=== PATIENT | male | born 1945 | race Caucasian/White ===

== ENCOUNTER 2020-04-28 08:45 | Day surgery (SDC) | payer MEDICARE ==
[~2020-04-28 08:45] MED LIST: CISPLATIN IV SCH; MANNITOL IV SCH; Palonosetron HCl 0.25 MG in Sodium Chloride 0.9% 50 ML IVPB SCH; SODIUM CHLORIDE 0.9% IV SCH; Sodium Chloride 0.9% 500 ML IV SCH
[2020-04-28 09:08] VITALS: BP 113/77; TEMP 97.9
== END 2020-04-28 12:32 | disposition home or self-care (01) ==
LOC: ONC/OP 08:45
PROVIDERS: ATTEND Internal Medicine Hematology & Oncology
DX: Z51.11 Encounter for antineoplastic chemotherapy (principal); C02.2 Malignant neoplasm of ventral surface of tongue
CPT/HCPCS: 77386; 96361; 96367; 96375; 96413; J1100; J1453; J2150; J2469; J3480; J3490; J7030; J9060

== ENCOUNTER 2020-05-05 09:19 | Day surgery (SDC) | payer MEDICARE ==
[~2020-05-05 09:19] MED LIST changes: +Sodium Chloride 0.9% 500 ML IVPB SCH
[2020-05-05] MEDS ORDERED: Sodium Chloride 0.9% 20 ML ONE (09:25)
[2020-05-05 09:34] VITALS: BP 114/72; TEMP 98.5
== END 2020-05-05 14:46 | disposition home or self-care (01) ==
LOC: ONC/OP 09:19
PROVIDERS: ATTEND Internal Medicine Hematology & Oncology
DX: Z51.11 Encounter for antineoplastic chemotherapy (principal); C02.2 Malignant neoplasm of ventral surface of tongue
CPT/HCPCS: 96361; 96367; 96375; 96413; J1100; J1453; J2150; J2469; J3480; J3490; J7030; J9060

== ENCOUNTER 2020-05-12 09:13 | Day surgery (SDC) | payer MEDICARE ==
[2020-05-12] MEDS ORDERED: Sodium Chloride 0.9% 20 ML ONE (09:21)
[2020-05-12 09:28] VITALS: BP 122/75; TEMP 97.8
== END 2020-05-12 13:12 | disposition home or self-care (01) ==
LOC: ONC/OP 09:13
PROVIDERS: ATTEND Internal Medicine Hematology & Oncology
DX: Z51.11 Encounter for antineoplastic chemotherapy (principal); C02.2 Malignant neoplasm of ventral surface of tongue
CPT/HCPCS: 77386; 96361; 96367; 96375; 96413; J1100; J1453; J2150; J2469; J3480; J3490; J7030; J9060

== ENCOUNTER 2020-05-21 23:37 | Inpatient (IN) | payer MEDICARE ==
[2020-05-21] MEDS ORDERED: Norepinephrine 8 MG/0.9% NS 250 ML ONE (23:44)
[2020-05-22] MEDS ORDERED: Lorazepam 2 MG/ML VIAL ONE (00:25)
[2020-05-22 00:53] LABS: Actual Bicarbonate (HCO3a) 14.6 mEq/L (22-28); Analyzer IN Cardio ER; Base Excess (BEa) -9.8 mEq/L (-2.0 to +3.0); CO2 Tension 27.9 mmHg (35.0-45.0); Calcium, Ionized (arterial) 1.04 mmol/L (1.12-1.30); Hemoglobin (Hb) 11.8 g/dL (14.0-18.0); O2 Tension (PaO2), arterial 119.9 mmHg (> 70.0); Potassium - ABG Lab 3.79 mmol/L (3.70-5.30); pH, Arterial 7.34 (7.35-7.45)
[2020-05-22 00:55] LABS: Puncture Site RRA
[2020-05-22 00:56] LABS: ALV-art Gradient 166.075 mmHg (0-20)
[2020-05-22 01:16] LABS: Band 8 % (5-11); Hemoglobin 11.6 g/dL (14.0-18.0); Hypochromia SLIGHT = 6-15 cells (100X) (0-5/hpf); Lymphocytes 40 % (21-51); MDiff Complete? YES; Mean Corpuscular HGB CONC 34.3 g/dL (32.0-36.0); Mean Corpuscular Hemoglobin 33.7 pg (27.0-31.0); Mean Corpuscular Volume 98.3 fL (78.0-98.0); Metamyelocyte 2 % (0-0); Monocytes 26 % (0-10); Neutrophil 24 % (42-75); Platelet Count 33 thou/uL (130-400); Platelet Morphology Comment Appears Decreased; RBC Distribution Width 12.8 % (11.5-14.5); Red Blood Cell (RBC) Count 3.42 mill/uL (4.70-6.10); Reflex for Review?? YES; White Blood Cell (WBC) Count 1.6 thou/uL (4.8-10.8)
[2020-05-22] MEDS ORDERED: Ondansetron PF 4 MG/2 ML Vial IVP PRN (01:22)
[2020-05-22] MEDS ORDERED: Ondansetron ODT 4 MG TAB PO PRN (01:22)
[2020-05-22] MEDS ORDERED: Acetaminophen 650 MG Suppository PR PRN (01:22)
--- NOTE | 2020-05-22 01:29 | PDOC.HHP ---
Hospitalist HPI - History of Present Illness dyspnea History of Present Illness: history is limited, patient with considerable dyspnea unable to speak more than a few words at a time, also had cancer removed from tongue Case of an 74y/o male with pmhx of squamous cell carcinoma currently on treatment with chemo + radio, last treatment 2 weeks ago who comes to hospital due to dyspnea. patient refers he was on his usual state of health until 2-3 days ago when he started with general malaise and dyspnea. pt also refers noted some cough with production of reddish sputum. patient was evaluated at [facility] and was found to be on sepsis for which bundles were started. He was given 30/kg bolus of normal saline, cefepime, vancomycin, and Levaquin, which was later discontinued due to a decreased in b/p when it was started. Patient was noted to be hypoxic, febrile tachycardic, and hypotensive for which levophed was also started. patient was diagnosed with b/l pneumonia with septic shock for which hospitalist was called for further evaluation and management Hospitalist ROS - Review of Systems All other systems reviewed; all pertinent +/- noted in HPI/Subj Hospitalist History - Past Surgical History Other Surgical History: tumor from tongue removed - Family History Family History: reports: no pertinent history - Social History Smoking Status: Former smoker Alcohol: reports: None Drugs: reports: none - Exam General Appearance: ill appearing Eye: PERRL, anicteric sclera ENT: normocephalic atraumatic, no oropharyngeal lesions Neck: supple, symmetric Heart: no murmur, no gallops Heart - other findings: tachycardic Respiratory: no wheezes, rhonchi, tachypneic Gastrointestinal: soft, non-tender, non-distended, normal bowel sounds Extremities: no cyanosis, no clubbing, no edema Skin: normal turgor, no lesions, no rashes Neurological: cranial nerve grossly intact, normal sensation to touch, no weakness Musculoskeletal: normal tone, normal strength, no muscle wasting Psychiatric: normal affect, normal behavior, A&O x 3 Hospitalist Results - Labs Result Diagrams: 05/22/20 01:40 RADIOTELEGRAPHER Lab results: ABG pH 7.34 (7.35-7.45) L 05/22/20 00:50 ABG pCO2 27.9 mmHg (35.0-45.0) L 05/22/20 00:50 ABG pO2 119.9 mmHg (> 70.0) H 05/22/20 00:50 Lactic Acid 3.9 mmol/L (0.5-2.2) H 05/22/20 00:25 Hospitalist H&P A/P - Problem (1) Septic shock Code(s): A41.9 - SEPSIS, UNSPECIFIED ORGANISM; R65.21 - SEVERE SEPSIS WITH SEPTIC SHOCK Status: Acute (2) Pneumonia Code(s): J18.9 - PNEUMONIA, UNSPECIFIED ORGANISM Status: Acute (3) Squamous cell cancer of buccal mucosa Code(s): C06.0 - MALIGNANT NEOPLASM OF CHEEK MUCOSA Status: Acute (4) Pancytopenia Code(s): D61.818 - OTHER PANCYTOPENIA Status: Acute - Plan Plan: case of 74y/o male with the stated pmhx who present to hospital due to septic shock septic shock / pneumonia - febrile tachycardic hypotensive with cxr with b/l pneumonia b/p did no respon to ivfs started on levophed - sepsis bundles started. ivfs administered, cultures taken broad spectrum abx started - currently on cefepime and vanc - f/u blood cultures - on levophed - concern for possible covid 19, initial test negative - isolation protocol started - id consulted - f/u inflammation markers - solucortef 100mg now then 50 q 6hr - pulmo/crit consulted acute respiratory failure - secondary to pneumonia - on bipap, wean as tolerated - extract wringer consulted pancytopenia / squamouns cell carcinoma - reverse isolation precautions - dvt prophylaxis w compression stocking - transfuse rbcs if below 7, plts if below 10 - likely related to ca treatment - oncologist consulted
[2020-05-22 01:50] LABS: SARS-CoV-2 NAA Rapid Test Not Detected (NotDetected)
[2020-05-22] MEDS ORDERED: Hydrocortisone Sod Succ/PF 100 mg/2 ml Vial IVP SCH (02:15)
[2020-05-22] MEDS: Sodium Chloride 0.9% 1,000 ML IV SCH ×2 (02:26→15:40)
[2020-05-22] MEDS ORDERED: PROVENTIL INHALER 6.7 G (200 INHALATIONS) INH SCH (02:30)
[2020-05-22] MEDS ORDERED: Albuterol Sulfate 1.25 MG/3 ML NEB NEB SCH (02:30)
[2020-05-22 02:44] LABS: ALT (SGPT) 24 U/L (8-55); AST (SGOT) 28 U/L (5-34); Albumin 2.7 g/dL (3.4-4.8); Alkaline Phosphatase 78 U/L (40-110); Anion Gap 19 mmol/L (10-20); BUN (Urea Nitrogen) 43 mg/dL (8.4-25.7); Bilirubin, Total 1.1 mg/dL (0.2-1.2); Calc. Creatinine Clearance 45 mL/min (70-130); Calcium 7.5 mg/dL (7.8-10.44); Carbon Dioxide 17 mmol/L (23-31); Chloride 111 mmol/L (98-107); Estimated GFR-MDRD 41; Glucose 141 mg/dL (83-110); Protein, Total 5.7 g/dL (5.8-8.1); Sodium 143 mmol/L (136-145)
[2020-05-22] MEDS ORDERED: Succinylcholine 200 MG/10 ml SYRINGE FS SCH (03:19)
[2020-05-22] MEDS ORDERED: Propofol BOLUS 1,000 MG/100 ML VIAL IV PRN (03:30)
[2020-05-22] MEDS ORDERED: DISCONTINUE PREVIOUS NARCOTIC PAIN MEDICATIONS AND BENZODIAZEPINES FS SCH (03:30)
[2020-05-22] MEDS ORDERED: Morphine 2 MG/ML VIAL SLOW IVP PRN (03:30)
[2020-05-22] MEDS ORDERED: Fentanyl BOLUS 250 ML IVPB PRN (03:30)
[2020-05-22] MEDS ORDERED: Lorazepam 2 MG/ML VIAL SLOW IVP PRN (03:30)
[2020-05-22 03:36] LABS: Lactic Acid 2.7 mmol/L (0.5-2.2)
[2020-05-22] MEDS: Propofol 1,000 MG/100 ML VIAL IV PRN ×3 (03:36→21:32)
[2020-05-22] MEDS: fentaNYL Citrate/PF 2,000 MCG in Sodium Chloride 0.9% 60 ML IV SCH ×2 (03:39→23:54)
[2020-05-22 04:01] LABS: Bacteria/HPF 2+ HPF (None Seen); Bilirubin Negative (Negative); Blood, Urine 2+ (Negative); Clarity Turbid (Clear); Glucose, Urine (Dipstick) Normal (Negative); Ketone, Urine Negative (Negative); Leukocyte Negative Leu/uL (Negative); Nitrite Negative (Negative); Protein, Urine (Dipstick) 30 mg/dL (Neg-Trace); RBC/HPF 21-50 HPF (0-3); Specific Gravity, Urine 1.021 (1.002-1.036); Squamous Epithelial 0-3 HPF (0-3); Urobilinogen Normal mg/dL (Less than 2)
[2020-05-22 04:03] LABS: Urine Culture Reflex Yes Yes
[2020-05-22 04:06] LABS: Actual Bicarbonate (HCO3a) 17.4 mEq/L (22-28); Base Excess (BEa) -7.7 mEq/L (-2.0 to +3.0); CO2 Tension 34.1 mmHg (35.0-45.0); Calcium, Ionized (arterial) 1.07 mmol/L (1.12-1.30); Carboxyhemoglobin (COHb) 0.1 gm% (0.0-3.0); Hemoglobin (Hb) 11.5 g/dL (14.0-18.0); O2 Tension (PaO2), arterial 129.6 mmHg (> 70.0); Potassium - ABG Lab 4.21 mmol/L (3.70-5.30); pH, Arterial 7.33 (7.35-7.45)
[2020-05-22 04:10] LABS: ALV-art Gradient 255.575 mmHg (0-20); Puncture Site RRA
--- NOTE | 2020-05-22 04:15 | PDOC.BPN ---
- Brief Progress Note Encounter Date: 05/22/20 after an initial improvement with bipap, patient was changed to nasal canula. after a few hours nurse called me to notify me that patient had deteriorated and had to be placed on bipap again but was not doing to well. i examined the patient again, he was on bipap with adequate sats but his RR was fluctuating between 45-50 and he stated that he was getting very tired. To prevent a future respiratory collapse the decision was made to intubate the patient. i explained to him the current situation and he agreed to be intubated. anesthesiologist was called and intubation was done succesfully on first attemp.
[2020-05-22] MEDS: Cefepime 2 GM in Sodium Chloride 0.9% 100 ML IVPB SCH ×3 (06:01→21:33)
[2020-05-22] MEDS: Albuterol Sulfate 1.25 MG/3 ML NEB NEB SCH ×5 (07:33→21:47)
[2020-05-22] MEDS: Hydrocortisone Sod Succ/PF 100 mg/2 ml Vial IVP SCH ×3 (07:49→21:32)
[2020-05-22] MEDS: Famotidine/PF 20 mg/2ml Vial SLOW IVP SCH (07:49)
[2020-05-22] MEDS: Norepinephrine 8 MG/0.9% NS 250 ML IVPB SCH ×2 (07:53→23:35)
[2020-05-22] MEDS ORDERED: FLU VACC QS2020-21(65YR UP)/PF 240 MCG/0.7 ML SYRINGE IM ONE (09:00)
--- NOTE | 2020-05-22 10:39 | RAD ---
PORTABLE CHEST: 05/22/20 PROVIDED CLINICAL HISTORY: Status post intubation. COMPARISON: Examination performed earlier same date. FINDINGS: Interval placement of endotracheal tube, the tip of which terminates just caudal to the thoracic inle t. Interval placement of enteric catheter, the tip of which is not visualized but is below the diaphr agm. Additional significant interval change from the prior study is not apparent. IMPRESSION: As above. POS: REILLY
--- NOTE | 2020-05-22 11:35 | RAD ---
PORTABLE CHEST: 05/22/20 PROVIDED CLINICAL HISTORY: Pneumonia. COMPARISON: 05/21/2020 FINDINGS: Interval placement of left subclavian central line, the tip of which projects over the expected locat ion of the cavoatrial junction. There is diffuse left hemithoracic air space disease. This follows pa tchy interstitial and air space opacities involving the right hemithorax. There is no pleural fluid o r pneumothorax apparent. IMPRESSION: Bilateral air space disease, left greater than right, appears similar. Interval placement of left sub clavian central line without evidence for complication. POS: REILLY
[2020-05-22] MEDS ORDERED: Succinylcholine 200 MG/10 ml SYRINGE FS ONE (13:39)
--- NOTE | 2020-05-22 15:51 | CON ---
DATE OF CONSULTATION: REASON FOR CONSULT: Squamous cell tongue cancer. HISTORY OF PRESENT ILLNESS: Mr. 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 He is status post resection and currently on concurrent chemoradiotherapy. He received cisplatin. He has been dealing with mouth pain and dysphagia, but has been resistant to have a feeding tube. He recently had a urinary tract infection and was treated with antibiotics. He presented to the emergency room yesterday with acute shortness of breath. He eventually declined and had to be intubated. He is currently on Levophed and pressors. He was pancytopenic on arrival with a white count of 1.6. His last cisplatin treatment was May 12. He has skipped his last weeks treatment due to just not feeling well. The patient's chest x-ray shows possible pneumonia. PAST MEDICAL HISTORY: Stage IVB squamous cell carcinoma of the tongue. PAST SURGICAL HISTORY: Right lateral tongue resection. ALLERGIES: NO KNOWN DRUG ALLERGIES. CURRENT MEDICATIONS: 1. Cefepime. 2. Pepcid. 3. Fentanyl. 4. Solu-Cortef. 5. Morphine. 6. Levophed. 7. Diprivan. 8. Vancomycin. 9. Normal saline. FAMILY HISTORY: Mother had bone cancer. Siblings have colon cancer. Child had lymphoma. SOCIAL HISTORY: Single. Lives with friend. A 45 year history of smoking. Former alcohol consumption. REVIEW OF SYSTEMS: Unable to obtain secondary to respiratory status. PHYSICAL EXAMINATION: VITAL SIGNS: Temperature is 98.7, pulse is 83, respiratory rate 13, BP is 102/63, and he is 97% on 40% FiO2. GENERAL: Chronically ill-appearing male, sedated. HEENT: Pupils are equal and reactive to light. NECK: He has a right cervical neck mass, neck wound, which is healed. LUNGS: With scattered rhonchi. CV: Regular rate and rhythm. ABDOMEN: Soft and nontender. Bowel sounds are positive. SKIN: He has radiation changes to his right neck. NEUROLOGIC: He is sedated. PERTINENT LABORATORY DATA AND X-RAYS: Current WBCs are 1.6, hemoglobin is 11.6, hematocrit is 33.7, and platelet count is 33,000. He has 24% neutrophils, 8% bands, and 40% lymphocytes. Sodium 143, potassium 4.0, chloride 111, CO2 of 17, BUN is 43, creatinine 1.65, lactic acid 2.7, and calcium 7.5. Ferritin is 2660. Bilirubin is 1.1, AST is 28, ALT is 24, and alkaline phosphatase is 78. Serum total protein is 5.7, albumin 2.7, and globulin 3. Urine shows 2+ bacteria. COVID-19 PCR negative. Radiology per HPI. ASSESSMENT: 1. Acute respiratory failure. 2. Pancytopenia secondary to chemoradiation. 3. Squamous cell carcinoma of the tongue. DISCUSSION: The patient is supported with the vent. He is on pressors and IV fluids. We will continue to monitor his blood counts. He is unable to get Neulasta at this time as he is on radiation. We will follow along with his hospital course. Will discuss with Dr. Terrell. Thank you for the consult. Job ID: [id number] [id number]
--- NOTE | 2020-05-22 17:28 | CON ---
DATE OF CONSULTATION: 05/22/2020 CHIEF COMPLAINT: Pneumonia with respiratory failure. HISTORY OF PRESENT ILLNESS: Mr. 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 He has subsequently received radiation and chemotherapy, most recently administered approximately 2 weeks ago. The patient presents to outside emergency room on the day of admission with increasing shortness of breath. He states that this has been present for several days, somewhere between 2 and 5, with associated malaise and dirty sputum. He was given a diagnosis of sepsis syndrome, for which fluid bolus administration and IV antibiotic therapy were initiated, and he was transferred to [facility] for further assessment. In the emergency room, the patient was further stabilized. He received Levophed for hypotension and ultimately admitted to the intensive care unit with a diagnosis of septic shock. Earlier this morning, the patient developed worsening respiratory distress and could not be maintained with BiPAP, at which time he was electively intubated. He is receiving sedation for ventilator tolerance and remains on Levophed infusion. I reviewed the available medical record. There is no family available at this time. The patient is unable to give history. SOCIAL HISTORY: The patient is a 74-year-old male. He is a former smoker. ALLERGIES: THERE ARE NO KNOWN MEDICATION ALLERGIES. HOME MEDICATIONS: Include [place]. He has received multiple antibiotics since admission. He has expressed an interest in intubation and resuscitation if appropriate based on his clinical status. PAST MEDICAL HISTORY: Remarkable for extensive tobacco history and what I presumed to be at least a component of COPD. He has a history of carcinoma of the tongue treated with hemiglossectomy and radical right neck followed by chemoradiation therapy. He does not have a known history of hypertension, myocardial infarction, or diabetes. REVIEW OF SYSTEMS: Unobtainable. FAMILY HISTORY: Unobtainable. PHYSICAL EXAMINATION: VITAL SIGNS: Current blood pressure 108/64, he is on Levophed at 20 mcg per minute; respiratory rate is 12; pulse ox is 97%; heart rate is 78. His current ventilator settings include IMV with a rate of 14, tidal volume 500, FiO2 of 0.6, pressure support of 10, and PEEP of 5. GENERAL: He is currently sedated. He does not follow commands. HEENT: Shows no icterus. Pupils are reactive. I cannot evaluate his oropharynx due to his endotracheal tube. NECK: He has postradiation changes involving the right neck, which is mildly fixed, but not firmly fixed. He has no JVD. LUNGS: Show bilateral rales. HEART: Regular rate and rhythm. ABDOMEN: Soft. Bowel sounds are normal. There is no guarding. EXTREMITIES: Show no cyanosis, clubbing, or edema. LABORATORY DATA: Chest x-ray shows extensive consolidation, especially on the left. Endotracheal tube is in good position. White count 1600, hemoglobin 11.6, hematocrit 33.7, and platelet count 33,000. Differential includes 24 lymphocytes and 8 bands. He has an absolute granulocyte count of approximately 500. D-dimer is greater than 20. Blood gas includes pH of 7.33, pCO2 of 34, pO2 of 129, and bicarbonate of 17. This is obtained on ventilator settings as described above. Chemistries include sodium 141, potassium 4.2, chloride 115, CO2 is 17, BUN 43, creatinine 1.6. Lactic acid is 2.7. CRP is 31. Liver tests are negative. Urinalysis shows 20 to 50 red cells and 10 to 20 white cells. COVID swab is negative. Cultures to date are negative. IMPRESSION: 1. Respiratory failure secondary to pneumonia in the setting of neutropenia. The patient has a known carcinoma of the tongue, status post right radical neck hemiglossectomy and postoperative chemoradiation, most recently given 2 weeks ago. He is on broad-spectrum antibiotics. 2. Past history of tobacco abuse. PLAN: The patient has received septic bundle and is on broad-spectrum antibiotics. Radiographically, he has a large pneumonia, especially on the left. We will continue supportive therapy including fluids and pressors. He is in neutropenic precautions. We will try to figure out if he is a candidate for G-CSF. In the interval, his condition is critical and prognosis is guarded. We will continue current ventilator settings and begin weaning when appropriate, although at this point, he remains non-weanable candidate due to his hypotension and underlying sepsis. Thank you for this consultation. Job ID: [id number]
--- NOTE | 2020-05-22 20:31 | CON ---
DATE OF CONSULTATION: 05/22/2020 REASON FOR CONSULTATION: Fever, neutropenia, and pneumonia. HISTORY OF PRESENT ILLNESS: A 74-year-old with history of head and neck squamous cell cancer on chemoradiation therapy, who was admitted with pneumonia, sepsis, neutropenia, last treatment about 2 weeks before admission and developed dyspnea, which started about 2 to 3 days before admission associated with malaise, cough with some hemoptysis. Eventually went to the emergency room in [place], was given sepsis protocol and broad-spectrum coverage and transferred to the hospital here. Initial findings in the emergency room; BP 90/70, heart rate 115, respiratory rate 43, temperature 100.1, and O2 saturation 97 on 4 L. The patient was in distress, very tachypneic. HEENT exam was not remarkable. Lungs with diffuse inspiratory crackles. Heart exam with regular rhythm without murmurs. Abdomen was not tender or distended. No edema noted. Other findings included a white cell count 1.6, total neutrophil count about 480 almost 500, 24% neutrophils, 8% bands, and 26% monocytes. D-dimer greater than 20. Sodium 143 and creatinine 1.65. Liver profile normal. CRP 30. Albumin 2.7. Ferritin 2600. Lactic acid 2.7. COVID was not detected. The urinalysis 11 to 20 wbc's. Initial chest film with bilateral infiltrates, left greater than right and subclavian left central line. Currently, Mr. Najera is sedated and intubated. According to the nurse, he is pretty responsive and follows commands when he is more alert. PAST MEDICAL HISTORY: Head and neck cancer, squamous cell of the tongue was resected and the patient is getting chemoradiation therapy. PAST SURGICAL HISTORY: As above. SOCIAL HISTORY: Former smoker. FAMILY HISTORY: Noncontributory. CURRENT MEDICATIONS: Include; 1. Inhalers. 2. Cefepime. 3. Fentanyl. 4. Robitussin. 5. Hydrocortisone 50 q.6. 6. Lorazepam. 7. Levophed. 8. Vancomycin. PHYSICAL EXAMINATION: VITAL SIGNS: T-max 101, he seem to be defervescing and saturations are 95 with 50 FiO2, PEEP of 5. SKIN: With a left subclavian central line. Ervin catheter. Orotracheal intubation. A few areas of bruising. No lymphadenopathy. HEENT: Constricted pupils symmetric. LUNGS: Coarse breath sounds, but no crackles. HEART: S1 and S2. Regular rate without murmurs. ABDOMEN: Soft, not distended or tender. No ascites. No bladder distention. EXTREMITIES: No joint inflammatory activity. No edema. Pulses 1+ in dorsalis pedis. I cannot test his movements right now because of sedation or mental state, but according to the nurse, he does follow commands when he is more alert. LABORATORY DATA: Followup labs are not available yet. Influenza was negative. Urine culture, no growth 48 hours. Blood cultures are pending. ASSESSMENT AND PLAN: Squamous cell cancer of the tongue, status post resection and chemoradiation therapy, now two weeks following his course of treatment with neutropenia and pneumonia. He has community-acquired pneumonia, immunosuppressed host associated with neutropenia, so he is on proper regimen right now. Pretest likelihood for COVID is around 50, posttest likelihood less than 15%. Continue current management. Job ID: [id number]
[2020-05-22] MEDS ORDERED: Vancomycin 1 GM in Premix Bag 1 BAG IVPB SCH (23:00)
[2020-05-22] MEDS: Vancomycin HCl 1.25 GM in Sodium Chloride 0.9% 250 ML 250 ML IVPB SCH (23:28)
[2020-05-23] MEDS: Albuterol Sulfate 1.25 MG/3 ML NEB NEB SCH ×3 (02:39→11:16)
[2020-05-23] MEDS: Hydrocortisone Sod Succ/PF 100 mg/2 ml Vial IVP SCH ×4 (03:11→20:54)
[2020-05-23 05:12] LABS: Anion Gap 14 mmol/L (10-20); BUN (Urea Nitrogen) 29 mg/dL (8.4-25.7); Calc. Creatinine Clearance 83 mL/min (70-130); Calcium 7.8 mg/dL (7.8-10.44); Carbon Dioxide 22 mmol/L (23-31); Chloride 113 mmol/L (98-107); Estimated GFR-MDRD 83; Glucose 132 mg/dL (83-110); Potassium 3.9 mmol/L (3.5-5.1); Sodium 145 mmol/L (136-145)
[2020-05-23 05:15] LABS: Band 8 % (5-11); Hemoglobin 9.7 g/dL (14.0-18.0); Lymphocytes 16 % (21-51); MDiff Complete? YES; Mean Corpuscular HGB CONC 33.8 g/dL (32.0-36.0); Mean Corpuscular Hemoglobin 33.6 pg (27.0-31.0); Mean Corpuscular Volume 99.6 fL (78.0-98.0); Mean Platelet Volume 10.1 fL (7.4-10.4); Metamyelocyte 8 % (0-0); Monocytes 8 % (0-10); Neutrophil 60 % (42-75); Platelet Count 31 thou/uL (130-400); Platelet Morphology Comment Appears Decreased; Red Blood Cell (RBC) Count 2.88 mill/uL (4.70-6.10); White Blood Cell (WBC) Count 1.1 thou/uL (4.8-10.8)
[2020-05-23] MEDS: Propofol 1,000 MG/100 ML VIAL IV PRN ×3 (05:49→20:54)
[2020-05-23] MEDS: Cefepime 2 GM in Sodium Chloride 0.9% 100 ML IVPB SCH ×3 (05:51→21:13)
[2020-05-23] MEDS: Sodium Chloride 0.9% 1,000 ML IV SCH ×2 (05:52→20:54)
[2020-05-23 07:21] LABS: Actual Bicarbonate (HCO3a) 24.7 mEq/L (22-28); Base Excess (BEa) -1.5 mEq/L (-2.0 to +3.0); CO2 Tension 48.4 mmHg (35.0-45.0); Calcium, Ionized (arterial) 1.06 mmol/L (1.12-1.30); Carboxyhemoglobin (COHb) 0.3 gm% (0.0-3.0); O2 Tension (PaO2), arterial 125.2 mmHg (> 70.0); Potassium - ABG Lab 3.88 mmol/L (3.70-5.30); pH, Arterial 7.33 (7.35-7.45)
[2020-05-23 07:26] LABS: Puncture Site RR
[2020-05-23] MEDS: Famotidine/PF 20 mg/2ml Vial SLOW IVP SCH (08:25)
[2020-05-23] MEDS: Norepinephrine 8 MG/0.9% NS 250 ML IVPB SCH ×2 (08:46→18:46)
[2020-05-23] MEDS ORDERED: Albumin 25% 25 GM/100 ML BOT IVPB SCH (09:30)
--- NOTE | 2020-05-23 10:43 | PRG ---
DATE OF SERVICE: 05/23/2020 SUBJECTIVE: He is a gentleman with respiratory failure, intubated. X-ray shows left-sided pneumonia. He is sedated; obviously unable to get any additional information. OBJECTIVE: VITAL SIGNS: pulse 59, blood pressure respiratory rate 13. CHEST: Bilateral rhonchi and crackles. CARDIAC: Normal S1, S2. No gallops. ABDOMEN: No masses. DIAGNOSTIC STUDIES: X-ray shows a left-sided pneumonia. He is immunocompromised. History of head and neck cancer, recent chemotherapy. IMPRESSION: Respiratory failure, left lung pneumonia, immunocompromised, pancytopenia. White count 1.1, platelet count 64334, bands. PO2 125, pCO2 48, pH 7.33 50%. Lytes are normal. PLAN: Continue Maxipime. Continue vancomycin, steroids. Wean when stable. I am going to start him on some nutrition. PT. One-half hour of critical care time. Job ID: [id number]
--- NOTE | 2020-05-23 14:23 | PDOC.HOSPP ---
- Subjective Encounter Date: 05/23/20 non-verbal (Remains on the ventilator.) - Objective Vital Signs & Weight: Vital Signs (12 hours) Temp Pulse Resp BP Pulse Ox 05/23/20 12:00 99.4 F 16 05/23/20 11:17 77 116/72 05/23/20 11:00 99.5 F 05/23/20 10:00 16 05/23/20 08:00 99.8 F H 21 H 97 05/23/20 06:58 82 96/62 05/23/20 06:00 22 H 05/23/20 04:00 19 05/23/20 03:00 98.0 F 05/23/20 02:40 84 96/61 Weight Admit Weight 174 lb Weight 173 lb 15.115 oz Most Recent Monitor Data Heart Rate from ECG 85 NIBP 119/71 NIBP BP-Mean 87 Respiration from ECG 10 SpO2 95 I&O: 05/22/20 05/23/20 05/24/20 06:59 06:59 06:59 Intake Total 2566 Output Total 2019 54 Balance 546 -545 Result Diagrams: 05/23/20 04:00 05/23/20 04:00 Hospitalist ROS - Medication Medications: Active Medications Generic Name Dose Route Start Last Admin Trade Name Freq PRN Reason Stop Dose Admin Albuterol/Ipratropium 3 ml 05/23/20 13:00 05/23/20 13:47 Ipratropium/Albuterol Sulfate 3 Ml Neb NEB 3 ml [id number] SOURAV Administration Famotidine 20 mg 05/22/20 09:00 05/23/20 08:25 Famotidine/Pf 20 Mg/2ml Vial SLOW IVP 20 mg DAILY SOURAV Administration Hydrocortisone Sodium Succinate 50 mg 05/22/20 09:00 05/23/20 08:24 Hydrocortisone Sod Succ/Pf 100 Mg/2 Ml Vial IVP 50 mg 0300,0900,1500,2100 SOURAV Administration Sodium Chloride 1,000 mls @ 70 mls/hr 05/22/20 01:30 HOME CARE ATTENDANT 05/23/20 05:52 Normal Saline 0.9% IV 1,000 mls .[id number] SOURAV Administration Cefepime HCl 2 gm/ Sodium 100 mls @ 200 mls/hr 05/22/20 06:00 05/23/20 05:51 Chloride IVPB 100 mls Q8HR SOURAV Administration Norepinephrine Bitartrate 250 mls @ 0 mls/hr 05/22/20 01:30 HOME CARE ATTENDANT 05/23/20 08:46 Levophed IVPB 250 mls INF SOURAV Administration Protocol Titrate Fentanyl Citrate 2,000 mcg/ 100 mls @ 0 mls/hr 05/22/20 03:30 05/22/20 23:54 Sodium Chloride IV 06/21/20 03:30 100 mls INF SOURAV Administration Protocol Per Protocol Vancomycin HCl 1.25 gm/ Sodium 250 mls @ 166.667 mls/hr 05/22/20 23:00 05/22/20 23:28 Chloride IVPB 250 mls 2300 SOURAV Administration Propofol 1,000 mg 05/22/20 03:30 05/23/20 05:49 Propofol 1,000 Mg/100 Ml Vial IV 06/21/20 03:30 1,000 mg INF PRN Administration TO ACHIEVE GOAL RASS Protocol - Exam ENT: normocephalic atraumatic Neck: supple, no JVD Heart: RRR Respiratory: normal chest expansion, no tachypnea Extremities: no cyanosis, no clubbing, no edema Hosp A/P (1) UTI (urinary tract infection) Status: Acute (2) Pancytopenia Code(s): D61.818 - OTHER PANCYTOPENIA Status: Acute (3) Pneumonia Code(s): J18.9 - PNEUMONIA, UNSPECIFIED ORGANISM Status: Acute (4) Septic shock Code(s): A41.9 - SEPSIS, UNSPECIFIED ORGANISM; R65.21 - SEVERE SEPSIS WITH SEPTIC SHOCK Status: Acute (5) Squamous cell cancer of buccal mucosa Code(s): C06.0 - MALIGNANT NEOPLASM OF CHEEK MUCOSA Status: Acute (6) Acute kidney injury Code(s): N17.9 - ACUTE KIDNEY FAILURE, UNSPECIFIED Status: Acute - Plan The patient still in septic shock today. He is requiring less Levophed than yesterday. Continue broad-spectrum antibiotics per ID recommendations. Vent management per pulmonology. His urine output is adequate. Creatinine level improving.
[2020-05-23 22:40] LABS: Vancomycin, Trough 5.6 ug/mL
[2020-05-23] MEDS: Vancomycin HCl 1.25 GM in Sodium Chloride 0.9% 250 ML 250 ML IVPB SCH ×2 (23:24→23:32)
[2020-05-24] MEDS: Hydrocortisone Sod Succ/PF 100 mg/2 ml Vial IVP SCH ×4 (02:34→20:54)
[2020-05-24] MEDS ORDERED: Metoprolol Tartrate 5 MG/5 ML VIAL IVP ONE (03:15)
[2020-05-24] MEDS: Amiodarone 450 MG, Admixture Fee 1 EACH in Dextrose 5% in Water 250 ML IVPB SCH ×2 (03:54→11:55)
[2020-05-24] MEDS: fentaNYL Citrate/PF 2,000 MCG in Sodium Chloride 0.9% 60 ML IV SCH (04:11)
[2020-05-24 04:39] LABS: Hemoglobin 9.3 g/dL (14.0-18.0); Mean Platelet Volume 9.6 fL (7.4-10.4); Platelet Count 19 thou/uL (130-400); RBC Distribution Width 13.1 % (11.5-14.5)
[2020-05-24 04:55] LABS: Band 32 % (5-11); Hypochromia SLIGHT = 6-15 cells (100X) (0-5/hpf); Lymphocytes 20 % (21-51); MDiff Complete? YES; Macrocytosis SLIGHT = 6-15 cells (100X) (0-5/hpf); Metamyelocyte 8 % (0-0); Monocytes 16 % (0-10); Neutrophil 24 % (42-75); Platelet Morphology Comment Appears Decreased
[2020-05-24 05:05] LABS: Anion Gap 11 mmol/L (10-20); BUN (Urea Nitrogen) 28 mg/dL (8.4-25.7); Calc. Creatinine Clearance 93 mL/min (70-130); Calcium 8.2 mg/dL (7.8-10.44); Carbon Dioxide 27 mmol/L (23-31); Chloride 114 mmol/L (98-107); Estimated GFR-MDRD Greater than 90; Glucose 164 mg/dL (83-110); Potassium 3.3 mmol/L (3.5-5.1); Sodium 149 mmol/L (136-145)
[2020-05-24] MEDS: Cefepime 2 GM in Sodium Chloride 0.9% 100 ML IVPB SCH ×3 (05:34→20:56)
[2020-05-24] MEDS: Propofol 1,000 MG/100 ML VIAL IV PRN (05:35)
[2020-05-24 07:48] LABS: Actual Bicarbonate (HCO3a) 26.7 mEq/L (22-28); Base Excess (BEa) 0.2 mEq/L (-2.0 to +3.0); CO2 Tension 53.4 mmHg (35.0-45.0); Calcium, Ionized (arterial) 1.15 mmol/L (1.12-1.30); Carboxyhemoglobin (COHb) 0.3 gm% (0.0-3.0); Hemoglobin (Hb) 9.2 g/dL (14.0-18.0); O2 Tension (PaO2), arterial 94.6 mmHg (> 70.0); Potassium - ABG Lab 3.28 mmol/L (3.70-5.30); pH, Arterial 7.32 (7.35-7.45)
[2020-05-24 07:52] LABS: Puncture Site RR
[2020-05-24] MEDS: Famotidine/PF 20 mg/2ml Vial SLOW IVP SCH (08:06)
[2020-05-24] MEDS: Norepinephrine 8 MG/0.9% NS 250 ML IVPB SCH (08:07)
--- NOTE | 2020-05-24 09:39 | PRG ---
DATE OF SERVICE: 05/24/2020 SUBJECTIVE: A 74-year-old gentleman, intubated, in the vent, remains sedated. OBJECTIVE: VITAL SIGNS: His temperature is 98, pulse 95, blood pressure 101/65, respiratory rate 18, saturations 90%. CHEST: Bilateral rhonchi and crackles. CARDIAC: Normal S1, S2. No gallops. ABDOMEN: No masses. LABORATORY DATA: White count 1, H and H are 9 and 28, platelet count is 19,000, 24 segs, 32 bands. PO2 is 94, pCO2 of 53, pH 7.32, on 40% PEEP of 5. Lytes are normal. Potassium 3.3. Respiratory failure, left-sided pneumonia, head and neck cancer, probably aspiration. PLAN: He is on Maxipime and vancomycin, steroids. Still awaiting results of his cultures. We will continue all supportive care. Wean when he is stable. He is on nutrition, PT. One-half hour of critical care time. Job ID: [id number]
[2020-05-24] MEDS ORDERED: Digoxin 0.5 MG/2 ML AMP SLOW IVP SCH (10:00)
[2020-05-24] MEDS: Vancomycin HCl 1.25 GM in Sodium Chloride 0.9% 250 ML 250 ML IVPB SCH ×2 (10:33→22:26)
[2020-05-24] MEDS: 1/2 NS w/KCL 20 mEq 1,000 ML IV SCH ×2 (12:19→21:36)
[2020-05-24] MEDS: Digoxin 0.5 MG/2 ML AMP SLOW IVP SCH ×2 (15:13→20:57)
--- NOTE | 2020-05-24 15:17 | PDOC.HOSPP ---
- Subjective Encounter Date: 05/24/20 Subjective: Patient is off sedation today. He is able to open his eyes and follow commands. - Objective Vital Signs & Weight: Vital Signs (12 hours) Temp Pulse Resp BP Pulse Ox 05/24/20 15:13 128 H 05/24/20 14:44 128 H 28 H 93 L 05/24/20 12:00 98.2 F 05/24/20 10:33 141 H 05/24/20 10:00 92 L 05/24/20 08:00 98.2 F 14 96 05/24/20 07:35 95 101/67 05/24/20 06:00 16 05/24/20 04:00 98.6 F 15 Weight Admit Weight 174 lb Weight 175 lb 4.28 oz Most Recent Monitor Data Heart Rate from ECG 143 NIBP 98/66 NIBP BP-Mean 76 Respiration from ECG 20 SpO2 95 I&O: 05/23/20 05/24/20 05/25/20 06:59 06:59 06:59 Intake Total 2566 1711.2 1008.2 Output Total 2019 1840 775 Balance 546 -128.8 233.2 Result Diagrams: 05/25/20 03:00 05/25/20 03:00 Hospitalist ROS - Medication Medications: Active Medications Generic Name Dose Route Start Last Admin Trade Name Leviq PRN Reason Stop Dose Admin Albuterol/Ipratropium 3 ml 05/23/20 13:00 05/24/20 14:44 Ipratropium/Albuterol Sulfate 3 Ml Neb NEB 3 ml [id number] SOURAV Administration Digoxin 0.25 mg 05/24/20 16:00 05/24/20 15:13 Digoxin 0.5 Mg/2 Ml Amp SLOW IVP 05/24/20 23:59 0.125 mg 1600,2200 SOURAV Administration Hydrocortisone Sodium Succinate 50 mg 05/22/20 09:00 05/24/20 15:12 Hydrocortisone Sod Succ/Pf 100 Mg/2 Ml Vial IVP 50 mg 0300,0900,1500,2100 SOURAV Administration Cefepime HCl 2 gm/ Sodium 100 mls @ 200 mls/hr 05/22/20 06:00 05/24/20 05:34 Chloride IVPB 100 mls Q8HR SOURAV Administration Norepinephrine Bitartrate 250 mls @ 0 mls/hr 05/22/20 01:30 MANAGER SHAREPOINT 05/24/20 08:07 Levophed IVPB 250 mls INF SOURAV Administration Protocol Titrate Vancomycin HCl 1.25 gm/ Sodium 250 mls @ 166.667 mls/hr 05/23/20 23:00 05/24/20 10:33 Chloride IVPB 250 mls 1100,2300 SOURAV Administration Amiodarone HCl 450 mg/ 259 mls @ 0 mls/hr 05/24/20 03:30 05/24/20 11:55 Miscellaneous Medication 1 IVPB 259 mls each/ Dextrose/Water INF SOURAV Administration Protocol As Directed Potassium Chloride/Sodium Chloride 1,000 mls @ 100 mls/hr 05/24/20 09:15 05/24/20 12:19 1/2 Ns W/Kcl 20 Meq IV 1,000 mls .Q10H SOURAV Administration - Exam ENT: normocephalic atraumatic Neck: supple, no JVD Heart - other findings: Tachycardia with irregular rhythm Respiratory: normal chest expansion, no tachypnea Extremities: no cyanosis, no clubbing Hosp A/P (1) Septic shock Code(s): A41.9 - SEPSIS, UNSPECIFIED ORGANISM; R65.21 - SEVERE SEPSIS WITH SEPTIC SHOCK Status: Acute (2) UTI (urinary tract infection) Status: Acute (3) Pancytopenia Code(s): D61.818 - OTHER PANCYTOPENIA Status: Acute (4) Pneumonia Code(s): J18.9 - PNEUMONIA, UNSPECIFIED ORGANISM Status: Acute (5) Squamous cell cancer of buccal mucosa Code(s): C06.0 - MALIGNANT NEOPLASM OF CHEEK MUCOSA Status: Acute (6) Acute kidney injury Code(s): N17.9 - ACUTE KIDNEY FAILURE, UNSPECIFIED Status: Acute (7) Atrial fibrillation with RVR Code(s): I48.91 - UNSPECIFIED ATRIAL FIBRILLATION Status: Acute - Plan Septic shock is improving. Levophed continued to be weaned down. Continue broad-spectrum antibiotics per ID recommendations. Vent management per pulmonology. Atrial fibrillation with RVR is now present. The patient has received digoxin per cardiology.
--- NOTE | 2020-05-24 18:39 | PRG ---
DATE OF SERVICE: 05/24/2020 SUBJECTIVE: Mr. Najera has been extubated. OBJECTIVE: VITAL SIGNS: He is saturating at 93% with FiO2 of 40, BP 93/72, heart rate 128, respiratory rate 29. GENERAL: He is awake and follows commands. LUNGS: Diminished breath sounds at the bases. HEART: S1, S2 regular rate. ABDOMEN: Soft, not distended. Indwelling Ervin catheter. I's and O's are pretty even for the past few days. LABORATORY DATA: White cell count is 1.0, hemoglobin 9.3, platelets are down to 19,000 with 32% bands and pH was 7.32, pCO2 53, PO2 94, sodium 149, creatinine 0.8, potassium 3.3. Two sets of blood culture, no growth 48 hours. Sputum fluid culture with moderate normal respiratory eric. ASSESSMENT AND DISCUSSION: Squamous cell cancer of tongue, status post resection and chemoradiation 2 weeks following his last course of treatment with neutropenia, pneumonia community-acquired with immunosuppressed host associated with neutropenia. The patient has been extubated. Post-test likelihood of COVID is low. He is currently on amiodarone, cefepime, vancomycin to be continued. He is also on hydrocortisone 50 q.6 hours. Job ID: [id number]
[2020-05-24] MEDS ORDERED: Famotidine 20 MG TAB PO SCH (21:00)
[2020-05-24] MEDS: Acetaminophen 325 MG TAB PO PRN (22:19)
--- NOTE | 2020-05-24 23:45 | EKG ---
Test Reason : STAT Blood Pressure : / mmHG Vent. Rate : 131 BPM Atrial Rate : 076 BPM P-R Int : 000 ms QRS Dur : 090 ms QT Int : 358 ms P-R-T Axes : 000 006 039 degrees QTc Int : 528 ms Atrial fibrillation with rapid ventricular response Abnormal ECG No previous ECGs available Confirmed by Yovany GUILLORY ([id number]) on 05/24/2020 11:44:35 PM Referred By: NEERU Confirmed By:Yovany GUILLORY
--- NOTE | 2020-05-25 01:17 | CON ---
DATE OF CONSULTATION: 05/24/2020 INDICATION FOR CONSULTATION: A 74-year-old gentleman, with new onset atrial fibrillation. HISTORY OF PRESENT ILLNESS: This very unfortunate 74-year-old gentleman has recently undergone mouth surgery for squamous cell carcinoma of the tongue. He had a resection and then also had chemotherapy and radiation. Apparently, he had been doing quite well, but then noticed at home he became increasingly short of breath and eventually came to the emergency room, was found to have pneumonia with pancytopenia, required intubation. Eventually at this time in the intensive care unit, he also developed atrial fibrillation with rapid ventricular response. He was placed on IV amiodarone. He is not a candidate for anticoagulation as he has severe decrease in his platelets. At this time, he remains in atrial fibrillation, but has had episodes since his admission being in sinus rhythm and hopefully with the amiodarone, he will return to a sinus rhythm. He will also be given digoxin due to the tachycardia with atrial fibrillation. Hopefully, this will also slow the response. If his blood pressure tolerates and he needs further lowering of the heart rate, then we can either add IV diltiazem or beta blockers in addition to the amiodarone and the digoxin. Please refer to the notes dictated by the resident, we saw the patient together. I have reviewed the assessment and plan, would agree with the assessment and plan with the overall status of the patient. He also had an echocardiogram performed today which showed a decrease in left ventricular systolic function. It is somewhat difficult to determine with the atrial fibrillation. However, his ejection fraction is estimated at 35% to 40%. He had a moderate left atrial dilatation as well as trace mitral valve regurgitation and [id number] tricuspid valve regurgitation. With the left atrial dilatation, it may be somewhat more difficult to get the patient to return to sinus rhythm and maintain sinus rhythm. Most likely, he will be able to be maintained on the amiodarone for antiarrhythmic medications. For the remainder of the history and physical, please refer to the notes dictated by the resident, Dr. Chago Winkler. Job ID: [id number]
[2020-05-25] MEDS: Hydrocortisone Sod Succ/PF 100 mg/2 ml Vial IVP SCH ×4 (02:56→22:14)
[2020-05-25 04:27] LABS: Hemoglobin 9.2 g/dL (14.0-18.0); Mean Corpuscular HGB CONC 33.7 g/dL (32.0-36.0); Mean Corpuscular Hemoglobin 33.7 pg (27.0-31.0); Mean Corpuscular Volume 99.9 fL (78.0-98.0); Mean Platelet Volume 10.4 fL (7.4-10.4); Platelet Count 15 thou/uL (130-400); Red Blood Cell (RBC) Count 2.74 mill/uL (4.70-6.10); White Blood Cell (WBC) Count 1.2 thou/uL (4.8-10.8)
[2020-05-25 04:42] LABS: Lymphocytes 30 % (21-51); MDiff Complete? YES; Monocytes 12 % (0-10); Neutrophil 58 % (42-75); Platelet Morphology Comment Appears Decreased
[2020-05-25 04:47] LABS: Anion Gap 12 mmol/L (10-20); BUN (Urea Nitrogen) 33 mg/dL (8.4-25.7); Calc. Creatinine Clearance 95 mL/min (70-130); Carbon Dioxide 29 mmol/L (23-31); Chloride 110 mmol/L (98-107); Estimated GFR-MDRD Greater than 90; Glucose 130 mg/dL (83-110); Sodium 148 mmol/L (136-145)
[2020-05-25] MEDS: Amiodarone 450 MG, Admixture Fee 1 EACH in Dextrose 5% in Water 250 ML IVPB SCH (04:54)
[2020-05-25] MEDS: Acetaminophen 325 MG TAB PO PRN (04:54)
[2020-05-25 04:55] LABS: Potassium 2.8 mmol/L (3.5-5.1)
[2020-05-25] MEDS: 1/2 NS w/KCL 20 mEq 1,000 ML IV SCH ×2 (04:55→14:17)
[2020-05-25] MEDS: Cefepime 2 GM in Sodium Chloride 0.9% 100 ML IVPB SCH ×3 (04:55→22:15)
[2020-05-25] MEDS ORDERED: Electrolyte Replacement Protocol FS PRN (05:30)
[2020-05-25] MEDS: Potassium Chloride 40 MEQ in Premix Bag 1 BAG IVPB SCH ×2 (05:39→08:14)
[2020-05-25] MEDS ORDERED: Magnesium 2 GM/50 ML 2 GM in Premix Bag 1 BAG IVPB SCH (06:30)
--- NOTE | 2020-05-25 06:50 | PRG ---
DATE OF SERVICE: 05/24/2020 SUBJECTIVE: The patient is a 74-year-old male with past medical history significant for squamous cell carcinoma of the tongue, status post surgical resection with chemotherapy and radiation therapy treatment, who presented to the hospital with a chief complaint of shortness of breath and was subsequently found to have bilateral pneumonia and a likely urinary tract infection, who was evaluated by Cardiology for apparent new onset atrial fibrillation with rapid ventricular response. At the time of evaluation, the patient was being weaned off intubation, but due to his surgical resection of a portion of his tongue, communication was difficult. Per discussions with Dr. Estefany Whitmore, Cardiology, the patient stated that he had a history of a myocardial infarction and atrial fibrillation. However, it is unclear if this was recent, remote, or if the patient was mildly confused during the conversation. Additional investigation into this matter will be required. At the time of evaluation, the patient was on several drips in the ICU most notably Levophed at 10 mcg/minute and amiodarone at 1 mg/minute. The patient was not on sedation, and there were no events reported by nursing staff and no significant overnight events reported by the hospitalist group. OBJECTIVE: VITAL SIGNS: Were noted to have a heart rate that fluctuated between the low 100s and as high as 120s to 130s; however, the majority of these were in the one teens to 120s. Respiratory rate status post extubation was spontaneous and unlabored, although the patient was coughing frequently. Blood pressure was recorded as 101/67. Most recent temperature was afebrile and the patient has not demonstrated a fever since May 22. HEENT: Head is normocephalic, atraumatic. Eyes demonstrated extraocular muscles intact with grossly normal vision. Nose demonstrated moist mucous membrane without septal deviation. Throat demonstrated no tracheal deviation. CARDIOVASCULAR: Irregularly irregular rhythm with no murmurs, clicks, gallops, or rubs. Review of EKGs throughout the patient's hospitalization revealed new onset atrial fibrillation with rapid ventricular response. Initial EKG in the ER showed mainly sinus tachycardia. RESPIRATORY: Coarse lung sounds bilaterally without wheezes or rales. ABDOMEN: Nontender, nondistended abdomen with normoactive bowel sounds x4. EXTREMITIES: No obvious edema or erythema in the lower extremities with pulses intact bilaterally. : Ervin catheter in place with approximately 500 mL of red tinged to francis colored urine. LABORATORY DATA: Per review of laboratory results, the patient's urine demonstrated +2 bacteria, hyaline casts, granular casts, white blood cells, red blood cells, and anastasiia blood. Culture currently reflex. Microbiology: The patient was subsequently swabbed for COVID-19. Results of which were negative. IMAGING: No imaging is available at this time for review; however, an echo was ordered by Cardiology. The results of which are currently pending. ASSESSMENT: 1. Septic shock secondary to community-acquired pneumonia. 2. Squamous cell carcinoma of the tongue, status post surgical resection, radiation and chemotherapy treatment. 3. Pancytopenia. 4. Atrial fibrillation with rapid ventricular response. PLAN: The patient's condition is guarded, but improving as he is currently off sedation and off mechanical ventilation. However, his hypotension combined with atrial fibrillation with rapid ventricular response is concerning. The patient is currently receiving amiodarone via drip as mentioned above, but would likely benefit from augmentation with digoxin. As such, he will be given a bolus this a.m. and then subsequent boluses q.6 hours with monitoring of his creatinine function indicated via a.m. labs. The patient denies chest pain at this time. There is no evidence of ischemia and no evidence of ST segment changes on most recent EKG. No troponins were available for review. As the patient has a platelet count of 19 on most recent CBC, he does not warrant anticoagulation at this time due to bleeding risk. Plan will be to continue rate control as per above. This was discussed in detail with Dr. Estefany Whitmore, Cardiology, and she is in agreement with the plan. Job ID: [id number]
[2020-05-25] MEDS: Digoxin 0.5 MG/2 ML AMP SLOW IVP SCH (08:03)
[2020-05-25] MEDS: Famotidine/PF 20 mg/2ml Vial SLOW IVP SCH ×2 (08:03→22:23)
--- NOTE | 2020-05-25 08:07 | RAD ---
Chest AP view INDICATION: History of intubation COMPARISON: May 24, 2020 FINDINGS: Lungs: There is an improvement in the airspace disease involving both lungs. Moderate residual airsp harsha disease involves the left lung and right lower lobe. Cardiac silhouette: There is stable cardiomegaly Pulmonary vasculature: Mild pulmonary vascular congestion remains. Pleural spaces: Small bilateral pleural effusions persist. Upper abdomen: No abnormality seen. Osseous structures: No acute osseous abnormality. Additional findings: ET tube and gastric catheter is been removed. Left subclavian central venous ca theter is unchanged in position. IMPRESSION: Improving bilateral pneumonia. Persistent mild volume overload or CHF. Interval extubation and gastri c catheter removal. No pneumothorax.
--- NOTE | 2020-05-25 08:53 | PRG ---
DATE OF SERVICE: 05/25/2020 SUBJECTIVE: This is a 74-year-old gentleman, who was admitted with pneumonia and then developed atrial fibrillation, has a history of head and neck cancer and tongue cancer, which has undergone resection with chemo and radiation therapy. He states he was seen yesterday and the interim has remained relatively stable. He has been on IV amiodarone. He converted back to normal sinus rhythm yesterday evening. He remains on amiodarone IV and remained stable. This morning, blood pressure is 117/69, heart rate is 85 and shows a sinus rhythm, respiratory rate is about 12 per minute, and O2 saturation 97%. He had previously been intubated, but now extubated. As of yesterday prior to me seeing him, the patient was extubated. OBJECTIVE: GENERAL/HEENT: Reveals an elderly gentleman, who has difficulty speaking due to his resection of the tongue. Otherwise, no significant HEENT changes. CHEST: Bibasilar fine rales. CARDIOVASCULAR: Reveals a regular rate and rhythm with normal S1 and S2. I do not hear any significant murmurs. ABDOMEN: Unremarkable. EXTREMITIES: Showed no clubbing, cyanosis, or edema. LABORATORY DATA: Shows a sodium of 148, potassium was 2.8, chloride was 110, BUN was 33 with a creatinine 0.79, glucose was 130. WBC is 1.2, hemoglobin is 9.2, hematocrit 27.4, platelet count was 15,000. IMAGING STUDIES: Chest x-ray today shows continuation of bilateral pneumonia, which is improving. There is some indication of mild congestion, most likely volume overload, may be the etiology of his bibasilar crackles. IMPRESSION: 1. Pneumonia. He is being treated with antibiotics. 2. Atrial fibrillation, which is converted back to sinus rhythm. We would continue his IV amiodarone. He is not a candidate for oral or IV anticoagulation due to a platelet count of 15,000. 3. History of tongue cancer with recent resection as well as chemo radiation therapy. He is immunocompromised. His white count is extremely low. 4. Thrombocytopenia. He will receive platelets today. From a cardiology standpoint, he appears to be doing relatively stable after he has converted to sinus rhythm. He did have an echocardiogram yesterday, which did show a moderate decrease in left ventricular systolic function. However, this was during atrial fibrillation, may be an underestimation, the ejection fraction was estimated at 35% to 40% with [id number] tricuspid valve regurgitation and trace mitral valve regurgitation, which suggest he undergo a repeat echocardiogram once his pneumonia has resolved. We would happy to continue to follow the patient with you. ADDENDUM: Please note, the patient did have left-sided weakness this morning. CT scan has been ordered. It is possible he has had a small CVA or bleed due to his thrombocytopenia. CT scan has already been ordered. Job ID: [id number]
--- NOTE | 2020-05-25 08:59 | PRG ---
DATE OF SERVICE: 05/25/2020 SUBJECTIVE: This morning, he is better. He is still short of breath. He is now in normal sinus rhythm. OBJECTIVE: VITAL SIGNS: His temperature is 97, pulse 79, blood pressure 170/69, pulse rate of 18. CHEST: Rhonchi, right greater than left. CARDIAC: Normal S1, S2. ABDOMEN: Soft. NEUROLOGIC: He is having weakness in his right side. LABORATORY DATA: Shows platelet count is 15,000, white count 1.2, H and H are 9 and 27, potassium 2.8. Lytes are normal. X-ray shows left-sided infiltrate. Blood culture from [place] is showing a variable gram-negative alfie. ASSESSMENT: Respiratory failure, left-sided pneumonia, status post chemo for head and neck cancer, thrombocytopenia. PLAN: Platelet is being transfused today. The CT of the head is being arranged to rule out any intracerebral process. He will be transferred to a monitored bed. Continue amiodarone. Continue antibiotics. Continue supportive care. Continue steroids. We will continue to follow. Job ID: [id number]
--- NOTE | 2020-05-25 09:46 | CT ---
CT BRAIN WITH AND WITHOUT CONTRAST: DATE: 05/25/2020 HISTORY: 74-year-old male with altered mental status. CVA vs. mass. TECHNIQUE: Precontrast scan of brain IV injection iodinated contrast media: 100 mL [id number]. Postcontrast scan of brain FINDINGS: There is no midline shift or any other mass effect. There is no evidence of acute intracranial hemor rhage, large cortical infarct, obstructive hydrocephalus, or extraaxial fluid collection. There is n o abnormal enhancement or mass. The calvarium is intact. IMPRESSION: No acute or aggressive intracranial findings. jn [] POS: [facility]
[2020-05-25] MEDS: Morphine 2 MG/ML VIAL SLOW IVP PRN ×3 (11:54→20:29)
[2020-05-25] MEDS ORDERED: Iopamidol-370 76% 500 ML 1 ML ONE (13:26)
--- NOTE | 2020-05-25 16:18 | PDOC.HOSPP ---
- Subjective Encounter Date: 05/25/20 Subjective: The patient was extubated successfully. He is alert and oriented. He is complaining of generalized pain. - Objective Vital Signs & Weight: Vital Signs (12 hours) Temp Pulse Pulse Pulse Pulse Resp BP 05/25/20 14:51 88 92 137/80 05/25/20 14:37 80 26 H 05/25/20 13:54 97.9 F 88 18 05/25/20 12:10 97.5 F L 87 18 05/25/20 12:00 97.5 F L 05/25/20 08:03 79 05/25/20 08:00 97.5 F L 05/25/20 07:01 79 21 H BP BP Pulse Ox Pulse Ox Pulse Ox 05/25/20 14:51 140/80 98 98 05/25/20 14:37 98 05/25/20 13:54 138/84 95 05/25/20 12:10 139/76 100 05/25/20 12:00 05/25/20 08:03 05/25/20 08:00 95 05/25/20 07:01 95 Weight Admit Weight 174 lb Weight 175 lb 14.862 oz Most Recent Monitor Data Heart Rate from ECG 80 NIBP 135/78 NIBP BP-Mean 97 Respiration from ECG 27 SpO2 95 I&O: 05/24/20 05/25/20 05/26/20 06:59 06:59 06:59 Intake Total 1711.2 3463.2 450 Output Total 1840 1765 125 Balance -128.8 1698.2 325 Result Diagrams: 05/25/20 03:00 05/25/20 03:00 Hospitalist ROS - Medication Medications: Active Medications Generic Name Dose Route Start Last Admin Trade Name Freq PRN Reason Stop Dose Admin Acetaminophen 650 mg 05/22/20 01:22 LEARNING COORDINATOR 05/25/20 04:54 Acetaminophen 325 Mg Tab PO 650 mg Q4H PRN Administration Headache/Fever/Mild Pain (1-3) Albuterol/Ipratropium 3 ml 05/23/20 13:00 05/25/20 14:37 Ipratropium/Albuterol Sulfate 3 Ml Neb NEB 3 ml [id number] SOURAV Administration Digoxin 0.125 mg 05/25/20 09:00 05/25/20 08:03 Digoxin 0.5 Mg/2 Ml Amp SLOW IVP 0.125 mg QAM SOURAV Administration Famotidine 20 mg 05/25/20 09:00 05/25/20 08:03 Famotidine/Pf 20 Mg/2ml Vial SLOW IVP 20 mg BID SOURAV Administration Hydrocortisone Sodium Succinate 50 mg 05/22/20 09:00 05/25/20 14:16 Hydrocortisone Sod Succ/Pf 100 Mg/2 Ml Vial IVP 50 mg 0300,0900,1500,2100 SOURAV Administration Cefepime HCl 2 gm/ Sodium 100 mls @ 200 mls/hr 05/22/20 06:00 05/25/20 14:16 Chloride IVPB 100 mls Q8HR SOURAV Administration Norepinephrine Bitartrate 250 mls @ 0 mls/hr 05/22/20 01:30 LEARNING COORDINATOR 05/24/20 08:07 Levophed IVPB 250 mls INF SOURAV Administration Protocol Titrate Amiodarone HCl 450 mg/ 259 mls @ 0 mls/hr 05/24/20 03:30 05/25/20 04:54 Miscellaneous Medication 1 IVPB 259 mls each/ Dextrose/Water INF SOURAV Administration Protocol As Directed Potassium Chloride/Sodium Chloride 1,000 mls @ 100 mls/hr 05/24/20 09:15 05/25/20 14:17 1/2 Ns W/Kcl 20 Meq IV 1,000 mls .Q10H SOURAV Administration Morphine Sulfate 3 mg 05/25/20 11:02 05/25/20 11:54 Morphine 2 Mg/Ml Vial SLOW IVP 3 mg Q4H PRN Administration Pain Sodium Chloride 10 ml 05/25/20 09:00 05/25/20 08:03 Flush - Normal Saline 10 Ml Syringe IVF 10 ml Q12HR SOURAV Administration - Exam General Appearance: awake alert ENT: normocephalic atraumatic Neck: supple, no JVD Heart: RRR Respiratory: normal chest expansion, no tachypnea, rhonchi Neurological: cranial nerve grossly intact, no focal deficits Hosp A/P (1) Septic shock Code(s): A41.9 - SEPSIS, UNSPECIFIED ORGANISM; R65.21 - SEVERE SEPSIS WITH SEPTIC SHOCK Status: Acute (2) UTI (urinary tract infection) Status: Acute (3) Pancytopenia Code(s): D61.818 - OTHER PANCYTOPENIA Status: Acute (4) Pneumonia Code(s): J18.9 - PNEUMONIA, UNSPECIFIED ORGANISM Status: Acute (5) Squamous cell cancer of buccal mucosa Code(s): C06.0 - MALIGNANT NEOPLASM OF CHEEK MUCOSA Status: Acute (6) Acute kidney injury Code(s): N17.9 - ACUTE KIDNEY FAILURE, UNSPECIFIED Status: Acute (7) Atrial fibrillation with RVR Code(s): I48.91 - UNSPECIFIED ATRIAL FIBRILLATION Status: Acute - Plan Septic shock resolved. Levophed was discontinued. Continue broad-spectrum antibiotics per ID recommendations. The patient was extubated successfully. He is still high risk for oral intake. We will keep him n.p.o. until cleared by speech therapy. Atrial fibrillation with controlled rate. The patient is on amiodarone and digoxin. Continue management per cardiology.
[2020-05-26] MEDS: Amiodarone 450 MG, Admixture Fee 1 EACH in Dextrose 5% in Water 250 ML IVPB SCH ×2 (00:33→15:52)
[2020-05-26] MEDS: Hydrocortisone Sod Succ/PF 100 mg/2 ml Vial IVP SCH ×3 (02:38→15:26)
[2020-05-26 05:02] LABS: Anion Gap 12 mmol/L (10-20); BUN (Urea Nitrogen) 32 mg/dL (8.4-25.7); Calc. Creatinine Clearance 105 mL/min (70-130); Calcium 7.8 mg/dL (7.8-10.44); Carbon Dioxide 32 mmol/L (23-31); Chloride 108 mmol/L (98-107); Estimated GFR-MDRD Greater than 90; Glucose 119 mg/dL (83-110); Sodium 149 mmol/L (136-145)
[2020-05-26 05:05] LABS: Band 32 % (5-11); Hemoglobin 9.2 g/dL (14.0-18.0); Hypochromia SLIGHT = 6-15 cells (100X) (0-5/hpf); Lymphocytes 20 % (21-51); MDiff Complete? YES; Mean Corpuscular HGB CONC 33.7 g/dL (32.0-36.0); Mean Corpuscular Hemoglobin 33.4 pg (27.0-31.0); Mean Corpuscular Volume 99.3 fL (78.0-98.0); Mean Platelet Volume 9.7 fL (7.4-10.4); Monocytes 4 % (0-10); Neutrophil 44 % (42-75); Platelet Count 37 thou/uL (130-400); Platelet Morphology Comment Appears Adequate; RBC Distribution Width 13.1 % (11.5-14.5); Red Blood Cell (RBC) Count 2.74 mill/uL (4.70-6.10); White Blood Cell (WBC) Count 1.8 thou/uL (4.8-10.8)
[2020-05-26 05:08] LABS: Potassium 2.6 mmol/L (3.5-5.1)
[2020-05-26] MEDS: Morphine 2 MG/ML VIAL SLOW IVP PRN ×4 (05:28→21:57)
[2020-05-26] MEDS: Cefepime 2 GM in Sodium Chloride 0.9% 100 ML IVPB SCH ×3 (05:32→21:56)
[2020-05-26] MEDS ORDERED: Potassium Chloride 40 MEQ in Sodium Chloride 0.9% 250 ML 250 ML IVPB SCH (06:00)
[2020-05-26] MEDS ORDERED: Potassium Chloride 40 MEQ in Premix Bag 1 BAG IVPB SCH (06:00)
[2020-05-26] MEDS ORDERED: Potassium Chloride 20 MEQ TAB PO SCH ×2 (09:30→23:15)
[2020-05-26] MEDS: 1/2 NS w/KCL 20 mEq 1,000 ML IV SCH ×3 (09:58→23:47)
[2020-05-26] MEDS: Digoxin 0.5 MG/2 ML AMP SLOW IVP SCH (09:58)
--- NOTE | 2020-05-26 12:11 | PRG ---
DATE OF SERVICE: 05/26/2020 SUBJECTIVE: Zhou Najera was transferred from the ICU to the monitored bed. OBJECTIVE: VITAL SIGNS: Temperature 97, pulse . Swallow test was ordered. CHEST: Rhonchi and crackles, left greater than right. CARDIAC: Normal S1, S2. No gallops. ABDOMEN: No masses. Head and neck cancer, status post chemo, pancytopenia. His platelet count is slightly better following platelet transfusion. Potassium 2.6. IMPRESSION: Respiratory failure, left-sided pneumonia, squamous cell carcinoma, pancytopenia, atrial fibrillation. PLAN: Continue antibiotics. Maxipime, supportive care, steroids. Await swallow test before switching to oral medication. Job ID: [id number]
--- NOTE | 2020-05-26 12:12 | RAD ---
Modified barium swallow: 05/26/2020 HISTORY: Head and neck cancer status post partial glossectomy, radiation therapy, feeding difficultie s, dysphasia FINDINGS: A modified barium swallow was performed in conjunction with a member division of speech pat hology. The patient is imaged in the lateral projection. Penetration and aspiration noted within liquids. Penetration noted with nectar liquids. Residual with in the vallecula seen with all consistencies. Exposure data: 2.6 minutes of fluoroscopic time, 0.709 larson per centimeter squared IMPRESSION: Penetration and aspiration as detailed above. Please see speech pathologist report for fu ll detail and feeding recommendations.
[2020-05-26] MEDS: Famotidine/PF 20 mg/2ml Vial SLOW IVP SCH ×2 (13:14→21:58)
[2020-05-26 13:25] LABS: Anion Gap 12 mmol/L (10-20); BUN (Urea Nitrogen) 32 mg/dL (8.4-25.7); Calc. Creatinine Clearance 102 mL/min (70-130); Calcium 7.9 mg/dL (7.8-10.44); Carbon Dioxide 33 mmol/L (23-31); Chloride 107 mmol/L (98-107); Estimated GFR-MDRD Greater than 90; Glucose 138 mg/dL (83-110); Sodium 149 mmol/L (136-145)
[2020-05-26 13:34] LABS: Potassium 2.8 mmol/L (3.5-5.1)
--- NOTE | 2020-05-26 15:46 | PDOC.MOPN ---
Interval History: c/o pain left rib. Able to take po now. - Vital Signs Vital Signs: Vital Signs (12 hours) Temp Pulse Pulse Resp BP BP Pulse Ox 05/26/20 13:29 81 14 100 05/26/20 11:06 82 127/79 05/26/20 09:58 74 05/26/20 08:50 97.4 F L 78 16 118/69 100 05/26/20 08:17 78 16 98 05/26/20 04:40 97.9 F 80 18 120/62 93 L Weight Admit Weight 174 lb Weight 185 lb 3.013 oz Most Recent Monitor Data Heart Rate from ECG 91 NIBP 131/77 NIBP BP-Mean 95 Respiration from ECG 18 SpO2 95 - Physical Exam General: Alert, Oriented x3, No acute distress HEENT: Other (right neck radiation skin changes) Lungs: Clear to auscultation Cardiovascular: Regular rate Abdomen: Normal bowel sounds Neurological: Normal speech - Labs Result Diagrams: 05/26/20 04:22 05/26/20 13:02 Lab results: Laboratory Results - last 24 hr 05/26/20 13:02: Sodium 149 H, Potassium 2.8 L*, Chloride 107, Carbon Dioxide 33 H, Anion Gap 12, BUN 32 H, Creatinine 0.78, Estimated GFR (MDRD) Greater than 90, Glucose 138 H, Calcium 7.9 05/26/20 04:22: WBC 1.8 L, RBC 2.74 L, Hgb 9.2 L, Hct 27.2 L, MCV 99.3 H, MCH 33.4 H, MCHC 33.7, RDW 13.1, Plt Count 37 L, MPV 9.7, Neutrophils % (Manual) 44, Band Neuts % (Manual) 32 H, Lymphocytes % (Manual) 20 L, Monocytes % (Manual) 4, Hypochromia SLIGHT = 6-15 cells, Plt Morphology Comment Appears Adequate 05/26/20 04:22: Sodium 149 H, Potassium 2.6 L*, Chloride 108 H, Carbon Dioxide 32 H, Anion Gap 12, BUN 32 H, Creatinine 0.72, Estimated GFR (MDRD) Greater than 90, Glucose 119 H, Calcium 7.8 05/25/20 16:39: Potassium 3.0 L Status: lab reviewed by me A/P - Problem (1) Atrial fibrillation with RVR Current Visit: Yes Code(s): I48.91 - UNSPECIFIED ATRIAL FIBRILLATION Status: Acute (2) Pancytopenia Current Visit: Yes Code(s): D61.818 - OTHER PANCYTOPENIA Status: Acute (3) Septic shock Current Visit: Yes Code(s): A41.9 - SEPSIS, UNSPECIFIED ORGANISM; R65.21 - SEVERE SEPSIS WITH SEPTIC SHOCK Status: Acute (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 CBC improving 2. encourage po intake 3. remains on amiodarone gtt 4. hold CCRT until recovered.
--- NOTE | 2020-05-26 17:04 | PDOC.HOSPP ---
- Subjective Encounter Date: 05/26/20 Subjective: Modified barium swallow today. - Objective Vital Signs & Weight: Vital Signs (12 hours) Temp Pulse Pulse Resp BP BP Pulse Ox 05/26/20 15:55 97.5 F L 81 18 145/70 H 97 05/26/20 13:29 81 14 100 05/26/20 11:06 82 127/79 05/26/20 09:58 74 05/26/20 08:50 97.4 F L 78 16 118/69 100 05/26/20 08:17 78 16 98 Weight Admit Weight 174 lb Weight 185 lb 3.013 oz Most Recent Monitor Data Heart Rate from ECG 91 NIBP 131/77 NIBP BP-Mean 95 Respiration from ECG 18 SpO2 95 I&O: 05/25/20 05/26/20 05/27/20 06:59 06:59 06:59 Intake Total 3463.2 2666 Output Total 1765 2775 Balance 1698.2 -109 Result Diagrams: 05/26/20 04:22 05/26/20 13:02 Hospitalist ROS - Medication Medications: Active Medications Generic Name Dose Route Start Last Admin Trade Name Freq PRN Reason Stop Dose Admin Acetaminophen 650 mg 05/22/20 01:22 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 MANAGER 05/25/20 04:54 Acetaminophen 325 Mg Tab PO 650 mg Q4H PRN Administration Headache/Fever/Mild Pain (1-3) Albuterol/Ipratropium 3 ml 05/23/20 13:00 05/26/20 13:29 Ipratropium/Albuterol Sulfate 3 Ml Neb NEB 3 ml [id number] SOURAV Administration Digoxin 0.125 mg 05/25/20 09:00 05/26/20 09:58 Digoxin 0.5 Mg/2 Ml Amp SLOW IVP 0.125 mg QAM SOURAV Administration Famotidine 20 mg 05/25/20 09:00 05/26/20 13:14 Famotidine/Pf 20 Mg/2ml Vial SLOW IVP 20 mg BID SOURAV Administration Cefepime HCl 2 gm/ Sodium 100 mls @ 200 mls/hr 05/22/20 06:00 05/26/20 15:27 Chloride IVPB 100 mls Q8HR SOURAV Administration Amiodarone HCl 450 mg/ 259 mls @ 0 mls/hr 05/24/20 03:30 11/05/20 15:52 Miscellaneous Medication 1 IVPB 259 mls each/ Dextrose/Water INF SOURAV Administration Protocol As Directed Potassium Chloride/Sodium Chloride 1,000 mls @ 100 mls/hr 05/24/20 09:15 05/26/20 15:25 1/2 Ns W/Kcl 20 Meq IV Not Given .Q10H SOURAV Morphine Sulfate 3 mg 05/25/20 11:02 05/26/20 15:28 Morphine 2 Mg/Ml Vial SLOW IVP 3 mg Q4H PRN Administration Pain Potassium Chloride 40 meq 05/26/20 15:45 05/26/20 15:48 Potassium Chloride 20 Meq Packet PO 05/26/20 17:45 40 meq NOW SOURAV Administration Sodium Chloride 10 ml 05/25/20 09:00 05/26/20 10:14 Flush - Normal Saline 10 Ml Syringe IVF 10 ml Q12HR SOURAV Administration - Exam General Appearance: awake alert ENT: normocephalic atraumatic Neck: supple, no JVD Respiratory: normal chest expansion, no tachypnea Neurological: cranial nerve grossly intact, no focal deficits Hosp A/P (1) Septic shock Code(s): A41.9 - SEPSIS, UNSPECIFIED ORGANISM; R65.21 - SEVERE SEPSIS WITH SEPTIC SHOCK Status: Acute (2) UTI (urinary tract infection) Status: Acute (3) Pancytopenia Code(s): D61.818 - OTHER PANCYTOPENIA Status: Acute (4) Pneumonia Code(s): J18.9 - PNEUMONIA, UNSPECIFIED ORGANISM Status: Acute (5) Squamous cell cancer of buccal mucosa Code(s): C06.0 - MALIGNANT NEOPLASM OF CHEEK MUCOSA Status: Acute (6) Acute kidney injury Code(s): N17.9 - ACUTE KIDNEY FAILURE, UNSPECIFIED Status: Acute (7) Atrial fibrillation with RVR Code(s): I48.91 - UNSPECIFIED ATRIAL FIBRILLATION Status: Acute - Plan Septic shock resolved. Levophed was discontinued wean off hydrocortisone. Continue broad-spectrum antibiotics per ID recommendations. The patient was extubated successfully. Continue modified diet therapy recommendations. Replace potassium and check magnesium level. Atrial fibrillation with controlled rate. The patient is on amiodarone and digoxin. Continue management per cardiology.
[2020-05-26] MEDS ORDERED: Magnesium 2 GM/50 ML 2 GM in Premix Bag 1 BAG IVPB SCH (23:00)
[2020-05-27] MEDS: Morphine 2 MG/ML VIAL SLOW IVP PRN ×5 (02:38→22:11)
[2020-05-27] MEDS: Cefepime 2 GM in Sodium Chloride 0.9% 100 ML IVPB SCH ×3 (06:11→21:31)
[2020-05-27 08:52] LABS: Anion Gap 11 mmol/L (10-20); BUN (Urea Nitrogen) 27 mg/dL (8.4-25.7); Calc. Creatinine Clearance 117 mL/min (70-130); Calcium 7.5 mg/dL (7.8-10.44); Carbon Dioxide 33 mmol/L (23-31); Chloride 103 mmol/L (98-107); Estimated GFR-MDRD Greater than 90; Glucose 142 mg/dL (83-110); Sodium 144 mmol/L (136-145)
[2020-05-27 08:55] LABS: Potassium 2.8 mmol/L (3.5-5.1)
[2020-05-27] MEDS ORDERED: Hydrocortisone Sod Succ/PF 100 mg/2 ml Vial IVP SCH (09:00)
[2020-05-27] MEDS: 1/2 NS w/KCL 20 mEq 1,000 ML IV SCH ×2 (09:01→14:52)
[2020-05-27] MEDS: Amiodarone 450 MG, Admixture Fee 1 EACH in Dextrose 5% in Water 250 ML IVPB SCH (09:02)
[2020-05-27 09:03] LABS: #Lymphocytes 0.4 thou/uL (1.20-3.40); #Monocytes 0.2 thou/uL (0.11-0.59); #Neutrophils 1.2 thou/uL (1.40-6.50); %Eosinophils 1.1 % (0.0-10.0); %Lymphocytes 23.4 % (21.0-51.0); %Monocytes 12.1 % (0.0-10.0); %Neutrophils 63.4 % (42.0-75.0); Mean Corpuscular HGB CONC 33.3 g/dL (32.0-36.0); Mean Corpuscular Hemoglobin 33.3 pg (27.0-31.0); Mean Platelet Volume 11.3 fL (7.4-10.4); Platelet Count 31 thou/uL (130-400); RBC Distribution Width 13.1 % (11.5-14.5); Red Blood Cell (RBC) Count 3.01 mill/uL (4.70-6.10); White Blood Cell (WBC) Count 1.9 thou/uL (4.8-10.8)
[2020-05-27] MEDS: Digoxin 0.5 MG/2 ML AMP SLOW IVP SCH (09:04)
[2020-05-27] MEDS: Famotidine/PF 20 mg/2ml Vial SLOW IVP SCH ×2 (09:04→22:03)
[2020-05-27] MEDS: Potassium Chloride 20 MEQ TAB PO SCH ×2 (09:28→12:53)
[2020-05-27] MEDS ORDERED: Potassium Chloride 20 MEQ TAB PO SCH ×3 (09:45→20:00)
--- NOTE | 2020-05-27 10:29 | PRG ---
DATE OF SERVICE: 05/27/2020 SUBJECTIVE: A 74-year-old gentleman. He is doing better this morning. OBJECTIVE: VITAL SIGNS: Temperature 98, pulse 75, respiratory rate 20, saturations are 98% on 3 L, blood pressure 109/71. GENERAL: He is sitting on the side of the bed. CHEST: No wheezing, no crackles. CARDIAC: Normal S1 and S2. No gallops. ABDOMEN: Soft. LABORATORY DATA: White count has improved to 1.9 with 63 neutrophils. Lytes are normal. Potassium is 2.8, bicarb is 33. IMPRESSION: Head and neck cancer, respiratory failure, left-sided pneumonia, supraventricular tachycardia. PLAN: Pulmonary mcknight, he is better. If he remains stable and white count remains stable, he can be switched to oral antibiotics. We will follow. Job ID: [id number]
--- NOTE | 2020-05-27 17:02 | PDOC.HOSPP ---
- Subjective Encounter Date: 05/27/20 Subjective: The patient was seen and examined. He is feeling better today. He is tolerating his modified diet. Increased weakness was noted by the nursing staff. - Objective Vital Signs & Weight: Vital Signs (12 hours) Temp Pulse Pulse Pulse Resp BP BP 05/27/20 15:33 97.8 F 75 18 05/27/20 14:01 81 20 05/27/20 12:24 98.0 F 81 20 05/27/20 11:36 77 88 109/72 107/76 05/27/20 09:04 75 05/27/20 07:20 98.1 F 85 20 05/27/20 07:08 77 22 H 05/27/20 06:03 98.5 F 85 18 BP Pulse Ox Pulse Ox Pulse Ox 05/27/20 15:33 126/74 92 L 05/27/20 14:01 05/27/20 12:24 107/76 97 05/27/20 11:36 97 95 05/27/20 09:04 05/27/20 07:20 109/71 98 05/27/20 07:08 05/27/20 06:03 155/80 H 92 L Weight Admit Weight 173 lb 8.061 oz Weight 202 lb 6.15 oz Most Recent Monitor Data Heart Rate from ECG 91 NIBP 131/77 NIBP BP-Mean 95 Respiration from ECG 18 SpO2 95 I&O: 05/26/20 05/27/20 05/28/20 06:59 06:59 06:59 Intake Total 2666 Output Total 2775 Balance -109 Result Diagrams: 05/27/20 08:15 05/27/20 08:15 Hospitalist ROS - Medication Medications: Active Medications Generic Name Dose Route Start Last Admin Trade Name Freq PRN Reason Stop Dose Admin Acetaminophen 650 mg 05/22/20 01:22 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 05/25/20 04:54 Acetaminophen 325 Mg Tab PO 650 mg Q4H PRN Administration Headache/Fever/Mild Pain (1-3) Albuterol/Ipratropium 3 ml 05/23/20 13:00 05/27/20 14:01 Ipratropium/Albuterol Sulfate 3 Ml Neb NEB 3 ml [id number] SOURAV Administration Famotidine 20 mg 05/25/20 09:00 05/27/20 09:04 Famotidine/Pf 20 Mg/2ml Vial SLOW IVP 20 mg BID SOURAV Administration Hydrocortisone Sodium Succinate 50 mg 05/27/20 09:00 05/27/20 09:04 Hydrocortisone Sod Succ/Pf 100 Mg/2 Ml Vial IVP 50 mg DAILY SOURAV Administration Cefepime HCl 2 gm/ Sodium 100 mls @ 200 mls/hr 05/22/20 06:00 05/27/20 14:50 Chloride IVPB 100 mls Q8HR SOURAV Administration Amiodarone HCl 450 mg/ 259 mls @ 0 mls/hr 05/24/20 03:30 05/27/20 09:02 Miscellaneous Medication 1 IVPB 259 mls each/ Dextrose/Water INF SOURAV Administration Protocol As Directed Potassium Chloride/Sodium Chloride 1,000 mls @ 100 mls/hr 05/24/20 09:15 05/27/20 14:52 1/2 Ns W/Kcl 20 Meq IV 1,000 mls .Q10H SOURAV Administration Morphine Sulfate 3 mg 05/25/20 11:02 05/27/20 14:51 Morphine 2 Mg/Ml Vial SLOW IVP 3 mg Q4H PRN Administration Pain Sodium Chloride 10 ml 05/25/20 09:00 05/27/20 09:05 Flush - Normal Saline 10 Ml Syringe IVF 10 ml Q12HR SOURAV Administration Sodium Chloride 10 ml 05/25/20 06:30 05/27/20 02:39 Flush - Normal Saline 10 Ml Syringe IVF 10 ml PRN PRN Administration Saline Flush - Exam General Appearance: awake alert ENT: normocephalic atraumatic Neck: supple, no JVD Heart: RRR Respiratory: normal chest expansion, no tachypnea Gastrointestinal: soft, non-tender, non-distended Extremities: no cyanosis, no clubbing Hosp A/P (1) Septic shock Code(s): A41.9 - SEPSIS, UNSPECIFIED ORGANISM; R65.21 - SEVERE SEPSIS WITH SEPTIC SHOCK Status: Acute (2) UTI (urinary tract infection) Status: Acute (3) Pancytopenia Code(s): D61.818 - OTHER PANCYTOPENIA Status: Acute (4) Pneumonia Code(s): J18.9 - PNEUMONIA, UNSPECIFIED ORGANISM Status: Acute (5) Squamous cell cancer of buccal mucosa Code(s): C06.0 - MALIGNANT NEOPLASM OF CHEEK MUCOSA Status: Acute (6) Acute kidney injury Code(s): N17.9 - ACUTE KIDNEY FAILURE, UNSPECIFIED Status: Acute (7) Atrial fibrillation with RVR Code(s): I48.91 - UNSPECIFIED ATRIAL FIBRILLATION Status: Acute (8) Weakness Code(s): R53.1 - WEAKNESS Status: Acute - Plan Septic shock resolved. Levophed was discontinued wean off hydrocortisone. Continue broad-spectrum antibiotics per ID recommendations. The patient was extubated successfully. Continue modified diet therapy recommendations. Magnesium level is 1.9. Continue to replace potassium and recheck the level in the morning. Atrial fibrillation with controlled rate. The patient is on amiodarone and digoxin. Nursing staff reported worsening weakness with NIH stroke scale of 11. His CT scan of the head is negative. Check MRI of the brain.
--- NOTE | 2020-05-27 20:56 | MRI ---
MRI BRAIN NONCONTRAST: DATE: 05/27/20 HISTORY: 74-year-old male with altered mental status and new weakness. Rule out CVA. COMPARISON: No prior brain MRIs. FINDINGS: The T2 weighted axial images are degraded by patient motion. To a lesser degree, the FLAIR and gradie nt echo images also degraded by motion. There are multiple small foci of restricted diffusion with T2 and FLAIR hyperintensity. This include s a cluster in the right upper posterior frontal lobe cerebrum. The largest is approximately 1 x 1.5 cm. Smallest one is a few millimeters. There is a smaller cluster of subcentimeter such lesions in the right occipital lobe, and at least on e tiny lesion in the contralateral left occipital lobe. There is also a small acute 1 x 0.5 cm infarc tion in the right cerebellar hemisphere laterally. No evidence of intra-axial hemorrhage, mass effect, midline shift, obstructive hydrocephalus, or extr a-axial fluid collection. Flow voids are grossly maintained in the medial arteries of the [place]. There are bilateral mastoid effusions. IMPRESSION: 1. Several acute or subacute small and tiny infarctions, in different vascular territories: righ t anterior cerebral artery, bilateral posterior cerebral artery, and one lesion in the right cerebell ar hemisphere, involving vertebral artery branch. 2. Bilateral mastoid effusions. Code Esteban Esparza
--- NOTE | 2020-05-28 00:21 | PDOC.EVN ---
Event Note - Event Note Event Note: Nursing called and stated that patient had a MRI which just resulted that showed several acute or subacute small tiny infarctions. No change in patient at this time. Patient is known to be in atrial fibrillation but was unable to be anticoagulated due to his low platelet count. Platelet count has risen slightly over the past few days. Called neurology on-call to discuss patient in consult placed, awaiting return phone call.
[2020-05-28] MEDS: Amiodarone 450 MG, Admixture Fee 1 EACH in Dextrose 5% in Water 250 ML IVPB SCH (01:29)
[2020-05-28] MEDS: 1/2 NS w/KCL 20 mEq 1,000 ML IV SCH ×2 (02:06→12:44)
[2020-05-28] MEDS: Morphine 2 MG/ML VIAL SLOW IVP PRN ×4 (04:19→20:35)
[2020-05-28] MEDS: Cefepime 2 GM in Sodium Chloride 0.9% 100 ML IVPB SCH ×3 (04:57→21:14)
[2020-05-28] MEDS: Famotidine/PF 20 mg/2ml Vial SLOW IVP SCH ×2 (08:47→20:36)
[2020-05-28 08:57] LABS: #Lymphocytes 0.7 thou/uL (1.20-3.40); #Monocytes 0.3 thou/uL (0.11-0.59); #Neutrophils 1.6 thou/uL (1.40-6.50); %Basophils 0.5 % (0.0-1.0); %Lymphocytes 25.7 % (21.0-51.0); %Monocytes 10.4 % (0.0-10.0); %Neutrophils 62.4 % (42.0-75.0); Hemoglobin 9.3 g/dL (14.0-18.0); Mean Corpuscular HGB CONC 34.2 g/dL (32.0-36.0); Mean Corpuscular Hemoglobin 34.2 pg (27.0-31.0); Mean Corpuscular Volume 99.9 fL (78.0-98.0); Mean Platelet Volume 10.5 fL (7.4-10.4); Platelet Count 31 thou/uL (130-400); RBC Distribution Width 13.3 % (11.5-14.5); Red Blood Cell (RBC) Count 2.72 mill/uL (4.70-6.10); White Blood Cell (WBC) Count 2.5 thou/uL (4.8-10.8)
[2020-05-28 09:05] LABS: Anion Gap 13 mmol/L (10-20); BUN (Urea Nitrogen) 24 mg/dL (8.4-25.7); Calc. Creatinine Clearance 121 mL/min (70-130); Calcium 7.2 mg/dL (7.8-10.44); Carbon Dioxide 30 mmol/L (23-31); Chloride 102 mmol/L (98-107); Estimated GFR-MDRD Greater than 90; Glucose 116 mg/dL (83-110); Potassium 3.5 mmol/L (3.5-5.1); Sodium 141 mmol/L (136-145)
[2020-05-28] MEDS ORDERED: Potassium Chloride 20 MEQ TAB PO SCH (10:15)
--- NOTE | 2020-05-28 12:11 | CON ---
DATE OF CONSULTATION: 05/28/2020 CONSULTING PHYSICIAN: Hospitalist Service. IMPRESSION: 1. Multifocal small vessel strokes, likely secondary to intravascular coagulation rather than a cardioembolic event. 2. Recent history of transient atrial fibrillation with a current normal sinus rhythm. 3. Sepsis with secondary shock. 4. Hypokalemia. PLAN: 1. Aspirin 81 mg per day. 2. Rehab transfer. HISTORY OF PRESENT ILLNESS: Mr. Najera is a 74-year-old man who has been in the hospital secondary to ongoing infection. He developed acute left-sided weakness. He had an MRI done, which showed some patchy areas of small vessel ischemic change bilaterally. The patient reports he has no movement of the left side. He denies any problems with swallowing or speech. He reports his vision has been blurry than usual, but does not report a hemianopsia. His vital signs have otherwise been stable. His EKG tracings showed a normal sinus rhythm over the last few days. He denies a history of prior stroke. PAST MEDICAL HISTORY: As noted. ALLERGIES: NONE REPORTED. SOCIAL HISTORY: No alcohol or illicit drug use. FAMILY HISTORY: Noncontributory. REVIEW OF SYSTEMS: Ten-system review of systems is otherwise negative. PHYSICAL EXAMINATION: VITAL SIGNS: Blood pressure 109/70, respirations 20, temperature 98.1, and pulse 75. HEENT: Pupils equal and reactive. Conjunctivae clear. Oropharynx clear. Cranium, normocephalic and atraumatic. NECK: Supple. No lymphadenopathy. EXTREMITIES: There is some peripheral edema. No cyanosis present. SKIN: Otherwise clear. ABDOMEN: Soft and nontender. NEUROLOGIC: He was alert and cooperative. His speech is fluent and clear. Cranial nerves appear to be intact. Motor exam shows a dense paralysis of the left arm and leg with only slight movement in the hand. His sensations intact to touch. Plantar response was downgoing on the right and upgoing on the left. Gait is not testable. SUMMARY: A gentleman who has recently been gravely ill with secondary drop in platelets. He may have had some intravascular coagulation that would lower the platelets, result in secondary infarctions given his history of transient atrial fibrillation. I think it will be prudent to treat him with aspirin once his platelet count has improved. Otherwise, he will need inpatient rehab. Job ID: [id number]
--- NOTE | 2020-05-28 17:01 | PDOC.HOSPP ---
- Subjective Subjective: MRI confirmed acute CVA. mental status at baseline. c/o generalized weakness. - Objective Vital Signs & Weight: Vital Signs (12 hours) Temp Pulse Resp BP Pulse Ox 05/28/20 15:35 99.0 F 82 18 105/62 91 L 05/28/20 13:37 76 20 05/28/20 08:13 98.7 F 80 19 122/78 96 05/28/20 07:54 76 20 Weight Admit Weight 173 lb 8.061 oz Weight 194 lb 7.163 oz Most Recent Monitor Data Heart Rate from ECG 91 NIBP 131/77 NIBP BP-Mean 95 Respiration from ECG 18 SpO2 95 I&O: 05/27/20 05/28/20 05/29/20 06:59 06:59 06:59 Intake Total 480 Output Total 950 Balance -470 Result Diagrams: 05/28/20 08:39 05/28/20 08:39 Radiology Reviewed by me: Yes EKG Reviewed by me: Yes Hospitalist ROS - Medication Medications: Active Medications Generic Name Dose Route Start Last Admin Trade Name Freq PRN Reason Stop Dose Admin Acetaminophen 650 mg 05/22/20 01:22 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 05/25/20 04:54 Acetaminophen 325 Mg Tab PO 650 mg Q4H PRN Administration Headache/Fever/Mild Pain (1-3) Albuterol/Ipratropium 3 ml 05/23/20 13:00 05/28/20 13:37 Ipratropium/Albuterol Sulfate 3 Ml Neb NEB 3 ml [id number] SOURAV Administration Famotidine 20 mg 05/25/20 09:00 05/28/20 08:47 Famotidine/Pf 20 Mg/2ml Vial SLOW IVP 20 mg BID SOURAV Administration Cefepime HCl 2 gm/ Sodium 100 mls @ 200 mls/hr 05/22/20 06:00 05/28/20 14:50 Chloride IVPB 100 mls Q8HR SOURAV Administration Amiodarone HCl 450 mg/ 259 mls @ 0 mls/hr 05/24/20 03:30 05/28/20 01:29 Miscellaneous Medication 1 IVPB 259 mls each/ Dextrose/Water INF SOURAV Administration Protocol As Directed Morphine Sulfate 3 mg 05/25/20 11:02 05/28/20 12:48 Morphine 2 Mg/Ml Vial SLOW IVP 3 mg Q4H PRN Administration Pain Sodium Chloride 10 ml 05/25/20 09:00 05/28/20 08:49 Flush - Normal Saline 10 Ml Syringe IVF 10 ml Q12HR SOURAV Administration Sodium Chloride 10 ml 05/25/20 06:30 05/27/20 02:39 Flush - Normal Saline 10 Ml Syringe IVF 10 ml PRN PRN Administration Saline Flush - Exam General Appearance: NAD Eye: PERRL ENT: normocephalic atraumatic Neck: supple Heart: RRR, no murmur Respiratory: CTAB Gastrointestinal: soft Extremities: no cyanosis Skin: normal turgor Musculoskeletal: generalized weakness Psychiatric: normal affect, normal behavior, A&O x 3 Hosp A/P (1) Acute CVA (cerebrovascular accident) Code(s): I63.9 - CEREBRAL INFARCTION, UNSPECIFIED Status: Acute (2) Acute kidney injury Code(s): N17.9 - ACUTE KIDNEY FAILURE, UNSPECIFIED Status: Acute (3) Atrial fibrillation with RVR Code(s): I48.91 - UNSPECIFIED ATRIAL FIBRILLATION Status: Acute (4) Pancytopenia Code(s): D61.818 - OTHER PANCYTOPENIA Status: Acute (5) Pneumonia Code(s): J18.9 - PNEUMONIA, UNSPECIFIED ORGANISM Status: Acute (6) Septic shock Code(s): A41.9 - SEPSIS, UNSPECIFIED ORGANISM; R65.21 - SEVERE SEPSIS WITH SEPTIC SHOCK Status: Acute (7) Squamous cell cancer of buccal mucosa Code(s): C06.0 - MALIGNANT NEOPLASM OF CHEEK MUCOSA Status: Acute (8) UTI (urinary tract infection) Status: Acute (9) Weakness Code(s): R53.1 - WEAKNESS Status: Acute - Plan MRI came back confirmed acute CVA - multifocal d/t small vessel disease appreciate input from neurology start statin therapy, check lipid panel in AM start ASA when plt improved, close to 50K otherwise, cont with supportive cares.
--- NOTE | 2020-05-28 18:07 | PRG ---
DATE OF SERVICE: 05/28/2020 SUBJECTIVE: Dania had no new complaints. OBJECTIVE: VITAL SIGNS: He is afebrile, heart rate 82, respiratory rate is 18, oximetry is 91% on 3 L cannula, blood pressure 105/62. LUNGS: Clear anteriorly. HEART: Regular rhythm. ABDOMEN: Soft. He is dysarthric. He appears very weak, but he is in no distress. IMPRESSION: 1. History of head and neck cancer. 2. Pneumonia. 3. Cerebrovascular accident. 4. Swallowing dysfunction, which likely explains his pneumonia. We could probably be converted to enteral antimicrobial therapy if the swallowing comes in issue. Job ID: [id number]
[2020-05-28] MEDS: Atorvastatin Calcium 40 MG TAB PO SCH (20:36)
[2020-05-28] MEDS: Acetaminophen 325 MG TAB PO PRN (23:22)
[2020-05-29] MEDS: Morphine 2 MG/ML VIAL SLOW IVP PRN ×5 (00:58→19:58)
[2020-05-29] MEDS: Acetaminophen 325 MG TAB PO PRN ×3 (04:31→16:51)
[2020-05-29 04:57] LABS: Hemoglobin A1c 5.9 % (4.0-6.0)
[2020-05-29] MEDS: Cefepime 2 GM in Sodium Chloride 0.9% 100 ML IVPB SCH ×3 (06:05→21:38)
[2020-05-29 09:27] LABS: #Eosinphils 0.1 thou/uL (0.0-0.7); #Lymphocytes 0.4 thou/uL (1.20-3.40); #Monocytes 0.3 thou/uL (0.11-0.59); #Neutrophils 1.9 thou/uL (1.40-6.50); %Basophils 1.1 % (0.0-1.0); %Eosinophils 2.1 % (0.0-10.0); %Lymphocytes 16.3 % (21.0-51.0); %Monocytes 10.7 % (0.0-10.0); %Neutrophils 69.9 % (42.0-75.0); Hemoglobin 9.5 g/dL (14.0-18.0); Mean Corpuscular HGB CONC 34.4 g/dL (32.0-36.0); Mean Corpuscular Hemoglobin 33.6 pg (27.0-31.0); Mean Corpuscular Volume 97.5 fL (78.0-98.0); Mean Platelet Volume 11.8 fL (7.4-10.4); Platelet Count 31 thou/uL (130-400); RBC Distribution Width 13.2 % (11.5-14.5); Red Blood Cell (RBC) Count 2.83 mill/uL (4.70-6.10); White Blood Cell (WBC) Count 2.7 thou/uL (4.8-10.8)
[2020-05-29 09:46] LABS: Anion Gap 15 mmol/L (10-20); BUN (Urea Nitrogen) 22 mg/dL (8.4-25.7); Calc. Creatinine Clearance 132 mL/min (70-130); Calcium 7.2 mg/dL (7.8-10.44); Carbon Dioxide 26 mmol/L (23-31); Chloride 101 mmol/L (98-107); Estimated GFR-MDRD Greater than 90; Glucose 99 mg/dL (83-110); Potassium 3.4 mmol/L (3.5-5.1); Sodium 139 mmol/L (136-145)
[2020-05-29] MEDS ORDERED: Potassium Chloride 20 MEQ TAB PO SCH (10:30)
[2020-05-29] MEDS: Famotidine/PF 20 mg/2ml Vial SLOW IVP SCH (10:54)
--- NOTE | 2020-05-29 12:21 | PDOC.HOSPP ---
- Subjective Subjective: Patient was seen examined at bedside. His rate is controlled. He denies any chest pain. He still report of some coughing spell. He had no fever. His potassium has been repleted. No other acute events overnight. - Objective Vital Signs & Weight: Vital Signs (12 hours) Temp Pulse Resp BP Pulse Ox 05/29/20 12:03 98.8 F 82 20 96/57 L 94 L 05/29/20 07:50 98.3 F 70 20 106/62 96 05/29/20 07:16 64 13 05/29/20 04:00 98.1 F 71 15 101/61 94 L 05/29/20 02:30 76 20 Weight Admit Weight 173 lb 8.061 oz Weight 194 lb 7.163 oz Most Recent Monitor Data Heart Rate from ECG 91 NIBP 131/77 NIBP BP-Mean 95 Respiration from ECG 18 SpO2 95 I&O: 05/28/20 05/29/20 05/30/20 06:59 06:59 06:59 Intake Total 480 2122 Output Total 950 2400 Balance -470 -278 Result Diagrams: 05/29/20 04:25 05/29/20 04:25 Hospitalist ROS - Medication Medications: Active Medications Generic Name Dose Route Start Last Admin Trade Name Freq PRN Reason Stop Dose Admin Acetaminophen 650 mg 05/22/20 01:22 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 05/29/20 09:18 Acetaminophen 325 Mg Tab PO 650 mg Q4H PRN Administration Headache/Fever/Mild Pain (1-3) Albuterol/Ipratropium 3 ml 05/23/20 13:00 05/29/20 07:16 Ipratropium/Albuterol Sulfate 3 Ml Neb NEB 3 ml [id number] SOURAV Administration Atorvastatin Calcium 40 mg 05/28/20 21:00 05/28/20 20:36 Atorvastatin Calcium 40 Mg Tab PO 40 mg HS SOURAV Administration Cefepime HCl 2 gm/ Sodium 100 mls @ 200 mls/hr 05/22/20 06:00 05/29/20 06:05 Chloride IVPB 100 mls Q8HR SOURAV Administration Amiodarone HCl 450 mg/ 259 mls @ 0 mls/hr 05/24/20 03:30 05/28/20 01:29 Miscellaneous Medication 1 IVPB 259 mls each/ Dextrose/Water INF SOURAV Administration Protocol As Directed Morphine Sulfate 3 mg 05/25/20 11:02 05/29/20 10:29 Morphine 2 Mg/Ml Vial SLOW IVP 3 mg Q4H PRN Administration Pain Sodium Chloride 10 ml 05/25/20 09:00 05/29/20 10:31 Flush - Normal Saline 10 Ml Syringe IVF 10 ml Q12HR SOURAV Administration Sodium Chloride 10 ml 05/25/20 06:30 05/27/20 02:39 Flush - Normal Saline 10 Ml Syringe IVF 10 ml PRN PRN Administration Saline Flush - Exam General Appearance: NAD Eye: PERRL ENT: normocephalic atraumatic, dry oral mucosa Neck: supple Heart: RRR Respiratory: rhonchi Gastrointestinal: soft, non-tender Extremities: no cyanosis Skin: normal turgor Neurological: cranial nerve grossly intact Musculoskeletal: normal tone Psychiatric: normal affect, normal behavior, A&O x 3 Hosp A/P (1) Acute CVA (cerebrovascular accident) Code(s): I63.9 - CEREBRAL INFARCTION, UNSPECIFIED Status: Acute (2) Acute kidney injury Code(s): N17.9 - ACUTE KIDNEY FAILURE, UNSPECIFIED Status: Acute (3) Atrial fibrillation with RVR Code(s): I48.91 - UNSPECIFIED ATRIAL FIBRILLATION Status: Acute (4) Pancytopenia Code(s): D61.818 - OTHER PANCYTOPENIA Status: Acute (5) Pneumonia Code(s): J18.9 - PNEUMONIA, UNSPECIFIED ORGANISM Status: Acute (6) Septic shock Code(s): A41.9 - SEPSIS, UNSPECIFIED ORGANISM; R65.21 - SEVERE SEPSIS WITH SEPTIC SHOCK Status: Acute (7) Squamous cell cancer of buccal mucosa Code(s): C06.0 - MALIGNANT NEOPLASM OF CHEEK MUCOSA Status: Acute (8) UTI (urinary tract infection) Status: Acute (9) Weakness Code(s): R53.1 - WEAKNESS Status: Acute - Plan His platelets remain low, however, there is no active bleeding. We would like to see it is approaching trending up for towards 50K, before start him on antiplatelet therapy for his recent CVA. Continue statin therapy. Add Mucinex and Tessalon as needed for cough. Continue antibiotic for now. Appreciate input from all specialists. Pending rehab. cont with supportive cares.
[2020-05-29] MEDS: Amiodarone 450 MG, Admixture Fee 1 EACH in Dextrose 5% in Water 250 ML IVPB SCH ×2 (12:23→20:45)
[2020-05-29] MEDS: Guaifenesin DM 100-10/5 ML UDCUP PO PRN (12:23)
[2020-05-29] MEDS: guaiFENesin ER 600 MG TAB PO SCH (20:46)
[2020-05-29] MEDS: Atorvastatin Calcium 40 MG TAB PO SCH (20:46)
[2020-05-30] MEDS: Morphine 2 MG/ML VIAL SLOW IVP PRN ×5 (00:13→20:31)
[2020-05-30] MEDS: Cefepime 2 GM in Sodium Chloride 0.9% 100 ML IVPB SCH ×3 (05:56→22:10)
[2020-05-30] MEDS: Aspirin 81 mg Enteric Coated Tablet PO SCH (08:34)
[2020-05-30] MEDS: guaiFENesin ER 600 MG TAB PO SCH ×2 (08:34→20:31)
[2020-05-30] MEDS: Acetaminophen 325 MG TAB PO PRN (08:40)
[2020-05-30] MEDS ORDERED: Polyethylene Glycol 3350 17 GM Packet PO SCH (09:30)
[2020-05-30] MEDS ORDERED: Bisacodyl 5 MG TAB PO SCH (09:30)
--- NOTE | 2020-05-30 14:34 | PDOC.HOSPP ---
- Subjective Subjective: Patient was seen examined at bedside. No acute events overnight his platelets remained stable at 31,000 for the last 3 days. Waiting on placement. His electrolytes has been corrected. - Objective Vital Signs & Weight: Vital Signs (12 hours) Temp Pulse Pulse Resp BP BP BP 05/30/20 13:30 89 93/60 05/30/20 12:36 75 20 05/30/20 11:26 97.5 F L 73 16 100/65 05/30/20 11:03 100/65 95/56 L 05/30/20 08:00 98 F 81 20 102/59 L 05/30/20 07:01 05/30/20 07:00 81 16 05/30/20 03:32 98.6 F 83 18 99/58 L Pulse Ox 05/30/20 13:30 05/30/20 12:36 90 L 05/30/20 11:26 97 05/30/20 11:03 05/30/20 08:00 92 L 05/30/20 07:01 92 L 05/30/20 07:00 92 L 05/30/20 03:32 92 L Weight Admit Weight 173 lb 8.061 oz Weight 184 lb 1.376 oz Most Recent Monitor Data Heart Rate from ECG 91 NIBP 131/77 NIBP BP-Mean 95 Respiration from ECG 18 SpO2 95 I&O: 05/29/20 05/30/20 05/31/20 06:59 06:59 06:59 Intake Total 2122 120 Output Total 2400 Balance -278 120 Result Diagrams: 05/29/20 04:25 05/29/20 04:25 Radiology Reviewed by me: Yes EKG Reviewed by me: Yes Hospitalist ROS - Medication Medications: Active Medications Generic Name Dose Route Start Last Admin Trade Name Freq PRN Reason Stop Dose Admin Acetaminophen 650 mg 05/22/20 01:22 CLINICAL INFORMATICS STRATEGIST 05/30/20 08:40 Acetaminophen 325 Mg Tab PO 650 mg Q4H PRN Administration Headache/Fever/Mild Pain (1-3) Albuterol/Ipratropium 3 ml 05/23/20 13:00 05/30/20 12:36 Ipratropium/Albuterol Sulfate 3 Ml Neb NEB 3 ml [id number] SOURAV Administration Aspirin 81 mg 05/30/20 09:00 05/30/20 08:34 Aspirin 81 Mg Enteric Coated Tablet PO 81 mg DAILY SOURAV Administration Atorvastatin Calcium 40 mg 05/28/20 21:00 05/29/20 20:46 Atorvastatin Calcium 40 Mg Tab PO 40 mg HS SOURAV Administration Guaifenesin 600 mg 05/29/20 21:00 05/30/20 08:34 Guaifenesin Er 600 Mg Tab PO 600 mg Q12HR SOURAV Administration Guaifenesin/Dextromethorphan 15 ml 05/22/20 01:22 CLINICAL INFORMATICS STRATEGIST 05/29/20 12:23 Guaifenesin Dm 100-10/5 Ml Udcup PO 15 ml Q4H PRN Administration Cough Cefepime HCl 2 gm/ Sodium 100 mls @ 200 mls/hr 05/22/20 06:00 05/30/20 05:56 Chloride IVPB 100 mls Q8HR SOURAV Administration Morphine Sulfate 3 mg 05/25/20 11:02 05/30/20 10:15 Morphine 2 Mg/Ml Vial SLOW IVP 3 mg Q4H PRN Administration Pain Sodium Chloride 10 ml 05/25/20 09:00 05/30/20 09:59 Flush - Normal Saline 10 Ml Syringe IVF Not Given Q12HR SOURAV Sodium Chloride 10 ml 05/25/20 06:30 05/27/20 02:39 Flush - Normal Saline 10 Ml Syringe IVF 10 ml PRN PRN Administration Saline Flush - Exam General Appearance: NAD Eye: PERRL ENT: normocephalic atraumatic Neck: supple, symmetric Heart: RRR Respiratory: CTAB Gastrointestinal: soft Extremities: no cyanosis Skin: normal turgor Neurological: cranial nerve grossly intact Musculoskeletal: normal tone Psychiatric: normal affect, normal behavior, A&O x 3 Hosp A/P (1) Acute CVA (cerebrovascular accident) Code(s): I63.9 - CEREBRAL INFARCTION, UNSPECIFIED Status: Acute (2) Acute kidney injury Code(s): N17.9 - ACUTE KIDNEY FAILURE, UNSPECIFIED Status: Acute (3) Atrial fibrillation with RVR Code(s): I48.91 - UNSPECIFIED ATRIAL FIBRILLATION Status: Acute (4) Pancytopenia Code(s): D61.818 - OTHER PANCYTOPENIA Status: Acute (5) Pneumonia Code(s): J18.9 - PNEUMONIA, UNSPECIFIED ORGANISM Status: Acute (6) Septic shock Code(s): A41.9 - SEPSIS, UNSPECIFIED ORGANISM; R65.21 - SEVERE SEPSIS WITH SEPTIC SHOCK Status: Acute (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 There is no evidence of bleeding. Given his recent CVA, will start him on low-dose aspirin. He has been remaining in normal sinus rhythm. Cardiology, okay to transition chest amiodarone to p.o., 200 mg twice daily. Replace Potassium. Continue statin therapy. cont Mucinex and Tessalon as needed for cough. Continue antibiotic for now. Appreciate input from all specialists. Pending rehab. cont with supportive cares.
[2020-05-30] MEDS ORDERED: Potassium Chloride 20 MEQ TAB PO SCH (15:00)
[2020-05-30] MEDS: HYDROcodone/Acetaminophen 5/325 mg Tablet PO PRN (17:09)
[2020-05-30] MEDS: Amiodarone 200 MG TAB PO SCH (20:30)
[2020-05-30] MEDS: Atorvastatin Calcium 40 MG TAB PO SCH (20:30)
[2020-05-30] MEDS: Docusate 100 MG CAP PO SCH (20:30)
[2020-05-31] MEDS: Guaifenesin DM 100-10/5 ML UDCUP PO PRN ×3 (02:18→22:24)
[2020-05-31] MEDS: Cefepime 2 GM in Sodium Chloride 0.9% 100 ML IVPB SCH ×3 (05:17→22:23)
[2020-05-31] MEDS: HYDROcodone/Acetaminophen 5/325 mg Tablet PO PRN ×4 (05:55→22:24)
[2020-05-31 08:33] LABS: Anion Gap 12 mmol/L (10-20); BUN (Urea Nitrogen) 20 mg/dL (8.4-25.7); Calc. Creatinine Clearance 115 mL/min (70-130); Calcium 7.6 mg/dL (7.8-10.44); Carbon Dioxide 28 mmol/L (23-31); Chloride 100 mmol/L (98-107); Estimated GFR-MDRD Greater than 90; Glucose 92 mg/dL (83-110); Potassium 4.1 mmol/L (3.5-5.1); Sodium 136 mmol/L (136-145)
[2020-05-31 08:49] LABS: #Lymphocytes 0.5 thou/uL (1.20-3.40); #Monocytes 0.3 thou/uL (0.11-0.59); #Neutrophils 2.1 thou/uL (1.40-6.50); %Basophils 0.7 % (0.0-1.0); %Eosinophils 0.8 % (0.0-10.0); %Lymphocytes 17.4 % (21.0-51.0); %Monocytes 10.8 % (0.0-10.0); %Neutrophils 70.3 % (42.0-75.0); Hemoglobin 8.9 g/dL (14.0-18.0); Mean Corpuscular HGB CONC 34.2 g/dL (32.0-36.0); Mean Corpuscular Hemoglobin 34.3 pg (27.0-31.0); Mean Platelet Volume 9.2 fL (7.4-10.4); Platelet Count 102 thou/uL (130-400); RBC Distribution Width 13.5 % (11.5-14.5); Red Blood Cell (RBC) Count 2.61 mill/uL (4.70-6.10); White Blood Cell (WBC) Count 2.9 thou/uL (4.8-10.8)
[2020-05-31 08:50] LABS: Polychromasia SLIGHT = 2-3 cells (100X) (0-2/hpf)
[2020-05-31] MEDS: guaiFENesin ER 600 MG TAB PO SCH ×2 (09:30→20:16)
[2020-05-31] MEDS: Aspirin 81 mg Enteric Coated Tablet PO SCH (09:30)
[2020-05-31] MEDS: Amiodarone 200 MG TAB PO SCH ×2 (09:30→20:16)
[2020-05-31] MEDS: Docusate 100 MG CAP PO SCH ×2 (09:30→20:16)
--- NOTE | 2020-05-31 14:21 | PDOC.HOSPP ---
- Subjective Subjective: no acute overnight, cough improved. working with PT, still debilitated from prolonged hospital stay - Objective Vital Signs & Weight: Vital Signs (12 hours) Temp Pulse Pulse Pulse Resp BP BP 05/31/20 12:00 97.3 F L 80 16 05/31/20 09:29 86 76 109/62 105/67 05/31/20 08:00 97.6 F 76 17 05/31/20 07:04 76 18 05/31/20 04:00 97.6 F 76 17 BP Pulse Ox 05/31/20 12:00 97/58 L 05/31/20 09:29 05/31/20 08:00 105/67 96 05/31/20 07:04 99 05/31/20 04:00 120/64 17 L Weight Admit Weight 173 lb 8.061 oz Weight 180 lb 5.41 oz Most Recent Monitor Data Heart Rate from ECG 91 NIBP 131/77 NIBP BP-Mean 95 Respiration from ECG 18 SpO2 95 I&O: 05/30/20 05/31/20 06/01/20 06:59 06:59 06:59 Intake Total 360 Balance 360 Result Diagrams: 05/31/20 08:03 05/31/20 08:03 Radiology Reviewed by me: Yes EKG Reviewed by me: Yes Hospitalist ROS - Medication Medications: Active Medications Generic Name Dose Route Start Last Admin Trade Name Freq PRN Reason Stop Dose Admin Acetaminophen 650 mg 05/22/20 01:22 MANAGER PRODUCE 05/30/20 08:40 Acetaminophen 325 Mg Tab PO 650 mg Q4H PRN Administration Headache/Fever/Mild Pain (1-3) Hydrocodone Bitart/Acetaminophen 1 tab 05/30/20 14:36 05/31/20 10:06 Hydrocodone/Acetaminophen 5/325 Mg Tablet PO 1 tab Q4H PRN Administration Moderate to Severe Pain (6-10) Albuterol/Ipratropium 3 ml 05/23/20 13:00 05/31/20 07:04 Ipratropium/Albuterol Sulfate 3 Ml Neb NEB 3 ml [id number] SOURAV Administration Amiodarone HCl 200 mg 05/30/20 21:00 05/31/20 09:30 Amiodarone 200 Mg Tab PO 200 mg BID SOURAV Administration Aspirin 81 mg 05/30/20 09:00 05/31/20 09:30 Aspirin 81 Mg Enteric Coated Tablet PO 81 mg DAILY SOURAV Administration Atorvastatin Calcium 40 mg 05/28/20 21:00 05/30/20 20:30 Atorvastatin Calcium 40 Mg Tab PO 40 mg HS SOURAV Administration Docusate Sodium 100 mg 05/30/20 21:00 05/31/20 09:30 Docusate 100 Mg Cap PO 100 mg BID SOURAV Administration Guaifenesin 600 mg 05/29/20 21:00 05/31/20 09:30 Guaifenesin Er 600 Mg Tab PO 600 mg Q12HR SOURAV Administration Guaifenesin/Dextromethorphan 15 ml 05/22/20 01:22 MANAGER PRODUCE 05/31/20 02:18 Guaifenesin Dm 100-10/5 Ml Udcup PO 15 ml Q4H PRN Administration Cough Cefepime HCl 2 gm/ Sodium 100 mls @ 200 mls/hr 05/22/20 06:00 05/31/20 05:17 Chloride IVPB 100 mls Q8HR SOURAV Administration Morphine Sulfate 3 mg 05/25/20 11:02 05/30/20 20:31 Morphine 2 Mg/Ml Vial SLOW IVP 3 mg Q4H PRN Administration Pain Sodium Chloride 10 ml 05/25/20 09:00 05/31/20 09:30 Flush - Normal Saline 10 Ml Syringe IVF 10 ml Q12HR SOURAV Administration Sodium Chloride 10 ml 05/25/20 06:30 05/27/20 02:39 Flush - Normal Saline 10 Ml Syringe IVF 10 ml PRN PRN Administration Saline Flush - Exam General Appearance: NAD Eye: PERRL ENT: normocephalic atraumatic Neck: supple Heart: RRR Respiratory: CTAB Gastrointestinal: soft, non-tender Extremities: no cyanosis Skin: normal turgor, no lesions Neurological: cranial nerve grossly intact Musculoskeletal: normal tone Hosp A/P (1) Acute CVA (cerebrovascular accident) Code(s): I63.9 - CEREBRAL INFARCTION, UNSPECIFIED Status: Acute (2) Acute kidney injury Code(s): N17.9 - ACUTE KIDNEY FAILURE, UNSPECIFIED Status: Acute (3) Atrial fibrillation with RVR Code(s): I48.91 - UNSPECIFIED ATRIAL FIBRILLATION Status: Acute (4) Pancytopenia Code(s): D61.818 - OTHER PANCYTOPENIA Status: Acute (5) Pneumonia Code(s): J18.9 - PNEUMONIA, UNSPECIFIED ORGANISM Status: Acute (6) Septic shock Code(s): A41.9 - SEPSIS, UNSPECIFIED ORGANISM; R65.21 - SEVERE SEPSIS WITH SEPTIC SHOCK Status: Acute (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 There is no evidence of bleeding. Given his recent CVA, pt was started on low-dose aspirin. He has been remaining in normal sinus rhythm. Cardiology, okay to transition chest amiodarone to p.o., 200 mg twice daily. Replaced Potassium. Continue statin therapy. cont Mucinex and Tessalon as needed for cough. Continue antibiotic for now. Appreciate input from all s pecialists. Pending rehab. cont with supportive cares.
[2020-05-31] MEDS: Benzonatate 100 MG CAP PO PRN (16:02)
[2020-05-31] MEDS: Atorvastatin Calcium 40 MG TAB PO SCH (20:16)
[2020-06-01] MEDS: HYDROcodone/Acetaminophen 5/325 mg Tablet PO PRN ×4 (02:33→21:54)
[2020-06-01] MEDS: Cefepime 2 GM in Sodium Chloride 0.9% 100 ML IVPB SCH ×2 (05:35→14:15)
[2020-06-01 05:54] LABS: #Lymphocytes 0.5 thou/uL (1.20-3.40); #Monocytes 0.4 thou/uL (0.11-0.59); #Neutrophils 1.9 thou/uL (1.40-6.50); %Basophils 0.4 % (0.0-1.0); %Eosinophils 0.8 % (0.0-10.0); %Lymphocytes 19.4 % (21.0-51.0); %Monocytes 12.5 % (0.0-10.0); Hemoglobin 8.6 g/dL (14.0-18.0); Mean Corpuscular HGB CONC 32.9 g/dL (32.0-36.0); Mean Corpuscular Hemoglobin 33.3 pg (27.0-31.0); Mean Platelet Volume 8.7 fL (7.4-10.4); Platelet Count 150 thou/uL (130-400); RBC Distribution Width 13.6 % (11.5-14.5); Red Blood Cell (RBC) Count 2.59 mill/uL (4.70-6.10); White Blood Cell (WBC) Count 2.8 thou/uL (4.8-10.8)
[2020-06-01 05:58] LABS: Anion Gap 11 mmol/L (10-20); BUN (Urea Nitrogen) 18 mg/dL (8.4-25.7); Calc. Creatinine Clearance 115 mL/min (70-130); Calcium 7.8 mg/dL (7.8-10.44); Carbon Dioxide 28 mmol/L (23-31); Chloride 101 mmol/L (98-107); Estimated GFR-MDRD Greater than 90; Glucose 105 mg/dL (83-110); Potassium 3.9 mmol/L (3.5-5.1); Sodium 136 mmol/L (136-145)
[2020-06-01] MEDS: Aspirin 81 mg Enteric Coated Tablet PO SCH (08:33)
[2020-06-01] MEDS: Guaifenesin DM 100-10/5 ML UDCUP PO PRN (08:46)
[2020-06-01] MEDS: guaiFENesin ER 600 MG TAB PO SCH ×2 (08:46→21:55)
[2020-06-01] MEDS: Docusate 100 MG CAP PO SCH ×2 (08:46→21:55)
[2020-06-01] MEDS: Benzonatate 100 MG CAP PO PRN ×2 (08:46→17:38)
[2020-06-01] MEDS: Amiodarone 200 MG TAB PO SCH ×2 (08:47→21:55)
--- NOTE | 2020-06-01 14:38 | PDOC.FMACP ---
Advance Care Planning - Problem (1) Dysphagia Status: Acute Code(s): R13.10 - DYSPHAGIA, UNSPECIFIED (2) Palliative care encounter Status: Acute Code(s): Z51.5 - ENCOUNTER FOR PALLIATIVE CARE (3) Acute CVA (cerebrovascular accident) Status: Acute Code(s): I63.9 - CEREBRAL INFARCTION, UNSPECIFIED (4) Squamous cell cancer of buccal mucosa Status: Acute Code(s): C06.0 - MALIGNANT NEOPLASM OF CHEEK MUCOSA (5) Weakness Status: Acute Code(s): R53.1 - WEAKNESS - Note Participants: patient, family, palliative care Summary: Palliative Care discussed Advanced Care Planning. The diagnosis, prognosis and goals of care were discussed. Appropriate forms and documentation to accomplish the goals of care were discussed. All questions were answered. In initial aspect of addressing MPOA his partner Mirlande agreed to leave the room and allow for a private conversation. He relayed he desired for Mirlande to be his primary decision maker and daughter Clare Razia his alternate. When Mirlande returned we discussed Directive to Physician. Mr Najera desires to have a PEG for nutritional supplementation. Remain with full resuscitative measures now. He relayed if he needed to be intubated prior to decision to become a DNAR and required a Trach he would not desire this life sustaining measures. Hopeful for transition to Rehab to gain strength and return to Oncology Clinic for further management of cancer. Communicated with Dr Mahajan registrar assisted with completion of MPOA and Directive to Physician. Original and copy given to patient and copy placed on chart for medical records. Time Spent (mins): 45
--- NOTE | 2020-06-01 16:40 | PDOC.HOSPP ---
- Subjective Subjective: still have some cough. still intake is very minimal - Objective Vital Signs & Weight: Vital Signs (12 hours) Temp Pulse Pulse Resp BP BP BP 06/01/20 15:44 97.6 F 84 20 97/57 L 06/01/20 12:08 90 16 06/01/20 11:25 97.8 F 84 20 97/52 L 06/01/20 09:51 83 98/57 L 06/01/20 08:00 06/01/20 07:46 97.9 F 74 20 99/65 Pulse Ox 06/01/20 15:44 92 L 06/01/20 12:08 06/01/20 11:25 94 L 06/01/20 09:51 06/01/20 08:00 93 L 06/01/20 07:46 93 L Weight Admit Weight 173 lb 8.061 oz Weight 179 lb 10.828 oz Most Recent Monitor Data Heart Rate from ECG 91 NIBP 131/77 NIBP BP-Mean 95 Respiration from ECG 18 SpO2 95 I&O: 05/31/20 06/01/20 06/02/20 06:59 06:59 06:59 Intake Total 360 506 118 Balance 360 506 118 Result Diagrams: 06/01/20 04:53 06/01/20 04:53 Radiology Reviewed by me: Yes EKG Reviewed by me: Yes Hospitalist ROS - Medication Medications: Active Medications Generic Name Dose Route Start Last Admin Trade Name Freq PRN Reason Stop Dose Admin Acetaminophen 650 mg 05/22/20 01:22 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 05/30/20 08:40 Acetaminophen 325 Mg Tab PO 650 mg Q4H PRN Administration Headache/Fever/Mild Pain (1-3) Hydrocodone Bitart/Acetaminophen 1 tab 05/30/20 14:36 06/01/20 12:09 Hydrocodone/Acetaminophen 5/325 Mg Tablet PO 1 tab Q4H PRN Administration Moderate to Severe Pain (6-10) Albuterol/Ipratropium 3 ml 05/23/20 13:00 06/01/20 12:08 Ipratropium/Albuterol Sulfate 3 Ml Neb NEB 3 ml [id number] SOURAV Administration Amiodarone HCl 200 mg 05/30/20 21:00 06/01/20 08:47 Amiodarone 200 Mg Tab PO 200 mg BID SOURAV Administration Aspirin 81 mg 05/30/20 09:00 06/01/20 08:33 Aspirin 81 Mg Enteric Coated Tablet PO 81 mg DAILY SOURAV Administration Atorvastatin Calcium 40 mg 05/28/20 21:00 05/31/20 20:16 Atorvastatin Calcium 40 Mg Tab PO 40 mg HS SOURAV Administration Benzonatate 100 mg 05/29/20 12:21 06/01/20 08:46 Benzonatate 100 Mg Cap PO 100 mg TIDPRN PRN Administration Cough Docusate Sodium 100 mg 05/30/20 21:00 06/01/20 08:46 Docusate 100 Mg Cap PO Not Given BID SOURAV Guaifenesin 600 mg 05/29/20 21:00 06/01/20 08:46 Guaifenesin Er 600 Mg Tab PO 600 mg Q12HR SOURAV Administration Guaifenesin/Dextromethorphan 15 ml 05/22/20 01:22 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 06/01/20 08:46 Guaifenesin Dm 100-10/5 Ml Udcup PO 15 ml Q4H PRN Administration Cough Morphine Sulfate 3 mg 05/25/20 11:02 05/30/20 20:31 Morphine 2 Mg/Ml Vial SLOW IVP 3 mg Q4H PRN Administration Pain Sodium Chloride 10 ml 05/25/20 09:00 06/01/20 08:47 Flush - Normal Saline 10 Ml Syringe IVF 10 ml Q12HR SOURAV Administration Sodium Chloride 10 ml 05/25/20 06:30 05/27/20 02:39 Flush - Normal Saline 10 Ml Syringe IVF 10 ml PRN PRN Administration Saline Flush - Exam General Appearance: NAD Eye: PERRL ENT: normocephalic atraumatic Neck: supple Heart: RRR Respiratory: rhonchi Gastrointestinal: soft Extremities: no cyanosis Skin: normal turgor Neurological: cranial nerve grossly intact Musculoskeletal: generalized weakness Hosp A/P (1) Acute CVA (cerebrovascular accident) Code(s): I63.9 - CEREBRAL INFARCTION, UNSPECIFIED Status: Acute (2) Acute kidney injury Code(s): N17.9 - ACUTE KIDNEY FAILURE, UNSPECIFIED Status: Acute (3) Atrial fibrillation with RVR Code(s): I48.91 - UNSPECIFIED ATRIAL FIBRILLATION Status: Acute (4) Pancytopenia Code(s): D61.818 - OTHER PANCYTOPENIA Status: Acute (5) Pneumonia Code(s): J18.9 - PNEUMONIA, UNSPECIFIED ORGANISM Status: Acute (6) Septic shock Code(s): A41.9 - SEPSIS, UNSPECIFIED ORGANISM; R65.21 - SEVERE SEPSIS WITH SEPTIC SHOCK Status: Acute (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 His platelet that now normalized. His p.o. intake is very minimal. GI was consulted for PEG tube placement given his history of head and neck cancer. Discussed with palliative care team. Appreciate input. Toño corrected.
[2020-06-01] MEDS: Atorvastatin Calcium 40 MG TAB PO SCH (21:55)
[2020-06-01] MEDS: Amoxicillin/Potassium Clav 875 MG TAB PO SCH (21:55)
[2020-06-02] MEDS: Amoxicillin/Potassium Clav 875 MG TAB PO SCH ×2 (08:59→22:03)
[2020-06-02] MEDS: ALPRAZolam 0.25 MG TAB PO PRN (08:59)
[2020-06-02] MEDS: Amiodarone 200 MG TAB PO SCH ×2 (08:59→22:04)
[2020-06-02] MEDS: HYDROcodone/Acetaminophen 5/325 mg Tablet PO PRN (08:59)
[2020-06-02] MEDS: Docusate 100 MG CAP PO SCH ×2 (09:05→22:03)
[2020-06-02] MEDS: Aspirin 81 mg Enteric Coated Tablet PO SCH (09:05)
[2020-06-02] MEDS: guaiFENesin ER 600 MG TAB PO SCH ×2 (09:05→22:03)
[2020-06-02] MEDS ORDERED: PROPOFOL 200 MG/20 ML VIAL ONE (09:38)
--- NOTE | 2020-06-02 09:46 | PDOC.PALPN ---
Palliative Progress Note - Subjective Awaiting PEG placement, weakness. No complaints - Objective Vital Signs: Vital Signs - Most Recent Temp Pulse Resp BP Pulse Ox 98.0 F 75 20 94/57 L 99 06/02/20 08:15 06/02/20 08:15 06/02/20 08:15 06/02/20 08:15 06/02/20 08:15 - Physical Exam Constitutional: cachectic, emaciated, ill appearing HEENT: moist MMs, sclera anicteric, poor dentition Respiratory: unlabored breathing Deviation from normal: biltareally mildly adventicious to upper Cardiovascular: RRR Gastrointestinal: non-tender, hyperactive bowel sounds Deviation from normal: Patient NPO this morning Genitourinary: incontinent Musculoskeletal: diffuse muscle atrophy Neurology: moves all 4 limbs Skin: cap refill <2 seconds, fragile Psychiatric: A&O x 3 - Assessment (1) Dysphagia Code(s): R13.10 - DYSPHAGIA, UNSPECIFIED Current Visit: Yes Status: Acute (2) Palliative care encounter Code(s): Z51.5 - ENCOUNTER FOR PALLIATIVE CARE Current Visit: Yes Status: Acute (3) Acute CVA (cerebrovascular accident) Code(s): I63.9 - CEREBRAL INFARCTION, UNSPECIFIED Current Visit: Yes Status: Acute (4) Squamous cell cancer of buccal mucosa Code(s): C06.0 - MALIGNANT NEOPLASM OF CHEEK MUCOSA Current Visit: Yes Status: Acute (5) Weakness Code(s): R53.1 - WEAKNESS Current Visit: Yes Status: Acute - Plan Plan: Awaiting PEG placement. Remains hopeful for improvement in swallow function and increase in strength at [facility]. Revisited measures to increase protein intake as suggested through speech and dietary. He was encouraged in relation to combining his favorite shake and protein supplement. Emotional Support and Therapeutic listening offered to patient significant other. Discussed for she and Mr Najera to discuss Goal of Care if rehab does not allow for continued strength or he is not able to tolerate radiation. [35] minutes spent on this encounter with >50% of the time in counseling and coordination of care. - ROS Constitutional: alert, loss appetite, weakness ENT: alteration in dentition, difficulty swallowing Respiratory: other (Deneis cough) Cardiology: other (Denies chest pain or palpitations) Gastrointestinal: other (denies nausea or vomiting)
--- NOTE | 2020-06-02 09:52 | CON ---
DATE OF CONSULTATION: 06/01/2020 REASON FOR CONSULTATION: Evaluate the patient for endoscopic gastrostomy tube placement. HISTORY OF PRESENT ILLNESS: Mr. Zhou Najera is a 74-year-old male with a history of cancer of the head and neck, diagnosed in February 2020. He underwent surgery by Dr. Dima Diehl. Subsequently he underwent chemoradiation. Patient has 2 more cycles of chemoradiation left. The patient has done well since surgery and he was recently eating well. However, he continues to smoke. The patient hospitalized at this time with pneumonia and sepsis. Other problems include transient atrial fibrillation and also a CVA. He has been seen by Neurology service. The patient's oral intake is not that much. He is trying to drink as much as he can, but however the family tells me his oral intake is limited. The patient apparently was given of a choice of having a PEG tube placement done before chemoradiation in February 2020, but patient did not want to have it done. Now, he is agreeable. He is awake, alert, and communicative. Apparently, he was in excellent state of health until this diagnosis of head and neck cancer in February 2020. He has no history of hypertension, heart disease, lung disease, diabetes . He had no relevant history. ALLERGIES: NONE. SOCIAL HISTORY: He quit smoking just a couple of weeks ago. He does not drink alcohol. No drug abuse. MEDICAL ILLNESSES: 1. Healthy all his life until diagnosis of head and neck cancer and has had a partial glossectomy and neck dissection in February 2020. 2. Transurethral ablation during this admission. 3. CVA. 4. Pneumonia. 5. Sepsis. MEDICATION LIST: Reviewed. FAMILY HISTORY: No family history of any cancer, stroke, or heart attack. REVIEW OF SYSTEMS: 10-point system reviewed is remarkable for generalized weakness, fatigue, tiredness, and poor oral intake. PHYSICAL EXAMINATION: GENERAL: Appears very comfortable. He is awake, alert, and communicative. He is in no distress. VITAL SIGNS: He is afebrile. His pulse is 84, blood pressure 97/57. HEENT: Conjunctivae clear. He is afebrile. NECK: Supple. No adenitis noted. CARDIOVASCULAR SYSTEM: Normal heart sounds. LUNGS: Clear to auscultation. ABDOMEN: Soft. Abdomen is nondistended. Abdomen is nontender. No organomegaly. No masses. EXTREMITIES: Reveal no edema. LABORATORY DATA: The most recent lab data on 06/01/2020, shows WBC is 2800, hemoglobin 8.6, hematocrit 26.2, MCV 101, platelet count 150, polymorphs 67, lymphocytes 19, monocytes 12. Chem-7: Normal lytes, creatinine 0.67, glucose 105, calcium 7.8. CLINICAL IMPRESSION: 74-year-old male with recent surgery for head and neck cancer in February 2020. He has undergone 4 cycles of chemotherapy. The patient admitted with sepsis and also has had mild CVA. The patient's oral intake is limited. Apparently, he was given the option of having a PEG tube placement few months ago. At that time he did not want to have it done, now he is agreeable. I met with him and the family and explained about the procedure, which includes placement of G-tube over the abdomen. Potential risks like bleeding, sepsis, perforation were explained. He is agreeable. I will plan for EGD and PEG tube placement tomorrow, it is to be done by Dr. Jayden Pittman, who is on-call for me. Job ID: [id number]
--- NOTE | 2020-06-02 15:02 | OP ---
DATE OF PROCEDURE: 06/02/2020 INDICATIONS FOR PROCEDURE: Moderate protein-calorie malnutrition, history of head/neck cancer status post chemoradiation, failure to thrive. PROCEDURE PERFORMED: Esophagogastroduodenoscopy with percutaneous gastrostomy tube placement. DESCRIPTION OF PROCEDURE: After the risks and benefits of the procedure were explained to the patient including risks of bleeding, infection, perforation, reactions to anesthesia, aspiration, and/or pain, informed consent was obtained. The patient was then taken to the endoscopy suite where he was maneuvered into the supine position followed by introduction of deep sedation via propofol and anesthesia support. Once adequate sedation was achieved, the standard gastroscope was introduced into the mouth with intubation of the esophagus, stomach, and the proximal small intestines with the findings listed below. On completion of the initial examination of the esophagus, stomach, and the proximal intestines, an adequate site for the gastrostomy tube was then ascertained. Using one-to-one compression and transillumination, a suitable site was able to be found in roughly the left upper quadrant of the patient's abdomen. After marking the spot adequately for future reference on the outside of the skin, the area was prepped and draped in sterile fashion using chlorhexidine soap with a sterile drape over it as well. Using 1% Xylocaine, approximately 1 mL was then instilled underneath the skin in a wheal type fashion for local anesthesia. The needle was then directed perpendicular to the skin and advanced into the stomach with back pressure as it was advanced. On withdrawal of the needle, the remainder of the 5 mL of Xylocaine was instilled into the tract in order to anesthetize region. Then, using a small scalpel, a 1 cm vertical incision was then made into the anterior abdominal wall with minimal amounts of bleeding observed. Then, using an aspiration needle, it was then advanced through the anesthetized tract and into the stomach, through which a guidewire was then advanced using the gastroscope and a snare. It was then successfully secured and withdrawn through the esophagus and through the mouth with good stabilization of the wire at both ends. The distal part of the wire was then secured to a [employer] 20-Turkish percutaneous gastrostomy tube, and using a push technique, it was advanced into the stomach and out through the anterior wall of the stomach and anterior abdominal wall. The tube was then cut to length with the external bumper and adapter placed and the procedure was then terminated with all other equipment removed from the patient. A second-look endoscopy yielded that the PEG tube was in appropriate position with 4 cm seen at the skin. FINDINGS: Esophagus: Normal-appearing mucosa was seen in the proximal and mid esophagus. However, as the scope was advanced into the distal esophagus, I encountered moderate to significant narrowing that was able to be traversed with some difficulty using the scope and insufflation of air. Upon entry into the stomach, the scope exhibited a "clasp-knife" action, concerning for the presence of achalasia. On further evaluation on withdrawal, there may be a slight stricture at the gastroesophageal junction as well, but it was difficult to ascertain given the narrowing of the esophagus already. Otherwise, there was no evidence of erosions, ulcerations, mass lesions, or active/recent bleeding. Stomach: Mild mucosal erythema was seen in the gastric fundus, body, greater curvature, and into the antrum. However, there was no other associated abnormalities with it. Normal-appearing mucosa was then seen in the gastric cardia and at the incisura. After the initial examination, the percutaneous gastrostomy tube was then advanced into the stomach with good placement seen along the greater curvature of the stomach. There was no evidence of erosions, ulcerations, mass lesions, or active/recent bleeding. Duodenum: A minimal amount of mucosal edema was seen within the duodenal bulb within large folds in this region. Otherwise, normal-appearing mucosa was seen in the bulb and second portion of the duodenum. There was no evidence of erosions, ulcerations, mass lesions, or active/recent bleeding. IMPRESSION: 1. Narrowing of the distal esophagus with possible stricture versus achalasia and dysmotility. 2. Mild gastric erythema without erosions or ulcerations. 3. Successful placement of a 20-Turkish percutaneous gastrostomy tube. RECOMMENDATIONS: 1. We would hold on any installation of tube feeds until approximately 6 hours after the procedure, then start according to Dietary Services' recommendations. 2. We would monitor the patient overnight for signs of complications from the procedures including pain or bleeding. 3. We would adhere to regular PEG tube care. 4. We would refrain from placing any dressings between the external bumper and the skin. 5. We would continue with current antibiotic regimen as part of treatment for the patient's sepsis, which should also provide adequate coverage for antibiotic prophylaxis. 6. Pain control per primary team. We will continue to follow. Please call with any questions. Job ID: [id number]
--- NOTE | 2020-06-02 15:09 | PDOC.HOSPP ---
- Subjective Subjective: Patient was seen examined at bedside. No acute events overnight. His pain is currently controlled. He is scheduled to have a PEG tube placed today. - Objective Vital Signs & Weight: Vital Signs (12 hours) Temp Pulse Resp BP BP Pulse Ox 06/02/20 11:30 98.0 F 72 20 91/54 L 99 06/02/20 08:15 98.0 F 75 20 94/57 L 99 06/02/20 08:00 98 F 75 20 94/57 L 99 06/02/20 07:43 70 14 06/02/20 04:00 96.3 F L 78 18 98/53 L 92 L Weight Admit Weight 173 lb 8.061 oz Weight 176 lb 2.389 oz Most Recent Monitor Data Heart Rate from ECG 91 NIBP 131/77 NIBP BP-Mean 95 Respiration from ECG 18 SpO2 95 I&O: 06/01/20 06/02/20 06/03/20 06:59 06:59 06:59 Intake Total 506 118 Balance 506 118 Result Diagrams: 06/01/20 04:53 06/01/20 04:53 Radiology Reviewed by me: Yes EKG Reviewed by me: Yes Hospitalist ROS - Medication Medications: Active Medications Generic Name Dose Route Start Last Admin Trade Name Freq PRN Reason Stop Dose Admin Acetaminophen 650 mg 05/22/20 01:22 LAND MANAGER 05/30/20 08:40 Acetaminophen 325 Mg Tab PO 650 mg Q4H PRN Administration Headache/Fever/Mild Pain (1-3) Hydrocodone Bitart/Acetaminophen 1 tab 05/30/20 14:36 06/02/20 08:59 Hydrocodone/Acetaminophen 5/325 Mg Tablet PO 1 tab Q4H PRN Administration Moderate to Severe Pain (6-10) Albuterol/Ipratropium 3 ml 05/23/20 13:00 06/02/20 07:43 Ipratropium/Albuterol Sulfate 3 Ml Neb NEB 3 ml [id number] SOURAV Administration Alprazolam 0.25 mg 06/02/20 08:33 06/02/20 08:59 Alprazolam 0.25 Mg Tab PO 0.25 mg QIDPRN PRN Administration Anxiety Amiodarone HCl 200 mg 05/30/20 21:00 06/02/20 08:59 Amiodarone 200 Mg Tab PO 200 mg BID SOURAV Administration Amoxicillin/Clavulanate Potassium 875 mg 06/01/20 21:00 06/02/20 08:59 Amoxicillin/Potassium Clav 875 Mg Tab PO 875 mg Q12HR SOURAV Administration Aspirin 81 mg 05/30/20 09:00 06/02/20 09:05 Aspirin 81 Mg Enteric Coated Tablet PO Not Given DAILY SOURAV Atorvastatin Calcium 40 mg 05/28/20 21:00 06/01/20 21:55 Atorvastatin Calcium 40 Mg Tab PO 40 mg HS SOURAV Administration Benzonatate 100 mg 05/29/20 12:21 06/01/20 17:38 Benzonatate 100 Mg Cap PO 100 mg TIDPRN PRN Administration Cough Docusate Sodium 100 mg 05/30/20 21:00 06/02/20 09:05 Docusate 100 Mg Cap PO Not Given BID SOURAV Guaifenesin 600 mg 05/29/20 21:00 06/02/20 09:05 Guaifenesin Er 600 Mg Tab PO Not Given Q12HR SOURAV Guaifenesin/Dextromethorphan 15 ml 05/22/20 01:22 LAND MANAGER 06/01/20 08:46 Guaifenesin Dm 100-10/5 Ml Udcup PO 15 ml Q4H PRN Administration Cough Morphine Sulfate 3 mg 05/25/20 11:02 05/30/20 20:31 Morphine 2 Mg/Ml Vial SLOW IVP 3 mg Q4H PRN Administration Pain Sodium Chloride 10 ml 05/25/20 09:00 06/02/20 09:05 Flush - Normal Saline 10 Ml Syringe IVF 10 ml Q12HR SOURAV Administration Sodium Chloride 10 ml 05/25/20 06:30 05/27/20 02:39 Flush - Normal Saline 10 Ml Syringe IVF 10 ml PRN PRN Administration Saline Flush - Exam General Appearance: NAD Eye: PERRL ENT: normocephalic atraumatic Neck: supple Heart: RRR Respiratory: CTAB Gastrointestinal: soft Extremities: no cyanosis Skin: normal turgor Neurological: cranial nerve grossly intact Musculoskeletal: normal tone Psychiatric: normal affect, normal behavior, A&O x 3 Hosp A/P (1) Acute CVA (cerebrovascular accident) Code(s): I63.9 - CEREBRAL INFARCTION, UNSPECIFIED Status: Acute (2) Acute kidney injury Code(s): N17.9 - ACUTE KIDNEY FAILURE, UNSPECIFIED Status: Acute (3) Atrial fibrillation with RVR Code(s): I48.91 - UNSPECIFIED ATRIAL FIBRILLATION Status: Acute (4) Pancytopenia Code(s): D61.818 - OTHER PANCYTOPENIA Status: Acute (5) Pneumonia Code(s): J18.9 - PNEUMONIA, UNSPECIFIED ORGANISM Status: Acute (6) Septic shock Code(s): A41.9 - SEPSIS, UNSPECIFIED ORGANISM; R65.21 - SEVERE SEPSIS WITH SEPTIC SHOCK Status: Acute (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 Scheduled to have PEG tube placement today, transition his IV antibiotic to p.o. continue supportive cares while waiting for rehab.
[2020-06-02] MEDS: Morphine 2 MG/ML VIAL SLOW IVP PRN ×2 (16:41→22:05)
[2020-06-02] MEDS: Atorvastatin Calcium 40 MG TAB PO SCH (22:04)
[2020-06-03] MEDS: ALPRAZolam 0.25 MG TAB PO PRN (02:47)
[2020-06-03] MEDS: HYDROcodone/Acetaminophen 5/325 mg Tablet PO PRN ×2 (02:48→15:18)
[2020-06-03] MEDS: Guaifenesin DM 100-10/5 ML UDCUP PO PRN (02:52)
[2020-06-03] MEDS: Aspirin 81 mg Enteric Coated Tablet PO SCH (10:00)
[2020-06-03] MEDS: Amiodarone 200 MG TAB PO SCH (10:00)
[2020-06-03] MEDS: Amoxicillin/Potassium Clav 875 MG TAB PO SCH (10:00)
[2020-06-03] MEDS: Docusate 100 MG CAP PO SCH (10:00)
[2020-06-03] MEDS: guaiFENesin ER 600 MG TAB PO SCH (10:00)
--- NOTE | 2020-06-03 13:26 | PDOC.DS.DS ---
Provider - Provider Date of Admission: 05/22/20 00:59 Date of Discharge: 06/03/20 Admitting Provider: Chucho Saha Consultations: Cardiology, Gastroentrology, Neurology, Pulmonary Primary Care Physician: NO PCP PROVIDER Course - Hospital Course Hospital Course: DISCHARGE DIAGNOSES: 1. Septic shock, present on admission 2. Pneumonia, suspect due to aspiration 3. Atrial fib with RVR 4. Acute kidney injury-resolved 5. Acute CVA 6. 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 Generalized weakness/physical debility 8. Moderate protein calorie malnutrition, present admission PERTINENT IMAGING STUDIES: Chest x-ray showed bilateral airspace disease, left greater than the right Brain CT: No acute intracranial findings. Repeat chest x-ray: Improving bilateral pneumonia Brain MRI: Several acute or subacute small and tiny infarctions, in a different vascular territory: Right anterior cerebral artery, bilateral posterior cerebral artery HISTORY OF PRESENT ILLNESS AND BRIEF HOSPITAL COURSE: Patient is unfortunate 74 years old gentleman who has significant past medical history of squamous cell carcinoma of the head and neck, currently receiving treatment chemo and radiation therapy. Last treatment was 2 weeks ago prior to admission. He presented to ED with complaint of short of breath, and cough intermittently for the past couple days along with generalized malaise. He was found sepsis present on admission, he was subsequently transferred to [facility] for further evaluation and management. Patient was started on sepsis protocol, and received broad-spectrum IV antibiotics. Patient responded well, he also required vasopressor support. Multiple specialists were consulted including oncology team, pulmonology, cardiology, GI, and ID. He is sepsis likely due to aspiration pneumonia. His cultures no growth. Patient was subsequently transferred to telemetry. He was found to have a brief episode of atrial fib with RVR, cardiology was consulted. During his hospital stay, there was a brief change in mental status, for that reason, he had an MRI done, showed multifocal infarcts. His platelet was low, likely due to his recent chemo and radiation therapy. However gradually improved and normalized with conservative management. She was started on aspirin and statin as recommended by neurology. He so far has been tolerated well. He spontaneously converted, and remains on normal sinus rhythm. Cardiology recommended to continue with amiodarone 200 mg twice daily for symptom suppression. His oral intake was not adequate due to his head and neck cancer. For that reason we have, consult GI for PEG tube placement. He is tolerating tube feeding well. At this time, mental status returned to baseline and he has been accepted to inpatient rehab for further physical therapy. He will be continue with his oral antibiotic for 1 more week. Patient was encouraged to follow-up with his oncology cardiology and other specialist for ongoing management of his underlying medical issues. PROCEDURE PERFORMED: PEG placement DISCHARGE CONDITION: STABLE DISPOSITION: inpt Rehab PHYSICAL EXAM: General Appearance: Alert, oriented, resting comfortably, no apparent distress, well developed/nourished. HEENT: Normocephalic/atraumatic, moist mucous membrane, normal ENT inspection, normal tones. PERRLA, no scleral icterus, normal conjunctiva Neck: Supple, normal inspection, no JVD Respiratory: Lungs are clear bilaterally, normal breath sounds, no accessory muscle use Cardiovascular: Regular rate, regular rhythm, no murmur, no rubs Abdomen: Soft, nontender, nondistended, normal bowel sounds, no organomegaly, no guarding no rebound. PEG site clean Back: Normal inspection, no CVA tenderness Extremities: No clubbing, no cyanosis, no edema Psych/Mental Status: Normal affect, speech, non-pressured, AAO x 3. gen weakness Neurologic: CN II-XII are intact. Skin: Warm/Dry, Normal Color, no rashes DISCHARGE TIME SPENT: >30 MINUTES Resuscitation Status: 05/22/20 01:22 Resuscitation Status Routine Resuscitation Status: FULL: Full Resuscitation - Labs Lab Results: 06/01/20 04:53 06/01/20 04:53 Microbiology - Entire Visit 05/23/20 17:00 Sputum - Fluid Respiratory Culture - Final 05/22/20 04:02 Urine danielson catheter Urine Culture - Final NO GROWTH AT 36 HOURS - Physical Exam Vitals: Vital Signs (12 hours) Temp Pulse Pulse Resp BP BP BP 06/03/20 12:38 79 18 06/03/20 11:43 97.7 F 76 22 H 97/56 L 06/03/20 10:24 88 105/61 06/03/20 07:39 97.9 F 79 20 86/50 L 06/03/20 06:39 78 20 06/03/20 04:00 98 F 89 18 84/50 L Pulse Ox 06/03/20 12:38 06/03/20 11:43 93 L 06/03/20 10:24 06/03/20 07:39 92 L 06/03/20 06:39 06/03/20 04:00 90 L Weight Admit Weight 173 lb 8.061 oz Weight 176 lb 14.4 oz Most Recent Monitor Data Heart Rate from ECG 91 NIBP 131/77 NIBP BP-Mean 95 Respiration from ECG 18 SpO2 95 Physical Exam: The patient was seen and examined on the day of discharge. 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 Code(s): C06.0 - MALIGNANT NEOPLASM OF CHEEK MUCOSA Status: Acute (8) UTI (urinary tract infection) Status: Acute (9) Weakness Code(s): R53.1 - WEAKNESS Status: Acute (10) Moderate protein malnutrition Code(s): E44.0 - MODERATE PROTEIN-CALORIE MALNUTRITION Status: Acute (11) Physical debility Code(s): R53.81 - OTHER MALAISE Status: Acute Plan - Discharge Medications Prescriptions: Amoxicillin/Potassium Clav [Augmentin] 875 mg PO Q12HR #14 tab guaiFENesin ER [Mucinex] 600 mg PO Q12HR #30 tab Amiodarone [Cordarone] 200 mg PO BID #60 tab Aspirin [Ecotrin Low Strength] 81 mg PO DAILY #30 tab Atorvastatin Calcium [Lipitor] 40 mg PO HS #30 tab Benzonatate [Tessalon] 100 mg PO TIDPRN PRN #30 cap PRN Reason: Cough Home Medications: Medication Instructions Recorded Confirmed Type Hydrocodone-APAP 7.5-325/15 15 ml PO Q4H PRN ml 03/18/20 05/22/20 Rx Nicotine [Nicoderm CQ] 21 mg TOP Q24HR patch 03/18/20 05/22/20 Rx Amiodarone [Cordarone] 200 mg PO BID #60 tab 06/03/20 Rx Amoxicillin/Potassium Clav 875 mg PO Q12HR #14 tab 06/03/20 Rx [Augmentin] Aspirin [Ecotrin Low Strength] 81 mg PO DAILY #30 tab 06/03/20 Rx Atorvastatin Calcium [Lipitor] 40 mg PO HS #30 tab 06/03/20 Rx Benzonatate [Tessalon] 100 mg PO TIDPRN PRN #30 cap 06/03/20 Rx guaiFENesin ER [Mucinex] 600 mg PO Q12HR #30 tab 06/03/20 Rx Allergies: No Known Allergies Allergy (Verified 03/15/20 01:48) - Discharge Instructions Discharge Instructions:: [facility] Activity:: Activity as Tolerated Nourishment:: Tube Feeding Diet Additional Dietary Instructions:: Pureed diet Therapies:: Physical Therapy, Speech Therapy - Follow up Plan Referrals: PROVIDER,NO PCP [Primary Care Provider] - Disposition: REHABILITATION INPATIENT Quality - Care Measures CORE MEASURES:: Stroke/TIA - Stroke/TIA Did you prescribe antithrombotic therapy?: Yes Did you prescribe anticoagulant for A Fib/Flutter?: No Specify reason for no DC anticoagulant: Anticoagulant not tolerated (d/t severe anemia and thrombocytopenia) Did you prescribe a statin medication?: Yes
[2020-06-03 14:08] VITALS: BMI 24.6
--- NOTE | 2020-06-03 15:12 | PDOC.PALPN ---
Palliative Progress Note - Subjective Tolerating feeding via PEG. States "I feel better". ready to discharge to rehab with hopes of gaining strength. - Objective Vital Signs: Vital Signs - Most Recent Temp Pulse Resp BP Pulse Ox 97.7 F 79 18 97/56 L 93 L 06/03/20 11:43 06/03/20 12:38 06/03/20 12:38 06/03/20 11:43 06/03/20 11:43 - Physical Exam Constitutional: NAD, cachectic, encephalitic, ill appearing HEENT: poor dentition Respiratory: no wheezing, unlabored breathing Gastrointestinal: soft, non-tender, positive bowel sounds Deviation from normal: PEG Genitourinary: incontinent Musculoskeletal: diffuse muscle atrophy Neurology: moves all 4 limbs Skin: cap refill <2 seconds, bruising Psychiatric: A&O x 3, normal mood - Assessment (1) Dysphagia Code(s): R13.10 - DYSPHAGIA, UNSPECIFIED Current Visit: Yes Status: Acute (2) Palliative care encounter Code(s): Z51.5 - ENCOUNTER FOR PALLIATIVE CARE Current Visit: Yes Status: Acute (3) Acute CVA (cerebrovascular accident) Code(s): I63.9 - CEREBRAL INFARCTION, UNSPECIFIED Current Visit: Yes Status: Acute (4) Squamous cell cancer of buccal mucosa Code(s): C06.0 - MALIGNANT NEOPLASM OF CHEEK MUCOSA Current Visit: Yes Status: Acute (5) Weakness Code(s): R53.1 - WEAKNESS Current Visit: Yes Status: Acute - Plan Plan: Reviewed transition to rehab with hope of improving to return to cancer clinic to continue to pursue therapy. He states that he and his fiancee will "do what we need to do" if he can not tolerate radiation. He is hopeful with ability to have nutrition via his PEG that he will gain strength and increase ability to be more independent. [20] minutes spent on this encounter with >50% of the time in counseling and coordination of care. - ROS Constitutional: loss appetite, weakness ENT: alteration in dentition, dry mouth, difficulty swallowing Respiratory: shortness of breath with extertion
[2020-06-03] MEDS: Benzonatate 100 MG CAP PO PRN (15:18)
[2020-06-03 15:50] VITALS: BP 99/59; TEMP 98
--- NOTE | 2020-06-03 20:50 | PRG ---
DATE OF SERVICE: REASON FOR CONSULTATION: Moderate protein-calorie malnutrition, now status post PEG tube placement. SUBJECTIVE: The patient underwent percutaneous gastrostomy tube placement yesterday with no periprocedural complications. Per nursing staff, the tube feeds were able to be started 6 hours after the PEG tube was placed and he was advanced to approximately 60 mL/h with no significant residuals. Today, the patient states that he has significant pain around the wound site itself that was only moderately controlled with Tylenol and pain medication. Upon loosening the external bumper from the skin, he had improvement of this abdominal pain. Otherwise, he denies any nausea, vomiting, fevers, chills, continued bleeding from the PEG tube site, hematemesis, melena, or hematochezia. OBJECTIVE: VITAL SIGNS: Temperature 98, pulse 86, blood pressure 99/59, respiratory rate 24, and saturating 98% on 3 L nasal cannula. GENERAL: The patient was lying in bed, in no acute distress. Alert and oriented x3. CARDIOVASCULAR: Regular rate and rhythm. RESPIRATORY: Clear to auscultation bilaterally. ABDOMEN: Normoactive bowel sounds. Soft, nondistended. Tenderness to palpation around the percutaneous gastrostomy tube site with the wound site showing no evidence of breakdown or purulence. EXTREMITIES: No cyanosis, clubbing, or edema. LABORATORY DATA: No current studies are available for review. IMAGING DATA: The patient underwent upper endoscopy on June 02, 2020, with a successful placement of a [employer] 20-[place] percutaneous gastrostomy tube. ASSESSMENT AND PLAN: The patient is a 74-year-old male, with past medical history of head and neck cancer status post chemoradiation, tobacco abuse, atrial fibrillation, cerebrovascular accident, and transurethral ablation during this admission, presenting with moderate protein-calorie malnutrition, now status post successful placement of a percutaneous gastrostomy tube. Moderate protein-calorie malnutrition. The patient is presenting with a recent history of a head and neck cancer diagnosed in February 2020, and has undergone chemoradiation as part of treatment for this particular condition. However, over the last 1 to 2 months, the patient's oral intake has significantly decreased with inability to maintain adequate caloric intake. Subsequently, a percutaneous gastrostomy tube was placed on June 02, 2020, with no periprocedural complications and able to advance his tube feeds to approximately 60 mL/h (at goal). RECOMMENDATIONS: 1. Continue with standard PEG tube care. 2. I loosened the external bumper during today's examination. I would highly recommend maintaining a distance of 1 cm between the external bumper and the skin. 3. Pain control can be achieved with Tylenol. We will defer to primary team. 4. We would have the patient followup in the GI Clinic with Dr. Duffy in approximately 3 to 4 weeks for evaluation of the PEG tube at that time. We will sign off. Please call with any additional questions. Job ID: [id number]
== END 2020-06-03 19:10 | DRG 871 ==
LOC: ERS 23:37 → CCU 05-22 00:59 → 2NO 05-25 17:53 → 2SE 05-28 22:51
PROVIDERS: ADMIT Internal Medicine; ATTEND Family Medicine
PROC: 8E0ZXY6 Isolation (ICD-10-PCS; principal; 2020-05-22)
PROC: 05H633Z Insertion of Infusion Device into Left Subclavian Vein, Percutaneous Approach (ICD-10-PCS; 2020-05-22)
PROC: 3E043XZ Introduction of Vasopressor into Central Vein, Percutaneous Approach (ICD-10-PCS; 2020-05-22)
PROC: 5A09357 Assistance with Respiratory Ventilation, Less than 24 Consecutive Hours, Continuous Positive Airway Pressure (ICD-10-PCS; 2020-05-22)
PROC: 0BH17EZ Insertion of Endotracheal Airway into Trachea, Via Natural or Artificial Opening (ICD-10-PCS; 2020-05-22)
PROC: 5A1945Z Respiratory Ventilation, 24-96 Consecutive Hours (ICD-10-PCS; 2020-05-22)
PROC: 30233R1 Transfusion of Nonautologous Platelets into Peripheral Vein, Percutaneous Approach (ICD-10-PCS; 2020-05-25)
PROC: 0DH63UZ Insertion of Feeding Device into Stomach, Percutaneous Approach (ICD-10-PCS; 2020-06-02)
DX: A41.9 Sepsis, unspecified organism (principal); R65.21 Severe sepsis with septic shock; J69.0 Pneumonitis due to inhalation of food and vomit; I63.533 Cerebral infarction due to unspecified occlusion or stenosis of bilateral posterior cerebral arteries; D61.810 Antineoplastic chemotherapy induced pancytopenia; J96.01 Acute respiratory failure with hypoxia; N17.9 Acute kidney failure, unspecified; E44.0 Moderate protein-calorie malnutrition; N39.0 Urinary tract infection, site not specified; R64 Cachexia; G81.94 Hemiplegia, unspecified affecting left nondominant side; I47.1 Supraventricular tachycardia; Z51.5 Encounter for palliative care; Z20.828 Contact with and (suspected) exposure to other viral communicable diseases; T45.1X5A Adverse effect of antineoplastic and immunosuppressive drugs, initial encounter; C06.0 Malignant neoplasm of cheek mucosa; R53.81 Other malaise; R13.10 Dysphagia, unspecified; I48.91 Unspecified atrial fibrillation; R29.711 NIHSS score 11; E87.6 Hypokalemia; Z88.1 Allergy status to other antibiotic agents; Z88.6 Allergy status to analgesic agent; Z88.8 Allergy status to other drugs, medicaments and biological substances; Z87.891 Personal history of nicotine dependence; Z68.24 Body mass index [BMI] 24.0-24.9, adult; Z86.73 Personal history of transient ischemic attack (TIA), and cerebral infarction without residual deficits
CPT/HCPCS: 36415; 36416; 36430; 36556; 70470; 70551; 71045; 74230; 80048; 80053; 80061; 80202; 81001; 82728; 82805; 83036; 83605; 83735; 84145; 85007; 85025; 85027; 85379; 86140; 86850; 86900; 86901; 87070; 87077; 87086; 87205; 93005; 93010; 93306; 94002; 94003; 94640; 94660; 96365; 96375; J0282; J0692; J1160; J1720; J2060; J2270; J2704; J3010; J3370; J3475; J3480; J3490; J7050; J7070; J7620; P9035; P9047; Q9967; S0028; U0002

== ENCOUNTER 2020-07-26 13:49 | Outpatient (CLI) | payer MEDICARE ==
--- NOTE | 2020-07-26 14:54 | RAD ---
TWO VIEW CHEST: 07/26/20 INDICATIONS: Pneumonia follow-up. COMPARISON: 06/24/20. There is persistent diffuse interstitial and hazy alveolar opacities bilaterally. There are patchy ar eas more confluent opacity in the left mid and lower lung villalpando. Elevated left hemidiaphragm is stab le. Borderline cardiomegaly is stable. IMPRESSION: The interstitial and patchy alveolar infiltrates have not significantly changed when compared to the prior exam. POS: AGW
== END 2020-07-26 13:50 | disposition home or self-care (01) ==
LOC: BICRAD 13:49
PROVIDERS: ATTEND Family Medicine
DX: J18.9 Pneumonia, unspecified organism (principal); R91.8 Other nonspecific abnormal finding of lung field
CPT/HCPCS: 71046

== ENCOUNTER 2020-08-25 11:24 | Outpatient (CLI) | payer MEDICARE ==
--- NOTE | 2020-08-25 15:06 | RAD ---
PA AND LATERAL CHEST: HISTORY: Pneumonia followup. COMPARISON: A 07/26/2020 exam. FINDINGS: Heart size is borderline. 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 I do not appreciate a significant degree of interval change since the previous exam. Changes are still somewhat asymmetri milly involved with the left mid lung field. It is possible there is some cavitary change in this ar ea. There is a suggestion there may be some cavitary change in the left upper lobe. This is a simil ar appearance to the previous study. IMPRESSION: Lung changes which are similar to the prior examination. The lack of interval change would suggest t hese are interstitial fibrotic lung changes. There is a suggestion of a possible cavity in the left upper lobe. CT may helpful in assessment of this. POS: MUKUND
== END 2020-08-25 11:25 | disposition home or self-care (01) ==
LOC: BICRAD 11:24
PROVIDERS: ATTEND Family Medicine
DX: J18.9 Pneumonia, unspecified organism (principal)
CPT/HCPCS: 71046

== ENCOUNTER 2020-10-19 09:36 | Outpatient (CLI) | payer MEDICARE ==
[2020-10-19 18:00] LABS: SARS-CoV-2 PCR by NAA Not Detected (NotDetected)
== END 2020-10-19 09:37 | disposition home or self-care (01) ==
LOC: LABBT 09:36
PROVIDERS: ATTEND Internal Medicine
DX: Z01.812 Encounter for preprocedural laboratory examination (principal); E44.0 Moderate protein-calorie malnutrition; C02.9 Malignant neoplasm of tongue, unspecified; Z20.822 Contact with and (suspected) exposure to COVID-19
CPT/HCPCS: U0003; U0005; 87635

== ENCOUNTER 2020-10-20 09:53 | Outpatient (CLI) | payer MEDICARE | END 2020-10-20 09:54 | disposition home or self-care (01) | PROVIDERS: ATTEND Internal Medicine | DX: R13.13 Dysphagia, pharyngeal phase (principal); R63.3 Feeding difficulties; C02.9 Malignant neoplasm of tongue, unspecified; E44.0 Moderate protein-calorie malnutrition | CPT/HCPCS: 74230 ==

== ENCOUNTER 2021-05-10 13:06 | Inpatient (IN) | payer MEDICARE ==
[2021-05-10 13:41] LABS: #Eosinphils 0.3 thou/uL (0.0-0.7); #Lymphocytes 2.4 thou/uL (1.20-3.40); #Monocytes 0.6 thou/uL (0.11-0.59); #Neutrophils 9.7 thou/uL (1.40-6.50); %Basophils 0.2 % (0.0-1.0); %Eosinophils 1.9 % (0.0-10.0); %Lymphocytes 18.5 % (21.0-51.0); %Monocytes 4.5 % (0.0-10.0); %Neutrophils 74.8 % (42.0-75.0); Hemoglobin 16.2 g/dL (14.0-18.0); Mean Corpuscular HGB CONC 33.1 g/dL (32.0-36.0); Mean Corpuscular Hemoglobin 32.2 pg (27.0-31.0); Mean Corpuscular Volume 97.5 fL (78.0-98.0); Mean Platelet Volume 7.6 fL (7.4-10.4); Platelet Count 149 thou/uL (130-400); RBC Distribution Width 12.6 % (11.5-14.5); Red Blood Cell (RBC) Count 5.04 mill/uL (4.70-6.10)
[2021-05-10] MEDS ORDERED: Aspirin Chewable 81 MG TAB ONE (13:49)
[2021-05-10] MEDS ORDERED: Nitroglycerin 2% Ointment 1 INCH/1 GM Packet ONE (13:49)
[2021-05-10 15:52] LABS: ALT (SGPT) 12 U/L (8-55); AST (SGOT) 17 U/L (5-34); Albumin 3.5 g/dL (3.4-4.8); Alkaline Phosphatase 98 U/L (40-110); Anion Gap 13 mmol/L (10-20); BUN (Urea Nitrogen) 23 mg/dL (8.4-25.7); Bilirubin, Total 0.3 mg/dL (0.2-1.2); Calc. Creatinine Clearance 0 mL/min (70-130); Calcium 8.9 mg/dL (7.8-10.44); Carbon Dioxide 24 mmol/L (23-31); Chloride 107 mmol/L (98-107); Globulin 3.6 g/dL (2.4-3.5); Glucose 106 mg/dL (83-110); Lipase 15 U/L (8-78); Potassium 4.1 mmol/L (3.5-5.1); Protein, Total 7.1 g/dL (5.8-8.1); Sodium 140 mmol/L (136-145)
[2021-05-10] MEDS ORDERED: Acetaminophen 325 MG TAB PO PRN (15:56)
[2021-05-10 17:00] LABS: Magnesium 1.9 mg/dL (1.6-2.6)
[2021-05-10 17:17] LABS: Troponin I 0.642 ng/mL (< 0.028)
[2021-05-10] MEDS ORDERED: Enoxaparin Sodium 80 MG/0.8 ML SYRINGE SC SCH ×2 (18:45→19:00)
[2021-05-10 20:00] LABS: Troponin I 1.577 ng/mL (< 0.028)
[2021-05-10 22:21] LABS: SARS-CoV-2 PCR by NAA Not Detected (NotDetected)
[2021-05-11 06:14] LABS: #Eosinphils 0.3 thou/uL (0.0-0.7); #Lymphocytes 2.3 thou/uL (1.20-3.40); #Monocytes 0.7 thou/uL (0.11-0.59); %Basophils 0.5 % (0.0-1.0); %Eosinophils 3.4 % (0.0-10.0); %Lymphocytes 24.4 % (21.0-51.0); %Neutrophils 64.8 % (42.0-75.0); Hemoglobin 13.6 g/dL (14.0-18.0); Mean Corpuscular HGB CONC 32.8 g/dL (32.0-36.0); Mean Corpuscular Hemoglobin 31.9 pg (27.0-31.0); Mean Corpuscular Volume 97.3 fL (78.0-98.0); Platelet Count 216 thou/uL (130-400); RBC Distribution Width 12.5 % (11.5-14.5); Red Blood Cell (RBC) Count 4.26 mill/uL (4.70-6.10); White Blood Cell (WBC) Count 9.3 thou/uL (4.8-10.8)
[2021-05-11 06:20] LABS: Anion Gap 11 mmol/L (10-20); BUN (Urea Nitrogen) 22 mg/dL (8.4-25.7); Calc. Creatinine Clearance 56 mL/min (70-130); Calcium 8.7 mg/dL (7.8-10.44); Carbon Dioxide 26 mmol/L (23-31); Chloride 107 mmol/L (98-107); Cholesterol 132 mg/dl (< 200 Desired); Glucose 90 mg/dL (83-110); HDL Cholesterol 33 mg/dL (>60 Neg Risk); LDL Cholesterol, Calculated 81 mg/dL; Potassium 4.2 mmol/L (3.5-5.1); Sodium 140 mmol/L (136-145); Triglycerides 91 mg/dL (Less than 150)
[2021-05-11 07:19] LABS: Bilirubin Negative (Negative); Blood, Urine 3+ (Negative); Clarity Turbid (Clear); Glucose, Urine (Dipstick) Normal (Negative); Ketone, Urine Negative (Negative); Leukocyte 500 Leu/uL (Negative); Nitrite Negative (Negative); Protein, Urine (Dipstick) 70 mg/dL (Neg-Trace); RBC/HPF Greater than 50 HPF (0-3); Specific Gravity, Urine 1.029 (1.002-1.036); Squamous Epithelial 0-3 HPF (0-3); Transitional Epithelial 0-3 HPF (None Seen); Urobilinogen Normal mg/dL (Less than 2); WBC/HPF Greater than 50 HPF (0-3); pH, Urine 5.5 (5.0-9.0)
[2021-05-11 07:20] LABS: Bacteria/HPF 1+ HPF (None Seen)
[2021-05-11] MEDS ORDERED: Iopamidol 370 76% 100 ML VIAL ONE (08:39)
[2021-05-11] MEDS ORDERED: Iopamidol 370 76% 50 ML VIAL FS ONE (08:39)
[2021-05-11] MEDS ORDERED: Enoxaparin Sodium 80 MG/0.8 ML SYRINGE SC SCH (09:00)
[2021-05-11] MEDS ORDERED: Aspirin Chewable 81 MG TAB PO SCH (09:00)
[2021-05-11] MEDS ORDERED: Communication Order-Pharmacy FS SCH (10:00)
[2021-05-11 10:40] LABS: Troponin I 1.028 ng/mL (< 0.028)
[2021-05-11] MEDS ORDERED: Nitroglycerin 100MG/250ML BOT 250 ML ONE (11:03)
[2021-05-11] MEDS ORDERED: Verapamil 5 MG/2 ML VIAL ONE (11:03)
[2021-05-11] MEDS ORDERED: Heparin 10,000 UNITS/ 10 ML VIAL ONE (11:03)
[2021-05-11] MEDS ORDERED: Midazolam HCl 2 mg/2 ml Vial ONE (12:10)
[2021-05-11] MEDS ORDERED: Fentanyl 100 MCG/2 ML VIAL ONE (12:10)
[2021-05-11] MEDS ORDERED: Communication Order-Pharmacy FS ONE (17:25)
[2021-05-11] MEDS ORDERED: Diazepam 5 MG TAB PO PRN (17:25)
[2021-05-11] MEDS ORDERED: Sodium Chloride 0.9% 200 ML IV PRN (20:39)
[2021-05-11] MEDS ORDERED: Acetaminophen/Codeine 30-300mg Tablet PO PRN ×2 (20:39)
[2021-05-11] MEDS ORDERED: Nitroglycerin 0.4 MG TAB (25 Tab Bottle) SL PRN (20:39)
[2021-05-12] MEDS ORDERED: ceFAZolin 2 GM/DEX 5% 100 ML BAG ONE (06:45)
[2021-05-12] MEDS ORDERED: EPINEPHrine 1 MG/ML AMP ONE (07:55)
[2021-05-12] MEDS ORDERED: Albumin 5% 500 ML ONE (07:55)
[2021-05-12] MEDS ORDERED: Bupivacaine PF 0.5% 30 ML VIAL ONE (07:55)
[2021-05-12] MEDS ORDERED: Dexamethasone 4 mg/ml Vial ONE (07:55)
[2021-05-12] MEDS ORDERED: Heparin 10,000 UNITS/1 ML VIAL 30,000 UNITS in Sodium Chloride 0.9% 1,000 ML FS SCH (08:00)
[2021-05-12] MEDS ORDERED: Midazolam HCl 2 mg/2 ml Vial ONE (08:05)
[2021-05-12] MEDS ORDERED: Lidocaine 1% PF 5 ML VIAL ONE ×2 (08:06→08:30)
[2021-05-12] MEDS ORDERED: Fentanyl 100 MCG/2 ML VIAL ONE (08:06)
[2021-05-12] MEDS ORDERED: Midazolam HCl 5 mg/5 ml Vial ONE (08:25)
[2021-05-12] MEDS ORDERED: Phenylephrine 10 MG/ML VIAL ONE (08:26)
[2021-05-12] MEDS ORDERED: Norepinephrine 4 MG/4 ML VIAL ONE (08:26)
[2021-05-12] MEDS ORDERED: Vecuronium 10 MG VIAL ONE ×2 (08:26→08:30)
[2021-05-12] MEDS ORDERED: Glycopyrrolate 0.2 MG/ML 5 ML SYRINGE ONE (08:30)
[2021-05-12] MEDS ORDERED: Cardioplegic Soln 1,000 ML BAG ONE (08:30)
[2021-05-12] MEDS ORDERED: Papaverine 60 MG/2 ML VIAL ONE (08:30)
[2021-05-12] MEDS ORDERED: Thrombin 5000 UNITS/5 ML VIAL ONE (08:30)
[2021-05-12] MEDS ORDERED: Heparin 30,000 units/30 ml VIAL ONE (08:30)
[2021-05-12] MEDS ORDERED: Sodium Bicarb 50 MEQ/50 ML Abboject 8.4% SYRINGE ONE (08:30)
[2021-05-12] MEDS ORDERED: Mannitol 12.5 GM/50 ML ONE (08:30)
[2021-05-12] MEDS ORDERED: Lidocaine 2% PF 100 mg/5 ml Syringe ONE (08:30)
[2021-05-12] MEDS ORDERED: Aminocaproic Acid 5 GM/20 ML VIAL ONE (08:30)
[2021-05-12] MEDS ORDERED: Potassium Chloride 60 MEQ/30 ML VIAL ONE (08:30)
[2021-05-12] MEDS ORDERED: PROPOFOL 200 MG/20 ML VIAL ONE (08:30)
[2021-05-12] MEDS ORDERED: Protamine Sulfate 250 MG/25 ML VIAL ONE (08:30)
[2021-05-12] MEDS ORDERED: Magnesium Sulfate 1 GM/2 ML VIAL ONE (08:30)
[2021-05-12] MEDS ORDERED: Rocuronium Bromide 10 MG/ML (10ML VIAL) ONE (08:30)
[2021-05-12] MEDS ORDERED: Nitroglycerin 50 MG/250 ML BOT ONE (08:30)
[2021-05-12] MEDS ORDERED: Heparin 5,000 UNITS/ML VIAL ONE (08:30)
[2021-05-12] MEDS ORDERED: Calcium Chloride 1 GM/10 ML Abboject SYRINGE ONE (08:30)
[2021-05-12] MEDS ORDERED: PHENYLEPHRINE-NS 100 MCG/ML 10 ML SYRINGE ONE ×2 (09:48→10:37)
[2021-05-12] MEDS ORDERED: CEFAZOLIN 2 GM in Premix Bag 1 BAG IVPB SCH (10:00)
[2021-05-12 12:46] LABS: Actual Bicarbonate (HCO3a) 26.4 mEq/L (22-28); CO2 Tension 55.4 mmHg (35.0-45.0); Calcium, Ionized (arterial) 1.25 mmol/L (1.12-1.30); Carboxyhemoglobin (COHb) 0.9 gm% (0.0-3.0); Hemoglobin (Hb) 13.3 g/dL (14.0-18.0); O2 Tension (PaO2), arterial 106.7 mmHg (> 70.0)
[2021-05-12 12:47] LABS: Puncture Site Arterial Line
[2021-05-12] MEDS ORDERED: Bisacodyl 10 MG SUPP PR PRN (13:26)
[2021-05-12] MEDS ORDERED: Norepinephrine 8 MG/0.9% NS 250 ML IVPB PRN (13:26)
[2021-05-12] MEDS ORDERED: Ondansetron PF 4 MG/2 ML Vial IVP PRN (13:26)
[2021-05-12] MEDS ORDERED: Morphine 2 MG/ML VIAL SLOW IVP PRN (13:26)
[2021-05-12] MEDS ORDERED: D5 1/2 NS w/20 mEq KCL 1,000 ML IV SCH (13:26)
[2021-05-12] MEDS ORDERED: Mag-Al 1200 mg/1200 mg/30 ML UDCUP PO PRN (13:26)
[2021-05-12] MEDS ORDERED: Hetastarch 6% 500 ML 500 ML IVPB PRN (13:26)
[2021-05-12] MEDS ORDERED: Guaifenesin DM 100-10/5 ML UDCUP PO PRN (13:26)
[2021-05-12] MEDS ORDERED: Nitroglycerin 50 MG/250 ML BOT 250 ML IVPB PRN (13:26)
[2021-05-12] MEDS ORDERED: Potassium Chloride 20 MEQ/100 ML PREMIX BAG IVPB PRN (13:26)
[2021-05-12] MEDS ORDERED: Magnesium 2 GM/50 ML 2 GM in Premix Bag 1 BAG IVPB SCH (13:26)
[2021-05-12] MEDS ORDERED: Acetaminophen 325 MG TAB PO PRN (13:26)
[2021-05-12] MEDS ORDERED: Bisacodyl 5 MG TAB PO PRN (13:26)
[2021-05-12] MEDS ORDERED: traMADol HCl 50 MG TAB PO PRN (13:26)
[2021-05-12] MEDS ORDERED: hydrALAZINE 20 MG/ML VIAL SLOW IVP PRN (13:26)
[2021-05-12] MEDS ORDERED: Fentanyl 100 MCG/2 ML VIAL SLOW IVP PRN (13:26)
[2021-05-12] MEDS ORDERED: Morphine 4 MG/ML VIAL ONE (13:30)
[2021-05-12] MEDS ORDERED: Insulin Regular 300 UNITS/3 ML VIAL ONE (13:30)
[2021-05-12 13:42] LABS: Mean Corpuscular Hemoglobin 32.8 pg (27.0-31.0); Mean Corpuscular Volume 99.4 fL (78.0-98.0); Mean Platelet Volume 7.5 fL (7.4-10.4); Platelet Count 159 thou/uL (130-400); RBC Distribution Width 12.6 % (11.5-14.5); Red Blood Cell (RBC) Count 3.98 mill/uL (4.70-6.10)
[2021-05-12 13:49] LABS: INR-International Normal Ratio 1.2
[2021-05-12 13:50] LABS: PTT 31.2 sec (22.9-36.1)
[2021-05-12] MEDS: CEFAZOLIN 2 GM, Admixture Fee 1 EACH in Sodium Chloride 0.9% 100 ML IVPB SCH ×2 (13:54→22:18)
[2021-05-12 13:57] LABS: Band 30 % (5-11); Eosinophils 1 % (0-10); Lymphocytes 8 % (21-51); MDiff Complete? YES; Macrocytosis SLIGHT = 6-15 cells (100X) (0-5/hpf); Metamyelocyte 1 % (0-0); Monocytes 3 % (0-10); Myelocyte 1 % (0-0); Neutrophil 52 % (42-75); Platelet Morphology Comment Appears Adequate; Reactive Lymphocytes 4 % (0-10)
[2021-05-12 14:07] LABS: Anion Gap 11 mmol/L (10-20); BUN (Urea Nitrogen) 16 mg/dL (8.4-25.7); Calc. Creatinine Clearance 64 mL/min (70-130); Calcium 8.8 mg/dL (7.8-10.44); Carbon Dioxide 24 mmol/L (23-31); Chloride 108 mmol/L (98-107); Glucose 127 mg/dL (83-110); Potassium 4.1 mmol/L (3.5-5.1); Sodium 139 mmol/L (136-145)
[2021-05-12 18:25] LABS: Hemoglobin 11.7 g/dL (14.0-18.0)
[2021-05-12] MEDS: Ketorolac Tromethamine 30 MG/ML VIAL IVP SCH (18:28)
[2021-05-12 19:30] LABS: Potassium 4.6 mmol/L (3.5-5.1)
[2021-05-12] MEDS ORDERED: Famotidine/PF 20 mg/2ml Vial SLOW IVP SCH (21:00)
[2021-05-12] MEDS: Fentanyl 100 MCG/2 ML VIAL SLOW IVP PRN (21:18)
[2021-05-12] MEDS: Atorvastatin Calcium 40 MG TAB PO SCH (21:20)
[2021-05-13] MEDS: Ketorolac Tromethamine 30 MG/ML VIAL IVP SCH ×4 (00:54→18:38)
[2021-05-13 04:59] LABS: #Lymphocytes 0.8 thou/uL (1.20-3.40); %Basophils 0.2 % (0.0-1.0); %Lymphocytes 4.9 % (21.0-51.0); %Monocytes 6.3 % (0.0-10.0); %Neutrophils 88.6 % (42.0-75.0); Hemoglobin 10.7 g/dL (14.0-18.0); Mean Corpuscular Hemoglobin 32.8 pg (27.0-31.0); Mean Corpuscular Volume 99.4 fL (78.0-98.0); Platelet Count 151 thou/uL (130-400); RBC Distribution Width 12.6 % (11.5-14.5); Red Blood Cell (RBC) Count 3.27 mill/uL (4.70-6.10); White Blood Cell (WBC) Count 15.8 thou/uL (4.8-10.8)
[2021-05-13 05:23] LABS: Anion Gap 12 mmol/L (10-20); BUN (Urea Nitrogen) 14 mg/dL (8.4-25.7); Calc. Creatinine Clearance 55 mL/min (70-130); Calcium 8.2 mg/dL (7.8-10.44); Carbon Dioxide 24 mmol/L (23-31); Chloride 109 mmol/L (98-107); Glucose 159 mg/dL (83-110); Potassium 4.3 mmol/L (3.5-5.1); Sodium 141 mmol/L (136-145)
[2021-05-13] MEDS: CEFAZOLIN 2 GM, Admixture Fee 1 EACH in Sodium Chloride 0.9% 100 ML IVPB SCH (06:16)
[2021-05-13] MEDS ORDERED: Magnesium 2 GM/50 ML 2 GM in Premix Bag 1 BAG IVPB SCH (09:00)
[2021-05-13] MEDS: Aspirin 325 MG TAB PO SCH (09:19)
[2021-05-13] MEDS ORDERED: Hetastarch 6% 500 ML 500 ML IVPB SCH (10:00)
[2021-05-13] MEDS: traMADol HCl 50 MG TAB PO PRN (15:03)
[2021-05-13] MEDS ORDERED: FLU VACC QS2021-22(65YR UP)/PF 240 MCG/0.7 ML SYRINGE IM ONE (19:00)
[2021-05-13] MEDS: Atorvastatin Calcium 40 MG TAB PO SCH (20:32)
[2021-05-14] MEDS: Ketorolac Tromethamine 30 MG/ML VIAL IVP SCH ×5 (00:01→23:29)
[2021-05-14] MEDS: Fentanyl 100 MCG/2 ML VIAL SLOW IVP PRN (09:22)
[2021-05-14] MEDS: Potassium Chloride 10 MEQ TAB PO SCH (09:23)
[2021-05-14] MEDS: Furosemide 20 MG TAB PO SCH (09:23)
[2021-05-14] MEDS: Aspirin 325 MG TAB PO SCH (09:23)
[2021-05-14] MEDS: Atorvastatin Calcium 40 MG TAB PO SCH (20:48)
[2021-05-15] MEDS: Ketorolac Tromethamine 30 MG/ML VIAL IVP SCH ×3 (06:13→18:22)
[2021-05-15] MEDS ORDERED: diphenhydrAMINE 25 MG CAP PO PRN (07:39)
[2021-05-15] MEDS ORDERED: Mineral Oil ENEMA PR PRN (07:39)
[2021-05-15] MEDS ORDERED: Milk Of Magnesia 30 ML UDCUP PO PRN (07:39)
[2021-05-15] MEDS: Potassium Chloride 10 MEQ TAB PO SCH (08:34)
[2021-05-15] MEDS: Furosemide 20 MG TAB PO SCH (08:34)
[2021-05-15] MEDS: Aspirin 325 MG TAB PO SCH (08:36)
[2021-05-15] MEDS ORDERED: Sodium Chloride 0.9% 250 ML 250 ML IVPB SCH (11:00)
[2021-05-15] MEDS: traMADol HCl 50 MG TAB PO PRN (11:52)
[2021-05-15 14:25] LABS: Actual Bicarbonate (HCO3a) 25.6 mEq/L (22-28); Analyzer IN Cardio OR; Base Excess (BEa) 0.5 mEq/L (-2.0 to +3.0); CO2 Tension 42.5 mmHg (35.0-45.0); Calcium, Ionized (arterial) 1.08 mmol/L (1.12-1.30); Carboxyhemoglobin (COHb) 1.3 gm% (0.0-3.0); Hemoglobin (Hb) 13.8 g/dL (14.0-18.0); Potassium - ABG Lab 3.97 mmol/L (3.70-5.30)
[2021-05-15 14:26] LABS: Analyzer IN Cardio OR; Base Excess (BEa) -1.7 mEq/L (-2.0 to +3.0); Calcium, Ionized (arterial) 1.09 mmol/L (1.12-1.30); Carboxyhemoglobin (COHb) 1.3 gm% (0.0-3.0); Hemoglobin (Hb) 13.6 g/dL (14.0-18.0); Potassium - ABG Lab 4.25 mmol/L (3.70-5.30); pH, Arterial 7.39 (7.35-7.45)
[2021-05-15 14:26] LABS: Actual Bicarbonate (HCO3a) 20.9 mEq/L (22-28); Analyzer IN Cardio OR; CO2 Tension 37.6 mmHg (35.0-45.0); Carboxyhemoglobin (COHb) 0.5 gm% (0.0-3.0); Hemoglobin (Hb) 10.5 g/dL (14.0-18.0); O2 Tension (PaO2), arterial 417.3 mmHg (> 70.0); Potassium - ABG Lab 4.56 mmol/L (3.70-5.30); pH, Arterial 7.36 (7.35-7.45)
[2021-05-15 14:27] LABS: Actual Bicarbonate (HCO3a) 22.8 mEq/L (22-28); Analyzer IN Cardio OR; Base Excess (BEa) -2.3 mEq/L (-2.0 to +3.0); CO2 Tension 39.9 mmHg (35.0-45.0); Calcium, Ionized (arterial) 0.91 mmol/L (1.12-1.30); Carboxyhemoglobin (COHb) 0.8 gm% (0.0-3.0); Hemoglobin (Hb) 9.1 g/dL (14.0-18.0); O2 Tension (PaO2), arterial 356.3 mmHg (> 70.0); Potassium - ABG Lab 5.26 mmol/L (3.70-5.30); pH, Arterial 7.37 (7.35-7.45)
[2021-05-15 14:27] LABS: Actual Bicarbonate (HCO3a) 24.7 mEq/L (22-28); Analyzer IN Cardio OR; Base Excess (BEa) 0.4 mEq/L (-2.0 to +3.0); CO2 Tension 38.5 mmHg (35.0-45.0); Calcium, Ionized (arterial) 1.41 mmol/L (1.12-1.30); Carboxyhemoglobin (COHb) 0.3 gm% (0.0-3.0); Hemoglobin (Hb) 9.6 g/dL (14.0-18.0); O2 Tension (PaO2), arterial 388.2 mmHg (> 70.0); Potassium - ABG Lab 4.46 mmol/L (3.70-5.30); pH, Arterial 7.43 (7.35-7.45)
[2021-05-15 14:27] LABS: Actual Bicarbonate (HCO3a) 22.9 mEq/L (22-28); Analyzer IN Cardio OR; Base Excess (BEa) -2.1 mEq/L (-2.0 to +3.0); CO2 Tension 39.8 mmHg (35.0-45.0); Calcium, Ionized (arterial) 1.21 mmol/L (1.12-1.30); Carboxyhemoglobin (COHb) 0.6 gm% (0.0-3.0); Hemoglobin (Hb) 12.2 g/dL (14.0-18.0); O2 Tension (PaO2), arterial 498.5 mmHg (> 70.0); pH, Arterial 7.38 (7.35-7.45)
[2021-05-15 14:29] LABS: O2 Tension (PaO2), arterial 585.6 mmHg (> 70.0); Puncture Site Arterial Line
[2021-05-15 14:30] LABS: Puncture Site Arterial Line
[2021-05-15 14:30] LABS: O2 Tension (PaO2), arterial 604.5 mmHg (> 70.0); Puncture Site Arterial Line
[2021-05-15 14:31] LABS: Puncture Site Arterial Line
[2021-05-15 14:31] LABS: Puncture Site Arterial Line
[2021-05-15 14:32] LABS: Puncture Site Arterial Line
[2021-05-15] MEDS: Atorvastatin Calcium 40 MG TAB PO SCH (21:13)
[2021-05-16] MEDS ORDERED: Sodium Chloride 0.9% 500 ML IV SCH ×2 (02:45→03:45)
[2021-05-16] MEDS: DOPamine 400 MG/D5W 250 ML 250 ML IVPB SCH ×2 (04:25→21:51)
[2021-05-16 04:49] LABS: #Eosinphils 0.2 thou/uL (0.0-0.7); #Monocytes 0.5 thou/uL (0.11-0.59); #Neutrophils 5.2 thou/uL (1.40-6.50); %Basophils 0.3 % (0.0-1.0); %Eosinophils 3.4 % (0.0-10.0); %Lymphocytes 14.5 % (21.0-51.0); %Monocytes 6.8 % (0.0-10.0); Hemoglobin 9.9 g/dL (14.0-18.0); Mean Corpuscular HGB CONC 31.7 g/dL (32.0-36.0); Mean Corpuscular Hemoglobin 31.2 pg (27.0-31.0); Mean Corpuscular Volume 98.4 fL (78.0-98.0); Mean Platelet Volume 7.3 fL (7.4-10.4); Platelet Count 148 thou/uL (130-400); RBC Distribution Width 12.5 % (11.5-14.5); Red Blood Cell (RBC) Count 3.17 mill/uL (4.70-6.10)
[2021-05-16 05:10] LABS: Anion Gap 10 mmol/L (10-20); BUN (Urea Nitrogen) 22 mg/dL (8.4-25.7); Calc. Creatinine Clearance 72 mL/min (70-130); Calcium 7.3 mg/dL (7.8-10.44); Carbon Dioxide 25 mmol/L (23-31); Chloride 106 mmol/L (98-107); Glucose 92 mg/dL (83-110); Potassium 4.1 mmol/L (3.5-5.1); Sodium 137 mmol/L (136-145)
[2021-05-16 05:16] LABS: Troponin I 0.629 ng/mL (< 0.028)
[2021-05-16 05:48] LABS: Lactic Acid 1.1 mmol/L (0.5-2.2)
[2021-05-16] MEDS: Ketorolac Tromethamine 30 MG/ML VIAL IVP SCH ×4 (05:56→18:17)
[2021-05-16 08:10] LABS: Magnesium 1.6 mg/dL (1.6-2.6)
[2021-05-16] MEDS: Furosemide 20 MG TAB PO SCH (08:29)
[2021-05-16] MEDS: Potassium Chloride 10 MEQ TAB PO SCH (08:29)
[2021-05-16] MEDS: Aspirin 325 MG TAB PO SCH (08:29)
[2021-05-16] MEDS: Sodium Chloride 0.9% 1,000 ML IV SCH ×2 (08:54→16:54)
[2021-05-16] MEDS ORDERED: Lisinopril 2.5 MG TAB PO SCH (09:00)
[2021-05-16] MEDS ORDERED: Magnesium Sulfate 4 GM in Sodium Chloride 0.9% 250 ML 250 ML IVPB SCH (09:15)
[2021-05-16 13:14] VITALS: BMI 21.6
[2021-05-16] MEDS: Atorvastatin Calcium 40 MG TAB PO SCH (21:33)
[2021-05-16] MEDS: Docusate 100 MG CAP PO SCH (21:33)
[2021-05-17] MEDS: Ketorolac Tromethamine 30 MG/ML VIAL IVP SCH ×4 (00:51→19:10)
[2021-05-17] MEDS: Sodium Chloride 0.9% 1,000 ML IV SCH (00:53)
[2021-05-17] MEDS: Potassium Chloride 10 MEQ TAB PO SCH (08:48)
[2021-05-17] MEDS: Docusate 100 MG CAP PO SCH ×2 (08:48→21:18)
[2021-05-17] MEDS: Aspirin 325 MG TAB PO SCH (08:48)
[2021-05-17] MEDS: Atorvastatin Calcium 40 MG TAB PO SCH (21:16)
[2021-05-17] MEDS: traMADol HCl 50 MG TAB PO PRN (21:19)
[2021-05-18] MEDS: Aspirin 325 MG TAB PO SCH (09:15)
[2021-05-18] MEDS: Docusate 100 MG CAP PO SCH (09:15)
[2021-05-18] MEDS: Potassium Chloride 10 MEQ TAB PO SCH (09:15)
[2021-05-18] MEDS: traMADol HCl 50 MG TAB PO PRN (09:15)
[2021-05-18 11:52] LABS: SARS-CoV-2 PCR by NAA Not Detected (NotDetected)
[2021-05-18 12:03] VITALS: BP 113/67; TEMP 98.9
== END 2021-05-18 14:12 | disposition home or self-care (01) | DRG 234 ==
LOC: ERS 13:06 → 2SW 15:07 → OBSVTOIN 05-11 17:37 → CCU 05-12 07:29 → 2NO 05-15 13:00
PROVIDERS: ADMIT Internal Medicine; ATTEND Internal Medicine
PROC: 4A023N7 Measurement of Cardiac Sampling and Pressure, Left Heart, Percutaneous Approach (ICD-10-PCS; 2021-05-11)
PROC: B2111ZZ Fluoroscopy of Multiple Coronary Arteries using Low Osmolar Contrast (ICD-10-PCS; 2021-05-11)
PROC: B2151ZZ Fluoroscopy of Left Heart using Low Osmolar Contrast (ICD-10-PCS; 2021-05-11)
PROC: 02100Z9 Bypass Coronary Artery, One Artery from Left Internal Mammary, Open Approach (ICD-10-PCS; principal; 2021-05-12)
PROC: 021009W Bypass Coronary Artery, One Artery from Aorta with Autologous Venous Tissue, Open Approach (ICD-10-PCS; 2021-05-12)
PROC: 06BP4ZZ Excision of Right Saphenous Vein, Percutaneous Endoscopic Approach (ICD-10-PCS; 2021-05-12)
PROC: 02B70ZK Excision of Left Atrial Appendage, Open Approach (ICD-10-PCS; 2021-05-12)
PROC: 3E033XZ Introduction of Vasopressor into Peripheral Vein, Percutaneous Approach (ICD-10-PCS; 2021-05-12)
DX: I21.4 Non-ST elevation (NSTEMI) myocardial infarction (principal); I25.10 Atherosclerotic heart disease of native coronary artery without angina pectoris; D72.829 Elevated white blood cell count, unspecified; R00.1 Bradycardia, unspecified; I48.0 Paroxysmal atrial fibrillation; I95.9 Hypotension, unspecified; E83.42 Hypomagnesemia; Z87.891 Personal history of nicotine dependence; Z95.5 Presence of coronary angioplasty implant and graft; I25.2 Old myocardial infarction; Z79.82 Long term (current) use of aspirin; Z79.899 Other long term (current) drug therapy; Z86.73 Personal history of transient ischemic attack (TIA), and cerebral infarction without residual deficits; Z95.1 Presence of aortocoronary bypass graft; Z85.810 Personal history of malignant neoplasm of tongue
CPT/HCPCS: 36415; 36416; 36430; 71045; 80048; 80053; 80061; 81001; 82805; 83605; 83690; 83735; 84443; 84484; 85025; 85610; 85730; 86850; 86900; 86901; 93005; 93010; 93306; 93458; 93798; 94002; 94640; 96372; 99152; 99153; G0378; J0171; J0690; J1100; J1265; J1642; J1644; J1650; J1815; J1885; J2001; J2150; J2250; J2270; J2370; J2440; J2704; J2720; J3010; J3370; J3475; J3480; J3490; J7030; J7050; J7620; P9045; Q9967; S0017; S0020; S0028; U0003; U0005

== ENCOUNTER 2021-05-31 14:56 | Outpatient (CLI) | payer MEDICARE | END 2021-05-31 14:57 | disposition home or self-care (01) | LOC: BICRAD 14:56 | PROVIDERS: ATTEND Nurse Practitioner Family | DX: R09.89 Other specified symptoms and signs involving the circulatory and respiratory systems (principal); J84.10 Pulmonary fibrosis, unspecified | CPT/HCPCS: 71046 ==

== ENCOUNTER 2021-07-24 10:08 | Inpatient (IN) | payer MEDICARE ==
[2021-07-24] MEDS ORDERED: Iopamidol-370 76% 500 ML 1 ML ONE (12:02)
[2021-07-24 12:33] LABS: #Eosinphils 0.1 thou/uL (0.0-0.7); #Lymphocytes 1.4 thou/uL (1.20-3.40); #Monocytes 0.9 thou/uL (0.11-0.59); #Neutrophils 10.1 thou/uL (1.40-6.50); %Basophils 0.1 % (0.0-1.0); %Lymphocytes 11.3 % (21.0-51.0); %Monocytes 6.7 % (0.0-10.0); %Neutrophils 80.8 % (42.0-75.0); Hemoglobin 15.1 g/dL (14.0-18.0); Mean Corpuscular HGB CONC 32.1 g/dL (32.0-36.0); Mean Corpuscular Hemoglobin 31.1 pg (27.0-31.0); Mean Corpuscular Volume 96.9 fL (78.0-98.0); Mean Platelet Volume 6.6 fL (7.4-10.4); Platelet Count 303 thou/uL (130-400); RBC Distribution Width 12.5 % (11.5-14.5); Red Blood Cell (RBC) Count 4.86 mill/uL (4.70-6.10); White Blood Cell (WBC) Count 12.5 thou/uL (4.8-10.8)
[2021-07-24 12:38] LABS: Prothrombin Time 13.7 sec (12.0-14.7)
[2021-07-24 12:39] LABS: PTT 30.3 sec (22.9-36.1)
[2021-07-24 12:41] LABS: ALT (SGPT) 14 U/L (8-55); AST (SGOT) 18 U/L (5-34); Albumin 3.6 g/dL (3.4-4.8); Alkaline Phosphatase 127 U/L (40-110); Anion Gap 10 mmol/L (10-20); BUN (Urea Nitrogen) 18 mg/dL (8.4-25.7); Bilirubin, Total 0.3 mg/dL (0.2-1.2); Calc. Creatinine Clearance 0 mL/min (70-130); Calcium 9.4 mg/dL (7.8-10.44); Carbon Dioxide 29 mmol/L (23-31); Chloride 106 mmol/L (98-107); Globulin 4.3 g/dL (2.4-3.5); Glucose 79 mg/dL (83-110); Lipase 10 U/L (8-78); Protein, Total 7.9 g/dL (5.8-8.1); Sodium 141 mmol/L (136-145)
[2021-07-24] MEDS ORDERED: Piperacillin/Tazobactam 4.5 GM in Sodium Chloride 0.9% 100 ML IVPB SCH (16:30)
[2021-07-24] MEDS ORDERED: Vancomycin HCl 1 GM in Sodium Chloride 0.9% 250 ML 250 ML IVPB SCH (16:30)
[2021-07-24] MEDS ORDERED: Ondansetron PF 4 MG/2 ML Vial IVP PRN (17:17)
[2021-07-24] MEDS ORDERED: Senokot S 8.6-50 MG TAB PO PRN (17:17)
[2021-07-24] MEDS ORDERED: Ondansetron ODT 4 MG TAB PO PRN (17:17)
[2021-07-24] MEDS ORDERED: Acetaminophen 325 MG TAB PO PRN (17:17)
[2021-07-24] MEDS ORDERED: Azithromycin 500 MG in Sodium Chloride 0.9% 250 ML 250 ML IVPB SCH (18:00)
[2021-07-24] MEDS ORDERED: Piperacillin/Tazobactam 4.5 GM VIAL ONE (18:29)
[2021-07-24] MEDS: Cefepime 1 GM in Sodium Chloride 0.9% 100 ML IVPB SCH (21:16)
[2021-07-24] MEDS: Guaifenesin DM 100-10/5 ML UDCUP PO PRN (21:17)
[2021-07-24 21:23] LABS: Bilirubin Negative (Negative); Blood, Urine 3+ (Negative); Clarity Clear (Clear); Glucose, Urine (Dipstick) Normal (Negative); Ketone, Urine Negative (Negative); Leukocyte 250 Leu/uL (Negative); Nitrite Negative (Negative); Protein, Urine (Dipstick) 30 mg/dL (Neg-Trace); RBC/HPF Greater than 50 HPF (0-3); Renal Epithelial 0-3 HPF (None Seen); Urobilinogen Normal mg/dL (Less than 2); WBC/HPF Greater than 50 HPF (0-3); pH, Urine 5.5 (5.0-9.0)
[2021-07-24 21:29] LABS: Bacteria/HPF 1+ HPF (None Seen); Specific Gravity, Urine 1.058 (1.002-1.036)
[2021-07-24 21:30] LABS: Squamous Epithelial 0-3 HPF (0-3)
[2021-07-24 21:32] LABS: Urine Culture Reflex Yes Yes
[2021-07-24] MEDS: Azithromycin 500 MG in Sodium Chloride 0.9% 250 ML 250 ML IVPB SCH (22:30)
[2021-07-25 00:32] VITALS: BMI 21.1
[2021-07-25 00:37] LABS: SARS-CoV-2 NAA Rapid Test Not Detected (NotDetected)
[2021-07-25] MEDS: Vancomycin HCl 1 GM in Sodium Chloride 0.9% 250 ML 250 ML IVPB SCH ×2 (02:46→14:42)
[2021-07-25 06:24] LABS: #Basophils 0.1 thou/uL (0.0-0.2); #Eosinphils 0.2 thou/uL (0.0-0.7); #Lymphocytes 2.2 thou/uL (1.20-3.40); #Monocytes 0.6 thou/uL (0.11-0.59); #Neutrophils 7.6 thou/uL (1.40-6.50); %Basophils 0.5 % (0.0-1.0); %Lymphocytes 20.7 % (21.0-51.0); %Monocytes 5.8 % (0.0-10.0); %Neutrophils 71.1 % (42.0-75.0); Hemoglobin 14.3 g/dL (14.0-18.0); Mean Corpuscular HGB CONC 31.9 g/dL (32.0-36.0); Mean Corpuscular Hemoglobin 31.2 pg (27.0-31.0); Mean Corpuscular Volume 97.8 fL (78.0-98.0); Mean Platelet Volume 7.4 fL (7.4-10.4); Platelet Count 303 thou/uL (130-400); RBC Distribution Width 12.6 % (11.5-14.5); White Blood Cell (WBC) Count 10.7 thou/uL (4.8-10.8)
[2021-07-25 06:42] LABS: Anion Gap 11 mmol/L (10-20); BUN (Urea Nitrogen) 19 mg/dL (8.4-25.7); Calc. Creatinine Clearance 71 mL/min (70-130); Carbon Dioxide 24 mmol/L (23-31); Chloride 109 mmol/L (98-107); Potassium 4.4 mmol/L (3.5-5.1); Sodium 140 mmol/L (136-145)
[2021-07-25 06:43] LABS: Glucose 84 mg/dL (83-110)
[2021-07-25] MEDS ORDERED: guaiFENesin ER 600 MG TAB PO SCH (09:00)
[2021-07-25] MEDS ORDERED: Saccharomyces boulardii 250 MG CAP PO SCH (09:00)
[2021-07-25] MEDS: Cefepime 1 GM in Sodium Chloride 0.9% 100 ML IVPB SCH (09:22)
[2021-07-25] MEDS: Famotidine 20 MG TAB PO SCH (19:54)
[2021-07-25] MEDS: Cefepime 2 GM in Sodium Chloride 0.9% 100 ML IVPB SCH (19:54)
[2021-07-25] MEDS: guaiFENesin ER 600 MG TAB PO SCH (19:54)
[2021-07-25] MEDS: Azithromycin 500 MG in Sodium Chloride 0.9% 250 ML 250 ML IVPB SCH (22:16)
[2021-07-25] MEDS: Guaifenesin DM 100-10/5 ML UDCUP PO PRN (22:25)
[2021-07-26] MEDS: Vancomycin HCl 1 GM in Sodium Chloride 0.9% 250 ML 250 ML IVPB SCH ×2 (02:24→14:43)
[2021-07-26 04:55] LABS: #Eosinphils 0.2 thou/uL (0.0-0.7); #Lymphocytes 1.5 thou/uL (1.20-3.40); #Monocytes 0.7 thou/uL (0.11-0.59); #Neutrophils 7.1 thou/uL (1.40-6.50); %Basophils 0.1 % (0.0-1.0); %Eosinophils 1.9 % (0.0-10.0); %Lymphocytes 15.9 % (21.0-51.0); %Monocytes 6.9 % (0.0-10.0); %Neutrophils 75.2 % (42.0-75.0); Hemoglobin 12.1 g/dL (14.0-18.0); Mean Corpuscular HGB CONC 32.8 g/dL (32.0-36.0); Mean Corpuscular Hemoglobin 31.7 pg (27.0-31.0); Mean Corpuscular Volume 96.6 fL (78.0-98.0); Mean Platelet Volume 6.4 fL (7.4-10.4); Platelet Count 287 thou/uL (130-400); RBC Distribution Width 12.6 % (11.5-14.5); Red Blood Cell (RBC) Count 3.82 mill/uL (4.70-6.10); White Blood Cell (WBC) Count 9.5 thou/uL (4.8-10.8)
[2021-07-26 05:20] LABS: Anion Gap 9 mmol/L (10-20); BUN (Urea Nitrogen) 15 mg/dL (8.4-25.7); Calc. Creatinine Clearance 85 mL/min (70-130); Calcium 8.5 mg/dL (7.8-10.44); Carbon Dioxide 25 mmol/L (23-31); Chloride 109 mmol/L (98-107); Glucose 95 mg/dL (83-110); Magnesium 1.8 mg/dL (1.6-2.6); Potassium 4.2 mmol/L (3.5-5.1); Sodium 139 mmol/L (136-145)
[2021-07-26] MEDS ORDERED: Electrolyte Replacement Protocol FS PRN (07:45)
[2021-07-26] MEDS ORDERED: Electrolyte Replacement Protocol 1 EACH FS SCH (07:45)
[2021-07-26] MEDS ORDERED: Magnesium 2 GM/50 ML 2 GM in Premix Bag 1 BAG IVPB SCH (07:45)
[2021-07-26] MEDS: Famotidine 20 MG TAB PO SCH ×2 (08:33→20:31)
[2021-07-26] MEDS: Aspirin 81 mg Enteric Coated Tablet PO SCH (08:33)
[2021-07-26] MEDS: guaiFENesin ER 600 MG TAB PO SCH ×2 (08:33→20:30)
[2021-07-26] MEDS: Cefepime 2 GM in Sodium Chloride 0.9% 100 ML IVPB SCH ×2 (09:54→20:30)
[2021-07-26] MEDS: Guaifenesin DM 100-10/5 ML UDCUP PO PRN (14:43)
[2021-07-26] MEDS: Saccharomyces boulardii 250 MG CAP PO SCH (20:30)
[2021-07-26] MEDS: Atorvastatin Calcium 40 MG TAB PO SCH (20:30)
[2021-07-26] MEDS: Azithromycin 500 MG in Sodium Chloride 0.9% 250 ML 250 ML IVPB SCH (22:13)
[2021-07-27] MEDS: Vancomycin HCl 1 GM in Sodium Chloride 0.9% 250 ML 250 ML IVPB SCH (02:07)
[2021-07-27] MEDS: Cefepime 2 GM in Sodium Chloride 0.9% 100 ML IVPB SCH (09:58)
[2021-07-27] MEDS: guaiFENesin ER 600 MG TAB PO SCH ×2 (09:59→21:59)
[2021-07-27] MEDS: Famotidine 20 MG TAB PO SCH ×2 (09:59→21:59)
[2021-07-27] MEDS: Aspirin 81 mg Enteric Coated Tablet PO SCH (09:59)
[2021-07-27] MEDS ORDERED: Vancomycin 1 GM in Premix Bag 1 BAG IVPB SCH (14:00)
[2021-07-27] MEDS: cefTRIAXone\\ROCEPHIN 1 GM in Sodium Chloride 0.9% 100 ML IVPB SCH (17:32)
[2021-07-27] MEDS: Atorvastatin Calcium 40 MG TAB PO SCH (21:59)
[2021-07-27] MEDS: Saccharomyces boulardii 250 MG CAP PO SCH (21:59)
[2021-07-27] MEDS: Guaifenesin DM 100-10/5 ML UDCUP PO PRN (21:59)
[2021-07-28 06:08] LABS: #Eosinphils 0.2 thou/uL (0.0-0.7); #Lymphocytes 1.6 thou/uL (1.20-3.40); #Monocytes 0.7 thou/uL (0.11-0.59); #Neutrophils 7.9 thou/uL (1.40-6.50); %Basophils 0.3 % (0.0-1.0); %Eosinophils 1.5 % (0.0-10.0); %Lymphocytes 15.2 % (21.0-51.0); %Monocytes 6.8 % (0.0-10.0); %Neutrophils 76.2 % (42.0-75.0); Hemoglobin 12.1 g/dL (14.0-18.0); Mean Corpuscular HGB CONC 33.8 g/dL (32.0-36.0); Mean Corpuscular Hemoglobin 32.4 pg (27.0-31.0); Mean Corpuscular Volume 95.9 fL (78.0-98.0); Mean Platelet Volume 6.7 fL (7.4-10.4); Platelet Count 278 thou/uL (130-400); RBC Distribution Width 12.6 % (11.5-14.5); Red Blood Cell (RBC) Count 3.73 mill/uL (4.70-6.10); White Blood Cell (WBC) Count 10.3 thou/uL (4.8-10.8)
[2021-07-28 06:21] LABS: Anion Gap 12 mmol/L (10-20); BUN (Urea Nitrogen) 12 mg/dL (8.4-25.7); Calc. Creatinine Clearance 65 mL/min (70-130); Calcium 8.6 mg/dL (7.8-10.44); Carbon Dioxide 23 mmol/L (23-31); Chloride 108 mmol/L (98-107); Glucose 95 mg/dL (83-110); Magnesium 1.9 mg/dL (1.6-2.6); Sodium 139 mmol/L (136-145)
[2021-07-28] MEDS ORDERED: Magnesium 2 GM/50 ML 2 GM in Premix Bag 1 BAG IVPB SCH (07:00)
[2021-07-28] MEDS: Aspirin 81 mg Enteric Coated Tablet PO SCH (10:18)
[2021-07-28] MEDS: Famotidine 20 MG TAB PO SCH ×2 (10:18→20:59)
[2021-07-28] MEDS: guaiFENesin ER 600 MG TAB PO SCH ×2 (10:19→21:00)
[2021-07-28 13:15] LABS: Fungus Stain Final report (.)
[2021-07-28] MEDS: cefTRIAXone\\ROCEPHIN 1 GM in Sodium Chloride 0.9% 100 ML IVPB SCH (17:21)
[2021-07-28] MEDS: Atorvastatin Calcium 40 MG TAB PO SCH (20:59)
[2021-07-28] MEDS: Saccharomyces boulardii 250 MG CAP PO SCH (21:00)
[2021-07-29] MEDS: Famotidine 20 MG TAB PO SCH (09:59)
[2021-07-29] MEDS: guaiFENesin ER 600 MG TAB PO SCH (09:59)
[2021-07-29] MEDS: Aspirin 81 mg Enteric Coated Tablet PO SCH (09:59)
[2021-07-29] MEDS ORDERED: cefTRIAXone\\ROCEPHIN 1 GM in Sodium Chloride 0.9% 100 ML IVPB SCH (12:15)
[2021-07-29 13:07] VITALS: BP 95/62; TEMP 98.9
== END 2021-07-29 15:28 | disposition home or self-care (01) | DRG 206 ==
LOC: ERS 10:08 → SURG A 15:54
PROVIDERS: ADMIT Internal Medicine; ATTEND Internal Medicine
DX: J98.4 Other disorders of lung (principal); R04.2 Hemoptysis; J43.9 Emphysema, unspecified; Z20.822 Contact with and (suspected) exposure to COVID-19; I25.10 Atherosclerotic heart disease of native coronary artery without angina pectoris; N20.0 Calculus of kidney; N28.1 Cyst of kidney, acquired; E78.5 Hyperlipidemia, unspecified; K21.9 Gastro-esophageal reflux disease without esophagitis; D53.9 Nutritional anemia, unspecified; D72.829 Elevated white blood cell count, unspecified; E83.42 Hypomagnesemia; R19.7 Diarrhea, unspecified; Z95.1 Presence of aortocoronary bypass graft; Z86.73 Personal history of transient ischemic attack (TIA), and cerebral infarction without residual deficits; Z87.891 Personal history of nicotine dependence; Z79.82 Long term (current) use of aspirin; Z79.899 Other long term (current) drug therapy; Z85.810 Personal history of malignant neoplasm of tongue; Z85.89 Personal history of malignant neoplasm of other organs and systems
CPT/HCPCS: 36415; 71045; 71275; 80048; 80053; 80202; 81001; 83690; 83735; 84145; 85025; 85610; 85730; 86606; 86850; 86900; 86901; 87040; 87086; 87102; 87116; 87206; 87324; 87449; 93005; 93798; 94640; 96365; 96366; 96367; J0456; J0692; J0696; J2543; J3370; J3475; J3490; J7050; J7620; Q9967; U0002

== ENCOUNTER 2021-08-03 17:22 | Inpatient (IN) | payer MEDICARE, OTHER ==
[~2021-08-03 17:22] MED LIST changes: -CISPLATIN IV SCH; +Iopamidol-370 76% 500 ML 1 ML ONE; -MANNITOL IV SCH; -Palonosetron HCl 0.25 MG in Sodium Chloride 0.9% 50 ML IVPB SCH; -SODIUM CHLORIDE 0.9% IV SCH; -Sodium Chloride 0.9% 500 ML IV SCH; -Sodium Chloride 0.9% 500 ML IVPB SCH
[2021-08-03 17:59] LABS: #Eosinphils 0.2 thou/uL (0.0-0.7); #Lymphocytes 1.8 thou/uL (1.20-3.40); #Monocytes 0.8 thou/uL (0.11-0.59); #Neutrophils 9.6 thou/uL (1.40-6.50); %Basophils 0.1 % (0.0-1.0); %Eosinophils 1.7 % (0.0-10.0); %Lymphocytes 14.7 % (21.0-51.0); %Monocytes 6.4 % (0.0-10.0); Hemoglobin 14.7 g/dL (14.0-18.0); Mean Corpuscular HGB CONC 32.3 g/dL (32.0-36.0); Mean Corpuscular Hemoglobin 30.9 pg (27.0-31.0); Mean Corpuscular Volume 95.8 fL (78.0-98.0); Mean Platelet Volume 6.8 fL (7.4-10.4); Platelet Count 269 thou/uL (130-400); Red Blood Cell (RBC) Count 4.76 mill/uL (4.70-6.10); White Blood Cell (WBC) Count 12.5 thou/uL (4.8-10.8)
[2021-08-03 18:40] LABS: ALT (SGPT) 9 U/L (8-55); AST (SGOT) 15 U/L (5-34); Albumin 3.6 g/dL (3.4-4.8); Alkaline Phosphatase 137 U/L (40-110); Anion Gap 17 mmol/L (10-20); BUN (Urea Nitrogen) 21 mg/dL (8.4-25.7); Bilirubin, Total 0.3 mg/dL (0.2-1.2); Calc. Creatinine Clearance 0 mL/min (70-130); Calcium 9.3 mg/dL (7.8-10.44); Carbon Dioxide 22 mmol/L (23-31); Chloride 101 mmol/L (98-107); Globulin 4.4 g/dL (2.4-3.5); Glucose 140 mg/dL (83-110); Sodium 136 mmol/L (136-145)
[2021-08-03 22:26] LABS: SARS-CoV-2 NAA Rapid Test Not Detected (NotDetected)
[2021-08-03 23:42] VITALS: BMI 20.9
[2021-08-04] MEDS ORDERED: Ondansetron ODT 4 MG TAB SL PRN (00:45)
[2021-08-04] MEDS ORDERED: Ondansetron PF 4 MG/2 ML Vial IVP PRN ×2 (00:45→02:37)
[2021-08-04] MEDS ORDERED: Cefepime 2 GM in Sodium Chloride 0.9% 100 ML IVPB SCH (02:00)
[2021-08-04] MEDS ORDERED: Vancomycin 1 GM in Premix Bag 1 BAG IVPB SCH (03:00)
[2021-08-04] MEDS ORDERED: Voriconazole 50 MG TAB PO SCH (04:00)
[2021-08-04 05:22] LABS: #Eosinphils 0.2 thou/uL (0.0-0.7); #Lymphocytes 1.8 thou/uL (1.20-3.40); #Monocytes 0.8 thou/uL (0.11-0.59); #Neutrophils 8.9 thou/uL (1.40-6.50); %Basophils 0.3 % (0.0-1.0); %Eosinophils 2.1 % (0.0-10.0); %Lymphocytes 15.5 % (21.0-51.0); %Monocytes 6.9 % (0.0-10.0); %Neutrophils 75.2 % (42.0-75.0); Hemoglobin 11.8 g/dL (14.0-18.0); Mean Corpuscular HGB CONC 32.3 g/dL (32.0-36.0); Mean Corpuscular Hemoglobin 31.2 pg (27.0-31.0); Mean Corpuscular Volume 96.6 fL (78.0-98.0); Mean Platelet Volume 6.8 fL (7.4-10.4); Platelet Count 240 thou/uL (130-400); RBC Distribution Width 12.8 % (11.5-14.5); Red Blood Cell (RBC) Count 3.79 mill/uL (4.70-6.10); White Blood Cell (WBC) Count 11.8 thou/uL (4.8-10.8)
[2021-08-04 05:27] LABS: Anion Gap 11 mmol/L (10-20); BUN (Urea Nitrogen) 19 mg/dL (8.4-25.7); Calc. Creatinine Clearance 65 mL/min (70-130); Calcium 8.7 mg/dL (7.8-10.44); Carbon Dioxide 27 mmol/L (23-31); Chloride 103 mmol/L (98-107); Glucose 113 mg/dL (83-110); Potassium 4.1 mmol/L (3.5-5.1); Sodium 137 mmol/L (136-145)
[2021-08-04] MEDS ORDERED: FLU VACC QS2021-22(65YR UP)/PF 240 MCG/0.7 ML SYRINGE IM ONE (09:00)
[2021-08-04] MEDS: Famotidine/PF 20 mg/2ml Vial SLOW IVP SCH ×2 (09:04→22:39)
[2021-08-04] MEDS ORDERED: Lidocaine 4% PF 5 ML AMP NEB SCH (10:45)
[2021-08-04] MEDS: Sodium Chloride 0.9% 1,000 ML IV SCH (11:38)
[2021-08-04] MEDS: Acetaminophen 325 MG TAB PO PRN (15:35)
[2021-08-04] MEDS: Atorvastatin Calcium 40 MG TAB PO SCH (22:39)
[2021-08-04] MEDS: Voriconazole 50 MG TAB PO SCH (22:39)
[2021-08-05 05:10] LABS: #Eosinphils 0.4 thou/uL (0.0-0.7); #Lymphocytes 1.1 thou/uL (1.20-3.40); #Monocytes 0.7 thou/uL (0.11-0.59); #Neutrophils 9.4 thou/uL (1.40-6.50); %Eosinophils 3.1 % (0.0-10.0); %Lymphocytes 9.4 % (21.0-51.0); %Neutrophils 81.5 % (42.0-75.0); Hemoglobin 12.2 g/dL (14.0-18.0); Mean Corpuscular HGB CONC 33.2 g/dL (32.0-36.0); Mean Corpuscular Hemoglobin 31.8 pg (27.0-31.0); Mean Platelet Volume 7.1 fL (7.4-10.4); Platelet Count 222 thou/uL (130-400); RBC Distribution Width 12.9 % (11.5-14.5); Red Blood Cell (RBC) Count 3.82 mill/uL (4.70-6.10); White Blood Cell (WBC) Count 11.6 thou/uL (4.8-10.8)
[2021-08-05 05:37] LABS: Anion Gap 15 mmol/L (10-20); BUN (Urea Nitrogen) 17 mg/dL (8.4-25.7); Calc. Creatinine Clearance 65 mL/min (70-130); Calcium 8.7 mg/dL (7.8-10.44); Carbon Dioxide 23 mmol/L (23-31); Chloride 105 mmol/L (98-107); Glucose 98 mg/dL (83-110); Potassium 4.1 mmol/L (3.5-5.1); Sodium 139 mmol/L (136-145)
[2021-08-05] MEDS: Sodium Chloride 0.9% 1,000 ML IV SCH (07:44)
[2021-08-05] MEDS: Famotidine/PF 20 mg/2ml Vial SLOW IVP SCH ×2 (11:09→20:38)
[2021-08-05] MEDS ORDERED: Fentanyl 100 MCG/2 ML VIAL ONE (12:02)
[2021-08-05] MEDS ORDERED: Succinylcholine 200 MG/10 ml SYRINGE FS ONE (13:31)
[2021-08-05] MEDS ORDERED: Lidocaine 1% PF 5 ML VIAL ONE (13:31)
[2021-08-05] MEDS ORDERED: Lidocaine 2% PF 100 mg/5 ml Syringe ONE (14:18)
[2021-08-05] MEDS ORDERED: HYDROmorphone 2 MG/ML VIAL SLOW IVP PRN (14:21)
[2021-08-05] MEDS ORDERED: Promethazine HCl 25 MG/ML VIAL IVPB PRN (14:21)
[2021-08-05] MEDS ORDERED: Promethazine HCl 25 MG/ML VIAL IM PRN (14:21)
[2021-08-05] MEDS ORDERED: Ondansetron HCl/PF 4 MG/2 ML Vial IVP PRN (14:21)
[2021-08-05] MEDS: Voriconazole 50 MG TAB PO SCH ×2 (15:34→20:38)
[2021-08-05] MEDS: Atorvastatin Calcium 40 MG TAB PO SCH (20:37)
[2021-08-05] MEDS: Acetaminophen 325 MG TAB PO PRN (20:38)
[2021-08-06] MEDS ORDERED: Sodium Chloride 0.9% 500 ML IV SCH (02:30)
[2021-08-06] MEDS: Sodium Chloride 0.9% 1,000 ML IV SCH (02:53)
[2021-08-06 05:59] LABS: #Eosinphils 0.3 thou/uL (0.0-0.7); #Lymphocytes 1.6 thou/uL (1.20-3.40); #Monocytes 0.7 thou/uL (0.11-0.59); #Neutrophils 7.2 thou/uL (1.40-6.50); %Basophils 0.1 % (0.0-1.0); %Eosinophils 3.1 % (0.0-10.0); %Lymphocytes 16.5 % (21.0-51.0); %Monocytes 7.4 % (0.0-10.0); %Neutrophils 72.9 % (42.0-75.0); Hemoglobin 11.1 g/dL (14.0-18.0); Mean Corpuscular HGB CONC 31.2 g/dL (32.0-36.0); Mean Corpuscular Hemoglobin 30.5 pg (27.0-31.0); Mean Corpuscular Volume 97.5 fL (78.0-98.0); Mean Platelet Volume 6.9 fL (7.4-10.4); Platelet Count 234 thou/uL (130-400); RBC Distribution Width 12.9 % (11.5-14.5); Red Blood Cell (RBC) Count 3.63 mill/uL (4.70-6.10); White Blood Cell (WBC) Count 9.8 thou/uL (4.8-10.8)
[2021-08-06 06:16] LABS: Anion Gap 12 mmol/L (10-20); BUN (Urea Nitrogen) 15 mg/dL (8.4-25.7); Calc. Creatinine Clearance 61 mL/min (70-130); Calcium 8.7 mg/dL (7.8-10.44); Carbon Dioxide 25 mmol/L (23-31); Chloride 107 mmol/L (98-107); Glucose 88 mg/dL (83-110); Potassium 4.2 mmol/L (3.5-5.1); Sodium 140 mmol/L (136-145)
[2021-08-06] MEDS: Voriconazole 50 MG TAB PO SCH (08:34)
[2021-08-06] MEDS: Famotidine/PF 20 mg/2ml Vial SLOW IVP SCH ×2 (08:34→21:23)
[2021-08-06] MEDS ORDERED: Cepastat Lozenges 1 LOZ PO PRN (13:09)
[2021-08-06] MEDS ORDERED: Benzonatate 100 MG CAP PO PRN (13:09)
[2021-08-06] MEDS: Atorvastatin Calcium 40 MG TAB PO SCH (21:23)
[2021-08-06] MEDS: Acetaminophen 325 MG TAB PO PRN (21:24)
[2021-08-07] MEDS: Sodium Chloride 0.9% 1,000 ML IV SCH ×2 (00:32→16:31)
[2021-08-07 05:23] LABS: Magnesium 1.7 mg/dL (1.6-2.6)
[2021-08-07] MEDS ORDERED: Electrolyte Replacement Protocol 1 EACH FS SCH (06:15)
[2021-08-07] MEDS ORDERED: Magnesium 2 GM/50 ML 2 GM in Premix Bag 1 BAG IVPB SCH (06:30)
[2021-08-07] MEDS: Famotidine/PF 20 mg/2ml Vial SLOW IVP SCH ×2 (09:57→21:15)
[2021-08-07] MEDS ORDERED: Aspirin Chewable 81 MG TAB PO SCH (14:15)
[2021-08-07 15:10] LABS: Troponin I Less than 0.010 ng/mL (< 0.028)
[2021-08-07 20:47] LABS: Troponin I Less than 0.010 ng/mL (< 0.028)
[2021-08-07] MEDS: Atorvastatin Calcium 40 MG TAB PO SCH (21:15)
[2021-08-07] MEDS: Nitroglycerin 2% Ointment 1 INCH/1 GM Packet TOP SCH (21:15)
[2021-08-07] MEDS: Acetaminophen 325 MG TAB PO PRN (21:17)
[2021-08-08] MEDS: Sodium Chloride 0.9% 1,000 ML IV SCH ×3 (04:52→22:23)
[2021-08-08 05:39] LABS: Troponin I Less than 0.010 ng/mL (< 0.028)
[2021-08-08] MEDS: Famotidine/PF 20 mg/2ml Vial SLOW IVP SCH ×2 (08:30→20:02)
[2021-08-08] MEDS: Aspirin 81 mg Enteric Coated Tablet PO SCH (08:30)
[2021-08-08] MEDS: Nitroglycerin 2% Ointment 1 INCH/1 GM Packet TOP SCH ×2 (08:30→20:03)
[2021-08-08] MEDS: Acetaminophen 325 MG TAB PO PRN ×2 (08:36→20:02)
[2021-08-08 08:49] LABS: #Eosinphils 0.4 thou/uL (0.0-0.7); #Lymphocytes 1.9 thou/uL (1.20-3.40); #Monocytes 0.7 thou/uL (0.11-0.59); #Neutrophils 8.4 thou/uL (1.40-6.50); %Basophils 0.2 % (0.0-1.0); %Eosinophils 3.4 % (0.0-10.0); %Lymphocytes 16.6 % (21.0-51.0); %Monocytes 6.4 % (0.0-10.0); %Neutrophils 73.4 % (42.0-75.0); Hemoglobin 12.3 g/dL (14.0-18.0); Mean Corpuscular HGB CONC 31.1 g/dL (32.0-36.0); Mean Corpuscular Hemoglobin 30.5 pg (27.0-31.0); Mean Platelet Volume 6.6 fL (7.4-10.4); Platelet Count 253 thou/uL (130-400); RBC Distribution Width 13.1 % (11.5-14.5); Red Blood Cell (RBC) Count 4.02 mill/uL (4.70-6.10); White Blood Cell (WBC) Count 11.5 thou/uL (4.8-10.8)
[2021-08-08 09:06] LABS: Anion Gap 13 mmol/L (10-20); BUN (Urea Nitrogen) 11 mg/dL (8.4-25.7); Calc. Creatinine Clearance 58 mL/min (70-130); Calcium 8.5 mg/dL (7.8-10.44); Carbon Dioxide 23 mmol/L (23-31); Chloride 109 mmol/L (98-107); Glucose 100 mg/dL (83-110); Potassium 4.1 mmol/L (3.5-5.1); Sodium 141 mmol/L (136-145)
[2021-08-08 13:37] LABS: Fungus Stain Final report (.)
[2021-08-08] MEDS: Atorvastatin Calcium 40 MG TAB PO SCH (20:02)
[2021-08-09] MEDS: Acetaminophen 325 MG TAB PO PRN ×3 (08:57→20:59)
[2021-08-09] MEDS: Aspirin 81 mg Enteric Coated Tablet PO SCH (08:57)
[2021-08-09] MEDS: Famotidine/PF 20 mg/2ml Vial SLOW IVP SCH ×2 (08:58→20:59)
[2021-08-09] MEDS: Nitroglycerin 2% Ointment 1 INCH/1 GM Packet TOP SCH ×2 (09:38→21:04)
[2021-08-09] MEDS: Phenazopyridine HCl 100 MG TAB PO SCH ×2 (12:41→17:05)
[2021-08-09 13:04] LABS: Bilirubin Negative (Negative); Blood, Urine 2+ (Negative); Clarity Clear (Clear); Glucose, Urine (Dipstick) Normal (Negative); Ketone, Urine Negative (Negative); Leukocyte 500 Leu/uL (Negative); Nitrite Negative (Negative); Protein, Urine (Dipstick) 30 mg/dL (Neg-Trace); Specific Gravity, Urine 1.012 (1.002-1.036); Squamous Epithelial None Seen HPF (0-3); Urobilinogen Normal mg/dL (Less than 2); WBC/HPF Greater than 50 HPF (0-3)
[2021-08-09 13:08] LABS: Bacteria/HPF 1+ HPF (None Seen)
[2021-08-09 13:09] LABS: Urine Culture Reflex Yes Yes
[2021-08-09] MEDS: Atorvastatin Calcium 40 MG TAB PO SCH (20:59)
[2021-08-09] MEDS: Voriconazole 50 MG TAB PO SCH (21:01)
[2021-08-09] MEDS: Sodium Chloride 0.9% 1,000 ML IV SCH (21:04)
[2021-08-10] MEDS: Acetaminophen 325 MG TAB PO PRN ×2 (04:03→11:23)
[2021-08-10] MEDS: Phenazopyridine HCl 100 MG TAB PO SCH ×2 (08:57→13:06)
[2021-08-10] MEDS: Aspirin 81 mg Enteric Coated Tablet PO SCH (08:57)
[2021-08-10] MEDS: Famotidine/PF 20 mg/2ml Vial SLOW IVP SCH (08:57)
[2021-08-10] MEDS: Voriconazole 50 MG TAB PO SCH (08:58)
[2021-08-10] MEDS: Nitroglycerin 2% Ointment 1 INCH/1 GM Packet TOP SCH (08:59)
[2021-08-10 14:44] LABS: SARS-CoV-2 PCR by NAA Not Detected (NotDetected)
[2021-08-10 16:13] VITALS: BP 111/64; TEMP 98.4
[2021-08-10] MEDS ORDERED: Voriconazole 50 MG TAB PO SCH (21:00)
== END 2021-08-10 16:59 | disposition home or self-care (01) | DRG 868 ==
LOC: ERS 17:22 → 2NO 21:10 → OBSVTOIN 08-04 08:02
PROVIDERS: ADMIT Internal Medicine; ATTEND Internal Medicine
PROC: 0B9J8ZZ Drainage of Left Lower Lung Lobe, Via Natural or Artificial Opening Endoscopic (ICD-10-PCS; principal; 2021-08-05)
DX: B44.1 Other pulmonary aspergillosis (principal); R04.2 Hemoptysis; I47.2 Ventricular tachycardia; N39.0 Urinary tract infection, site not specified; Z20.822 Contact with and (suspected) exposure to COVID-19; I48.91 Unspecified atrial fibrillation; J43.9 Emphysema, unspecified; I10 Essential (primary) hypertension; I25.10 Atherosclerotic heart disease of native coronary artery without angina pectoris; J98.4 Other disorders of lung; E78.5 Hyperlipidemia, unspecified; K22.89 Other specified disease of esophagus; C06.0 Malignant neoplasm of cheek mucosa; E86.0 Dehydration; N40.1 Benign prostatic hyperplasia with lower urinary tract symptoms; R35.0 Frequency of micturition; G89.4 Chronic pain syndrome; R10.2 Pelvic and perineal pain; E78.00 Pure hypercholesterolemia, unspecified; R00.1 Bradycardia, unspecified; Z85.810 Personal history of malignant neoplasm of tongue; Z28.21 Immunization not carried out because of patient refusal; Z85.89 Personal history of malignant neoplasm of other organs and systems; Z92.21 Personal history of antineoplastic chemotherapy; Z92.3 Personal history of irradiation; Z90.89 Acquired absence of other organs; Z95.1 Presence of aortocoronary bypass graft; Z80.9 Family history of malignant neoplasm, unspecified; Z87.891 Personal history of nicotine dependence; I25.2 Old myocardial infarction
CPT/HCPCS: 36415; 71275; 78452; 80048; 80053; 81001; 83735; 84484; 85025; 86850; 86900; 86901; 87070; 87086; 87102; 87116; 87205; 87206; 88112; 88305; 93005; 93010; 93017; 96374; 96375; A9500; G0378; J0692; J2001; J3010; J3370; J3475; J3490; J7030; J7050; Q9967; S0028; U0002; U0003; U0005

== ENCOUNTER 2021-09-25 09:25 | Outpatient (CLI) | payer MEDICARE ==
[2021-09-25 10:12] LABS: Bilirubin Neg (Negative); Blood, Urine 250 (Negative); Clarity Cloudy (Clear); Glucose, Urine (Dipstick) Normal (Negative); Ketone, Urine Negative (Negative); Leukocyte 500 (Negative); Nitrite Negative (Negative); Protein, Urine (Dipstick) 100 mg/dl (Neg-Trace); Urobilinogen Normal mg/dL (Less than 2)
[2021-09-25 10:25] LABS: RBC/HPF Greater than 50 HPF (0-3); WBC/HPF Greater Than 50 HPF (0-3)
[2021-09-25 10:27] LABS: Bacteria/HPF 1+ HPF (None Seen)
[2021-09-25 10:29] LABS: Oval Fat Bodies/HPF Rare HPF (None Seen)
[2021-09-25 11:02] LABS: Hemoglobin 11.3 g/dL (13.5-17.5); Mean Corpuscular HGB CONC 32.2 g/dL (32.0-36.0); Mean Corpuscular Hemoglobin 30.6 pg (27.0-33.0); Mean Corpuscular Volume 95.1 fl (81.2-95.1); Platelet Count 379 10x3/uL (150-450); RBC Distribution Width 18.7 % (11.5-14.5); Red Blood Cell (RBC) Count 3.69 10x6/uL (4.32-5.72); White Blood Cell (WBC) Count 19.6 10x3/uL (3.5-10.5)
[2021-09-25 11:31] LABS: PTT 28.9 sec (22.0-33.0); Prothrombin Time 10.8 sec (9.5-12.1)
[2021-09-25 11:38] LABS: Anion Gap 15 mmol/L (10-20); BUN (Urea Nitrogen) 40 mg/dL (8.4-25.7); Calc. Creatinine Clearance 0 mL/min (70-130); Calcium 8.8 mg/dL (7.8-10.44); Carbon Dioxide 21 mmol/L (23-31); Chloride 105 mmol/L (98-107); Glucose 84 mg/dL (83-110); Potassium 4.5 mmol/L (3.5-5.1); Sodium 136 mmol/L (136-145)
[2021-09-26 00:05] LABS: SARS-CoV-2 PCR by NAA Not Detected (NotDetected)
== END 2021-09-25 09:26 | disposition home or self-care (01) ==
LOC: LABBT 09:25
PROVIDERS: ATTEND Urology
DX: Z01.818 Encounter for other preprocedural examination (principal); C67.2 Malignant neoplasm of lateral wall of bladder; C02.9 Malignant neoplasm of tongue, unspecified; J84.10 Pulmonary fibrosis, unspecified; I25.810 Atherosclerosis of coronary artery bypass graft(s) without angina pectoris; I10 Essential (primary) hypertension; I48.91 Unspecified atrial fibrillation; N40.1 Benign prostatic hyperplasia with lower urinary tract symptoms; R39.12 Poor urinary stream; Z20.822 Contact with and (suspected) exposure to COVID-19
CPT/HCPCS: 80048; 81001; 85027; 85610; 85730; 87086; 93005; U0003; U0005; 93010

== ENCOUNTER 2021-11-17 12:33 | Outpatient (CLI) | payer MEDICARE ==
[2021-11-17 22:56] LABS: SARS-CoV-2 PCR by NAA Not Detected (NotDetected)
== END 2021-11-17 12:34 | disposition home or self-care (01) ==
LOC: LABBT 12:33
PROVIDERS: ATTEND Specialist
DX: C02.9 Malignant neoplasm of tongue, unspecified (principal); Z20.822 Contact with and (suspected) exposure to COVID-19
CPT/HCPCS: U0003; U0005

== ENCOUNTER 2021-11-22 06:32 | Day surgery (SDC) | payer MEDICARE ==
[2021-11-20 10:26] VITALS: BMI 21.5
[2021-11-22] MEDS ORDERED: fentaNYL Citrate/PF 100 MCG/2 ML SYRINGE ONE (08:39)
[2021-11-22] MEDS ORDERED: PROPOFOL 20 ML ONE ×2 (08:39→09:58)
[2021-11-22] MEDS ORDERED: Lidocaine 1% w/Epinephrine 1:100K 20 ML VIAL ONE (08:43)
[2021-11-22] MEDS ORDERED: Bupivacaine PF 0.5% 30 ML VIAL ONE (08:43)
[2021-11-22] MEDS ORDERED: ceFAZolin (BATCH) 2 GM/100 ML BAG ONE (08:51)
[2021-11-22] MEDS ORDERED: ePHEDrine 50 MG/ML VIAL ONE (09:04)
[2021-11-22] MEDS ORDERED: PROPOFOL 200 MG/20 ML VIAL ONE (09:04)
[2021-11-22] MEDS ORDERED: ePHEDrine Sulfate 50 MG/10 ML VIAL ONE (09:58)
== END 2021-11-22 10:35 | disposition home or self-care (01) ==
LOC: SDC 06:32
PROVIDERS: ATTEND Specialist
PROC: 0JH60WZ Insertion of Totally Implantable Vascular Access Device into Chest Subcutaneous Tissue and Fascia, Open Approach (ICD-10-PCS; principal; 2021-11-22)
PROC: 02HV33Z Insertion of Infusion Device into Superior Vena Cava, Percutaneous Approach (ICD-10-PCS; 2021-11-22)
DX: C02.9 Malignant neoplasm of tongue, unspecified (principal); C67.2 Malignant neoplasm of lateral wall of bladder; I25.10 Atherosclerotic heart disease of native coronary artery without angina pectoris; I48.91 Unspecified atrial fibrillation; I25.2 Old myocardial infarction; Z86.73 Personal history of transient ischemic attack (TIA), and cerebral infarction without residual deficits; Z87.891 Personal history of nicotine dependence; Z79.899 Other long term (current) drug therapy; Z95.1 Presence of aortocoronary bypass graft; Z95.5 Presence of coronary angioplasty implant and graft
CPT/HCPCS: 71045; C1788; J0690; J1642; J2704; J3490; S0020

== ENCOUNTER 2021-11-23 10:21 | Day surgery (SDC) | payer MEDICARE ==
[~2021-11-23 10:21] MED LIST changes: +CISPLATIN IV SCH; +Dexamethasone 20 MG in Sodium Chloride 0.9% 50 ML IVPB SCH; +Dexamethasone Sod Phosphate 20 MG in Sodium Chloride 0.9% 50 ML IVPB SCH; +GEMCITABINE HCL IVPB SCH; -Iopamidol-370 76% 500 ML 1 ML ONE; +MANNITOL IV SCH; +PALONOSETRON HCL 0.05 MG/ML 5 ML VIAL IVP SCH; +Palonosetron HCl 0.25 MG in Sodium Chloride 0.9% 50 ML IVPB SCH; +Potassium Chloride 10 MEQ in Sodium Chloride 0.9% 250 ML 250 ML IVPB SCH; +SODIUM CHLORIDE 0.9% IV SCH; +SODIUM CHLORIDE 0.9% IVPB SCH; +Sodium Chloride 0.9% 500 ML IVPB SCH
[2021-11-23] MEDS ORDERED: PALONOSETRON HCL 0.05 MG/ML 5 ML VIAL ONE (10:46)
[2021-11-23 11:20] VITALS: BP 106/65; TEMP 98.5
== END 2021-11-23 16:12 | disposition home or self-care (01) ==
LOC: ONC/OP 10:21
PROVIDERS: ATTEND Internal Medicine Hematology & Oncology
DX: Z51.11 Encounter for antineoplastic chemotherapy (principal); C67.0 Malignant neoplasm of trigone of bladder; C02.2 Malignant neoplasm of ventral surface of tongue; Z88.2 Allergy status to sulfonamides
CPT/HCPCS: 36415; 80053; 82248; 83615; 83735; 84100; 84550; 96361; 96366; 96375; 96413; 96417; J1100; J1642; J2150; J2469; J3480; J7030; J7050; J9060; J9201

== ENCOUNTER 2021-11-28 07:16 | Day surgery (SDC) | payer MEDICARE ==
[2021-11-27 15:31] VITALS: BMI 20.2
[2021-11-28 09:31] VITALS: BP 94/65; TEMP 99.5
== END 2021-11-28 09:50 | disposition home or self-care (01) ==
LOC: ULT 07:16
PROVIDERS: ATTEND Urology
PROC: 0T25X0Z Change Drainage Device in Kidney, External Approach (ICD-10-PCS; principal; 2021-11-28)
DX: Z46.6 Encounter for fitting and adjustment of urinary device (principal); N13.30 Unspecified hydronephrosis; N28.1 Cyst of kidney, acquired; C67.2 Malignant neoplasm of lateral wall of bladder; I25.810 Atherosclerosis of coronary artery bypass graft(s) without angina pectoris; I48.91 Unspecified atrial fibrillation; I10 Essential (primary) hypertension; N40.1 Benign prostatic hyperplasia with lower urinary tract symptoms; R39.12 Poor urinary stream; Z85.810 Personal history of malignant neoplasm of tongue; Z86.73 Personal history of transient ischemic attack (TIA), and cerebral infarction without residual deficits; Z87.891 Personal history of nicotine dependence; Z79.899 Other long term (current) drug therapy; Z88.2 Allergy status to sulfonamides; Z95.1 Presence of aortocoronary bypass graft; Z95.5 Presence of coronary angioplasty implant and graft
CPT/HCPCS: 50431; 50436; 76770; C1729

== ENCOUNTER 2021-11-30 10:16 | Day surgery (SDC) | payer MEDICARE ==
[~2021-11-30 10:16] MED LIST changes: -CISPLATIN IV SCH; +Dexamethasone 10 MG/ML VIAL SLOW IVP SCH; -Dexamethasone 20 MG in Sodium Chloride 0.9% 50 ML IVPB SCH; -GEMCITABINE HCL IVPB SCH; +GEMZAR IVPB SCH; -MANNITOL IV SCH; -Palonosetron HCl 0.25 MG in Sodium Chloride 0.9% 50 ML IVPB SCH; +Pegfilgrastim Onpro 6 MG/0.6 ML SQ SCH; -Potassium Chloride 10 MEQ in Sodium Chloride 0.9% 250 ML 250 ML IVPB SCH; -SODIUM CHLORIDE 0.9% IV SCH
[2021-11-30 10:59] VITALS: BP 116/74; TEMP 97.9
[2021-11-30] MEDS ORDERED: SODIUM CHLORIDE 0.9% IVPB SCH (11:00)
[2021-11-30] MEDS ORDERED: GEMZAR IVPB SCH (11:00)
[2021-11-30] MEDS ORDERED: PALONOSETRON HCL 0.05 MG/ML 5 ML VIAL ONE (11:39)
== END 2021-11-30 13:14 | disposition home or self-care (01) ==
LOC: ONC/OP 10:16
PROVIDERS: ATTEND Internal Medicine Hematology & Oncology
DX: Z51.11 Encounter for antineoplastic chemotherapy (principal); C67.0 Malignant neoplasm of trigone of bladder; C02.2 Malignant neoplasm of ventral surface of tongue; Z88.2 Allergy status to sulfonamides
CPT/HCPCS: 80053; 82248; 83615; 83735; 84100; 84550; 96361; 96375; 96377; 96413; J1100; J1642; J2469; J2506; J7050; J9201

== ENCOUNTER 2021-12-14 11:28 | Day surgery (SDC) | payer MEDICARE ==
[2021-12-14] MEDS ORDERED: SODIUM CHLORIDE 0.9% IVPB SCH ×2 (12:00→12:30)
[2021-12-14] MEDS ORDERED: Potassium Chloride 10 MEQ in Sodium Chloride 0.9% 250 ML 250 ML IVPB SCH (12:00)
[2021-12-14] MEDS ORDERED: Dexamethasone 20 MG in Sodium Chloride 0.9% 50 ML IVPB SCH (12:00)
[2021-12-14] MEDS ORDERED: Mannitol 12.5 GM/50 ML IV SCH (12:00)
[2021-12-14] MEDS ORDERED: Sodium Chloride 0.9% 1,000 ML IV SCH (12:00)
[2021-12-14] MEDS ORDERED: CISPLATIN IV SCH ×3 (12:00→13:15)
[2021-12-14] MEDS ORDERED: GEMZAR IVPB SCH (12:00)
[2021-12-14] MEDS ORDERED: SODIUM CHLORIDE 0.9% IV SCH ×3 (12:00→13:15)
[2021-12-14] MEDS ORDERED: Palonosetron HCl 0.25 MG in Sodium Chloride 0.9% 50 ML IVPB SCH (12:00)
[2021-12-14] MEDS ORDERED: MANNITOL IV SCH ×2 (12:15→13:15)
[2021-12-14 12:20] VITALS: BP 98/59
[2021-12-14] MEDS ORDERED: GEMCITABINE HCL IVPB SCH (12:30)
== END 2021-12-14 16:28 | disposition home or self-care (01) ==
LOC: ONC/OP 11:28
PROVIDERS: ATTEND Internal Medicine Hematology & Oncology
DX: Z51.11 Encounter for antineoplastic chemotherapy (principal); C02.2 Malignant neoplasm of ventral surface of tongue; C67.0 Malignant neoplasm of trigone of bladder; Z88.2 Allergy status to sulfonamides
CPT/HCPCS: 36415; 80053; 82248; 83615; 83735; 84100; 84550; 96361; 96367; 96375; 96413; 96417; J1100; J1642; J2150; J2469; J3480; J7030; J7050; J9060; J9201

== ENCOUNTER 2021-12-20 07:56 | Inpatient (IN) | payer MEDICARE, OTHER ==
[2021-12-20 08:41] LABS: #Lymphocytes 1.2 thou/uL (1.20-3.40); #Monocytes 0.5 thou/uL (0.11-0.59); #Neutrophils 1.9 thou/uL (1.40-6.50); %Basophils 0.2 % (0.0-1.0); %Eosinophils 0.7 % (0.0-10.0); %Monocytes 13.2 % (0.0-10.0); %Neutrophils 51.9 % (42.0-75.0); Hemoglobin 11.4 g/dL (14.0-18.0); Mean Corpuscular HGB CONC 32.5 g/dL (32.0-36.0); Mean Corpuscular Hemoglobin 33.8 pg (27.0-31.0); Mean Platelet Volume 6.2 fL (7.4-10.4); Platelet Count 269 thou/uL (130-400); RBC Distribution Width 14.7 % (11.5-14.5); Red Blood Cell (RBC) Count 3.37 mill/uL (4.70-6.10); White Blood Cell (WBC) Count 3.6 thou/uL (4.8-10.8)
[2021-12-20 09:02] LABS: ALT (SGPT) 15 U/L (8-55); AST (SGOT) 23 U/L (5-34); Albumin 3.4 g/dL (3.4-4.8); Alkaline Phosphatase 113 U/L (40-110); Anion Gap 11 mmol/L (10-20); BUN (Urea Nitrogen) 27 mg/dL (8.4-25.7); Bilirubin, Total 0.2 mg/dL (0.2-1.2); Calc. Creatinine Clearance 0 mL/min (70-130); Calcium 8.9 mg/dL (7.8-10.44); Carbon Dioxide 25 mmol/L (23-31); Chloride 105 mmol/L (98-107); Globulin 3.9 g/dL (2.4-3.5); Glucose 105 mg/dL (83-110); Potassium 4.5 mmol/L (3.5-5.1); Protein, Total 7.3 g/dL (5.8-8.1); Sodium 136 mmol/L (136-145)
[2021-12-20] MEDS ORDERED: Cefepime 1 GM VIAL ONE (09:52)
[2021-12-20] MEDS ORDERED: Cefepime 2 GM VIAL ONE (09:53)
[2021-12-20] MEDS ORDERED: Vancomycin 1 GM/200 ML BAG ONE (11:22)
[2021-12-20] MEDS ORDERED: Albuterol Sulfate 2.5 mg/3 ml Neb NEB PRN (11:44)
[2021-12-20] MEDS ORDERED: guaiFENesin 200 MG TAB PO PRN (11:44)
[2021-12-20] MEDS ORDERED: Senokot S 8.6-50 MG TAB PO PRN (11:47)
[2021-12-20] MEDS ORDERED: Ondansetron PF 4 MG/2 ML Vial IVP PRN (11:47)
[2021-12-20] MEDS ORDERED: Ondansetron ODT 4 MG TAB PO PRN (11:47)
[2021-12-20] MEDS ORDERED: Acetaminophen 325 MG TAB PO PRN (11:47)
[2021-12-20 13:59] VITALS: BMI 20.5
[2021-12-20] MEDS: Sodium Chloride 0.9% 1,000 ML IV SCH ×2 (14:36→21:59)
[2021-12-20] MEDS: Nicotine 14 MG PATCH TD SCH (14:38)
[2021-12-20] MEDS: HYDROcodone/Acetaminophen 5/325 mg Tablet PO PRN (14:56)
[2021-12-20 15:57] LABS: SARS-CoV-2 NAA Rapid Test Not Detected (NotDetected)
[2021-12-20] MEDS ORDERED: buPROPion 75 MG TAB PO SCH (21:00)
[2021-12-20] MEDS: Enoxaparin Sodium 40 MG/0.4 ML SYRINGE SC SCH (21:13)
[2021-12-20] MEDS: Cefepime 1 GM in Sodium Chloride 0.9% 100 ML IVPB SCH (21:15)
[2021-12-20 21:53] LABS: Bilirubin Negative (Negative); Blood, Urine Negative (Negative); Clarity Turbid (Clear); Glucose, Urine (Dipstick) Normal (Negative); Ketone, Urine Negative (Negative); Leukocyte 500 Leu/uL (Negative); Nitrite Negative (Negative); Protein, Urine (Dipstick) 10 mg/dL (Neg-Trace); Renal Epithelial 0-3 HPF (None Seen); Specific Gravity, Urine 1.015 (1.002-1.036); Squamous Epithelial None Seen HPF (0-3); Urobilinogen Normal mg/dL (Less than 2); WBC/HPF Greater than 50 HPF (0-3)
[2021-12-20 21:57] LABS: Bacteria/HPF 1+ HPF (None Seen)
[2021-12-20] MEDS: Vancomycin 1 GM in Premix Bag 1 BAG IVPB SCH (21:59)
[2021-12-21 06:17] LABS: Anion Gap 10 mmol/L (10-20); BUN (Urea Nitrogen) 16 mg/dL (8.4-25.7); Calc. Creatinine Clearance 85 mL/min (70-130); Carbon Dioxide 23 mmol/L (23-31); Chloride 108 mmol/L (98-107); Glucose 83 mg/dL (83-110); Potassium 4.1 mmol/L (3.5-5.1); Sodium 137 mmol/L (136-145)
[2021-12-21 06:32] LABS: Band 1 % (5-11); Eosinophils 1 % (0-10); Hemoglobin 9.8 g/dL (14.0-18.0); Hypochromia SLIGHT = 6-15 cells (100X) (0-5/hpf); Lymphocytes 25 % (21-51); MDiff Complete? YES; Macrocytosis SLIGHT = 6-15 cells (100X) (0-5/hpf); Mean Corpuscular HGB CONC 33.3 g/dL (32.0-36.0); Mean Corpuscular Hemoglobin 34.6 pg (27.0-31.0); Mean Platelet Volume 6.5 fL (7.4-10.4); Monocytes 9 % (0-10); Neutrophil 64 % (42-75); Platelet Count 178 thou/uL (130-400); Platelet Morphology Comment Appears Adequate; RBC Distribution Width 14.1 % (11.5-14.5); Red Blood Cell (RBC) Count 2.84 mill/uL (4.70-6.10); White Blood Cell (WBC) Count 4.3 thou/uL (4.8-10.8)
[2021-12-21] MEDS: HYDROcodone/Acetaminophen 5/325 mg Tablet PO PRN ×2 (09:11→20:23)
[2021-12-21] MEDS: Megestrol Acetate 800 MG/20 ML UDCUP PO SCH (09:11)
[2021-12-21] MEDS: Bupropion 150 MG SR TAB PO SCH (09:11)
[2021-12-21] MEDS: Sodium Chloride 0.9% 1,000 ML IV SCH (09:12)
[2021-12-21] MEDS: Cefepime 1 GM in Sodium Chloride 0.9% 100 ML IVPB SCH ×2 (11:24→21:41)
[2021-12-21] MEDS: Vancomycin 1 GM in Premix Bag 1 BAG IVPB SCH (12:52)
[2021-12-21] MEDS: Nicotine 14 MG PATCH TD SCH (12:59)
[2021-12-21] MEDS: Enoxaparin Sodium 40 MG/0.4 ML SYRINGE SC SCH (20:23)
[2021-12-21] MEDS: Lorazepam 1 MG TAB PO PRN (21:40)
[2021-12-21 22:54] LABS: Vancomycin, Trough 16.4 ug/mL
[2021-12-22] MEDS: Vancomycin 1 GM in Premix Bag 1 BAG IVPB SCH ×2 (00:17→11:17)
[2021-12-22 05:29] LABS: Anion Gap 10 mmol/L (10-20); BUN (Urea Nitrogen) 19 mg/dL (8.4-25.7); Calc. Creatinine Clearance 82 mL/min (70-130); Calcium 8.2 mg/dL (7.8-10.44); Carbon Dioxide 23 mmol/L (23-31); Chloride 107 mmol/L (98-107); Glucose 87 mg/dL (83-110); Potassium 4.1 mmol/L (3.5-5.1); Sodium 136 mmol/L (136-145)
[2021-12-22 05:43] LABS: Hemoglobin 9.7 g/dL (14.0-18.0); Mean Corpuscular Hemoglobin 33.4 pg (27.0-31.0); Mean Platelet Volume 6.2 fL (7.4-10.4); Platelet Count 165 thou/uL (130-400); RBC Distribution Width 14.4 % (11.5-14.5); Red Blood Cell (RBC) Count 2.89 mill/uL (4.70-6.10); White Blood Cell (WBC) Count 6.3 thou/uL (4.8-10.8)
[2021-12-22 06:42] LABS: Band 3 % (5-11); Eosinophils 2 % (0-10); Lymphocytes 37 % (21-51); MDiff Complete? YES; Monocytes 10 % (0-10); Neutrophil 48 % (42-75)
[2021-12-22] MEDS: Cefepime 1 GM in Sodium Chloride 0.9% 100 ML IVPB SCH ×2 (09:01→20:49)
[2021-12-22] MEDS: Megestrol Acetate 800 MG/20 ML UDCUP PO SCH (09:05)
[2021-12-22] MEDS: Folic Acid 1 MG TAB PO SCH (09:05)
[2021-12-22] MEDS: Bupropion 150 MG SR TAB PO SCH (09:05)
[2021-12-22] MEDS: Nicotine 14 MG PATCH TD SCH (11:17)
[2021-12-22] MEDS: Enoxaparin Sodium 40 MG/0.4 ML SYRINGE SC SCH (20:49)
[2021-12-22] MEDS: Lorazepam 1 MG TAB PO PRN (20:49)
[2021-12-23] MEDS: Vancomycin 1 GM in Premix Bag 1 BAG IVPB SCH ×2 (00:16→11:21)
[2021-12-23 05:54] LABS: #Eosinphils 0.2 thou/uL (0.0-0.7); #Lymphocytes 1.7 thou/uL (1.20-3.40); #Monocytes 0.8 thou/uL (0.11-0.59); #Neutrophils 4.4 thou/uL (1.40-6.50); %Basophils 0.2 % (0.0-1.0); %Eosinophils 2.4 % (0.0-10.0); %Lymphocytes 23.9 % (21.0-51.0); %Monocytes 11.2 % (0.0-10.0); %Neutrophils 62.3 % (42.0-75.0); Hemoglobin 9.5 g/dL (14.0-18.0); Mean Corpuscular HGB CONC 32.6 g/dL (32.0-36.0); Mean Corpuscular Hemoglobin 33.9 pg (27.0-31.0); Platelet Count 148 thou/uL (130-400); RBC Distribution Width 14.5 % (11.5-14.5); White Blood Cell (WBC) Count 7.1 thou/uL (4.8-10.8)
[2021-12-23 06:16] LABS: Anion Gap 10 mmol/L (10-20); BUN (Urea Nitrogen) 23 mg/dL (8.4-25.7); Calc. Creatinine Clearance 83 mL/min (70-130); Calcium 8.6 mg/dL (7.8-10.44); Carbon Dioxide 25 mmol/L (23-31); Chloride 104 mmol/L (98-107); Glucose 131 mg/dL (83-110); Sodium 135 mmol/L (136-145)
[2021-12-23 08:02] VITALS: BP 108/73; TEMP 98.2
[2021-12-23] MEDS: Cefepime 1 GM in Sodium Chloride 0.9% 100 ML IVPB SCH (09:10)
[2021-12-23] MEDS: Bupropion 150 MG SR TAB PO SCH (09:10)
[2021-12-23] MEDS: Megestrol Acetate 800 MG/20 ML UDCUP PO SCH (09:10)
[2021-12-23] MEDS: Folic Acid 1 MG TAB PO SCH (09:10)
[2021-12-23] MEDS: HYDROcodone/Acetaminophen 5/325 mg Tablet PO PRN ×2 (10:03→15:48)
[2021-12-23 10:54] LABS: Vancomycin, Trough 18.6 ug/mL
[2021-12-23] MEDS: Nicotine 14 MG PATCH TD SCH (11:21)
[2021-12-23] MEDS: Lorazepam 1 MG TAB PO PRN (15:48)
== END 2021-12-23 18:55 | disposition home or self-care (01) | DRG 698 ==
LOC: ERS 07:56 → MSONC 13:54
PROVIDERS: ADMIT Internal Medicine; ATTEND Family Medicine
DX: T83.512A Infection and inflammatory reaction due to nephrostomy catheter, initial encounter (principal); A41.9 Sepsis, unspecified organism; J44.1 Chronic obstructive pulmonary disease with (acute) exacerbation; Z20.822 Contact with and (suspected) exposure to COVID-19; C02.9 Malignant neoplasm of tongue, unspecified; C32.9 Malignant neoplasm of larynx, unspecified; D53.9 Nutritional anemia, unspecified; F41.9 Anxiety disorder, unspecified; F32.9 Major depressive disorder, single episode, unspecified; E78.5 Hyperlipidemia, unspecified; N40.0 Benign prostatic hyperplasia without lower urinary tract symptoms; F17.210 Nicotine dependence, cigarettes, uncomplicated; I25.10 Atherosclerotic heart disease of native coronary artery without angina pectoris; C67.9 Malignant neoplasm of bladder, unspecified; I48.91 Unspecified atrial fibrillation; Y84.6 Urinary catheterization as the cause of abnormal reaction of the patient, or of later complication, without mention of misadventure at the time of the procedure; Z88.1 Allergy status to other antibiotic agents; Z88.2 Allergy status to sulfonamides; Z95.1 Presence of aortocoronary bypass graft; Z86.73 Personal history of transient ischemic attack (TIA), and cerebral infarction without residual deficits; Z79.899 Other long term (current) drug therapy
CPT/HCPCS: 36415; 71045; 80048; 80053; 80202; 81001; 82550; 82607; 82746; 83605; 83880; 84484; 85025; 87040; 87077; 87086; 87186; 93005; 96361; 96365; 96375; J0692; J1642; J1650; J3370; J3490; J7050; U0002

== ENCOUNTER 2021-12-28 09:17 | Day surgery (SDC) | payer OTHER ==
[~2021-12-28 09:17] MED LIST changes: -Dexamethasone 10 MG/ML VIAL SLOW IVP SCH; -Dexamethasone Sod Phosphate 20 MG in Sodium Chloride 0.9% 50 ML IVPB SCH; -GEMZAR IVPB SCH; -PALONOSETRON HCL 0.05 MG/ML 5 ML VIAL IVP SCH; +Palonosetron HCl 0.25 MG in Sodium Chloride 0.9% 50 ML IVPB SCH; -Pegfilgrastim Onpro 6 MG/0.6 ML SQ SCH; -SODIUM CHLORIDE 0.9% IVPB SCH; -Sodium Chloride 0.9% 500 ML IVPB SCH
[2021-12-28] MEDS ORDERED: MANNITOL IV SCH (09:30)
[2021-12-28] MEDS ORDERED: CISPLATIN IV SCH (09:30)
[2021-12-28] MEDS ORDERED: SODIUM CHLORIDE 0.9% IVPB SCH (09:30)
[2021-12-28] MEDS ORDERED: GEMCITABINE HCL IVPB SCH (09:30)
[2021-12-28] MEDS ORDERED: SODIUM CHLORIDE 0.9% IV SCH (09:30)
[2021-12-28] MEDS ORDERED: Pegfilgrastim Onpro 6 MG/0.6 ML SQ SCH (09:30)
[2021-12-28] MEDS ORDERED: Sodium Chloride 0.9% 500 ML IV SCH (09:30)
[2021-12-28] MEDS ORDERED: Dexamethasone Sod Phosphate 20 MG in Sodium Chloride 0.9% 50 ML IVPB SCH (09:45)
[2021-12-28 10:19] VITALS: BP 102/67; TEMP 98.8
== END 2021-12-28 14:08 | disposition home or self-care (01) ==
LOC: ONC/OP 09:17
PROVIDERS: ATTEND Internal Medicine Hematology & Oncology
DX: Z51.11 Encounter for antineoplastic chemotherapy (principal); C67.0 Malignant neoplasm of trigone of bladder; C02.2 Malignant neoplasm of ventral surface of tongue; Z88.1 Allergy status to other antibiotic agents; Z88.2 Allergy status to sulfonamides
CPT/HCPCS: 80053; 82248; 83615; 83735; 84100; 84550; 96361; 96367; 96375; 96377; 96413; 96417; J1100; J1642; J2150; J2469; J2506; J3480; J7030; J7050; J9060; J9201

== ENCOUNTER → 2022-01-11 | Day surgery (SDC) | payer OTHER ==
[~2022-01-11] MED LIST changes: +CISPLATIN IV SCH; +Dexamethasone Sod Phosphate 20 MG in Sodium Chloride 0.9% 50 ML IVPB SCH; +GEMCITABINE HCL IVPB SCH; +MANNITOL IV SCH; +PALONOSETRON HCL 0.05 MG/ML 5 ML VIAL ONE; +SODIUM CHLORIDE 0.9% IV SCH; +SODIUM CHLORIDE 0.9% IVPB SCH; +Sodium Chloride 0.9% 500 ML IV SCH
[2022-01-11 10:24] VITALS: BP 107/72; TEMP 98
[2022-01-11] MEDS: PALONOSETRON HCL 0.05 MG/ML 5 ML VIAL IVP SCH ×2 (10:52→11:00)
== END ==
LOC: ONC/OP 10:01
PROVIDERS: ATTEND Internal Medicine Hematology & Oncology
DX: Z51.11 Encounter for antineoplastic chemotherapy (principal); C67.0 Malignant neoplasm of trigone of bladder; C02.2 Malignant neoplasm of ventral surface of tongue; Z88.1 Allergy status to other antibiotic agents; Z88.2 Allergy status to sulfonamides
CPT/HCPCS: 36415; 80053; 82248; 83615; 83735; 84100; 84550; 96361; 96367; 96375; 96413; 96417; J1100; J1642; J2150; J2469; J3480; J7030; J7050; J9060; J9201

== ENCOUNTER 2022-01-18 09:45 | Day surgery (SDC) | payer OTHER ==
[~2022-01-18 09:45] MED LIST changes: +Dexamethasone 20 MG in Sodium Chloride 0.9% 50 ML IVPB SCH; -Dexamethasone Sod Phosphate 20 MG in Sodium Chloride 0.9% 50 ML IVPB SCH; +PALONOSETRON HCL 0.05 MG/ML 5 ML VIAL IVP SCH; -PALONOSETRON HCL 0.05 MG/ML 5 ML VIAL ONE; -Palonosetron HCl 0.25 MG in Sodium Chloride 0.9% 50 ML IVPB SCH; +Pegfilgrastim Onpro 6 MG/0.6 ML SQ SCH; +Potassium Chloride 20 MEQ in Sodium Chloride 0.9% 250 ML 250 ML IV SCH; -Sodium Chloride 0.9% 500 ML IV SCH; +Sodium Chloride 0.9% 500 ML IVPB SCH
[2022-01-18 10:07] VITALS: BP 115/78; TEMP 97.7
[2022-01-18] MEDS ORDERED: PALONOSETRON HCL 0.05 MG/ML 5 ML VIAL ONE (10:15)
== END 2022-01-18 14:30 | disposition home or self-care (01) ==
LOC: ONC/OP 09:45
PROVIDERS: ATTEND Internal Medicine Hematology & Oncology
DX: Z51.11 Encounter for antineoplastic chemotherapy (principal); C67.0 Malignant neoplasm of trigone of bladder; C02.2 Malignant neoplasm of ventral surface of tongue; Z88.1 Allergy status to other antibiotic agents; Z88.2 Allergy status to sulfonamides
CPT/HCPCS: 36415; 80053; 82248; 83615; 83735; 84100; 84550; 96361; 96367; 96375; 96377; 96413; 96417; J1100; J1642; J2150; J2469; J7030; J7050; J9060; J9201

== ENCOUNTER 2022-02-01 10:14 | Day surgery (SDC) | payer OTHER ==
[2022-02-01] MEDS ORDERED: MANNITOL IV SCH (10:30)
[2022-02-01] MEDS ORDERED: SODIUM CHLORIDE 0.9% IVPB SCH (10:30)
[2022-02-01] MEDS ORDERED: GEMCITABINE HCL IVPB SCH (10:30)
[2022-02-01] MEDS ORDERED: Dexamethasone 20 MG in Sodium Chloride 0.9% 50 ML IVPB SCH (10:30)
[2022-02-01] MEDS ORDERED: SODIUM CHLORIDE 0.9% IV SCH (10:30)
[2022-02-01] MEDS ORDERED: Sodium Chloride 0.9% 500 ML IV SCH (10:30)
[2022-02-01] MEDS ORDERED: PALONOSETRON HCL 0.05 MG/ML 5 ML VIAL IVP SCH (10:30)
[2022-02-01] MEDS ORDERED: CISPLATIN IV SCH (10:30)
[2022-02-01] MEDS ORDERED: PALONOSETRON HCL 0.05 MG/ML 5 ML VIAL ONE (11:17)
[2022-02-01 11:50] VITALS: BP 110/68; TEMP 97.9
== END 2022-02-01 14:39 | disposition home or self-care (01) ==
LOC: ONC/OP 10:14
PROVIDERS: ATTEND Internal Medicine Hematology & Oncology
DX: Z51.11 Encounter for antineoplastic chemotherapy (principal); C02.2 Malignant neoplasm of ventral surface of tongue; C67.0 Malignant neoplasm of trigone of bladder; Z88.2 Allergy status to sulfonamides
CPT/HCPCS: 36415; 80053; 82248; 83615; 83735; 84100; 84550; 96361; 96367; 96375; 96413; 96417; J1100; J1642; J2150; J2469; J7030; J7050; J9060; J9201

== ENCOUNTER 2022-02-08 09:42 | Day surgery (SDC) | payer OTHER ==
[2022-02-08] MEDS ORDERED: Dexamethasone Sod Phosphate 20 MG in Sodium Chloride 0.9% 50 ML IVPB SCH (10:00)
[2022-02-08] MEDS ORDERED: Pegfilgrastim Onpro 6 MG/0.6 ML SQ SCH (10:00)
[2022-02-08] MEDS ORDERED: PALONOSETRON HCL 0.05 MG/ML 5 ML VIAL IVP SCH (10:00)
[2022-02-08] MEDS ORDERED: Sodium Chloride 0.9% 500 ML IV SCH (10:00)
[2022-02-08] MEDS ORDERED: SODIUM CHLORIDE 0.9% IVPB SCH (10:15)
[2022-02-08] MEDS ORDERED: GEMCITABINE HCL IVPB SCH (10:15)
[2022-02-08 10:29] LABS: ALT (SGPT) 12 U/L (8-55); AST (SGOT) 27 U/L (5-34); Albumin 3.4 g/dL (3.4-4.8); Alkaline Phosphatase 102 U/L (40-110); Anion Gap 13 mmol/L (10-20); BUN (Urea Nitrogen) 12 mg/dL (8.4-25.7); Bilirubin, Total 0.3 mg/dL (0.2-1.2); Calc. Creatinine Clearance 0 mL/min (70-130); Carbon Dioxide 24 mmol/L (23-31); Chloride 106 mmol/L (98-107); Estimated GFR 88; Globulin 2.9 g/dL (2.4-3.5); Glucose 118 mg/dL (83-110); Magnesium 1.2 mg/dL (1.6-2.6); Protein, Total 6.3 g/dL (5.8-8.1); Sodium 139 mmol/L (136-145)
[2022-02-08] MEDS ORDERED: SODIUM CHLORIDE 0.9% IV SCH (10:30)
[2022-02-08] MEDS ORDERED: CISPLATIN IV SCH (10:30)
[2022-02-08] MEDS ORDERED: MANNITOL IV SCH (10:30)
[2022-02-08 10:34] LABS: #Eosinphils 0.1 thou/uL (0.0-0.7); #Lymphocytes 1.2 thou/uL (1.20-3.40); #Monocytes 0.8 thou/uL (0.11-0.59); %Basophils 0.1 % (0.0-1.0); %Eosinophils 0.6 % (0.0-10.0); %Lymphocytes 13.5 % (21.0-51.0); %Monocytes 8.7 % (0.0-10.0); %Neutrophils 77.1 % (42.0-75.0); Hemoglobin 9.4 g/dL (14.0-18.0); MDiff Complete? YES; Macrocytosis SLIGHT = 6-15 cells (100X) (0-5/hpf); Mean Corpuscular HGB CONC 32.6 g/dL (32.0-36.0); Mean Corpuscular Hemoglobin 35.6 pg (27.0-31.0); Platelet Count 55 thou/uL (130-400); Platelet Morphology Comment Appears Decreased; Polychromasia SLIGHT = 2-3 cells (100X) (0-2/hpf); RBC Distribution Width 18.2 % (11.5-14.5); Red Blood Cell (RBC) Count 2.65 mill/uL (4.70-6.10); White Blood Cell (WBC) Count 9.1 thou/uL (4.8-10.8)
[2022-02-08] MEDS ORDERED: Sodium Chloride 0.9% 1,000 ML IV SCH (11:30)
[2022-02-08] MEDS ORDERED: Magnesium Sulfate In Water 4 GM in Premix Bag 1 BAG IVPB SCH (11:30)
== END 2022-02-08 13:26 | disposition home or self-care (01) ==
LOC: ONC/OP 09:42
PROVIDERS: ATTEND Internal Medicine Hematology & Oncology
DX: Z51.11 Encounter for antineoplastic chemotherapy (principal); C02.2 Malignant neoplasm of ventral surface of tongue; C67.0 Malignant neoplasm of trigone of bladder; Z88.2 Allergy status to sulfonamides
CPT/HCPCS: 80053; 83615; 83735; 84550; 85025; 96361; 96365; 96377; J1100; J1642; J2150; J2506; J3475; J3480; J7030; J7050; J9060; J9201

== ENCOUNTER 2022-02-12 10:45 | Inpatient (IN) | payer OTHER ==
[2022-02-12 12:25] LABS: Bilirubin Neg (Negative); Blood, Urine 150 (Negative); Clarity Cloudy (Clear); Glucose, Urine (Dipstick) Normal (Negative); Ketone, Urine 5 mg/dL (Negative); Leukocyte 500 (Negative); Nitrite Negative (Negative); Protein, Urine (Dipstick) 100 mg/dl (Neg-Trace); Urobilinogen Normal mg/dL (Less than 2)
[2022-02-12 12:30] LABS: Mean Corpuscular Hemoglobin 34.8 pg (27.0-33.0); Mean Corpuscular Volume 105.6 fl (81.2-95.1); Mean Platelet Volume 10.2 fl (7.4-10.4); Platelet Count 109 10x3/uL (150-450); RBC Distribution Width 19.6 % (11.5-14.5); Red Blood Cell (RBC) Count 2.87 10x6/uL (4.32-5.72); White Blood Cell (WBC) Count 7.8 10x3/uL (3.5-10.5)
[2022-02-12 12:36] LABS: Bacteria/HPF 2+ HPF (None Seen); WBC/HPF Greater Than 50 HPF (0-3)
[2022-02-12 12:54] LABS: PTT 23.9 sec (22.0-33.0); Prothrombin Time 10.5 sec (9.5-12.1)
[2022-02-12 12:58] LABS: ALT (SGPT) 12 U/L (8-55); AST (SGOT) 24 U/L (5-34); Albumin 3.7 g/dL (3.4-4.8); Alkaline Phosphatase 108 U/L (40-110); Anion Gap 15 mmol/L (10-20); BUN (Urea Nitrogen) 14 mg/dL (8.4-25.7); Bilirubin, Total 0.3 mg/dL (0.2-1.2); Calc. Creatinine Clearance 0 mL/min (70-130); Carbon Dioxide 25 mmol/L (23-31); Chloride 105 mmol/L (98-107); Estimated GFR 68; Globulin 3.1 g/dL (2.4-3.5); Glucose 99 mg/dL (83-110); Potassium 4.5 mmol/L (3.5-5.1); Protein, Total 6.8 g/dL (5.8-8.1); Sodium 140 mmol/L (136-145)
[2022-02-15] MEDS ORDERED: ceFOXitin 1 GM VIAL ONE ×3 (06:49→12:23)
[2022-02-15] MEDS ORDERED: Sodium Chloride 0.9% 100 ML ONE (06:50)
[2022-02-15] MEDS ORDERED: Midazolam HCl 2 mg/2 ml Vial ONE (07:11)
[2022-02-15] MEDS ORDERED: Ondansetron PF 4 MG/2 ML Vial ONE (07:15)
[2022-02-15] MEDS ORDERED: Lidocaine 1% PF 5 ML VIAL ONE (07:15)
[2022-02-15] MEDS ORDERED: Lidocaine 1.5% w/Epi 1:200K 30 ML VIAL (Epid Use) ONE (07:15)
[2022-02-15] MEDS ORDERED: Glycopyrrolate 0.2 MG/ML 5 ML SYRINGE ONE (07:15)
[2022-02-15] MEDS ORDERED: Rocuronium Bromide 10 MG/ML (10ML VIAL) ONE (07:15)
[2022-02-15] MEDS ORDERED: PROPOFOL 200 MG/20 ML VIAL ONE (07:15)
[2022-02-15] MEDS ORDERED: Sodium Chloride For Inhalation 0.9% 3 ML NEB ONE (07:29)
[2022-02-15] MEDS ORDERED: Sodium Chloride 0.9% 10 ML ONE (07:30)
[2022-02-15] MEDS ORDERED: fentaNYL Citrate/PF 100 MCG/2 ML SYRINGE ONE ×2 (07:36→14:43)
[2022-02-15] MEDS ORDERED: Phenylephrine 10 MG/ML VIAL ONE ×2 (07:37→15:03)
[2022-02-15] MEDS ORDERED: Bupivacaine/Epinephrine 0.25% 30 ML VIAL ONE (07:54)
[2022-02-15] MEDS ORDERED: Gentamicin Sulfate 80 MG in Premix Bag 1 BAG IVPB SCH (09:00)
[2022-02-15] MEDS ORDERED: Acetaminophen 325 MG TAB PO PRN (09:13)
[2022-02-15] MEDS ORDERED: diphenhydrAMINE 50 MG/ML VIAL IM PRN (09:15)
[2022-02-15] MEDS ORDERED: diphenhydrAMINE 50 MG/ML VIAL IVP PRN (09:15)
[2022-02-15] MEDS ORDERED: Bupivacaine 0.25% 10 ML VIAL EPIDURAL PRN (09:15)
[2022-02-15] MEDS ORDERED: Promethazine HCl 25 MG SUPP PR PRN (09:15)
[2022-02-15] MEDS ORDERED: Moisturizing Cream (Eucerin) 113 GM JAR TOP PRN (09:15)
[2022-02-15] MEDS ORDERED: diphenhydrAMINE 25 MG CAP PO PRN (09:15)
[2022-02-15] MEDS ORDERED: Naloxone HCl 0.4 mg/ml Vial IV PRN (09:15)
[2022-02-15] MEDS ORDERED: Promethazine HCl 25 MG/ML VIAL IM PRN ×2 (09:15→13:30)
[2022-02-15] MEDS ORDERED: Naloxone HCl 0.4 mg/ml Vial IVP PRN (09:15)
[2022-02-15] MEDS ORDERED: Zolpidem Tartrate 5 MG TAB PO PRN (09:15)
[2022-02-15] MEDS ORDERED: traMADol HCl 50 MG TAB PO PRN ×2 (09:15)
[2022-02-15] MEDS ORDERED: Lidocaine 1% w/Epinephrine 1:200K 30 ML VIAL ONE (10:36)
[2022-02-15] MEDS ORDERED: hydrALAZINE 20 MG/ML VIAL SLOW IVP PRN (13:24)
[2022-02-15] MEDS ORDERED: Promethazine HCl 25 MG/ML VIAL IVPB PRN (13:30)
[2022-02-15] MEDS: Lactated Ringer's 1,000 ML IV SCH ×2 (13:30→23:35)
[2022-02-15] MEDS ORDERED: Ondansetron HCl/PF 4 MG/2 ML Vial IVP PRN (13:30)
[2022-02-15 13:51] LABS: Hemoglobin 12.2 g/dL (14.0-18.0); Mean Corpuscular Hemoglobin 33.1 pg (27.0-31.0); Mean Platelet Volume 7.7 fL (7.4-10.4); Platelet Count 167 thou/uL (130-400); Red Blood Cell (RBC) Count 3.69 mill/uL (4.70-6.10); White Blood Cell (WBC) Count 16.7 thou/uL (4.8-10.8)
[2022-02-15 14:07] LABS: Anion Gap 14 mmol/L (10-20); BUN (Urea Nitrogen) 16 mg/dL (8.4-25.7); Calc. Creatinine Clearance 38 mL/min (70-130); Carbon Dioxide 21 mmol/L (23-31); Chloride 109 mmol/L (98-107); Estimated GFR 50; Glucose 154 mg/dL (83-110); Potassium 4.3 mmol/L (3.5-5.1); Sodium 140 mmol/L (136-145)
[2022-02-15] MEDS ORDERED: FLUID FS PRN (14:56)
[2022-02-15] MEDS ORDERED: ePHEDrine Sulfate 50 MG/10 ML VIAL ONE (15:03)
[2022-02-15] MEDS: Nicotine 14 MG PATCH TD SCH (22:06)
[2022-02-15] MEDS: cefOXitin 1.5 GM in Sodium Chloride 0.9% 100 ML IVPB SCH ×2 (22:06→23:34)
[2022-02-16 04:03] LABS: Anion Gap 13 mmol/L (10-20); BUN (Urea Nitrogen) 20 mg/dL (8.4-25.7); Calc. Creatinine Clearance 44 mL/min (70-130); Calcium 7.9 mg/dL (7.8-10.44); Carbon Dioxide 24 mmol/L (23-31); Chloride 108 mmol/L (98-107); Estimated GFR 59; Glucose 120 mg/dL (83-110); Potassium 4.3 mmol/L (3.5-5.1); Sodium 141 mmol/L (136-145)
[2022-02-16 04:55] LABS: #Lymphocytes 0.9 thou/uL (1.20-3.40); #Monocytes 1.1 thou/uL (0.11-0.59); #Neutrophils 12.9 thou/uL (1.40-6.50); %Basophils 0.2 % (0.0-1.0); %Eosinophils 0.1 % (0.0-10.0); %Lymphocytes 6.3 % (21.0-51.0); %Monocytes 7.6 % (0.0-10.0); %Neutrophils 85.8 % (42.0-75.0); Hemoglobin 11.2 g/dL (14.0-18.0); MDiff Complete? YES; Macrocytosis SLIGHT = 6-15 cells (100X) (0-5/hpf); Mean Corpuscular HGB CONC 33.9 g/dL (32.0-36.0); Mean Corpuscular Hemoglobin 35.6 pg (27.0-31.0); Mean Platelet Volume 7.9 fL (7.4-10.4); Platelet Count 159 thou/uL (130-400); RBC Distribution Width 19.6 % (11.5-14.5); Red Blood Cell (RBC) Count 3.14 mill/uL (4.70-6.10)
[2022-02-16] MEDS: cefOXitin 1.5 GM in Sodium Chloride 0.9% 100 ML IVPB SCH ×2 (06:13→15:51)
[2022-02-16] MEDS ORDERED: Lactated Ringer's 500 ML IV SCH (08:30)
[2022-02-16] MEDS ORDERED: Bupivacaine 0.25% HCL 30 ML VIAL ONE (08:40)
[2022-02-16] MEDS: fentaNYL Citrate/PF 500 MCG, Bupivacaine 0.75% 10 ML in Sodium Chloride 0.9% 80 ML EPIDURAL SCH ×2 (09:01→22:32)
[2022-02-16] MEDS: Pantoprazole 40 MG VIAL IVP SCH (09:17)
[2022-02-16] MEDS: Lactated Ringer's 1,000 ML IV SCH ×2 (09:17→22:32)
[2022-02-16] MEDS ORDERED: Fentanyl 100 MCG/2 ML VIAL SLOW IVP PRN (15:23)
[2022-02-16] MEDS: Nicotine 14 MG PATCH TD SCH (15:52)
[2022-02-16] MEDS: Enoxaparin Sodium 40 MG/0.4 ML SYRINGE SC SCH (22:31)
[2022-02-17 07:50] LABS: #Eosinphils 0.1 thou/uL (0.0-0.7); #Monocytes 0.9 thou/uL (0.11-0.59); #Neutrophils 9.8 thou/uL (1.40-6.50); %Basophils 0.3 % (0.0-1.0); %Eosinophils 0.4 % (0.0-10.0); %Lymphocytes 8.4 % (21.0-51.0); %Monocytes 7.3 % (0.0-10.0); %Neutrophils 83.5 % (42.0-75.0); Mean Corpuscular HGB CONC 32.1 g/dL (32.0-36.0); Mean Corpuscular Hemoglobin 34.2 pg (27.0-31.0); Mean Platelet Volume 8.7 fL (7.4-10.4); Platelet Count 191 thou/uL (130-400); RBC Distribution Width 19.2 % (11.5-14.5); Red Blood Cell (RBC) Count 3.21 mill/uL (4.70-6.10); White Blood Cell (WBC) Count 11.7 thou/uL (4.8-10.8)
[2022-02-17 08:05] LABS: Anion Gap 13 mmol/L (10-20); BUN (Urea Nitrogen) 22 mg/dL (8.4-25.7); Calc. Creatinine Clearance 70 mL/min (70-130); Carbon Dioxide 24 mmol/L (23-31); Chloride 108 mmol/L (98-107); Estimated GFR 91; Glucose 86 mg/dL (83-110); Sodium 141 mmol/L (136-145)
[2022-02-17 08:11] LABS: Anisocytosis SLIGHT = 6-15 cells (100X) (0-5/hpf); Burr Cells SLIGHT = 2-5 cells (100X) (0-1/hpf); MDiff Complete? YES; Macrocytosis SLIGHT = 6-15 cells (100X) (0-5/hpf); Platelet Morphology Comment Appears Adequate; Polychromasia SLIGHT = 2-3 cells (100X) (0-2/hpf); Tear Drops SLIGHT = 2-5 cells (100X) (0-1/hpf)
[2022-02-17] MEDS: Pantoprazole 40 MG VIAL IVP SCH (09:11)
[2022-02-17] MEDS: Lactated Ringer's 1,000 ML IV SCH ×3 (09:11→21:32)
[2022-02-17] MEDS: Nicotine 14 MG PATCH TD SCH (09:11)
[2022-02-17] MEDS: fentaNYL Citrate/PF 500 MCG, Bupivacaine 0.75% 10 ML in Sodium Chloride 0.9% 80 ML EPIDURAL SCH ×2 (12:16→23:18)
[2022-02-17] MEDS: Enoxaparin Sodium 40 MG/0.4 ML SYRINGE SC SCH (21:33)
[2022-02-18 06:30] LABS: Anion Gap 12 mmol/L (10-20); BUN (Urea Nitrogen) 21 mg/dL (8.4-25.7); Calc. Creatinine Clearance 75 mL/min (70-130); Calcium 7.7 mg/dL (7.8-10.44); Carbon Dioxide 24 mmol/L (23-31); Chloride 109 mmol/L (98-107); Estimated GFR 93; Glucose 109 mg/dL (83-110); Potassium 3.5 mmol/L (3.5-5.1); Sodium 141 mmol/L (136-145)
[2022-02-18 08:06] LABS: #Eosinphils 0.1 thou/uL (0.0-0.7); #Monocytes 0.7 thou/uL (0.11-0.59); #Neutrophils 8.8 thou/uL (1.40-6.50); %Eosinophils 0.6 % (0.0-10.0); %Lymphocytes 9.4 % (21.0-51.0); %Monocytes 6.9 % (0.0-10.0); %Neutrophils 83.1 % (42.0-75.0); Helmet Cells SLIGHT = 2-5 cells (100X) (0-1/hpf); Hypochromia SLIGHT = 6-15 cells (100X) (0-5/hpf); MDiff Complete? YES; Macrocytosis SLIGHT = 6-15 cells (100X) (0-5/hpf); Mean Corpuscular HGB CONC 31.8 g/dL (32.0-36.0); Mean Corpuscular Hemoglobin 33.8 pg (27.0-31.0); Mean Platelet Volume 7.8 fL (7.4-10.4); Platelet Count 180 thou/uL (130-400); Platelet Morphology Comment Appears Adequate; Polychromasia SLIGHT = 2-3 cells (100X) (0-2/hpf); RBC Distribution Width 18.2 % (11.5-14.5); Red Blood Cell (RBC) Count 3.26 mill/uL (4.70-6.10); Tear Drops SLIGHT = 2-5 cells (100X) (0-1/hpf); White Blood Cell (WBC) Count 10.6 thou/uL (4.8-10.8)
[2022-02-18] MEDS: Pantoprazole 40 MG VIAL IVP SCH (09:25)
[2022-02-18] MEDS: Nicotine 14 MG PATCH TD SCH (09:33)
[2022-02-18] MEDS: fentaNYL Citrate/PF 500 MCG, Bupivacaine 0.75% 10 ML in Sodium Chloride 0.9% 80 ML EPIDURAL SCH (12:58)
[2022-02-18] MEDS: Lactated Ringer's 1,000 ML IV SCH (14:57)
[2022-02-18] MEDS: Enoxaparin Sodium 40 MG/0.4 ML SYRINGE SC SCH (20:41)
[2022-02-18] MEDS: HYDROcodone/Acetaminophen 5/325 mg Tablet PO PRN (20:42)
[2022-02-19] MEDS: Lactated Ringer's 1,000 ML IV SCH ×4 (00:39→21:22)
[2022-02-19] MEDS: fentaNYL Citrate/PF 500 MCG, Bupivacaine 0.75% 10 ML in Sodium Chloride 0.9% 80 ML EPIDURAL SCH ×2 (01:35→12:53)
[2022-02-19 06:46] LABS: #Eosinphils 0.1 thou/uL (0.0-0.7); #Monocytes 0.9 thou/uL (0.11-0.59); #Neutrophils 7.4 thou/uL (1.40-6.50); %Basophils 0.1 % (0.0-1.0); %Eosinophils 1.2 % (0.0-10.0); %Lymphocytes 10.1 % (21.0-51.0); %Monocytes 9.6 % (0.0-10.0); Hemoglobin 11.6 g/dL (14.0-18.0); Mean Corpuscular HGB CONC 31.6 g/dL (32.0-36.0); Mean Corpuscular Hemoglobin 34.2 pg (27.0-31.0); Mean Platelet Volume 7.9 fL (7.4-10.4); Platelet Count 209 thou/uL (130-400); RBC Distribution Width 18.1 % (11.5-14.5); Red Blood Cell (RBC) Count 3.38 mill/uL (4.70-6.10); White Blood Cell (WBC) Count 9.4 thou/uL (4.8-10.8)
[2022-02-19 07:01] LABS: Anion Gap 13 mmol/L (10-20); BUN (Urea Nitrogen) 19 mg/dL (8.4-25.7); Calc. Creatinine Clearance 64 mL/min (70-130); Calcium 8.1 mg/dL (7.8-10.44); Carbon Dioxide 25 mmol/L (23-31); Chloride 107 mmol/L (98-107); Estimated GFR 84; Glucose 100 mg/dL (83-110); Potassium 3.8 mmol/L (3.5-5.1); Sodium 141 mmol/L (136-145)
[2022-02-19] MEDS: Pantoprazole 40 MG VIAL IVP SCH (08:48)
[2022-02-19] MEDS: Nicotine 14 MG PATCH TD SCH (08:48)
[2022-02-19] MEDS: Ondansetron PF 4 MG/2 ML Vial IVP PRN (16:41)
[2022-02-19] MEDS: HYDROcodone/Acetaminophen 5/325 mg Tablet PO PRN (21:19)
[2022-02-19] MEDS: Enoxaparin Sodium 40 MG/0.4 ML SYRINGE SC SCH (21:20)
[2022-02-20 05:40] LABS: Anion Gap 12 mmol/L (10-20); BUN (Urea Nitrogen) 20 mg/dL (8.4-25.7); Calc. Creatinine Clearance 75 mL/min (70-130); Calcium 7.5 mg/dL (7.8-10.44); Carbon Dioxide 24 mmol/L (23-31); Chloride 109 mmol/L (98-107); Estimated GFR 93; Glucose 87 mg/dL (83-110); Potassium 3.5 mmol/L (3.5-5.1); Sodium 141 mmol/L (136-145)
[2022-02-20 06:13] LABS: Band 18 % (5-11); Eosinophils 5 % (0-10); Hemoglobin 10.1 g/dL (14.0-18.0); Lymphocytes 18 % (21-51); MDiff Complete? YES; Mean Corpuscular HGB CONC 32.5 g/dL (32.0-36.0); Mean Corpuscular Hemoglobin 34.7 pg (27.0-31.0); Mean Platelet Volume 7.6 fL (7.4-10.4); Monocytes 10 % (0-10); Neutrophil 49 % (42-75); Platelet Count 173 thou/uL (130-400); RBC Distribution Width 17.7 % (11.5-14.5)
[2022-02-20] MEDS: Lactated Ringer's 1,000 ML IV SCH (08:56)
[2022-02-20] MEDS: HYDROcodone/Acetaminophen 5/325 mg Tablet PO PRN ×3 (08:57→18:02)
[2022-02-20] MEDS: Pantoprazole 40 MG VIAL IVP SCH (08:57)
[2022-02-20] MEDS: Nicotine 14 MG PATCH TD SCH (18:03)
[2022-02-20] MEDS: Enoxaparin Sodium 40 MG/0.4 ML SYRINGE SC SCH (21:04)
[2022-02-21] MEDS: HYDROcodone/Acetaminophen 5/325 mg Tablet PO PRN (01:18)
[2022-02-21] MEDS: Lactated Ringer's 1,000 ML IV SCH ×3 (01:18→22:22)
[2022-02-21 07:05] LABS: Anion Gap 13 mmol/L (10-20); BUN (Urea Nitrogen) 18 mg/dL (8.4-25.7); Calc. Creatinine Clearance 83 mL/min (70-130); Calcium 7.8 mg/dL (7.8-10.44); Carbon Dioxide 24 mmol/L (23-31); Chloride 106 mmol/L (98-107); Estimated GFR 95; Glucose 96 mg/dL (83-110); Potassium 3.7 mmol/L (3.5-5.1); Sodium 139 mmol/L (136-145)
[2022-02-21 07:07] LABS: Band 20 % (5-11); Eosinophils 6 % (0-10); Hemoglobin 11.1 g/dL (14.0-18.0); Lymphocytes 16 % (21-51); MDiff Complete? YES; Macrocytosis SLIGHT = 6-15 cells (100X) (0-5/hpf); Mean Corpuscular HGB CONC 32.6 g/dL (32.0-36.0); Mean Corpuscular Hemoglobin 34.8 pg (27.0-31.0); Monocytes 13 % (0-10); Neutrophil 45 % (42-75); Platelet Count 197 thou/uL (130-400); RBC Distribution Width 17.6 % (11.5-14.5); Red Blood Cell (RBC) Count 3.19 mill/uL (4.70-6.10); White Blood Cell (WBC) Count 5.4 thou/uL (4.8-10.8)
[2022-02-21] MEDS: Pantoprazole 40 MG VIAL IVP SCH (09:44)
[2022-02-21] MEDS: Nicotine 14 MG PATCH TD SCH (14:01)
[2022-02-21] MEDS: Ondansetron PF 4 MG/2 ML Vial IVP PRN (14:02)
[2022-02-21] MEDS: Enoxaparin Sodium 40 MG/0.4 ML SYRINGE SC SCH (21:02)
[2022-02-22 05:19] LABS: #Eosinphils 0.2 thou/uL (0.0-0.7); #Lymphocytes 1.2 thou/uL (1.20-3.40); #Monocytes 0.9 thou/uL (0.11-0.59); #Neutrophils 5.1 thou/uL (1.40-6.50); %Eosinophils 2.7 % (0.0-10.0); %Lymphocytes 15.7 % (21.0-51.0); %Monocytes 12.7 % (0.0-10.0); Hemoglobin 11.8 g/dL (14.0-18.0); Mean Corpuscular HGB CONC 31.3 g/dL (32.0-36.0); Mean Corpuscular Hemoglobin 33.7 pg (27.0-31.0); Platelet Count 200 thou/uL (130-400); RBC Distribution Width 17.7 % (11.5-14.5); Red Blood Cell (RBC) Count 3.51 mill/uL (4.70-6.10); White Blood Cell (WBC) Count 7.3 thou/uL (4.8-10.8)
[2022-02-22 05:39] LABS: Anion Gap 13 mmol/L (10-20); BUN (Urea Nitrogen) 13 mg/dL (8.4-25.7); Calc. Creatinine Clearance 87 mL/min (70-130); Calcium 7.7 mg/dL (7.8-10.44); Carbon Dioxide 26 mmol/L (23-31); Chloride 105 mmol/L (98-107); Estimated GFR 98; Glucose 88 mg/dL (83-110); Potassium 3.7 mmol/L (3.5-5.1); Sodium 140 mmol/L (136-145)
[2022-02-22] MEDS: Lactated Ringer's 1,000 ML IV SCH ×2 (05:46→16:39)
[2022-02-22] MEDS: Pantoprazole 40 MG VIAL IVP SCH (08:42)
[2022-02-22] MEDS: Nicotine 14 MG PATCH TD SCH (15:17)
[2022-02-22] MEDS: Enoxaparin Sodium 40 MG/0.4 ML SYRINGE SC SCH ×2 (20:36→20:39)
[2022-02-23] MEDS: Lactated Ringer's 1,000 ML IV SCH ×2 (05:10→17:29)
[2022-02-23 05:37] LABS: #Eosinphils 0.2 thou/uL (0.0-0.7); #Monocytes 0.9 thou/uL (0.11-0.59); #Neutrophils 6.4 thou/uL (1.40-6.50); %Basophils 0.1 % (0.0-1.0); %Eosinophils 2.5 % (0.0-10.0); %Neutrophils 74.4 % (42.0-75.0); Hemoglobin 11.1 g/dL (14.0-18.0); Mean Corpuscular HGB CONC 32.3 g/dL (32.0-36.0); Mean Corpuscular Hemoglobin 34.3 pg (27.0-31.0); Mean Platelet Volume 7.7 fL (7.4-10.4); Platelet Count 194 thou/uL (130-400); RBC Distribution Width 17.3 % (11.5-14.5); Red Blood Cell (RBC) Count 3.23 mill/uL (4.70-6.10); White Blood Cell (WBC) Count 8.6 thou/uL (4.8-10.8)
[2022-02-23 05:52] LABS: Anion Gap 9 mmol/L (10-20); BUN (Urea Nitrogen) 12 mg/dL (8.4-25.7); Calc. Creatinine Clearance 93 mL/min (70-130); Calcium 7.3 mg/dL (7.8-10.44); Carbon Dioxide 28 mmol/L (23-31); Chloride 102 mmol/L (98-107); Estimated GFR 99; Glucose 90 mg/dL (83-110); Sodium 136 mmol/L (136-145)
[2022-02-23 05:56] LABS: Potassium 2.9 mmol/L (3.5-5.1)
[2022-02-23] MEDS ORDERED: Potassium Chloride 20 MEQ TAB PO SCH ×2 (06:30→13:15)
[2022-02-23] MEDS: Pantoprazole 40 MG VIAL IVP SCH (08:44)
[2022-02-23 13:05] LABS: Potassium 3.3 mmol/L (3.5-5.1)
[2022-02-23] MEDS ORDERED: Fentanyl 100 MCG/2 ML VIAL ONE ×2 (13:38→15:04)
[2022-02-23] MEDS: HYDROcodone/Acetaminophen 5/325 mg Tablet PO PRN (17:28)
[2022-02-23] MEDS: Nicotine 14 MG PATCH TD SCH (17:29)
[2022-02-24] MEDS: Lactated Ringer's 1,000 ML IV SCH ×3 (00:27→15:05)
[2022-02-24 05:30] LABS: #Eosinphils 0.2 thou/uL (0.0-0.7); #Lymphocytes 1.1 thou/uL (1.20-3.40); #Monocytes 0.9 thou/uL (0.11-0.59); #Neutrophils 6.2 thou/uL (1.40-6.50); %Basophils 0.4 % (0.0-1.0); %Eosinophils 2.9 % (0.0-10.0); %Lymphocytes 12.5 % (21.0-51.0); %Neutrophils 73.2 % (42.0-75.0); Hemoglobin 10.3 g/dL (14.0-18.0); Mean Corpuscular HGB CONC 32.7 g/dL (32.0-36.0); Mean Corpuscular Hemoglobin 34.4 pg (27.0-31.0); Mean Platelet Volume 7.6 fL (7.4-10.4); Platelet Count 190 thou/uL (130-400); RBC Distribution Width 17.2 % (11.5-14.5); Red Blood Cell (RBC) Count 2.99 mill/uL (4.70-6.10); White Blood Cell (WBC) Count 8.5 thou/uL (4.8-10.8)
[2022-02-24 05:48] LABS: Anion Gap 9 mmol/L (10-20); BUN (Urea Nitrogen) 9 mg/dL (8.4-25.7); Calc. Creatinine Clearance 108 mL/min (70-130); Calcium 6.4 mg/dL (7.8-10.44); Carbon Dioxide 27 mmol/L (23-31); Chloride 105 mmol/L (98-107); Estimated GFR 103; Glucose 87 mg/dL (83-110); Potassium 3.1 mmol/L (3.5-5.1); Sodium 138 mmol/L (136-145)
[2022-02-24] MEDS ORDERED: Potassium Chloride 20 MEQ TAB PO SCH (08:00)
[2022-02-24] MEDS: Pantoprazole 40 MG VIAL IVP SCH (09:08)
[2022-02-24] MEDS: Pancrelipase DR 12,000 1 CAP PO SCH ×3 (09:08→17:59)
[2022-02-24] MEDS: Folic Acid 1 MG TAB PO SCH (09:08)
[2022-02-24] MEDS: Nicotine 14 MG PATCH TD SCH (15:05)
[2022-02-24 18:40] LABS: Campy jejuni + coli by PCR INST_UNRESOLVED (Negative); STEC Shiga Toxin 1+2 INST_UNRESOLVED (Negative); Salmonella spp. by PCR INST_UNRESOLVED (Negative); Shigella spp + EIEC by PCR INST_UNRESOLVED (Negative)
[2022-02-25] MEDS: Lactated Ringer's 1,000 ML IV SCH ×3 (01:04→21:20)
[2022-02-25 05:17] LABS: #Eosinphils 0.3 thou/uL (0.0-0.7); #Lymphocytes 1.3 thou/uL (1.20-3.40); #Monocytes 1.1 thou/uL (0.11-0.59); #Neutrophils 7.4 thou/uL (1.40-6.50); %Basophils 0.4 % (0.0-1.0); %Eosinophils 2.6 % (0.0-10.0); %Lymphocytes 12.9 % (21.0-51.0); Hemoglobin 11.1 g/dL (14.0-18.0); Mean Corpuscular HGB CONC 33.4 g/dL (32.0-36.0); Mean Corpuscular Hemoglobin 34.8 pg (27.0-31.0); Mean Platelet Volume 7.8 fL (7.4-10.4); Platelet Count 197 thou/uL (130-400); Red Blood Cell (RBC) Count 3.18 mill/uL (4.70-6.10); White Blood Cell (WBC) Count 10.1 thou/uL (4.8-10.8)
[2022-02-25 05:34] LABS: Anion Gap 8 mmol/L (10-20); BUN (Urea Nitrogen) 9 mg/dL (8.4-25.7); Calc. Creatinine Clearance 92 mL/min (70-130); Calcium 7.2 mg/dL (7.8-10.44); Carbon Dioxide 31 mmol/L (23-31); Chloride 101 mmol/L (98-107); Estimated GFR 100; Glucose 96 mg/dL (83-110); Potassium 3.5 mmol/L (3.5-5.1); Sodium 136 mmol/L (136-145)
[2022-02-25] MEDS: Pancrelipase DR 12,000 1 CAP PO SCH ×3 (08:34→17:32)
[2022-02-25] MEDS: Folic Acid 1 MG TAB PO SCH (08:34)
[2022-02-25] MEDS: HYDROcodone/Acetaminophen 5/325 mg Tablet PO PRN (08:34)
[2022-02-25] MEDS: Pantoprazole 40 MG VIAL IVP SCH (08:34)
[2022-02-25] MEDS: Nicotine 14 MG PATCH TD SCH (13:16)
[2022-02-25] MEDS: Bismuth SubsALICYLATE 30 ML(17.5 mg/mL) Susp PO PRN ×2 (18:44→23:53)
[2022-02-25] MEDS: Enoxaparin Sodium 40 MG/0.4 ML SYRINGE SC SCH (21:16)
[2022-02-26] MEDS: HYDROcodone/Acetaminophen 5/325 mg Tablet PO PRN ×2 (03:58→09:00)
[2022-02-26] MEDS: Bismuth SubsALICYLATE 30 ML(17.5 mg/mL) Susp PO PRN (04:49)
[2022-02-26 05:42] LABS: Anion Gap 9 mmol/L (10-20); BUN (Urea Nitrogen) 10 mg/dL (8.4-25.7); Calc. Creatinine Clearance 92 mL/min (70-130); Calcium 6.9 mg/dL (7.8-10.44); Carbon Dioxide 29 mmol/L (23-31); Chloride 102 mmol/L (98-107); Estimated GFR 99; Glucose 99 mg/dL (83-110); Potassium 3.3 mmol/L (3.5-5.1); Sodium 137 mmol/L (136-145)
[2022-02-26 06:02] LABS: #Eosinphils 0.3 thou/uL (0.0-0.7); #Lymphocytes 1.3 thou/uL (1.20-3.40); #Monocytes 1.2 thou/uL (0.11-0.59); #Neutrophils 8.5 thou/uL (1.40-6.50); %Basophils 0.2 % (0.0-1.0); %Eosinophils 2.5 % (0.0-10.0); %Lymphocytes 11.5 % (21.0-51.0); %Monocytes 10.4 % (0.0-10.0); %Neutrophils 75.4 % (42.0-75.0); Hemoglobin 10.6 g/dL (14.0-18.0); Mean Corpuscular HGB CONC 32.5 g/dL (32.0-36.0); Mean Corpuscular Hemoglobin 34.1 pg (27.0-31.0); Mean Platelet Volume 7.5 fL (7.4-10.4); Platelet Count 192 thou/uL (130-400); RBC Distribution Width 17.1 % (11.5-14.5); White Blood Cell (WBC) Count 11.2 thou/uL (4.8-10.8)
[2022-02-26] MEDS: Lactated Ringer's 1,000 ML IV SCH ×2 (08:44→17:53)
[2022-02-26] MEDS: Folic Acid 1 MG TAB PO SCH (08:44)
[2022-02-26] MEDS: Pantoprazole 40 MG VIAL IVP SCH (08:49)
[2022-02-26] MEDS: Pancrelipase DR 12,000 1 CAP PO SCH ×3 (08:50→17:52)
[2022-02-26 14:22] VITALS: BMI 20.2
[2022-02-26] MEDS ORDERED: Loperamide HCl 1 MG/7.5 ML UDCUP PO PRN (15:04)
[2022-02-26] MEDS ORDERED: Potassium Chloride 20 MEQ TAB PO SCH (15:30)
[2022-02-26] MEDS: Nicotine 14 MG PATCH TD SCH (17:52)
[2022-02-26] MEDS: Enoxaparin Sodium 40 MG/0.4 ML SYRINGE SC SCH (22:06)
[2022-02-27] MEDS: Lactated Ringer's 1,000 ML IV SCH ×2 (04:49→14:33)
[2022-02-27 09:06] LABS: Anion Gap 11 mmol/L (10-20); BUN (Urea Nitrogen) 8 mg/dL (8.4-25.7); Calc. Creatinine Clearance 81 mL/min (70-130); Calcium 7.2 mg/dL (7.8-10.44); Carbon Dioxide 26 mmol/L (23-31); Chloride 102 mmol/L (98-107); Estimated GFR 95; Glucose 103 mg/dL (83-110); Sodium 135 mmol/L (136-145)
[2022-02-27] MEDS: HYDROcodone/Acetaminophen 5/325 mg Tablet PO PRN (10:11)
[2022-02-27] MEDS: Pancrelipase DR 12,000 1 CAP PO SCH ×3 (10:12→17:10)
[2022-02-27] MEDS: Pantoprazole 40 MG VIAL IVP SCH (10:13)
[2022-02-27] MEDS: Folic Acid 1 MG TAB PO SCH (10:13)
[2022-02-27] MEDS: Nicotine 14 MG PATCH TD SCH (12:08)
[2022-02-27] MEDS: Enoxaparin Sodium 40 MG/0.4 ML SYRINGE SC SCH (19:59)
[2022-02-28] MEDS: Lactated Ringer's 1,000 ML IV SCH ×3 (04:50→23:19)
[2022-02-28 05:59] LABS: #Eosinphils 0.4 thou/uL (0.0-0.7); #Lymphocytes 1.2 thou/uL (1.20-3.40); #Monocytes 1.2 thou/uL (0.11-0.59); #Neutrophils 8.8 thou/uL (1.40-6.50); %Basophils 0.3 % (0.0-1.0); %Eosinophils 3.6 % (0.0-10.0); %Lymphocytes 10.1 % (21.0-51.0); %Monocytes 10.6 % (0.0-10.0); %Neutrophils 75.3 % (42.0-75.0); Hemoglobin 10.7 g/dL (14.0-18.0); Mean Corpuscular HGB CONC 32.1 g/dL (32.0-36.0); Mean Corpuscular Hemoglobin 33.6 pg (27.0-31.0); Mean Platelet Volume 7.1 fL (7.4-10.4); Platelet Count 187 thou/uL (130-400); RBC Distribution Width 16.5 % (11.5-14.5); White Blood Cell (WBC) Count 11.6 thou/uL (4.8-10.8)
[2022-02-28 06:32] LABS: Anion Gap 13 mmol/L (10-20); BUN (Urea Nitrogen) 9 mg/dL (8.4-25.7); Calc. Creatinine Clearance 85 mL/min (70-130); Calcium 7.1 mg/dL (7.8-10.44); Carbon Dioxide 27 mmol/L (23-31); Chloride 102 mmol/L (98-107); Estimated GFR 97; Glucose 98 mg/dL (83-110); Potassium 3.6 mmol/L (3.5-5.1); Sodium 138 mmol/L (136-145)
[2022-02-28 06:42] LABS: Magnesium 0.8 mg/dL (1.6-2.6)
[2022-02-28] MEDS ORDERED: Potassium Chloride 20 MEQ TAB PO SCH (08:15)
[2022-02-28] MEDS ORDERED: Magnesium Sulfate In Water 4 GM in Premix Bag 1 BAG IVPB SCH ×2 (08:15→17:30)
[2022-02-28] MEDS: Folic Acid 1 MG TAB PO SCH (08:32)
[2022-02-28] MEDS: Pantoprazole 40 MG VIAL IVP SCH (08:32)
[2022-02-28] MEDS: Pancrelipase DR 12,000 1 CAP PO SCH ×3 (08:32→17:17)
[2022-02-28] MEDS: Nicotine 14 MG PATCH TD SCH (13:42)
[2022-02-28 14:04] LABS: Magnesium 0.9 mg/dL (1.6-2.6)
[2022-02-28] MEDS ORDERED: Rivaroxaban 15 MG TAB ONE (16:35)
[2022-02-28] MEDS: Enoxaparin Sodium 40 MG/0.4 ML SYRINGE SC SCH (20:56)
[2022-03-01 06:24] LABS: #Eosinphils 0.3 thou/uL (0.0-0.7); #Neutrophils 8.9 thou/uL (1.40-6.50); %Basophils 0.2 % (0.0-1.0); %Eosinophils 2.6 % (0.0-10.0); %Lymphocytes 9.3 % (21.0-51.0); %Monocytes 8.7 % (0.0-10.0); %Neutrophils 79.2 % (42.0-75.0); Hemoglobin 10.7 g/dL (14.0-18.0); Mean Corpuscular Hemoglobin 33.6 pg (27.0-31.0); Mean Platelet Volume 7.2 fL (7.4-10.4); Platelet Count 203 thou/uL (130-400); RBC Distribution Width 16.6 % (11.5-14.5); White Blood Cell (WBC) Count 11.2 thou/uL (4.8-10.8)
[2022-03-01 06:44] LABS: Anion Gap 10 mmol/L (10-20); BUN (Urea Nitrogen) 10 mg/dL (8.4-25.7); Calc. Creatinine Clearance 88 mL/min (70-130); Carbon Dioxide 28 mmol/L (23-31); Chloride 102 mmol/L (98-107); Estimated GFR 98; Glucose 95 mg/dL (83-110); Magnesium 1.7 mg/dL (1.6-2.6); Potassium 3.9 mmol/L (3.5-5.1); Sodium 136 mmol/L (136-145)
[2022-03-01] MEDS: Lactated Ringer's 1,000 ML IV SCH ×3 (08:00→17:13)
[2022-03-01] MEDS: Pancrelipase DR 12,000 1 CAP PO SCH ×3 (08:12→17:11)
[2022-03-01] MEDS: Folic Acid 1 MG TAB PO SCH (08:12)
[2022-03-01] MEDS: Pantoprazole 40 MG VIAL IVP SCH (08:12)
[2022-03-01] MEDS ORDERED: Magnesium Sulfate 4 GM in Sodium Chloride 0.9% 250 ML 250 ML IVPB SCH (09:00)
[2022-03-01] MEDS ORDERED: Magnesium Sulfate In Water 4 GM in Premix Bag 1 BAG IVPB SCH (10:00)
[2022-03-01] MEDS: Nicotine 14 MG PATCH TD SCH (14:35)
[2022-03-01] MEDS: Enoxaparin Sodium 40 MG/0.4 ML SYRINGE SC SCH (22:12)
[2022-03-02] MEDS: Lactated Ringer's 1,000 ML IV SCH (03:15)
[2022-03-02] MEDS: Folic Acid 1 MG TAB PO SCH (08:47)
[2022-03-02] MEDS: Pantoprazole 40 MG VIAL IVP SCH (08:47)
[2022-03-02] MEDS: Pancrelipase DR 12,000 1 CAP PO SCH ×2 (08:47→12:59)
[2022-03-02 09:09] VITALS: BP 119/82; TEMP 97.9
== END 2022-03-02 12:05 | disposition home or self-care (01) | DRG 653 ==
LOC: SURG A 02-15 06:09 → IMCU/EMU 02-15 19:49 → SURG A 02-16 20:14
PROVIDERS: ADMIT Internal Medicine; ATTEND Urology
PROC: 0TTB0ZZ Resection of Bladder, Open Approach (ICD-10-PCS; principal; 2022-02-15)
PROC: 0VT00ZZ Resection of Prostate, Open Approach (ICD-10-PCS; 2022-02-15)
PROC: 0T180ZC Bypass Bilateral Ureters to Ileocutaneous, Open Approach (ICD-10-PCS; 2022-02-15)
PROC: 07BC0ZZ Excision of Pelvis Lymphatic, Open Approach (ICD-10-PCS; 2022-02-15)
PROC: 0VB30ZZ Excision of Bilateral Seminal Vesicles, Open Approach (ICD-10-PCS; 2022-02-15)
PROC: 0TB70ZX Excision of Left Ureter, Open Approach, Diagnostic (ICD-10-PCS; 2022-02-15)
PROC: 0TB60ZX Excision of Right Ureter, Open Approach, Diagnostic (ICD-10-PCS; 2022-02-15)
PROC: 0T780DZ Dilation of Bilateral Ureters with Intraluminal Device, Open Approach (ICD-10-PCS; 2022-02-15)
PROC: BT121ZZ Fluoroscopy of Left Kidney using Low Osmolar Contrast (ICD-10-PCS; 2022-02-23)
PROC: BT42ZZZ Ultrasonography of Left Kidney (ICD-10-PCS; 2022-02-23)
DX: C67.2 Malignant neoplasm of lateral wall of bladder (principal); E43 Unspecified severe protein-calorie malnutrition; Z68.1 Body mass index [BMI] 19.9 or less, adult; R04.2 Hemoptysis; N13.39 Other hydronephrosis; Z20.822 Contact with and (suspected) exposure to COVID-19; I25.10 Atherosclerotic heart disease of native coronary artery without angina pectoris; J44.9 Chronic obstructive pulmonary disease, unspecified; E78.5 Hyperlipidemia, unspecified; D63.1 Anemia in chronic kidney disease; G43.909 Migraine, unspecified, not intractable, without status migrainosus; F10.20 Alcohol dependence, uncomplicated; J84.10 Pulmonary fibrosis, unspecified; I10 Essential (primary) hypertension; I48.91 Unspecified atrial fibrillation; N40.1 Benign prostatic hyperplasia with lower urinary tract symptoms; R39.12 Poor urinary stream; D63.8 Anemia in other chronic diseases classified elsewhere; D53.9 Nutritional anemia, unspecified; E87.6 Hypokalemia; E83.42 Hypomagnesemia; R19.7 Diarrhea, unspecified; I95.81 Postprocedural hypotension; Z95.5 Presence of coronary angioplasty implant and graft; Z86.73 Personal history of transient ischemic attack (TIA), and cerebral infarction without residual deficits; Z85.810 Personal history of malignant neoplasm of tongue; Z85.21 Personal history of malignant neoplasm of larynx; Z87.891 Personal history of nicotine dependence; Z98.890 Other specified postprocedural states; Z90.89 Acquired absence of other organs; Z80.9 Family history of malignant neoplasm, unspecified
CPT/HCPCS: 36415; 36430; 50430; 50433; 71046; 74018; 74176; 74485; 76942; 80048; 80053; 81001; 82040; 82570; 83630; 83735; 85025; 85027; 85610; 85730; 86850; 86900; 86901; 87086; 87324; 87449; 87505; 87811; 88305; 88307; 88309; 88331; 88341; 88342; 97139; C1713; C1729; C1776; C1874; C1889; C9113; J0694; J1650; J2001; J2250; J2370; J2405; J2704; J2710; J3010; J3475; J3490; J7120; P9016; S0020

== ENCOUNTER 2022-02-12 11:13 | Outpatient (CLI) | payer OTHER | END 2022-02-12 11:14 | disposition home or self-care (01) | LOC: LABBT 11:13 | PROVIDERS: ATTEND Urology | DX: Z01.818 Encounter for other preprocedural examination (principal); C67.2 Malignant neoplasm of lateral wall of bladder; Z20.822 Contact with and (suspected) exposure to COVID-19 | CPT/HCPCS: 71046; 80053; 81001; 85027; 85610; 85730; 86850; 86900; 86901; 87086; 87811 ==

== ENCOUNTER 2022-04-24 16:51 | Inpatient (IN) | payer MEDICARE, OTHER ==
[2022-04-24 17:32] LABS: Bilirubin Negative (Negative); Blood, Urine Negative (Negative); Clarity Turbid (Clear); Glucose, Urine (Dipstick) Normal (Negative); Ketone, Urine Negative (Negative); Leukocyte 75 Leu/uL (Negative); Nitrite 2+ (Negative); Protein, Urine (Dipstick) 100 mg/dL (Neg-Trace); RBC/HPF 0-3 HPF (0-3); Specific Gravity, Urine 1.017 (1.002-1.036); Squamous Epithelial None Seen HPF (0-3); Triple Phosphate Crystal Rare HPF (None Seen); Urobilinogen Normal mg/dL (Less than 2); pH, Urine 8.5 (5.0-9.0)
[2022-04-24 17:33] LABS: Hemoglobin 11.8 g/dL (14.0-18.0); Mean Corpuscular HGB CONC 30.4 g/dL (32.0-36.0); Mean Corpuscular Hemoglobin 31.6 pg (27.0-31.0); Mean Platelet Volume 8.2 fL (7.4-10.4); Platelet Count 162 thou/uL (130-400); RBC Distribution Width 14.6 % (11.5-14.5); Red Blood Cell (RBC) Count 3.73 mill/uL (4.70-6.10); White Blood Cell (WBC) Count 50.5 thou/uL (4.8-10.8)
[2022-04-24 17:35] LABS: Bacteria/HPF 1+ HPF (None Seen)
[2022-04-24 17:43] LABS: Band 23 % (5-11); Eosinophils 1 % (0-10); MDiff Complete? YES; Macrocytosis SLIGHT = 6-15 cells (100X) (0-5/hpf); Monocytes 2 % (0-10); Neutrophil 74 % (42-75); Platelet Morphology Comment Appears Adequate; Polychromasia SLIGHT = 2-3 cells (100X) (0-2/hpf)
[2022-04-24] MEDS ORDERED: Piperacillin/Tazobactam 3.375 GM VIAL ONE (17:49)
[2022-04-24] MEDS ORDERED: Vancomycin 1 GM/200 ML (PREMIX) BAG ONE (17:49)
[2022-04-24 17:57] LABS: ALT (SGPT) 11 U/L (8-55); AST (SGOT) 16 U/L (5-34); Albumin 3.2 g/dL (3.4-4.8); Alkaline Phosphatase 145 U/L (40-110); Anion Gap 15 mmol/L (10-20); BUN (Urea Nitrogen) 26 mg/dL (8.4-25.7); Bilirubin, Total 0.4 mg/dL (0.2-1.2); Calc. Creatinine Clearance 0 mL/min (70-130); Calcium 9.6 mg/dL (7.8-10.44); Carbon Dioxide 26 mmol/L (23-31); Chloride 103 mmol/L (98-107); Estimated GFR 75; Glucose 183 mg/dL (83-110); Potassium 4.2 mmol/L (3.5-5.1); Protein, Total 7.2 g/dL (5.8-8.1); Sodium 140 mmol/L (136-145)
[2022-04-24] MEDS ORDERED: traMADol HCl 50 MG TAB ONE (18:21)
[2022-04-24] MEDS ORDERED: Acetaminophen 325 MG TAB PO PRN (20:07)
[2022-04-24] MEDS ORDERED: Ondansetron PF 4 MG/2 ML Vial IVP PRN (20:07)
[2022-04-24] MEDS ORDERED: Sodium Chloride 0.9% 1,000 ML IV SCH (20:15)
[2022-04-24] MEDS ORDERED: Famotidine 20 MG TAB PO SCH (21:00)
[2022-04-24] MEDS ORDERED: Vancomycin HCl 500 MG in Sodium Chloride 0.9% 100 ML IVPB SCH (21:30)
[2022-04-24] MEDS: Nicotine 14 MG PATCH TD SCH (23:02)
[2022-04-24] MEDS: Sodium Chloride 0.9% 1,000 ML IV SCH (23:03)
[2022-04-24 23:38] LABS: Hemoglobin 9.3 g/dL (14.0-18.0); Mean Corpuscular HGB CONC 30.9 g/dL (32.0-36.0); Mean Platelet Volume 8.2 fL (7.4-10.4); Platelet Count 125 thou/uL (130-400); RBC Distribution Width 14.5 % (11.5-14.5); White Blood Cell (WBC) Count 38.4 thou/uL (4.8-10.8)
[2022-04-24 23:50] LABS: ALT (SGPT) 8 U/L (8-55); AST (SGOT) 12 U/L (5-34); Albumin 2.4 g/dL (3.4-4.8); Alkaline Phosphatase 105 U/L (40-110); Anion Gap 10 mmol/L (10-20); BUN (Urea Nitrogen) 25 mg/dL (8.4-25.7); Bilirubin, Total 0.2 mg/dL (0.2-1.2); Calc. Creatinine Clearance 62 mL/min (70-130); Calcium 8.5 mg/dL (7.8-10.44); Carbon Dioxide 29 mmol/L (23-31); Chloride 102 mmol/L (98-107); Estimated GFR 93; Globulin 3.2 g/dL (2.4-3.5); Glucose 107 mg/dL (83-110); Protein, Total 5.6 g/dL (5.8-8.1); Sodium 137 mmol/L (136-145)
[2022-04-25 00:08] LABS: Band 30 % (5-11); MDiff Complete? YES; Macrocytosis SLIGHT = 6-15 cells (100X) (0-5/hpf); Metamyelocyte 1 % (0-0); Monocytes 10 % (0-10); Neutrophil 59 % (42-75); Platelet Morphology Comment Appears Decreased
[2022-04-25] MEDS: Cefepime 2 GM in Sodium Chloride 0.9% 100 ML IVPB SCH ×3 (02:12→22:22)
[2022-04-25 08:24] LABS: Hemoglobin 9.1 g/dL (14.0-18.0); Mean Corpuscular HGB CONC 32.3 g/dL (32.0-36.0); Mean Corpuscular Hemoglobin 33.5 pg (27.0-31.0); Mean Platelet Volume 7.9 fL (7.4-10.4); Platelet Count 113 thou/uL (130-400); RBC Distribution Width 14.3 % (11.5-14.5); Red Blood Cell (RBC) Count 2.71 mill/uL (4.70-6.10); White Blood Cell (WBC) Count 30.3 thou/uL (4.8-10.8)
[2022-04-25] MEDS ORDERED: Enoxaparin Sodium 30 MG/0.3 ML SYRINGE SC SCH (09:00)
[2022-04-25 09:03] LABS: ALT (SGPT) 8 U/L (8-55); AST (SGOT) 12 U/L (5-34); Albumin 2.4 g/dL (3.4-4.8); Alkaline Phosphatase 97 U/L (40-110); Anion Gap 10 mmol/L (10-20); BUN (Urea Nitrogen) 22 mg/dL (8.4-25.7); Bilirubin, Total 0.4 mg/dL (0.2-1.2); Calc. Creatinine Clearance 67 mL/min (70-130); Calcium 8.3 mg/dL (7.8-10.44); Carbon Dioxide 26 mmol/L (23-31); Chloride 105 mmol/L (98-107); Estimated GFR 95; Glucose 86 mg/dL (83-110); Potassium 4.2 mmol/L (3.5-5.1); Protein, Total 5.4 g/dL (5.8-8.1); Sodium 137 mmol/L (136-145)
[2022-04-25] MEDS: Sodium Chloride 0.9% 1,000 ML IV SCH ×3 (09:07→18:16)
[2022-04-25] MEDS: Famotidine 20 MG TAB PO SCH ×2 (09:07→21:28)
[2022-04-25] MEDS: Folic Acid 1 MG TAB PO SCH (09:07)
[2022-04-25 09:46] LABS: Band 13 % (5-11); Eosinophils 1 % (0-10); Lymphocytes 9 % (21-51); MDiff Complete? YES; Monocytes 1 % (0-10); Neutrophil 76 % (42-75); Platelet Morphology Comment Appears Decreased; Polychromasia SLIGHT = 2-3 cells (100X) (0-2/hpf); Toxic Granulation SLIGHT; Vacuoles SLIGHT
[2022-04-25] MEDS ORDERED: Labetalol HCl 100 MG/20 ML VIAL SLOW IVP PRN (12:53)
[2022-04-25] MEDS ORDERED: Artificial Tear Sol 15 ML BOT EA EYE PRN (12:53)
[2022-04-25] MEDS ORDERED: Calcium Carbonate 500 MG ChewTAB PO PRN (12:53)
[2022-04-25] MEDS ORDERED: diphenhydrAMINE 25 MG CAP PO PRN (12:53)
[2022-04-25] MEDS ORDERED: Acetaminophen 500 MG TAB PO PRN (12:53)
[2022-04-25] MEDS ORDERED: Moisturizing Cream (Eucerin) 113 GM JAR TOP PRN (12:53)
[2022-04-25] MEDS ORDERED: Loperamide HCl 2 MG CAP PO PRN ×2 (12:53)
[2022-04-25] MEDS ORDERED: Cepastat Lozenges 1 LOZ PO PRN (12:53)
[2022-04-25] MEDS ORDERED: Senokot S 8.6-50 MG TAB PO PRN (12:53)
[2022-04-25] MEDS ORDERED: hydrALAZINE 20 MG/ML VIAL SLOW IVP PRN (12:53)
[2022-04-25] MEDS: NOREPINEPHRINE 8 MG/250 ML-D5W 250 ML IVPB SCH (13:40)
[2022-04-25 14:28] LABS: Magnesium 1.4 mg/dL (1.6-2.6)
[2022-04-25 17:17] LABS: SARS-CoV-2 NAA Rapid Test Not Detected (NotDetected)
[2022-04-25] MEDS ORDERED: Vancomycin HCl 1 GM in Sodium Chloride 0.9% 250 ML 300 ML IVPB SCH (21:00)
[2022-04-25] MEDS: Nicotine 14 MG PATCH TD SCH (21:28)
[2022-04-25] MEDS: Vancomycin 1 GM in Premix Bag 1 BAG IVPB SCH (21:28)
[2022-04-25] MEDS: HYDROcodone/Acetaminophen 5/325 mg Tablet PO PRN (22:21)
[2022-04-25] MEDS ORDERED: Magnesium 2 GM/50 ML(in water) 2 GM in Premix Bag 1 BAG IVPB SCH (22:30)
[2022-04-26 05:09] LABS: Anion Gap 7 mmol/L (10-20); BUN (Urea Nitrogen) 20 mg/dL (8.4-25.7); Calc. Creatinine Clearance 71 mL/min (70-130); Calcium 8.1 mg/dL (7.8-10.44); Carbon Dioxide 28 mmol/L (23-31); Chloride 102 mmol/L (98-107); Estimated GFR 97; Glucose 92 mg/dL (83-110); Magnesium 1.7 mg/dL (1.6-2.6); Potassium 3.9 mmol/L (3.5-5.1); Sodium 133 mmol/L (136-145)
[2022-04-26 05:42] LABS: Band 9 % (5-11); Burr Cells SLIGHT = 2-5 cells (100X) (0-1/hpf); Hemoglobin 9.4 g/dL (14.0-18.0); Hypochromia SLIGHT = 6-15 cells (100X) (0-5/hpf); Lymphocytes 3 % (21-51); MDiff Complete? YES; Macrocytosis SLIGHT = 6-15 cells (100X) (0-5/hpf); Mean Corpuscular HGB CONC 31.7 g/dL (32.0-36.0); Mean Corpuscular Hemoglobin 32.4 pg (27.0-31.0); Monocytes 3 % (0-10); Neutrophil 85 % (42-75); Nucleated RBC 1 % (0); Ovalocytes SLIGHT = 2-5 cells (100X) (0-1/hpf); Platelet Count 153 thou/uL (130-400); Platelet Morphology Comment Appears Adequate; Polychromasia SLIGHT = 2-3 cells (100X) (0-2/hpf); RBC Distribution Width 14.5 % (11.5-14.5); Toxic Granulation SLIGHT; White Blood Cell (WBC) Count 32.1 thou/uL (4.8-10.8)
[2022-04-26 07:39] LABS: INR-International Normal Ratio 1.2
[2022-04-26 07:40] LABS: PTT 39.9 sec (22.9-36.1)
[2022-04-26] MEDS: Folic Acid 1 MG TAB PO SCH (08:03)
[2022-04-26] MEDS: Famotidine 20 MG TAB PO SCH ×2 (08:03→20:55)
[2022-04-26] MEDS: Sodium Chloride 0.9% 1,000 ML IV SCH ×2 (08:03→17:31)
[2022-04-26] MEDS: Cefepime 2 GM in Sodium Chloride 0.9% 100 ML IVPB SCH ×2 (09:37→23:29)
[2022-04-26] MEDS ORDERED: Magnesium 2 GM/50 ML(in water) 2 GM in Premix Bag 1 BAG IVPB SCH (10:45)
[2022-04-26] MEDS ORDERED: Sodium Chloride 0.65% Nasal 44 ML BOT EA NARE PRN (11:41)
[2022-04-26] MEDS ORDERED: Midazolam HCl 2 mg/2 ml Vial ONE (13:14)
[2022-04-26] MEDS ORDERED: Fentanyl 100 MCG/2 ML VIAL ONE (13:14)
[2022-04-26 15:09] LABS: Body Fluid Source Abscess Fluid; Clarity Cloudy/Turbid (Clear); Tube # EDTA
[2022-04-26 15:10] LABS: BF Color Red
[2022-04-26] MEDS: HYDROcodone/Acetaminophen 5/325 mg Tablet PO PRN ×2 (16:32→20:55)
[2022-04-26] MEDS: NOREPINEPHRINE 8 MG/250 ML-D5W 250 ML IVPB SCH (17:31)
[2022-04-26 20:34] LABS: Vancomycin, Trough 10.3 ug/mL
[2022-04-26] MEDS: Vancomycin 1 GM in Premix Bag 1 BAG IVPB SCH (20:56)
[2022-04-26] MEDS: Nicotine 14 MG PATCH TD SCH (23:29)
[2022-04-27 04:12] LABS: #Eosinphils 0.3 thou/uL (0.0-0.7); #Lymphocytes 1.2 thou/uL (1.20-3.40); #Neutrophils 19.4 thou/uL (1.40-6.50); %Basophils 0.1 % (0.0-1.0); %Eosinophils 1.3 % (0.0-10.0); %Lymphocytes 5.7 % (21.0-51.0); %Monocytes 4.4 % (0.0-10.0); %Neutrophils 88.6 % (42.0-75.0); Hemoglobin 9.8 g/dL (14.0-18.0); Mean Corpuscular HGB CONC 31.9 g/dL (32.0-36.0); Mean Corpuscular Hemoglobin 32.4 pg (27.0-31.0); Mean Platelet Volume 7.8 fL (7.4-10.4); Platelet Count 163 thou/uL (130-400); RBC Distribution Width 14.5 % (11.5-14.5); Red Blood Cell (RBC) Count 3.03 mill/uL (4.70-6.10); White Blood Cell (WBC) Count 21.9 thou/uL (4.8-10.8)
[2022-04-27 04:33] LABS: ALT (SGPT) 7 U/L (8-55); AST (SGOT) 16 U/L (5-34); Albumin 2.2 g/dL (3.4-4.8); Alkaline Phosphatase 99 U/L (40-110); Anion Gap 11 mmol/L (10-20); BUN (Urea Nitrogen) 19 mg/dL (8.4-25.7); Bilirubin, Total Less than 0.2 mg/dL (0.2-1.2); Calc. Creatinine Clearance 77 mL/min (70-130); Calcium 7.7 mg/dL (7.8-10.44); Carbon Dioxide 23 mmol/L (23-31); Chloride 101 mmol/L (98-107); Estimated GFR 96; Globulin 3.2 g/dL (2.4-3.5); Glucose 99 mg/dL (83-110); Magnesium 1.7 mg/dL (1.6-2.6); Potassium 3.8 mmol/L (3.5-5.1); Protein, Total 5.4 g/dL (5.8-8.1); Sodium 131 mmol/L (136-145)
[2022-04-27] MEDS ORDERED: Polyethylene Glycol 3350 17 GM Packet PO SCH (09:00)
[2022-04-27] MEDS: Sodium Chloride 0.9% 1,000 ML IV SCH (09:30)
[2022-04-27] MEDS: Cefepime 2 GM in Sodium Chloride 0.9% 100 ML IVPB SCH ×2 (09:39→22:48)
[2022-04-27] MEDS: Folic Acid 1 MG TAB PO SCH (09:41)
[2022-04-27] MEDS: Vancomycin 1 GM in Premix Bag 1 BAG IVPB SCH ×2 (09:41→21:29)
[2022-04-27] MEDS: Enoxaparin Sodium 40 MG/0.4 ML SYRINGE SC SCH (09:42)
[2022-04-27] MEDS: Famotidine 20 MG TAB PO SCH ×2 (09:43→21:27)
[2022-04-27] MEDS: HYDROcodone/Acetaminophen 5/325 mg Tablet PO PRN (09:46)
[2022-04-27] MEDS ORDERED: Magnesium 2 GM/50 ML(in water) 2 GM in Premix Bag 1 BAG IVPB SCH (11:15)
[2022-04-27] MEDS: Midodrine HCl 5 MG TAB PO SCH ×2 (18:12→21:27)
[2022-04-27] MEDS: traMADol HCl 50 MG TAB PO PRN (18:24)
[2022-04-27] MEDS: Nicotine 14 MG PATCH TD SCH (21:28)
[2022-04-28] MEDS: Sodium Chloride 0.9% 1,000 ML IV SCH ×2 (03:17→12:40)
[2022-04-28 04:43] LABS: #Eosinphils 0.2 thou/uL (0.0-0.7); #Lymphocytes 0.9 thou/uL (1.20-3.40); #Neutrophils 15.1 thou/uL (1.40-6.50); %Eosinophils 1.4 % (0.0-10.0); %Neutrophils 87.6 % (42.0-75.0); Hemoglobin 9.1 g/dL (14.0-18.0); Mean Corpuscular HGB CONC 32.3 g/dL (32.0-36.0); Mean Corpuscular Hemoglobin 32.9 pg (27.0-31.0); Mean Platelet Volume 7.3 fL (7.4-10.4); Platelet Count 131 thou/uL (130-400); RBC Distribution Width 14.4 % (11.5-14.5); Red Blood Cell (RBC) Count 2.77 mill/uL (4.70-6.10); White Blood Cell (WBC) Count 17.3 thou/uL (4.8-10.8)
[2022-04-28 04:58] LABS: ALT (SGPT) 9 U/L (8-55); AST (SGOT) 17 U/L (5-34); Albumin 2.2 g/dL (3.4-4.8); Alkaline Phosphatase 93 U/L (40-110); Anion Gap 9 mmol/L (10-20); BUN (Urea Nitrogen) 17 mg/dL (8.4-25.7); Bilirubin, Total 0.2 mg/dL (0.2-1.2); Calc. Creatinine Clearance 97 mL/min (70-130); Calcium 7.6 mg/dL (7.8-10.44); Carbon Dioxide 25 mmol/L (23-31); Chloride 103 mmol/L (98-107); Estimated GFR 98; Globulin 3.1 g/dL (2.4-3.5); Glucose 94 mg/dL (83-110); Magnesium 1.7 mg/dL (1.6-2.6); Potassium 3.9 mmol/L (3.5-5.1); Protein, Total 5.3 g/dL (5.8-8.1); Sodium 133 mmol/L (136-145)
[2022-04-28] MEDS: Folic Acid 1 MG TAB PO SCH (08:11)
[2022-04-28] MEDS: Famotidine 20 MG TAB PO SCH ×2 (08:11→20:20)
[2022-04-28] MEDS: Midodrine HCl 5 MG TAB PO SCH ×3 (08:11→20:20)
[2022-04-28] MEDS: Enoxaparin Sodium 40 MG/0.4 ML SYRINGE SC SCH (08:12)
[2022-04-28 08:28] LABS: Vancomycin, Trough 23.3 ug/mL
[2022-04-28] MEDS: traMADol HCl 50 MG TAB PO PRN (08:53)
[2022-04-28] MEDS: Vancomycin 1 GM in Premix Bag 1 BAG IVPB SCH (09:58)
[2022-04-28] MEDS ORDERED: Midodrine HCl 5 MG TAB PO SCH (10:00)
[2022-04-28] MEDS: Cefepime 2 GM in Sodium Chloride 0.9% 100 ML IVPB SCH ×2 (10:16→20:51)
[2022-04-28] MEDS: Vancomycin HCl 750 MG in Sodium Chloride 0.9% 100 ML IVPB SCH ×2 (11:31→21:40)
[2022-04-28] MEDS: Nicotine 14 MG PATCH TD SCH (20:21)
[2022-04-29] MEDS: traMADol HCl 50 MG TAB PO PRN (05:24)
[2022-04-29] MEDS: Sodium Chloride 0.9% 1,000 ML IV SCH ×2 (07:43→14:29)
[2022-04-29] MEDS: Midodrine HCl 5 MG TAB PO SCH ×3 (08:38→20:27)
[2022-04-29] MEDS: Folic Acid 1 MG TAB PO SCH (08:39)
[2022-04-29] MEDS: Famotidine 20 MG TAB PO SCH ×2 (08:39→20:28)
[2022-04-29] MEDS: Enoxaparin Sodium 40 MG/0.4 ML SYRINGE SC SCH (08:39)
[2022-04-29] MEDS: Cefepime 2 GM in Sodium Chloride 0.9% 100 ML IVPB SCH ×2 (08:46→21:15)
[2022-04-29] MEDS ORDERED: traMADol HCl 50 MG TAB PO PRN (10:16)
[2022-04-29] MEDS: Vancomycin HCl 750 MG in Sodium Chloride 0.9% 250 ML 250 ML IVPB SCH ×2 (10:48→23:00)
[2022-04-29 11:28] LABS: Hemoglobin 9.8 g/dL (14.0-18.0); Mean Corpuscular Hemoglobin 32.3 pg (27.0-31.0); Mean Platelet Volume 7.6 fL (7.4-10.4); Platelet Count 185 thou/uL (130-400); RBC Distribution Width 14.4 % (11.5-14.5); Red Blood Cell (RBC) Count 3.04 mill/uL (4.70-6.10); White Blood Cell (WBC) Count 24.8 thou/uL (4.8-10.8)
[2022-04-29 11:32] LABS: ALT (SGPT) 13 U/L (8-55); AST (SGOT) 27 U/L (5-34); Albumin 2.4 g/dL (3.4-4.8); Alkaline Phosphatase 91 U/L (40-110); Anion Gap 12 mmol/L (10-20); BUN (Urea Nitrogen) 20 mg/dL (8.4-25.7); Bilirubin, Total 0.2 mg/dL (0.2-1.2); Calc. Creatinine Clearance 78 mL/min (70-130); Calcium 8.1 mg/dL (7.8-10.44); Carbon Dioxide 22 mmol/L (23-31); Chloride 104 mmol/L (98-107); Estimated GFR 96; Globulin 3.5 g/dL (2.4-3.5); Glucose 94 mg/dL (83-110); Potassium 4.2 mmol/L (3.5-5.1); Protein, Total 5.9 g/dL (5.8-8.1); Sodium 134 mmol/L (136-145)
[2022-04-29 12:31] LABS: Band 6 % (5-11); Lymphocytes 8 % (21-51); MDiff Complete? YES; Monocytes 4 % (0-10); Neutrophil 82 % (42-75); Platelet Morphology Comment Appears Adequate; RBC Morphology Normal
[2022-04-29] MEDS: Nicotine 14 MG PATCH TD SCH (14:18)
[2022-04-29] MEDS: HYDROcodone/Acetaminophen 5/325 mg Tablet PO PRN ×2 (14:22→20:28)
[2022-04-29] MEDS: Mirtazapine 15 MG TAB PO SCH (20:27)
[2022-04-29 22:59] LABS: Vancomycin, Trough 25.2 ug/mL
[2022-04-30] MEDS ORDERED: Vancomycin HCl 750 MG in Sodium Chloride 0.9% 250 ML 250 ML IVPB SCH (00:45)
[2022-04-30] MEDS: Sodium Chloride 0.9% 1,000 ML IV SCH ×2 (04:39→19:14)
[2022-04-30] MEDS: HYDROcodone/Acetaminophen 5/325 mg Tablet PO PRN ×3 (05:47→22:46)
[2022-04-30] MEDS: Benzonatate 100 MG CAP PO PRN (05:47)
[2022-04-30 07:47] LABS: #Eosinphils 0.3 thou/uL (0.0-0.7); #Monocytes 1.1 thou/uL (0.11-0.59); #Neutrophils 22.1 thou/uL (1.40-6.50); %Basophils 0.2 % (0.0-1.0); %Eosinophils 1.3 % (0.0-10.0); %Lymphocytes 4.1 % (21.0-51.0); %Monocytes 4.5 % (0.0-10.0); %Neutrophils 89.9 % (42.0-75.0); Hemoglobin 10.2 g/dL (14.0-18.0); Mean Corpuscular HGB CONC 31.4 g/dL (32.0-36.0); Mean Corpuscular Hemoglobin 31.9 pg (27.0-31.0); Mean Platelet Volume 7.3 fL (7.4-10.4); Platelet Count 198 thou/uL (130-400); RBC Distribution Width 14.4 % (11.5-14.5); White Blood Cell (WBC) Count 24.6 thou/uL (4.8-10.8)
[2022-04-30 08:23] LABS: Albumin 2.3 g/dL (3.4-4.8)
[2022-04-30 08:24] LABS: Chloride 108 mmol/L (98-107); Potassium 4.1 mmol/L (3.5-5.1); Sodium 133 mmol/L (136-145)
[2022-04-30 08:25] LABS: Calcium 8.1 mg/dL (7.8-10.44); Glucose 84 mg/dL (83-110)
[2022-04-30 08:26] LABS: Globulin 3.5 g/dL (2.4-3.5); Protein, Total 5.8 g/dL (5.8-8.1)
[2022-04-30 08:27] LABS: Anion Gap 13 mmol/L (10-20); Carbon Dioxide 16 mmol/L (23-31)
[2022-04-30 08:28] LABS: Alkaline Phosphatase 114 U/L (40-110); Bilirubin, Total Less than 0.2 mg/dL (0.2-1.2)
[2022-04-30 08:29] LABS: Calc. Creatinine Clearance 75 mL/min (70-130); Estimated GFR 95
[2022-04-30 08:30] LABS: BUN (Urea Nitrogen) 19 mg/dL (8.4-25.7)
[2022-04-30 08:31] LABS: ALT (SGPT) 18 U/L (8-55); AST (SGOT) 31 U/L (5-34)
[2022-04-30] MEDS: Midodrine HCl 5 MG TAB PO SCH ×3 (08:37→21:53)
[2022-04-30] MEDS: Enoxaparin Sodium 40 MG/0.4 ML SYRINGE SC SCH (08:37)
[2022-04-30] MEDS: Famotidine 20 MG TAB PO SCH ×2 (08:38→21:53)
[2022-04-30] MEDS: Folic Acid 1 MG TAB PO SCH (08:39)
[2022-04-30] MEDS: Cefepime 2 GM in Sodium Chloride 0.9% 100 ML IVPB SCH ×2 (08:39→21:53)
[2022-04-30] MEDS: Aspirin 81 mg Enteric Coated Tablet PO SCH (10:40)
[2022-04-30] MEDS: Atorvastatin Calcium 40 MG TAB PO SCH (21:53)
[2022-04-30] MEDS: Nicotine 14 MG PATCH TD SCH (21:53)
[2022-04-30] MEDS: Mirtazapine 15 MG TAB PO SCH (21:53)
[2022-05-01 06:44] LABS: #Eosinphils 0.5 thou/uL (0.0-0.7); #Lymphocytes 1.7 thou/uL (1.20-3.40); #Monocytes 1.2 thou/uL (0.11-0.59); #Neutrophils 20.4 thou/uL (1.40-6.50); %Basophils 0.1 % (0.0-1.0); %Eosinophils 2.1 % (0.0-10.0); %Lymphocytes 7.2 % (21.0-51.0); %Monocytes 5.1 % (0.0-10.0); %Neutrophils 85.6 % (42.0-75.0); Hemoglobin 9.9 g/dL (14.0-18.0); Mean Corpuscular HGB CONC 31.6 g/dL (32.0-36.0); Mean Corpuscular Hemoglobin 31.9 pg (27.0-31.0); Mean Platelet Volume 7.4 fL (7.4-10.4); Platelet Count 199 thou/uL (130-400); RBC Distribution Width 14.3 % (11.5-14.5); Red Blood Cell (RBC) Count 3.11 mill/uL (4.70-6.10); White Blood Cell (WBC) Count 23.8 thou/uL (4.8-10.8)
[2022-05-01 07:23] LABS: ALT (SGPT) 14 U/L (8-55); AST (SGOT) 19 U/L (5-34); Albumin 2.3 g/dL (3.4-4.8); Alkaline Phosphatase 96 U/L (40-110); Anion Gap 12 mmol/L (10-20); BUN (Urea Nitrogen) 18 mg/dL (8.4-25.7); Bilirubin, Total 0.2 mg/dL (0.2-1.2); Calc. Creatinine Clearance 74 mL/min (70-130); Calcium 8.1 mg/dL (7.8-10.44); Carbon Dioxide 18 mmol/L (23-31); Chloride 109 mmol/L (98-107); Estimated GFR 95; Globulin 3.2 g/dL (2.4-3.5); Glucose 78 mg/dL (83-110); Potassium 4.1 mmol/L (3.5-5.1); Protein, Total 5.5 g/dL (5.8-8.1); Sodium 135 mmol/L (136-145)
[2022-05-01] MEDS: HYDROcodone/Acetaminophen 5/325 mg Tablet PO PRN ×3 (09:00→21:37)
[2022-05-01] MEDS: Midodrine HCl 5 MG TAB PO SCH ×3 (09:02→20:50)
[2022-05-01] MEDS: Famotidine 20 MG TAB PO SCH ×2 (09:03→20:50)
[2022-05-01] MEDS: Aspirin 81 mg Enteric Coated Tablet PO SCH (09:03)
[2022-05-01] MEDS: Enoxaparin Sodium 40 MG/0.4 ML SYRINGE SC SCH (09:03)
[2022-05-01] MEDS: Cefepime 2 GM in Sodium Chloride 0.9% 100 ML IVPB SCH ×2 (09:04→21:10)
[2022-05-01] MEDS: Sodium Chloride 0.9% 1,000 ML IV SCH ×2 (09:06→20:49)
[2022-05-01] MEDS: Folic Acid 1 MG TAB PO SCH (09:12)
[2022-05-01 09:44] LABS: Vancomycin, Random 18.2 ug/mL (See Comment)
[2022-05-01] MEDS: Vancomycin 1 GM in Premix Bag 1 BAG IVPB SCH (11:41)
[2022-05-01] MEDS: Mirtazapine 15 MG TAB PO SCH (20:50)
[2022-05-01] MEDS: Atorvastatin Calcium 40 MG TAB PO SCH (20:50)
[2022-05-01] MEDS: Nicotine 14 MG PATCH TD SCH (20:50)
[2022-05-02] MEDS: HYDROcodone/Acetaminophen 5/325 mg Tablet PO PRN ×5 (01:25→23:27)
[2022-05-02] MEDS: Midodrine HCl 5 MG TAB PO SCH ×3 (09:04→20:51)
[2022-05-02] MEDS: Cefepime 2 GM in Sodium Chloride 0.9% 100 ML IVPB SCH ×2 (09:04→21:13)
[2022-05-02] MEDS: Enoxaparin Sodium 40 MG/0.4 ML SYRINGE SC SCH (09:04)
[2022-05-02] MEDS: Aspirin 81 mg Enteric Coated Tablet PO SCH (09:04)
[2022-05-02] MEDS: Famotidine 20 MG TAB PO SCH ×2 (09:04→20:52)
[2022-05-02] MEDS: Folic Acid 1 MG TAB PO SCH (09:04)
[2022-05-02] MEDS: Vancomycin 1 GM in Premix Bag 1 BAG IVPB SCH (11:21)
[2022-05-02] MEDS: Sodium Chloride 0.9% 1,000 ML IV SCH ×2 (11:24→23:27)
[2022-05-02] MEDS: Nicotine 14 MG PATCH TD SCH (20:51)
[2022-05-02] MEDS: Mirtazapine 15 MG TAB PO SCH (20:51)
[2022-05-02] MEDS: Atorvastatin Calcium 40 MG TAB PO SCH (20:51)
[2022-05-03] MEDS: HYDROcodone/Acetaminophen 5/325 mg Tablet PO PRN ×4 (05:22→21:02)
[2022-05-03] MEDS: Sodium Chloride 0.9% 1,000 ML IV SCH ×2 (05:23→21:10)
[2022-05-03 06:57] LABS: ALT (SGPT) 12 U/L (8-55); AST (SGOT) 16 U/L (5-34); Albumin 2.4 g/dL (3.4-4.8); Alkaline Phosphatase 124 U/L (40-110); Anion Gap 11 mmol/L (10-20); BUN (Urea Nitrogen) 21 mg/dL (8.4-25.7); Bilirubin, Total 0.2 mg/dL (0.2-1.2); Calc. Creatinine Clearance 72 mL/min (70-130); Calcium 8.1 mg/dL (7.8-10.44); Carbon Dioxide 21 mmol/L (23-31); Chloride 108 mmol/L (98-107); Estimated GFR 94; Globulin 3.6 g/dL (2.4-3.5); Glucose 99 mg/dL (83-110); Magnesium 1.4 mg/dL (1.6-2.6); Phosphorus 2.1 mg/dL (2.3-4.7); Potassium 4.1 mmol/L (3.5-5.1); Sodium 136 mmol/L (136-145)
[2022-05-03 07:08] LABS: Band 14 % (5-11); Eosinophils 4 % (0-10); Hemoglobin 10.1 g/dL (14.0-18.0); Lymphocytes 6 % (21-51); MDiff Complete? YES; Mean Corpuscular HGB CONC 30.4 g/dL (32.0-36.0); Mean Corpuscular Hemoglobin 31.2 pg (27.0-31.0); Mean Platelet Volume 7.6 fL (7.4-10.4); Monocytes 4 % (0-10); Neutrophil 72 % (42-75); Platelet Count 224 thou/uL (130-400); RBC Distribution Width 14.4 % (11.5-14.5); Red Blood Cell (RBC) Count 3.23 mill/uL (4.70-6.10)
[2022-05-03] MEDS ORDERED: Magnesium Sulfate 4 GM in Sodium Chloride 0.9% 250 ML 250 ML IVPB SCH (08:00)
[2022-05-03] MEDS: Folic Acid 1 MG TAB PO SCH (08:58)
[2022-05-03] MEDS: Aspirin 81 mg Enteric Coated Tablet PO SCH (08:58)
[2022-05-03] MEDS: Famotidine 20 MG TAB PO SCH ×2 (08:58→21:00)
[2022-05-03] MEDS: Midodrine HCl 5 MG TAB PO SCH ×3 (08:59→21:00)
[2022-05-03] MEDS ORDERED: Magnesium Sulfate In Water 4 GM in Premix Bag 1 BAG IVPB SCH (09:00)
[2022-05-03] MEDS: Enoxaparin Sodium 40 MG/0.4 ML SYRINGE SC SCH (09:00)
[2022-05-03] MEDS ORDERED: Iopamidol-370 76% 500 ML 1 ML ONE (10:14)
[2022-05-03 10:24] LABS: Vancomycin, Trough 19.3 ug/mL
[2022-05-03] MEDS: Cefepime 2 GM in Sodium Chloride 0.9% 100 ML IVPB SCH (10:38)
[2022-05-03] MEDS: Vancomycin 1 GM in Premix Bag 1 BAG IVPB SCH (11:55)
[2022-05-03] MEDS ORDERED: PHOS-NAK 1 PKT PACK PO SCH (16:00)
[2022-05-03] MEDS ORDERED: Meropenem 1 GM in Sodium Chloride 0.9% 100 ML IVPB SCH ×2 (16:45→22:00)
[2022-05-03] MEDS: Atorvastatin Calcium 40 MG TAB PO SCH (21:00)
[2022-05-03] MEDS: Mirtazapine 15 MG TAB PO SCH (21:00)
[2022-05-03] MEDS: Senokot S 8.6-50 MG TAB PO PRN (21:00)
[2022-05-03] MEDS: Enoxaparin Sodium 60 MG/0.6 ML SYRINGE SC SCH (21:01)
[2022-05-03] MEDS: Nicotine 14 MG PATCH TD SCH (21:01)
[2022-05-03] MEDS: GENTAMICIN IRR SCH (21:02)
[2022-05-03] MEDS: SODIUM CHLORIDE 0.9% IRR SCH (21:02)
[2022-05-04] MEDS: Meropenem 1 GM in Sodium Chloride 0.9% 100 ML IVPB SCH ×3 (02:09→18:42)
[2022-05-04] MEDS: HYDROcodone/Acetaminophen 5/325 mg Tablet PO PRN ×5 (02:10→20:46)
[2022-05-04 06:10] LABS: #Eosinphils 0.8 thou/uL (0.0-0.7); #Lymphocytes 1.5 thou/uL (1.20-3.40); #Monocytes 1.6 thou/uL (0.11-0.59); #Neutrophils 23.8 thou/uL (1.40-6.50); %Basophils 0.1 % (0.0-1.0); %Eosinophils 2.8 % (0.0-10.0); %Lymphocytes 5.5 % (21.0-51.0); %Monocytes 5.7 % (0.0-10.0); Mean Corpuscular HGB CONC 31.2 g/dL (32.0-36.0); Mean Corpuscular Hemoglobin 31.4 pg (27.0-31.0); Mean Platelet Volume 7.6 fL (7.4-10.4); Platelet Count 230 thou/uL (130-400); RBC Distribution Width 14.3 % (11.5-14.5); Red Blood Cell (RBC) Count 2.87 mill/uL (4.70-6.10); White Blood Cell (WBC) Count 27.7 thou/uL (4.8-10.8)
[2022-05-04 06:36] LABS: ALT (SGPT) 8 U/L (8-55); AST (SGOT) 15 U/L (5-34); Albumin 2.2 g/dL (3.4-4.8); Alkaline Phosphatase 117 U/L (40-110); Anion Gap 10 mmol/L (10-20); BUN (Urea Nitrogen) 21 mg/dL (8.4-25.7); Bilirubin, Total Less than 0.2 mg/dL (0.2-1.2); Calc. Creatinine Clearance 75 mL/min (70-130); Calcium 7.9 mg/dL (7.8-10.44); Carbon Dioxide 22 mmol/L (23-31); Chloride 107 mmol/L (98-107); Estimated GFR 95; Globulin 3.4 g/dL (2.4-3.5); Glucose 81 mg/dL (83-110); Magnesium 1.8 mg/dL (1.6-2.6); Potassium 4.5 mmol/L (3.5-5.1); Protein, Total 5.6 g/dL (5.8-8.1); Sodium 134 mmol/L (136-145)
[2022-05-04] MEDS: GENTAMICIN IRR SCH ×2 (10:27→20:47)
[2022-05-04] MEDS: SODIUM CHLORIDE 0.9% IRR SCH ×2 (10:27→20:47)
[2022-05-04] MEDS: Enoxaparin Sodium 60 MG/0.6 ML SYRINGE SC SCH ×2 (10:28→20:44)
[2022-05-04] MEDS: Famotidine 20 MG TAB PO SCH ×2 (10:29→20:47)
[2022-05-04] MEDS: Midodrine HCl 5 MG TAB PO SCH ×3 (10:30→20:47)
[2022-05-04] MEDS: Aspirin 81 mg Enteric Coated Tablet PO SCH (10:30)
[2022-05-04] MEDS: Folic Acid 1 MG TAB PO SCH (10:30)
[2022-05-04] MEDS ORDERED: Cosyntropin 250 MCG VIAL SLOW IVP SCH (15:00)
[2022-05-04] MEDS: PHOS-NAK 1 PKT PACK PO SCH (15:32)
[2022-05-04] MEDS: metroNIDAZOLE 500 MG in Premix Bag 1 BAG IVPB SCH ×2 (15:33→23:28)
[2022-05-04] MEDS: Sodium Chloride 0.9% 1,000 ML IV SCH (15:33)
[2022-05-04] MEDS: Nicotine 14 MG PATCH TD SCH (20:47)
[2022-05-04] MEDS: Atorvastatin Calcium 40 MG TAB PO SCH (20:47)
[2022-05-04] MEDS: Mirtazapine 15 MG TAB PO SCH (20:47)
[2022-05-05] MEDS: HYDROcodone/Acetaminophen 5/325 mg Tablet PO PRN ×4 (02:55→23:08)
[2022-05-05] MEDS: Meropenem 1 GM in Sodium Chloride 0.9% 100 ML IVPB SCH ×3 (02:55→17:27)
[2022-05-05] MEDS: PHOS-NAK 1 PKT PACK PO SCH ×2 (02:56→14:52)
[2022-05-05] MEDS: Sodium Chloride 0.9% 1,000 ML IV SCH ×2 (04:11→17:27)
[2022-05-05 07:02] LABS: ALT (SGPT) Less than 7 U/L (8-55); AST (SGOT) 15 U/L (5-34); Albumin 2.2 g/dL (3.4-4.8); Alkaline Phosphatase 138 U/L (40-110); Anion Gap 11 mmol/L (10-20); BUN (Urea Nitrogen) 24 mg/dL (8.4-25.7); Bilirubin, Total Less than 0.2 mg/dL (0.2-1.2); Calc. Creatinine Clearance 70 mL/min (70-130); Carbon Dioxide 23 mmol/L (23-31); Chloride 107 mmol/L (98-107); Estimated GFR 93; Globulin 3.8 g/dL (2.4-3.5); Glucose 139 mg/dL (83-110); Magnesium 1.6 mg/dL (1.6-2.6); Potassium 4.7 mmol/L (3.5-5.1); Sodium 136 mmol/L (136-145)
[2022-05-05 07:05] LABS: Mean Corpuscular HGB CONC 30.7 g/dL (32.0-36.0); Mean Corpuscular Hemoglobin 31.2 pg (27.0-31.0); Platelet Count 265 thou/uL (130-400); RBC Distribution Width 14.4 % (11.5-14.5); Red Blood Cell (RBC) Count 3.19 mill/uL (4.70-6.10); White Blood Cell (WBC) Count 29.8 thou/uL (4.8-10.8)
[2022-05-05] MEDS: metroNIDAZOLE 500 MG in Premix Bag 1 BAG IVPB SCH ×3 (08:33→23:08)
[2022-05-05] MEDS: SODIUM CHLORIDE 0.9% IRR SCH ×2 (08:33→20:17)
[2022-05-05] MEDS: GENTAMICIN IRR SCH ×2 (08:33→20:17)
[2022-05-05] MEDS: Enoxaparin Sodium 60 MG/0.6 ML SYRINGE SC SCH ×2 (08:34→19:12)
[2022-05-05] MEDS: Folic Acid 1 MG TAB PO SCH (08:35)
[2022-05-05] MEDS: Aspirin 81 mg Enteric Coated Tablet PO SCH (08:35)
[2022-05-05] MEDS: Midodrine HCl 5 MG TAB PO SCH ×3 (08:35→19:11)
[2022-05-05] MEDS: Famotidine 20 MG TAB PO SCH ×2 (08:35→19:12)
[2022-05-05 09:03] LABS: Band 27 % (5-11); Lymphocytes 10 % (21-51); MDiff Complete? YES; Macrocytosis SLIGHT = 6-15 cells (100X) (0-5/hpf); Monocytes 3 % (0-10); Neutrophil 60 % (42-75); Platelet Morphology Comment Appears Adequate; Polychromasia SLIGHT = 2-3 cells (100X) (0-2/hpf)
[2022-05-05] MEDS: Atorvastatin Calcium 40 MG TAB PO SCH (19:12)
[2022-05-05] MEDS: Mirtazapine 15 MG TAB PO SCH (19:12)
[2022-05-05] MEDS: Nicotine 14 MG PATCH TD SCH (19:12)
[2022-05-06] MEDS: HYDROcodone/Acetaminophen 5/325 mg Tablet PO PRN ×6 (03:09→23:11)
[2022-05-06] MEDS: PHOS-NAK 1 PKT PACK PO SCH (03:09)
[2022-05-06] MEDS: Meropenem 1 GM in Sodium Chloride 0.9% 100 ML IVPB SCH ×3 (03:09→17:39)
[2022-05-06 08:39] LABS: Hemoglobin 10.3 g/dL (14.0-18.0); Mean Corpuscular HGB CONC 30.8 g/dL (32.0-36.0); Mean Corpuscular Hemoglobin 31.6 pg (27.0-31.0); Mean Platelet Volume 7.7 fL (7.4-10.4); Platelet Count 259 thou/uL (130-400); RBC Distribution Width 14.4 % (11.5-14.5); Red Blood Cell (RBC) Count 3.26 mill/uL (4.70-6.10); White Blood Cell (WBC) Count 29.6 thou/uL (4.8-10.8)
[2022-05-06] MEDS: metroNIDAZOLE 500 MG in Premix Bag 1 BAG IVPB SCH ×3 (08:44→23:10)
[2022-05-06] MEDS: Midodrine HCl 5 MG TAB PO SCH ×3 (08:46→20:20)
[2022-05-06] MEDS: Enoxaparin Sodium 60 MG/0.6 ML SYRINGE SC SCH ×2 (08:46→20:20)
[2022-05-06] MEDS: Famotidine 20 MG TAB PO SCH ×2 (08:46→20:20)
[2022-05-06] MEDS: Aspirin 81 mg Enteric Coated Tablet PO SCH (08:46)
[2022-05-06] MEDS: Folic Acid 1 MG TAB PO SCH (08:46)
[2022-05-06] MEDS: SODIUM CHLORIDE 0.9% IRR SCH ×2 (08:47→20:19)
[2022-05-06] MEDS: GENTAMICIN IRR SCH ×2 (08:47→20:19)
[2022-05-06 08:50] LABS: ALT (SGPT) 9 U/L (8-55); AST (SGOT) 23 U/L (5-34); Albumin 2.2 g/dL (3.4-4.8); Alkaline Phosphatase 135 U/L (40-110); Anion Gap 10 mmol/L (10-20); BUN (Urea Nitrogen) 25 mg/dL (8.4-25.7); Bilirubin, Total Less than 0.2 mg/dL (0.2-1.2); Calc. Creatinine Clearance 68 mL/min (70-130); Calcium 8.1 mg/dL (7.8-10.44); Carbon Dioxide 24 mmol/L (23-31); Chloride 108 mmol/L (98-107); Estimated GFR 92; Globulin 3.8 g/dL (2.4-3.5); Glucose 128 mg/dL (83-110); Potassium 4.7 mmol/L (3.5-5.1); Sodium 137 mmol/L (136-145)
[2022-05-06] MEDS: Sodium Chloride 0.9% 1,000 ML IV SCH ×2 (10:11→19:17)
[2022-05-06 10:33] LABS: Band 4 % (5-11); Lymphocytes 6 % (21-51); MDiff Complete? YES; Macrocytosis MODERATE=16-30 cells (100X) (0-5/hpf); Monocytes 5 % (0-10); Neutrophil 85 % (42-75); Platelet Morphology Comment Appears Adequate
[2022-05-06] MEDS: Atorvastatin Calcium 40 MG TAB PO SCH (20:20)
[2022-05-06] MEDS: Nicotine 14 MG PATCH TD SCH (20:21)
[2022-05-06] MEDS: Mirtazapine 15 MG TAB PO SCH (20:21)
[2022-05-07] MEDS: Meropenem 1 GM in Sodium Chloride 0.9% 100 ML IVPB SCH ×3 (02:03→17:11)
[2022-05-07] MEDS: HYDROcodone/Acetaminophen 5/325 mg Tablet PO PRN ×4 (03:46→20:38)
[2022-05-07] MEDS: metroNIDAZOLE 500 MG in Premix Bag 1 BAG IVPB SCH ×3 (07:58→23:37)
[2022-05-07] MEDS: Famotidine 20 MG TAB PO SCH ×2 (08:05→21:13)
[2022-05-07] MEDS: GENTAMICIN IRR SCH ×2 (08:05→21:14)
[2022-05-07] MEDS: Enoxaparin Sodium 60 MG/0.6 ML SYRINGE SC SCH ×2 (08:05→21:15)
[2022-05-07] MEDS: Folic Acid 1 MG TAB PO SCH (08:05)
[2022-05-07] MEDS: Aspirin 81 mg Enteric Coated Tablet PO SCH (08:05)
[2022-05-07] MEDS: SODIUM CHLORIDE 0.9% IRR SCH ×2 (08:05→21:14)
[2022-05-07] MEDS: Midodrine HCl 5 MG TAB PO SCH ×3 (08:06→21:14)
[2022-05-07] MEDS: Sodium Chloride 0.9% 1,000 ML IV SCH (11:02)
[2022-05-07] MEDS ORDERED: Iopamidol 300 61% 100 ML VIAL FS ONE (15:05)
[2022-05-07] MEDS: HYDROcodone/Acetaminophen 5/325 mg Tablet PO SCH ×2 (20:32→20:41)
[2022-05-07] MEDS: Atorvastatin Calcium 40 MG TAB PO SCH (21:13)
[2022-05-07] MEDS: Mirtazapine 15 MG TAB PO SCH (21:14)
[2022-05-07] MEDS: Nicotine 14 MG PATCH TD SCH (21:18)
[2022-05-07] MEDS ORDERED: Morphine 4 MG/ML VIAL SLOW IVP SCH (23:00)
[2022-05-08] MEDS: HYDROcodone/Acetaminophen 5/325 mg Tablet PO PRN ×6 (01:08→20:12)
[2022-05-08] MEDS: Meropenem 1 GM in Sodium Chloride 0.9% 100 ML IVPB SCH ×3 (01:10→17:44)
[2022-05-08] MEDS: Sodium Chloride 0.9% 1,000 ML IV SCH ×2 (02:28→02:29)
[2022-05-08] MEDS: HYDROcodone/Acetaminophen 5/325 mg Tablet PO SCH ×6 (02:32→20:14)
[2022-05-08 06:25] LABS: ALT (SGPT) 14 U/L (8-55); AST (SGOT) 34 U/L (5-34); Albumin 2.2 g/dL (3.4-4.8); Alkaline Phosphatase 144 U/L (40-110); Anion Gap 11 mmol/L (10-20); BUN (Urea Nitrogen) 25 mg/dL (8.4-25.7); Bilirubin, Total 0.2 mg/dL (0.2-1.2); Calc. Creatinine Clearance 70 mL/min (70-130); Carbon Dioxide 23 mmol/L (23-31); Chloride 108 mmol/L (98-107); Estimated GFR 93; Globulin 3.9 g/dL (2.4-3.5); Glucose 105 mg/dL (83-110); Potassium 4.7 mmol/L (3.5-5.1); Protein, Total 6.1 g/dL (5.8-8.1); Sodium 137 mmol/L (136-145)
[2022-05-08 06:36] LABS: Band 21 % (5-11); Eosinophils 5 % (0-10); Hemoglobin 10.3 g/dL (14.0-18.0); Hypochromia SLIGHT = 6-15 cells (100X) (0-5/hpf); Lymphocytes 4 % (21-51); MDiff Complete? YES; Mean Corpuscular HGB CONC 30.2 g/dL (32.0-36.0); Mean Corpuscular Hemoglobin 30.9 pg (27.0-31.0); Mean Platelet Volume 7.8 fL (7.4-10.4); Metamyelocyte 1 % (0-0); Monocytes 3 % (0-10); Neutrophil 65 % (42-75); Platelet Count 271 thou/uL (130-400); Platelet Morphology Comment Appears Adequate; RBC Distribution Width 14.4 % (11.5-14.5); Reactive Lymphocytes 1 % (0-10); Red Blood Cell (RBC) Count 3.33 mill/uL (4.70-6.10); White Blood Cell (WBC) Count 29.7 thou/uL (4.8-10.8)
[2022-05-08] MEDS: Enoxaparin Sodium 60 MG/0.6 ML SYRINGE SC SCH ×2 (08:53→20:14)
[2022-05-08] MEDS: Midodrine HCl 5 MG TAB PO SCH ×3 (08:54→20:18)
[2022-05-08] MEDS: metroNIDAZOLE 500 MG in Premix Bag 1 BAG IVPB SCH (08:55)
[2022-05-08] MEDS: Folic Acid 1 MG TAB PO SCH (08:55)
[2022-05-08] MEDS: Famotidine 20 MG TAB PO SCH ×2 (08:55→20:13)
[2022-05-08] MEDS: Aspirin 81 mg Enteric Coated Tablet PO SCH (08:55)
[2022-05-08] MEDS: SODIUM CHLORIDE 0.9% IRR SCH ×2 (09:08→20:15)
[2022-05-08] MEDS: GENTAMICIN IRR SCH ×2 (09:08→20:15)
[2022-05-08] MEDS: Atorvastatin Calcium 40 MG TAB PO SCH (20:13)
[2022-05-08] MEDS: Mirtazapine 15 MG TAB PO SCH (20:13)
[2022-05-08] MEDS: Nicotine 14 MG PATCH TD SCH (20:16)
[2022-05-09] MEDS: HYDROcodone/Acetaminophen 5/325 mg Tablet PO SCH ×6 (00:30→20:37)
[2022-05-09] MEDS: HYDROcodone/Acetaminophen 5/325 mg Tablet PO PRN ×6 (00:33→20:40)
[2022-05-09] MEDS: Sodium Chloride 0.9% 1,000 ML IV SCH ×2 (01:00→16:15)
[2022-05-09] MEDS: Meropenem 1 GM in Sodium Chloride 0.9% 100 ML IVPB SCH ×3 (01:19→18:00)
[2022-05-09 06:37] LABS: Hemoglobin 11.4 g/dL (14.0-18.0); Mean Corpuscular HGB CONC 29.8 g/dL (32.0-36.0); Mean Corpuscular Hemoglobin 30.7 pg (27.0-31.0); Platelet Count 286 thou/uL (130-400); RBC Distribution Width 14.4 % (11.5-14.5); White Blood Cell (WBC) Count 38.7 thou/uL (4.8-10.8)
[2022-05-09 07:31] LABS: Band 16 % (5-11); Eosinophils 3 % (0-10); Lymphocytes 2 % (21-51); MDiff Complete? YES; Monocytes 4 % (0-10); Neutrophil 75 % (42-75); Platelet Morphology Comment Appears Adequate; Polychromasia SLIGHT = 2-3 cells (100X) (0-2/hpf); Toxic Granulation SLIGHT; Vacuoles SLIGHT
[2022-05-09 07:44] LABS: ALT (SGPT) 11 U/L (8-55); AST (SGOT) 26 U/L (5-34); Albumin 2.3 g/dL (3.4-4.8); Alkaline Phosphatase 145 U/L (40-110); Anion Gap 11 mmol/L (10-20); BUN (Urea Nitrogen) 26 mg/dL (8.4-25.7); Bilirubin, Total 0.2 mg/dL (0.2-1.2); Calc. Creatinine Clearance 72 mL/min (70-130); Calcium 8.5 mg/dL (7.8-10.44); Carbon Dioxide 24 mmol/L (23-31); Chloride 108 mmol/L (98-107); Estimated GFR 94; Globulin 4.4 g/dL (2.4-3.5); Glucose 87 mg/dL (83-110); Magnesium 1.5 mg/dL (1.6-2.6); Potassium 4.7 mmol/L (3.5-5.1); Protein, Total 6.7 g/dL (5.8-8.1); Sodium 138 mmol/L (136-145)
[2022-05-09] MEDS: SODIUM CHLORIDE 0.9% IRR SCH ×2 (08:08→20:54)
[2022-05-09] MEDS: GENTAMICIN IRR SCH ×2 (08:08→20:54)
[2022-05-09] MEDS: Folic Acid 1 MG TAB PO SCH (08:11)
[2022-05-09] MEDS: Midodrine HCl 5 MG TAB PO SCH ×3 (08:12→20:39)
[2022-05-09] MEDS: Aspirin 81 mg Enteric Coated Tablet PO SCH (08:12)
[2022-05-09] MEDS: Famotidine 20 MG TAB PO SCH ×2 (08:12→20:39)
[2022-05-09] MEDS: Enoxaparin Sodium 60 MG/0.6 ML SYRINGE SC SCH ×2 (08:13→20:40)
[2022-05-09] MEDS: Atorvastatin Calcium 40 MG TAB PO SCH (20:39)
[2022-05-09] MEDS: Mirtazapine 15 MG TAB PO SCH (20:40)
[2022-05-09] MEDS: Nicotine 14 MG PATCH TD SCH (20:40)
[2022-05-09] MEDS: Senokot S 8.6-50 MG TAB PO PRN (20:42)
[2022-05-09 21:23] LABS: Bilirubin Negative (Negative); Blood, Urine Negative (Negative); Clarity Clear (Clear); Glucose, Urine (Dipstick) Normal (Negative); Ketone, Urine Negative (Negative); Leukocyte Negative Leu/uL (Negative); Nitrite Negative (Negative); Protein, Urine (Dipstick) 50 mg/dL (Neg-Trace); Specific Gravity, Urine 1.021 (1.002-1.036); Squamous Epithelial None Seen HPF (0-3); Urobilinogen Normal mg/dL (Less than 2); WBC/HPF 21-50 HPF (0-3); Yeast-Budding 1+ HPF (None Seen)
[2022-05-09 21:24] LABS: Bacteria/HPF 1+ HPF (None Seen)
[2022-05-09 21:25] LABS: Urine Culture Reflex Yes Yes
[2022-05-10] MEDS: HYDROcodone/Acetaminophen 5/325 mg Tablet PO PRN ×3 (00:35→08:28)
[2022-05-10] MEDS: HYDROcodone/Acetaminophen 5/325 mg Tablet PO SCH ×6 (00:35→20:54)
[2022-05-10] MEDS: Meropenem 1 GM in Sodium Chloride 0.9% 100 ML IVPB SCH ×3 (02:45→17:47)
[2022-05-10] MEDS: Sodium Chloride 0.9% 1,000 ML IV SCH ×3 (04:29→18:02)
[2022-05-10 07:19] LABS: Hemoglobin 10.2 g/dL (14.0-18.0); Mean Corpuscular HGB CONC 31.1 g/dL (32.0-36.0); Mean Corpuscular Hemoglobin 31.6 pg (27.0-31.0); Mean Platelet Volume 7.9 fL (7.4-10.4); Platelet Count 265 thou/uL (130-400); RBC Distribution Width 14.5 % (11.5-14.5); Red Blood Cell (RBC) Count 3.24 mill/uL (4.70-6.10); White Blood Cell (WBC) Count 34.2 thou/uL (4.8-10.8)
[2022-05-10 07:30] LABS: Anion Gap 12 mmol/L (10-20); BUN (Urea Nitrogen) 28 mg/dL (8.4-25.7); Calc. Creatinine Clearance 76 mL/min (70-130); Calcium 8.1 mg/dL (7.8-10.44); Carbon Dioxide 23 mmol/L (23-31); Chloride 109 mmol/L (98-107); Estimated GFR 95; Glucose 88 mg/dL (83-110); Potassium 4.7 mmol/L (3.5-5.1); Sodium 139 mmol/L (136-145)
[2022-05-10 07:43] LABS: Band 21 % (5-11); Eosinophils 1 % (0-10); Lymphocytes 7 % (21-51); MDiff Complete? YES; Monocytes 5 % (0-10); Neutrophil 66 % (42-75); Platelet Morphology Comment Appears Adequate; Polychromasia SLIGHT = 2-3 cells (100X) (0-2/hpf); Toxic Granulation SLIGHT; Vacuoles SLIGHT
[2022-05-10] MEDS: SODIUM CHLORIDE 0.9% IRR SCH ×2 (08:24→20:57)
[2022-05-10] MEDS: GENTAMICIN IRR SCH ×2 (08:24→20:57)
[2022-05-10] MEDS: Polyethylene Glycol 3350 17 GM Packet PO SCH (08:25)
[2022-05-10] MEDS: Folic Acid 1 MG TAB PO SCH (08:26)
[2022-05-10] MEDS: Enoxaparin Sodium 60 MG/0.6 ML SYRINGE SC SCH ×2 (08:26→20:56)
[2022-05-10] MEDS: Famotidine 20 MG TAB PO SCH ×2 (08:26→20:57)
[2022-05-10] MEDS: Midodrine HCl 5 MG TAB PO SCH ×3 (08:26→20:56)
[2022-05-10] MEDS: Aspirin 81 mg Enteric Coated Tablet PO SCH (08:26)
[2022-05-10] MEDS ORDERED: Fleet Enema 133 ML BOT PR SCH (16:00)
[2022-05-10] MEDS: Atorvastatin Calcium 40 MG TAB PO SCH (20:56)
[2022-05-10] MEDS: Mirtazapine 15 MG TAB PO SCH (20:57)
[2022-05-10] MEDS: Nicotine 14 MG PATCH TD SCH (20:57)
[2022-05-10] MEDS: Senokot S 8.6-50 MG TAB PO SCH (20:58)
[2022-05-11] MEDS: HYDROcodone/Acetaminophen 5/325 mg Tablet PO SCH ×7 (00:28→20:36)
[2022-05-11] MEDS: Meropenem 1 GM in Sodium Chloride 0.9% 100 ML IVPB SCH ×3 (02:44→17:17)
[2022-05-11 06:53] LABS: Hemoglobin 10.3 g/dL (14.0-18.0); Mean Corpuscular HGB CONC 30.9 g/dL (32.0-36.0); Mean Corpuscular Hemoglobin 31.3 pg (27.0-31.0); Mean Platelet Volume 7.9 fL (7.4-10.4); Platelet Count 269 thou/uL (130-400); RBC Distribution Width 14.6 % (11.5-14.5); Red Blood Cell (RBC) Count 3.29 mill/uL (4.70-6.10); White Blood Cell (WBC) Count 43.3 thou/uL (4.8-10.8)
[2022-05-11 07:22] LABS: Band 18 % (5-11); Eosinophils 2 % (0-10); Hypochromia SLIGHT = 6-15 cells (100X) (0-5/hpf); Lymphocytes 6 % (21-51); MDiff Complete? YES; Monocytes 2 % (0-10); Neutrophil 72 % (42-75); Platelet Morphology Comment Appears Adequate; Polychromasia SLIGHT = 2-3 cells (100X) (0-2/hpf)
[2022-05-11] MEDS: Polyethylene Glycol 3350 17 GM Packet PO SCH (08:40)
[2022-05-11] MEDS: Enoxaparin Sodium 60 MG/0.6 ML SYRINGE SC SCH ×2 (08:40→20:33)
[2022-05-11] MEDS: Midodrine HCl 5 MG TAB PO SCH ×3 (08:41→20:34)
[2022-05-11] MEDS: Aspirin 81 mg Enteric Coated Tablet PO SCH (08:41)
[2022-05-11] MEDS: Folic Acid 1 MG TAB PO SCH (08:41)
[2022-05-11] MEDS: Famotidine 20 MG TAB PO SCH ×2 (08:41→20:34)
[2022-05-11] MEDS: Senokot S 8.6-50 MG TAB PO SCH ×2 (08:41→20:35)
[2022-05-11] MEDS: Sodium Chloride 0.9% 1,000 ML IV SCH ×2 (08:49→20:58)
[2022-05-11] MEDS: GENTAMICIN IRR SCH ×2 (10:06→20:41)
[2022-05-11] MEDS: SODIUM CHLORIDE 0.9% IRR SCH ×2 (10:06→20:41)
[2022-05-11] MEDS ORDERED: Fluconazole In NaCl,Iso-Osm 200 MG in Premix Bag 1 BAG IVPB SCH (16:30)
[2022-05-11] MEDS: Atorvastatin Calcium 40 MG TAB PO SCH (20:34)
[2022-05-11] MEDS: Mirtazapine 15 MG TAB PO SCH (20:34)
[2022-05-11] MEDS: Nicotine 14 MG PATCH TD SCH (20:35)
[2022-05-12] MEDS: HYDROcodone/Acetaminophen 5/325 mg Tablet PO SCH ×7 (00:10→19:55)
[2022-05-12] MEDS: Meropenem 1 GM in Sodium Chloride 0.9% 100 ML IVPB SCH ×3 (02:07→17:04)
[2022-05-12 08:04] LABS: Band 34 % (5-11); Hemoglobin 10.4 g/dL (14.0-18.0); Hypochromia SLIGHT = 6-15 cells (100X) (0-5/hpf); Lymphocytes 3 % (21-51); MDiff Complete? YES; Mean Corpuscular HGB CONC 30.9 g/dL (32.0-36.0); Mean Corpuscular Hemoglobin 30.8 pg (27.0-31.0); Mean Corpuscular Volume 99.9 fL (78.0-98.0); Mean Platelet Volume 7.9 fL (7.4-10.4); Monocytes 4 % (0-10); Neutrophil 59 % (42-75); Platelet Count 268 thou/uL (130-400); Platelet Morphology Comment Appears Adequate; Polychromasia SLIGHT = 2-3 cells (100X) (0-2/hpf); RBC Distribution Width 14.8 % (11.5-14.5); Red Blood Cell (RBC) Count 3.36 mill/uL (4.70-6.10); White Blood Cell (WBC) Count 39.7 thou/uL (4.8-10.8)
[2022-05-12] MEDS: Senokot S 8.6-50 MG TAB PO SCH ×2 (08:45→19:53)
[2022-05-12] MEDS: Midodrine HCl 5 MG TAB PO SCH ×3 (08:45→19:54)
[2022-05-12] MEDS: Famotidine 20 MG TAB PO SCH ×2 (08:45→19:54)
[2022-05-12] MEDS: Folic Acid 1 MG TAB PO SCH (08:45)
[2022-05-12] MEDS: Aspirin 81 mg Enteric Coated Tablet PO SCH (08:45)
[2022-05-12] MEDS: Polyethylene Glycol 3350 17 GM Packet PO SCH (08:46)
[2022-05-12] MEDS: Fluconazole In NaCl,Iso-Osm 100 MG, Admixture Fee 1 EACH in Premix Bag 1 BAG IVPB SCH (08:46)
[2022-05-12] MEDS: Enoxaparin Sodium 60 MG/0.6 ML SYRINGE SC SCH ×2 (08:46→20:10)
[2022-05-12] MEDS ORDERED: Fluconazole In NaCl,Iso-Osm 100 MG in Premix Bag 1 BAG IVPB SCH (09:00)
[2022-05-12] MEDS: SODIUM CHLORIDE 0.9% IRR SCH ×2 (09:42→20:14)
[2022-05-12] MEDS: GENTAMICIN IRR SCH ×2 (09:42→20:14)
[2022-05-12] MEDS: Sodium Chloride 0.9% 1,000 ML IV SCH (09:43)
[2022-05-12] MEDS: Aluminum & Magnesium Hydroxide 60 ML, diphenhydrAMINE 150 MG, Lidocaine 2% Viscous Solu... SSW SCH ×2 (17:03→21:49)
[2022-05-12] MEDS: Nicotine 14 MG PATCH TD SCH (19:53)
[2022-05-12] MEDS: Mirtazapine 15 MG TAB PO SCH (19:54)
[2022-05-12] MEDS: Atorvastatin Calcium 40 MG TAB PO SCH (19:54)
[2022-05-13] MEDS: HYDROcodone/Acetaminophen 5/325 mg Tablet PO SCH ×6 (00:10→20:44)
[2022-05-13] MEDS: Meropenem 1 GM in Sodium Chloride 0.9% 100 ML IVPB SCH ×3 (01:21→17:02)
[2022-05-13] MEDS: Sodium Chloride 0.9% 1,000 ML IV SCH ×3 (04:17→21:00)
[2022-05-13] MEDS: Aluminum & Magnesium Hydroxide 60 ML, diphenhydrAMINE 150 MG, Lidocaine 2% Viscous Solu... SSW SCH ×3 (05:28→21:01)
[2022-05-13 08:13] LABS: Band 27 % (5-11); Eosinophils 1 % (0-10); Hemoglobin 11.3 g/dL (14.0-18.0); Hypochromia SLIGHT = 6-15 cells (100X) (0-5/hpf); Lymphocytes 2 % (21-51); MDiff Complete? YES; Macrocytosis SLIGHT = 6-15 cells (100X) (0-5/hpf); Mean Corpuscular HGB CONC 30.8 g/dL (32.0-36.0); Mean Corpuscular Hemoglobin 31.1 pg (27.0-31.0); Mean Platelet Volume 8.7 fL (7.4-10.4); Monocytes 2 % (0-10); Neutrophil 65 % (42-75); Platelet Count 256 thou/uL (130-400); Platelet Morphology Comment Appears Adequate; Polychromasia SLIGHT = 2-3 cells (100X) (0-2/hpf); RBC Distribution Width 15.1 % (11.5-14.5); Reactive Lymphocytes 3 % (0-10); Red Blood Cell (RBC) Count 3.64 mill/uL (4.70-6.10); White Blood Cell (WBC) Count 36.7 thou/uL (4.8-10.8)
[2022-05-13] MEDS: Midodrine HCl 5 MG TAB PO SCH ×3 (09:29→20:53)
[2022-05-13] MEDS: Senokot S 8.6-50 MG TAB PO SCH ×2 (09:29→20:42)
[2022-05-13] MEDS: Famotidine 20 MG TAB PO SCH ×2 (09:29→20:54)
[2022-05-13] MEDS: Folic Acid 1 MG TAB PO SCH (09:30)
[2022-05-13] MEDS: Aspirin 81 mg Enteric Coated Tablet PO SCH (09:30)
[2022-05-13] MEDS: Enoxaparin Sodium 60 MG/0.6 ML SYRINGE SC SCH ×2 (09:30→20:54)
[2022-05-13] MEDS: SODIUM CHLORIDE 0.9% IRR SCH ×2 (09:31→20:44)
[2022-05-13] MEDS: GENTAMICIN IRR SCH ×2 (09:31→20:44)
[2022-05-13] MEDS: Fluconazole In NaCl,Iso-Osm 100 MG, Admixture Fee 1 EACH in Premix Bag 1 BAG IVPB SCH (09:31)
[2022-05-13] MEDS: Polyethylene Glycol 3350 17 GM Packet PO SCH (09:36)
[2022-05-13] MEDS ORDERED: Cyclobenzaprine 10 MG TAB PO SCH (15:15)
[2022-05-13] MEDS: Mirtazapine 15 MG TAB PO SCH (20:53)
[2022-05-13] MEDS: Atorvastatin Calcium 40 MG TAB PO SCH (20:54)
[2022-05-13] MEDS: Nicotine 14 MG PATCH TD SCH (20:55)
[2022-05-14] MEDS: HYDROcodone/Acetaminophen 5/325 mg Tablet PO SCH ×6 (00:11→20:58)
[2022-05-14] MEDS: Meropenem 1 GM in Sodium Chloride 0.9% 100 ML IVPB SCH ×3 (01:27→18:28)
[2022-05-14] MEDS: Aluminum & Magnesium Hydroxide 60 ML, diphenhydrAMINE 150 MG, Lidocaine 2% Viscous Solu... SSW SCH ×3 (05:33→20:59)
[2022-05-14 06:21] LABS: Anion Gap 9 mmol/L (10-20); BUN (Urea Nitrogen) 19 mg/dL (8.4-25.7); Calc. Creatinine Clearance 88 mL/min (70-130); Carbon Dioxide 27 mmol/L (23-31); Chloride 108 mmol/L (98-107); Estimated GFR 100; Glucose 93 mg/dL (83-110); Potassium 4.1 mmol/L (3.5-5.1); Sodium 140 mmol/L (136-145); Uric Acid 4.6 mg/dL (3.5-7.2)
[2022-05-14 06:28] LABS: Band 14 % (5-11); Eosinophils 4 % (0-10); Hemoglobin 9.7 g/dL (14.0-18.0); Lymphocytes 5 % (21-51); MDiff Complete? YES; Mean Corpuscular HGB CONC 31.4 g/dL (32.0-36.0); Mean Corpuscular Hemoglobin 31.5 pg (27.0-31.0); Mean Platelet Volume 7.9 fL (7.4-10.4); Monocytes 2 % (0-10); Neutrophil 75 % (42-75); Platelet Count 249 thou/uL (130-400); RBC Distribution Width 14.8 % (11.5-14.5); Red Blood Cell (RBC) Count 3.07 mill/uL (4.70-6.10); White Blood Cell (WBC) Count 35.3 thou/uL (4.8-10.8)
[2022-05-14] MEDS: Midodrine HCl 5 MG TAB PO SCH ×3 (08:20→20:59)
[2022-05-14] MEDS: Folic Acid 1 MG TAB PO SCH (08:20)
[2022-05-14] MEDS: Famotidine 20 MG TAB PO SCH ×2 (08:21→20:59)
[2022-05-14] MEDS: Fluconazole 100 MG TAB PO SCH (08:21)
[2022-05-14] MEDS: Senokot S 8.6-50 MG TAB PO SCH ×2 (08:23→20:59)
[2022-05-14] MEDS: Aspirin 81 mg Enteric Coated Tablet PO SCH (08:23)
[2022-05-14] MEDS: Enoxaparin Sodium 60 MG/0.6 ML SYRINGE SC SCH ×2 (08:23→21:00)
[2022-05-14] MEDS: GENTAMICIN IRR SCH ×2 (08:24→21:00)
[2022-05-14] MEDS: SODIUM CHLORIDE 0.9% IRR SCH ×2 (08:24→21:00)
[2022-05-14] MEDS: Polyethylene Glycol 3350 17 GM Packet PO SCH (08:25)
[2022-05-14] MEDS: Sodium Chloride 0.9% 1,000 ML IV SCH (14:38)
[2022-05-14] MEDS: Mirtazapine 15 MG TAB PO SCH (20:59)
[2022-05-14] MEDS: Atorvastatin Calcium 40 MG TAB PO SCH (20:59)
[2022-05-14] MEDS: Nicotine 14 MG PATCH TD SCH (21:00)
[2022-05-15] MEDS: HYDROcodone/Acetaminophen 5/325 mg Tablet PO SCH ×6 (01:00→21:25)
[2022-05-15] MEDS: Sodium Chloride 0.9% 1,000 ML IV SCH ×2 (01:00→21:31)
[2022-05-15] MEDS: Meropenem 1 GM in Sodium Chloride 0.9% 100 ML IVPB SCH ×3 (01:00→17:52)
[2022-05-15] MEDS: Aluminum & Magnesium Hydroxide 60 ML, diphenhydrAMINE 150 MG, Lidocaine 2% Viscous Solu... SSW SCH ×3 (05:34→21:33)
[2022-05-15 07:00] LABS: Band 15 % (5-11); Eosinophils 1 % (0-10); Hemoglobin 9.8 g/dL (14.0-18.0); Lymphocytes 7 % (21-51); MDiff Complete? YES; Mean Corpuscular HGB CONC 30.4 g/dL (32.0-36.0); Mean Corpuscular Hemoglobin 30.6 pg (27.0-31.0); Monocytes 5 % (0-10); Neutrophil 72 % (42-75); Platelet Count 258 thou/uL (130-400); Red Blood Cell (RBC) Count 3.18 mill/uL (4.70-6.10); White Blood Cell (WBC) Count 35.4 thou/uL (4.8-10.8)
[2022-05-15] MEDS: Senokot S 8.6-50 MG TAB PO SCH ×2 (08:24→21:32)
[2022-05-15] MEDS: Aspirin 81 mg Enteric Coated Tablet PO SCH (08:25)
[2022-05-15] MEDS: Midodrine HCl 5 MG TAB PO SCH ×3 (08:25→21:31)
[2022-05-15] MEDS: Fluconazole 100 MG TAB PO SCH (08:25)
[2022-05-15] MEDS: Polyethylene Glycol 3350 17 GM Packet PO SCH (08:26)
[2022-05-15] MEDS: Folic Acid 1 MG TAB PO SCH (08:26)
[2022-05-15] MEDS: Famotidine 20 MG TAB PO SCH ×2 (08:26→21:31)
[2022-05-15] MEDS: Enoxaparin Sodium 60 MG/0.6 ML SYRINGE SC SCH ×2 (08:26→21:32)
[2022-05-15] MEDS: GENTAMICIN IRR SCH ×2 (09:58→21:32)
[2022-05-15] MEDS: SODIUM CHLORIDE 0.9% IRR SCH ×2 (09:58→21:32)
[2022-05-15] MEDS: Atorvastatin Calcium 40 MG TAB PO SCH (21:31)
[2022-05-15] MEDS: Nicotine 14 MG PATCH TD SCH (21:32)
[2022-05-15] MEDS: Mirtazapine 15 MG TAB PO SCH (21:32)
[2022-05-16] MEDS: HYDROcodone/Acetaminophen 5/325 mg Tablet PO SCH ×6 (01:29→19:18)
[2022-05-16] MEDS: Meropenem 1 GM in Sodium Chloride 0.9% 100 ML IVPB SCH ×3 (01:29→17:31)
[2022-05-16] MEDS: Aluminum & Magnesium Hydroxide 60 ML, diphenhydrAMINE 150 MG, Lidocaine 2% Viscous Solu... SSW SCH ×2 (05:09→15:51)
[2022-05-16 05:57] LABS: Hemoglobin 10.1 g/dL (14.0-18.0); Mean Corpuscular HGB CONC 31.2 g/dL (32.0-36.0); Mean Corpuscular Hemoglobin 31.5 pg (27.0-31.0); Platelet Count 267 thou/uL (130-400); Red Blood Cell (RBC) Count 3.22 mill/uL (4.70-6.10); White Blood Cell (WBC) Count 36.4 thou/uL (4.8-10.8)
[2022-05-16 05:59] LABS: Band 24 % (5-11); Eosinophils 2 % (0-10); Lymphocytes 5 % (21-51); MDiff Complete? YES; Monocytes 3 % (0-10); Neutrophil 66 % (42-75); Toxic Granulation SLIGHT
[2022-05-16] MEDS: Polyethylene Glycol 3350 17 GM Packet PO SCH (07:49)
[2022-05-16] MEDS: SODIUM CHLORIDE 0.9% IRR SCH ×2 (08:28→20:56)
[2022-05-16] MEDS: GENTAMICIN IRR SCH ×2 (08:28→20:56)
[2022-05-16] MEDS: Fluconazole 100 MG TAB PO SCH (08:29)
[2022-05-16] MEDS: Famotidine 20 MG TAB PO SCH ×2 (08:30→20:56)
[2022-05-16] MEDS: Midodrine HCl 5 MG TAB PO SCH ×3 (08:31→20:55)
[2022-05-16] MEDS: Aspirin 81 mg Enteric Coated Tablet PO SCH (08:31)
[2022-05-16] MEDS: Senokot S 8.6-50 MG TAB PO SCH ×2 (08:31→21:29)
[2022-05-16] MEDS: Folic Acid 1 MG TAB PO SCH (08:31)
[2022-05-16] MEDS ORDERED: fentaNYL PF 100 MCG/2 ML SYRINGE ONE (11:31)
[2022-05-16] MEDS ORDERED: SUGAMMADEX SODIUM 200 MG/2 ML VIAL ONE (11:31)
[2022-05-16] MEDS ORDERED: Ondansetron HCl/PF 4 MG/2 ML Vial IVP PRN ×2 (11:33→14:59)
[2022-05-16] MEDS ORDERED: Promethazine HCl 25 MG/ML VIAL IM PRN ×2 (11:33→14:59)
[2022-05-16] MEDS ORDERED: Promethazine HCl 25 MG/ML VIAL IVPB PRN ×2 (11:33→14:59)
[2022-05-16] MEDS ORDERED: Neomycin-Polymyxin 1 ML AMP ONE (13:25)
[2022-05-16] MEDS ORDERED: Dexamethasone 20 MG/5 ML VIAL ONE (13:28)
[2022-05-16] MEDS ORDERED: Ondansetron PF 4 MG/2 ML Vial ONE (13:28)
[2022-05-16] MEDS ORDERED: Rocuronium Bromide 10 MG/ML (10ML VIAL) ONE (13:28)
[2022-05-16] MEDS ORDERED: PHENYLEPHRINE-NS 100 MCG/ML 10 ML SYRINGE ONE (13:28)
[2022-05-16] MEDS ORDERED: Bupivacaine/Epinephrine 0.25% 30 ML VIAL ONE (14:34)
[2022-05-16] MEDS ORDERED: FENTANYL 50 MCG/ML 1 ML VIAL ONE ×2 (15:23→15:35)
[2022-05-16] MEDS: Sodium Chloride 0.9% 1,000 ML IV SCH (17:32)
[2022-05-16] MEDS: Atorvastatin Calcium 40 MG TAB PO SCH (20:56)
[2022-05-16] MEDS: Mirtazapine 15 MG TAB PO SCH (20:56)
[2022-05-16] MEDS: Nicotine 14 MG PATCH TD SCH (20:57)
[2022-05-17] MEDS: HYDROcodone/Acetaminophen 5/325 mg Tablet PO SCH ×6 (00:10→21:03)
[2022-05-17] MEDS: Sodium Chloride 0.9% 1,000 ML IV SCH ×3 (00:12→21:03)
[2022-05-17] MEDS: Aluminum & Magnesium Hydroxide 60 ML, diphenhydrAMINE 150 MG, Lidocaine 2% Viscous Solu... SSW SCH ×4 (00:19→21:03)
[2022-05-17] MEDS: Meropenem 1 GM in Sodium Chloride 0.9% 100 ML IVPB SCH ×3 (02:25→17:25)
[2022-05-17 07:16] LABS: Anion Gap 12 mmol/L (10-20); BUN (Urea Nitrogen) 21 mg/dL (8.4-25.7); Calc. Creatinine Clearance 69 mL/min (70-130); Carbon Dioxide 23 mmol/L (23-31); Chloride 107 mmol/L (98-107); Estimated GFR 93; Glucose 116 mg/dL (83-110); Potassium 5.2 mmol/L (3.5-5.1); Sodium 137 mmol/L (136-145)
[2022-05-17 08:10] LABS: Band 24 % (5-11); Hemoglobin 11.2 g/dL (14.0-18.0); Lymphocytes 3 % (21-51); MDiff Complete? YES; Mean Corpuscular HGB CONC 30.6 g/dL (32.0-36.0); Mean Corpuscular Hemoglobin 31.3 pg (27.0-31.0); Mean Platelet Volume 8.1 fL (7.4-10.4); Neutrophil 73 % (42-75); Platelet Count 285 thou/uL (130-400); Platelet Morphology Comment Appears Adequate; Polychromasia SLIGHT = 2-3 cells (100X) (0-2/hpf); RBC Distribution Width 15.1 % (11.5-14.5); Red Blood Cell (RBC) Count 3.58 mill/uL (4.70-6.10); Vacuoles SLIGHT; White Blood Cell (WBC) Count 32.7 thou/uL (4.8-10.8)
[2022-05-17] MEDS: Midodrine HCl 5 MG TAB PO SCH ×3 (09:02→21:02)
[2022-05-17] MEDS: Aspirin 81 mg Enteric Coated Tablet PO SCH (09:03)
[2022-05-17] MEDS: Folic Acid 1 MG TAB PO SCH (09:03)
[2022-05-17] MEDS: Senokot S 8.6-50 MG TAB PO SCH ×2 (09:03→21:01)
[2022-05-17] MEDS: Fluconazole 100 MG TAB PO SCH (09:03)
[2022-05-17] MEDS: Famotidine 20 MG TAB PO SCH ×2 (09:03→21:02)
[2022-05-17] MEDS: Polyethylene Glycol 3350 17 GM Packet PO SCH (09:04)
[2022-05-17] MEDS: GENTAMICIN IRR SCH ×2 (09:05→21:02)
[2022-05-17] MEDS: SODIUM CHLORIDE 0.9% IRR SCH ×2 (09:05→21:02)
[2022-05-17] MEDS: Enoxaparin Sodium 60 MG/0.6 ML SYRINGE SC SCH ×3 (11:07→21:02)
[2022-05-17] MEDS: Morphine 4 MG/ML VIAL SLOW IVP PRN ×2 (17:25→20:59)
[2022-05-17] MEDS: Cyclobenzaprine 10 MG TAB PO PRN (21:01)
[2022-05-17] MEDS: Atorvastatin Calcium 40 MG TAB PO SCH (21:02)
[2022-05-17] MEDS: Mirtazapine 15 MG TAB PO SCH (21:02)
[2022-05-17] MEDS: Nicotine 14 MG PATCH TD SCH (21:03)
[2022-05-18] MEDS: Meropenem 1 GM in Sodium Chloride 0.9% 100 ML IVPB SCH ×3 (00:53→17:50)
[2022-05-18] MEDS: HYDROcodone/Acetaminophen 5/325 mg Tablet PO SCH ×6 (00:54→20:37)
[2022-05-18] MEDS: HYDROcodone/Acetaminophen 5/325 mg Tablet PO PRN ×3 (00:54→16:13)
[2022-05-18] MEDS: Aluminum & Magnesium Hydroxide 60 ML, diphenhydrAMINE 150 MG, Lidocaine 2% Viscous Solu... SSW SCH ×3 (00:55→22:15)
[2022-05-18 05:43] LABS: Anion Gap 12 mmol/L (10-20); BUN (Urea Nitrogen) 24 mg/dL (8.4-25.7); Calc. Creatinine Clearance 72 mL/min (70-130); Calcium 8.2 mg/dL (7.8-10.44); Carbon Dioxide 26 mmol/L (23-31); Chloride 105 mmol/L (98-107); Estimated GFR 94; Glucose 124 mg/dL (83-110); Potassium 4.7 mmol/L (3.5-5.1); Sodium 138 mmol/L (136-145)
[2022-05-18 06:43] LABS: Anisocytosis SLIGHT = 6-15 cells (100X) (0-5/hpf); Band 7 % (5-11); Hemoglobin 10.3 g/dL (14.0-18.0); Hypochromia SLIGHT = 6-15 cells (100X) (0-5/hpf); Lymphocytes 1 % (21-51); MDiff Complete? YES; Macrocytosis SLIGHT = 6-15 cells (100X) (0-5/hpf); Mean Corpuscular HGB CONC 30.4 g/dL (32.0-36.0); Mean Corpuscular Hemoglobin 30.3 pg (27.0-31.0); Mean Corpuscular Volume 99.8 fl (78.0-98.0); Mean Platelet Volume 8.1 fL (7.4-10.4); Monocytes 1 % (0-10); Neutrophil 91 % (42-75); Ovalocytes SLIGHT = 2-5 cells (100X) (0-1/hpf); Platelet Count 295 thou/uL (130-400); Platelet Morphology Comment Appears Adequate; Polychromasia SLIGHT = 2-3 cells (100X) (0-2/hpf); Stomatocytes SLIGHT = 2-5 cells (100X) (0-1/hpf); White Blood Cell (WBC) Count 49.8 thou/uL (4.8-10.8)
[2022-05-18] MEDS: Enoxaparin Sodium 60 MG/0.6 ML SYRINGE SC SCH ×2 (08:29→20:38)
[2022-05-18] MEDS: Midodrine HCl 5 MG TAB PO SCH ×3 (08:30→20:39)
[2022-05-18] MEDS: Aspirin 81 mg Enteric Coated Tablet PO SCH (08:30)
[2022-05-18] MEDS: Famotidine 20 MG TAB PO SCH ×2 (08:31→20:38)
[2022-05-18] MEDS: Folic Acid 1 MG TAB PO SCH (08:31)
[2022-05-18] MEDS: Fluconazole 100 MG TAB PO SCH (08:31)
[2022-05-18] MEDS: SODIUM CHLORIDE 0.9% IRR SCH (08:31)
[2022-05-18] MEDS: GENTAMICIN IRR SCH (08:31)
[2022-05-18] MEDS: Polyethylene Glycol 3350 17 GM Packet PO SCH (08:35)
[2022-05-18] MEDS: Senokot S 8.6-50 MG TAB PO SCH ×2 (08:35→20:39)
[2022-05-18 13:11] LABS: Hemoglobin 10.9 g/dL (14.0-18.0); Mean Corpuscular HGB CONC 30.5 g/dL (32.0-36.0); Mean Corpuscular Hemoglobin 30.7 pg (27.0-31.0); Mean Platelet Volume 8.4 fL (7.4-10.4); Platelet Count 325 thou/uL (130-400); RBC Distribution Width 15.1 % (11.5-14.5); Red Blood Cell (RBC) Count 3.56 mill/uL (4.70-6.10)
[2022-05-18 13:36] LABS: Anisocytosis SLIGHT = 6-15 cells (100X) (0-5/hpf); Band 12 % (5-11); Lymphocytes 6 % (21-51); MDiff Complete? YES; Macrocytosis SLIGHT = 6-15 cells (100X) (0-5/hpf); Monocytes 2 % (0-10); Neutrophil 80 % (42-75); Platelet Morphology Comment Appears Adequate; Polychromasia SLIGHT = 2-3 cells (100X) (0-2/hpf)
[2022-05-18 15:24] VITALS: BMI 19.1
[2022-05-18 16:46] LABS: Bilirubin Negative (Negative); Blood, Urine Trace (Negative); Clarity Clear (Clear); Glucose, Urine (Dipstick) Normal (Negative); Ketone, Urine Trace mg/dL (Negative); Leukocyte Negative Leu/uL (Negative); Nitrite Negative (Negative); Protein, Urine (Dipstick) 70 mg/dL (Neg-Trace); Specific Gravity, Urine 1.021 (1.002-1.036); Squamous Epithelial 0-3 HPF (0-3); Yeast-Budding 2+ HPF (None Seen)
[2022-05-18 16:59] LABS: Bacteria/HPF 1+ HPF (None Seen); Urine Culture Reflex Yes Yes
[2022-05-18] MEDS: Sodium Chloride 0.9% 1,000 ML IV SCH (17:43)
[2022-05-18] MEDS: Atorvastatin Calcium 40 MG TAB PO SCH (20:38)
[2022-05-18] MEDS: Mirtazapine 15 MG TAB PO SCH (20:39)
[2022-05-18] MEDS: Nicotine 14 MG PATCH TD SCH (20:39)
[2022-05-18] MEDS: Morphine 4 MG/ML VIAL SLOW IVP PRN (22:20)
[2022-05-19] MEDS: HYDROcodone/Acetaminophen 5/325 mg Tablet PO SCH ×7 (00:01→21:26)
[2022-05-19] MEDS: Meropenem 1 GM in Sodium Chloride 0.9% 100 ML IVPB SCH ×3 (02:39→17:08)
[2022-05-19] MEDS: HYDROcodone/Acetaminophen 5/325 mg Tablet PO PRN ×5 (04:31→21:28)
[2022-05-19] MEDS: Aluminum & Magnesium Hydroxide 60 ML, diphenhydrAMINE 150 MG, Lidocaine 2% Viscous Solu... SSW SCH ×2 (06:14→17:08)
[2022-05-19] MEDS: Sodium Chloride 0.9% 1,000 ML IV SCH (06:15)
[2022-05-19 06:21] LABS: Hemoglobin 9.8 g/dL (14.0-18.0); Mean Corpuscular HGB CONC 31.7 g/dL (32.0-36.0); Platelet Count 261 thou/uL (130-400); Red Blood Cell (RBC) Count 3.05 mill/uL (4.70-6.10); White Blood Cell (WBC) Count 46.2 thou/uL (4.8-10.8)
[2022-05-19 06:25] LABS: Anion Gap 9 mmol/L (10-20); BUN (Urea Nitrogen) 23 mg/dL (8.4-25.7); Calc. Creatinine Clearance 88 mL/min (70-130); Carbon Dioxide 27 mmol/L (23-31); Chloride 108 mmol/L (98-107); Potassium 3.9 mmol/L (3.5-5.1); Sodium 140 mmol/L (136-145)
[2022-05-19 06:26] LABS: Calcium 8.2 mg/dL (7.8-10.44); Estimated GFR 100; Glucose 115 mg/dL (83-110)
[2022-05-19 06:43] LABS: Band 34 % (5-11); Hypochromia SLIGHT = 6-15 cells (100X) (0-5/hpf); Lymphocytes 3 % (21-51); MDiff Complete? YES; Macrocytosis SLIGHT = 6-15 cells (100X) (0-5/hpf); Neutrophil 63 % (42-75); Platelet Morphology Comment Appears Adequate
[2022-05-19] MEDS: Famotidine 20 MG TAB PO SCH ×2 (08:59→21:30)
[2022-05-19] MEDS: Midodrine HCl 5 MG TAB PO SCH ×3 (08:59→21:29)
[2022-05-19] MEDS: Enoxaparin Sodium 60 MG/0.6 ML SYRINGE SC SCH ×2 (08:59→21:30)
[2022-05-19] MEDS: Aspirin 81 mg Enteric Coated Tablet PO SCH (09:00)
[2022-05-19] MEDS: Senokot S 8.6-50 MG TAB PO SCH ×2 (09:00→21:30)
[2022-05-19] MEDS: Folic Acid 1 MG TAB PO SCH (09:00)
[2022-05-19] MEDS: Fluconazole 100 MG TAB PO SCH (09:00)
[2022-05-19] MEDS: Polyethylene Glycol 3350 17 GM Packet PO SCH (09:01)
[2022-05-19] MEDS: Morphine 4 MG/ML VIAL SLOW IVP PRN (19:04)
[2022-05-19] MEDS: Atorvastatin Calcium 40 MG TAB PO SCH (21:29)
[2022-05-19] MEDS: Mirtazapine 15 MG TAB PO SCH (21:29)
[2022-05-19] MEDS: Nicotine 14 MG PATCH TD SCH (21:39)
[2022-05-20] MEDS ORDERED: Vancomycin 1.5 GRAM/300 ML BAG 1.5 GM in Premix Bag 1 BAG IVPB SCH (00:30)
[2022-05-20] MEDS: Aluminum & Magnesium Hydroxide 60 ML, diphenhydrAMINE 150 MG, Lidocaine 2% Viscous Solu... SSW SCH ×3 (00:53→13:21)
[2022-05-20] MEDS: HYDROcodone/Acetaminophen 5/325 mg Tablet PO SCH ×7 (00:53→23:10)
[2022-05-20] MEDS: Morphine 4 MG/ML VIAL SLOW IVP PRN ×3 (01:03→15:37)
[2022-05-20] MEDS: Meropenem 1 GM in Sodium Chloride 0.9% 100 ML IVPB SCH ×3 (03:28→17:47)
[2022-05-20 06:31] LABS: Hemoglobin 10.5 g/dL (14.0-18.0); Mean Corpuscular HGB CONC 31.2 g/dL (32.0-36.0); Mean Corpuscular Hemoglobin 31.9 pg (27.0-31.0); Mean Platelet Volume 8.4 fL (7.4-10.4); Platelet Count 256 thou/uL (130-400); RBC Distribution Width 15.1 % (11.5-14.5); Red Blood Cell (RBC) Count 3.28 mill/uL (4.70-6.10); White Blood Cell (WBC) Count 53.5 thou/uL (4.8-10.8)
[2022-05-20 06:47] LABS: Anion Gap 10 mmol/L (10-20); BUN (Urea Nitrogen) 21 mg/dL (8.4-25.7); Calc. Creatinine Clearance 81 mL/min (70-130); Calcium 8.1 mg/dL (7.8-10.44); Carbon Dioxide 26 mmol/L (23-31); Chloride 110 mmol/L (98-107); Estimated GFR 98; Glucose 123 mg/dL (83-110); Potassium 3.7 mmol/L (3.5-5.1); Sodium 142 mmol/L (136-145)
[2022-05-20 07:00] LABS: Band 31 % (5-11); Eosinophils 1 % (0-10); Lymphocytes 4 % (21-51); MDiff Complete? YES; Neutrophil 64 % (42-75); Platelet Morphology Comment Appears Adequate; Polychromasia SLIGHT = 2-3 cells (100X) (0-2/hpf)
[2022-05-20] MEDS: Senokot S 8.6-50 MG TAB PO SCH ×2 (09:06→21:43)
[2022-05-20] MEDS: Aspirin 81 mg Enteric Coated Tablet PO SCH (09:06)
[2022-05-20] MEDS: Fluconazole 100 MG TAB PO SCH (09:06)
[2022-05-20] MEDS: Midodrine HCl 5 MG TAB PO SCH ×3 (09:06→21:56)
[2022-05-20] MEDS: Famotidine 20 MG TAB PO SCH ×2 (09:06→21:43)
[2022-05-20] MEDS: Folic Acid 1 MG TAB PO SCH (09:07)
[2022-05-20] MEDS: HYDROcodone/Acetaminophen 5/325 mg Tablet PO PRN ×4 (09:07→21:43)
[2022-05-20] MEDS: Polyethylene Glycol 3350 17 GM Packet PO SCH (09:09)
[2022-05-20] MEDS: Enoxaparin Sodium 60 MG/0.6 ML SYRINGE SC SCH ×2 (09:09→21:45)
[2022-05-20] MEDS: Dronabinol 2.5 MG CAP PO SCH (15:32)
[2022-05-20] MEDS: Nicotine 14 MG PATCH TD SCH (21:42)
[2022-05-20] MEDS: Mirtazapine 15 MG TAB PO SCH (21:45)
[2022-05-20] MEDS: Atorvastatin Calcium 40 MG TAB PO SCH (21:45)
[2022-05-21] MEDS: Aluminum & Magnesium Hydroxide 60 ML, diphenhydrAMINE 150 MG, Lidocaine 2% Viscous Solu... SSW SCH ×4 (00:20→21:47)
[2022-05-21] MEDS: Vancomycin 1 GM in Premix Bag 1 BAG IVPB SCH (00:21)
[2022-05-21] MEDS: HYDROcodone/Acetaminophen 5/325 mg Tablet PO PRN ×2 (01:23→20:01)
[2022-05-21] MEDS: Meropenem 1 GM in Sodium Chloride 0.9% 100 ML IVPB SCH ×3 (01:26→19:54)
[2022-05-21] MEDS: HYDROcodone/Acetaminophen 5/325 mg Tablet PO SCH ×6 (02:11→23:30)
[2022-05-21 07:13] LABS: Hemoglobin 9.1 g/dL (14.0-18.0); Mean Corpuscular HGB CONC 29.6 g/dL (32.0-36.0); Mean Corpuscular Hemoglobin 29.9 pg (27.0-31.0); Mean Platelet Volume 8.4 fL (7.4-10.4); Platelet Count 258 thou/uL (130-400); RBC Distribution Width 15.3 % (11.5-14.5); Red Blood Cell (RBC) Count 3.05 mill/uL (4.70-6.10)
[2022-05-21 07:31] LABS: Anion Gap 13 mmol/L (10-20); BUN (Urea Nitrogen) 23 mg/dL (8.4-25.7); Calc. Creatinine Clearance 84 mL/min (70-130); Calcium 8.2 mg/dL (7.8-10.44); Carbon Dioxide 23 mmol/L (23-31); Chloride 109 mmol/L (98-107); Estimated GFR 98; Glucose 107 mg/dL (83-110); Potassium 4.3 mmol/L (3.5-5.1); Sodium 141 mmol/L (136-145)
[2022-05-21 08:02] LABS: Band 21 % (5-11); Eosinophils 2 % (0-10); Hypochromia SLIGHT = 6-15 cells (100X) (0-5/hpf); Lymphocytes 1 % (21-51); MDiff Complete? YES; Macrocytosis SLIGHT = 6-15 cells (100X) (0-5/hpf); Monocytes 1 % (0-10); Neutrophil 75 % (42-75); Ovalocytes SLIGHT = 2-5 cells (100X) (0-1/hpf); Platelet Morphology Comment Appears Adequate; Polychromasia SLIGHT = 2-3 cells (100X) (0-2/hpf); Stomatocytes SLIGHT = 2-5 cells (100X) (0-1/hpf)
[2022-05-21] MEDS: Dronabinol 2.5 MG CAP PO SCH ×2 (08:25→16:17)
[2022-05-21] MEDS: Midodrine HCl 5 MG TAB PO SCH ×3 (08:29→21:47)
[2022-05-21] MEDS: Senokot S 8.6-50 MG TAB PO SCH ×2 (08:29→21:49)
[2022-05-21] MEDS: Folic Acid 1 MG TAB PO SCH (08:30)
[2022-05-21] MEDS: Enoxaparin Sodium 60 MG/0.6 ML SYRINGE SC SCH ×2 (08:31→21:48)
[2022-05-21] MEDS: Polyethylene Glycol 3350 17 GM Packet PO SCH (08:31)
[2022-05-21] MEDS: Aspirin 81 mg Enteric Coated Tablet PO SCH (08:31)
[2022-05-21] MEDS: Famotidine 20 MG TAB PO SCH ×2 (08:31→21:49)
[2022-05-21] MEDS ORDERED: Iopamidol-370 76% 500 ML 1 ML ONE (14:22)
[2022-05-21] MEDS: Morphine 4 MG/ML VIAL SLOW IVP PRN (21:45)
[2022-05-21] MEDS: Atorvastatin Calcium 40 MG TAB PO SCH (21:49)
[2022-05-21] MEDS: Mirtazapine 15 MG TAB PO SCH (21:49)
[2022-05-22 01:01] LABS: Vancomycin, Trough 11.5 ug/mL
[2022-05-22] MEDS: VANCOMYCIN 1.25 GM/250 ML BAG 1.25 GM in Premix Bag 1 BAG IVPB SCH (01:42)
[2022-05-22] MEDS: Nicotine 14 MG PATCH TD SCH ×2 (01:44→20:58)
[2022-05-22] MEDS: Vancomycin 1 GM in Premix Bag 1 BAG IVPB SCH (02:31)
[2022-05-22] MEDS: Meropenem 1 GM in Sodium Chloride 0.9% 100 ML IVPB SCH ×3 (03:26→18:42)
[2022-05-22] MEDS: HYDROcodone/Acetaminophen 5/325 mg Tablet PO SCH ×6 (03:37→23:51)
[2022-05-22 06:46] LABS: Anion Gap 6 mmol/L (10-20); BUN (Urea Nitrogen) 21 mg/dL (8.4-25.7); Calc. Creatinine Clearance 91 mL/min (70-130); Carbon Dioxide 30 mmol/L (23-31); Chloride 108 mmol/L (98-107); Estimated GFR 101; Glucose 88 mg/dL (83-110); Potassium 3.7 mmol/L (3.5-5.1); Sodium 140 mmol/L (136-145)
[2022-05-22] MEDS: Aluminum & Magnesium Hydroxide 60 ML, diphenhydrAMINE 150 MG, Lidocaine 2% Viscous Solu... SSW SCH ×3 (07:08→21:54)
[2022-05-22 07:14] LABS: Hemoglobin 9.3 g/dL (14.0-18.0); Mean Corpuscular HGB CONC 30.4 g/dL (32.0-36.0); Mean Corpuscular Hemoglobin 31.1 pg (27.0-31.0); Mean Platelet Volume 8.5 fL (7.4-10.4); Platelet Count 257 thou/uL (130-400); RBC Distribution Width 15.5 % (11.5-14.5)
[2022-05-22] MEDS: Dronabinol 2.5 MG CAP PO SCH ×2 (08:10→15:42)
[2022-05-22] MEDS: Enoxaparin Sodium 60 MG/0.6 ML SYRINGE SC SCH ×2 (08:11→20:57)
[2022-05-22] MEDS: Folic Acid 1 MG TAB PO SCH (08:12)
[2022-05-22] MEDS: Famotidine 20 MG TAB PO SCH ×2 (08:12→20:57)
[2022-05-22] MEDS: Senokot S 8.6-50 MG TAB PO SCH ×2 (08:12→20:57)
[2022-05-22] MEDS: Polyethylene Glycol 3350 17 GM Packet PO SCH (08:12)
[2022-05-22] MEDS: Aspirin 81 mg Enteric Coated Tablet PO SCH (08:12)
[2022-05-22 08:32] LABS: Band 21 % (5-11); Eosinophils 4 % (0-10); Hypochromia SLIGHT = 6-15 cells (100X) (0-5/hpf); Lymphocytes 1 % (21-51); MDiff Complete? YES; Macrocytosis SLIGHT = 6-15 cells (100X) (0-5/hpf); Monocytes 2 % (0-10); Neutrophil 72 % (42-75); Platelet Morphology Comment Appears Adequate; Polychromasia SLIGHT = 2-3 cells (100X) (0-2/hpf)
[2022-05-22] MEDS: Midodrine HCl 5 MG TAB PO SCH ×3 (10:01→20:57)
[2022-05-22] MEDS: HYDROcodone/Acetaminophen 5/325 mg Tablet PO PRN ×3 (11:11→18:54)
[2022-05-22] MEDS: Mirtazapine 15 MG TAB PO SCH (20:57)
[2022-05-22] MEDS: Atorvastatin Calcium 40 MG TAB PO SCH (20:57)
[2022-05-23] MEDS: VANCOMYCIN 1.25 GM/250 ML BAG 1.25 GM in Premix Bag 1 BAG IVPB SCH (01:04)
[2022-05-23] MEDS: Meropenem 1 GM in Sodium Chloride 0.9% 100 ML IVPB SCH ×3 (02:56→17:17)
[2022-05-23] MEDS: HYDROcodone/Acetaminophen 5/325 mg Tablet PO SCH ×6 (03:08→23:45)
[2022-05-23] MEDS: Aluminum & Magnesium Hydroxide 60 ML, diphenhydrAMINE 150 MG, Lidocaine 2% Viscous Solu... SSW SCH ×3 (05:57→20:04)
[2022-05-23 07:33] LABS: Mean Corpuscular HGB CONC 29.5 g/dL (32.0-36.0); Mean Corpuscular Hemoglobin 30.3 pg (27.0-31.0); Mean Platelet Volume 8.5 fL (7.4-10.4); Platelet Count 264 thou/uL (130-400); RBC Distribution Width 15.5 % (11.5-14.5); White Blood Cell (WBC) Count 62.7 thou/uL (4.8-10.8)
[2022-05-23 07:37] LABS: Anion Gap 11 mmol/L (10-20); BUN (Urea Nitrogen) 22 mg/dL (8.4-25.7); Calc. Creatinine Clearance 91 mL/min (70-130); Calcium 8.1 mg/dL (7.8-10.44); Carbon Dioxide 25 mmol/L (23-31); Chloride 109 mmol/L (98-107); Estimated GFR 101; Glucose 102 mg/dL (83-110); Potassium 3.8 mmol/L (3.5-5.1); Sodium 141 mmol/L (136-145)
[2022-05-23 08:06] LABS: Band 23 % (5-11); Lymphocytes 3 % (21-51); MDiff Complete? YES; Monocytes 4 % (0-10); Neutrophil 70 % (42-75); Platelet Morphology Comment Appears Adequate; Polychromasia SLIGHT = 2-3 cells (100X) (0-2/hpf); Toxic Granulation SLIGHT; Vacuoles SLIGHT
[2022-05-23] MEDS: Famotidine 20 MG TAB PO SCH ×2 (08:09→20:03)
[2022-05-23] MEDS: Polyethylene Glycol 3350 17 GM Packet PO SCH ×2 (08:09→08:14)
[2022-05-23] MEDS: Enoxaparin Sodium 60 MG/0.6 ML SYRINGE SC SCH ×2 (08:09→20:03)
[2022-05-23] MEDS: Folic Acid 1 MG TAB PO SCH (08:09)
[2022-05-23] MEDS: Aspirin 81 mg Enteric Coated Tablet PO SCH (08:09)
[2022-05-23] MEDS: Midodrine HCl 5 MG TAB PO SCH ×3 (08:09→20:03)
[2022-05-23] MEDS: Senokot S 8.6-50 MG TAB PO SCH ×2 (08:10→20:03)
[2022-05-23] MEDS: Escitalopram Oxalate 10 mg Tablet PO SCH (08:10)
[2022-05-23] MEDS: Dronabinol 2.5 MG CAP PO SCH ×2 (09:08→16:19)
[2022-05-23] MEDS: Atorvastatin Calcium 40 MG TAB PO SCH (20:03)
[2022-05-23] MEDS: Mirtazapine 15 MG TAB PO SCH (20:03)
[2022-05-23] MEDS: Nicotine 14 MG PATCH TD SCH (20:04)
[2022-05-24] MEDS: Meropenem 1 GM in Sodium Chloride 0.9% 100 ML IVPB SCH ×3 (01:17→17:10)
[2022-05-24 01:37] LABS: Vancomycin, Trough 20.8 ug/mL
[2022-05-24] MEDS: VANCOMYCIN 1.25 GM/250 ML BAG 1.25 GM in Premix Bag 1 BAG IVPB SCH (02:51)
[2022-05-24] MEDS: HYDROcodone/Acetaminophen 5/325 mg Tablet PO SCH ×5 (04:11→21:19)
[2022-05-24] MEDS: Aluminum & Magnesium Hydroxide 60 ML, diphenhydrAMINE 150 MG, Lidocaine 2% Viscous Solu... SSW SCH ×3 (06:31→22:45)
[2022-05-24 06:51] LABS: Hemoglobin 9.4 g/dL (14.0-18.0); Mean Corpuscular HGB CONC 30.9 g/dL (32.0-36.0); Mean Corpuscular Hemoglobin 31.1 pg (27.0-31.0); Mean Platelet Volume 8.6 fL (7.4-10.4); Platelet Count 239 thou/uL (130-400); RBC Distribution Width 15.4 % (11.5-14.5); Red Blood Cell (RBC) Count 3.01 mill/uL (4.70-6.10); White Blood Cell (WBC) Count 57.3 thou/uL (4.8-10.8)
[2022-05-24 07:43] LABS: Band 13 % (5-11); Lymphocytes 6 % (21-51); MDiff Complete? YES; Neutrophil 81 % (42-75); Platelet Morphology Comment Appears Adequate; Polychromasia SLIGHT = 2-3 cells (100X) (0-2/hpf)
[2022-05-24] MEDS: Dronabinol 2.5 MG CAP PO SCH ×2 (08:50→17:04)
[2022-05-24] MEDS: Enoxaparin Sodium 60 MG/0.6 ML SYRINGE SC SCH ×2 (08:50→21:23)
[2022-05-24] MEDS: Polyethylene Glycol 3350 17 GM Packet PO SCH (08:50)
[2022-05-24] MEDS: Midodrine HCl 5 MG TAB PO SCH ×3 (08:51→21:22)
[2022-05-24] MEDS: Senokot S 8.6-50 MG TAB PO SCH ×2 (08:51→21:22)
[2022-05-24] MEDS: Aspirin 81 mg Enteric Coated Tablet PO SCH (08:51)
[2022-05-24] MEDS: Escitalopram Oxalate 10 mg Tablet PO SCH (08:52)
[2022-05-24] MEDS: Folic Acid 1 MG TAB PO SCH (08:52)
[2022-05-24] MEDS: Famotidine 20 MG TAB PO SCH ×2 (08:52→21:22)
[2022-05-24 09:40] LABS: Reticulocyte Count 2.5 % (0.5-1.5)
[2022-05-24 09:56] LABS: Platelet Count 272 thou/uL (130-400)
[2022-05-24 09:57] LABS: Fibrinogen 388 mg/dL (253-463)
[2022-05-24 09:58] LABS: D-Dimer Test 2.87 *mcg/mL (0.27-0.43); Prothrombin Time 13.6 sec (12.0-14.7)
[2022-05-24] MEDS: Atorvastatin Calcium 40 MG TAB PO SCH (21:22)
[2022-05-24] MEDS: Mirtazapine 15 MG TAB PO SCH (21:22)
[2022-05-24] MEDS: Nicotine 14 MG PATCH TD SCH (22:45)
[2022-05-25] MEDS: Meropenem 1 GM in Sodium Chloride 0.9% 100 ML IVPB SCH ×3 (01:45→18:01)
[2022-05-25] MEDS: HYDROcodone/Acetaminophen 5/325 mg Tablet PO SCH ×6 (01:48→20:10)
[2022-05-25] MEDS: VANCOMYCIN 1.25 GM/250 ML BAG 1.25 GM in Premix Bag 1 BAG IVPB SCH (04:20)
[2022-05-25] MEDS: Aluminum & Magnesium Hydroxide 60 ML, diphenhydrAMINE 150 MG, Lidocaine 2% Viscous Solu... SSW SCH ×3 (05:45→23:22)
[2022-05-25 06:41] LABS: MDiff Complete? YES; Mean Corpuscular HGB CONC 30.6 g/dL (32.0-36.0); Mean Platelet Volume 7.9 fL (7.4-10.4); Platelet Count 229 thou/uL (130-400); RBC Distribution Width 15.4 % (11.5-14.5); Red Blood Cell (RBC) Count 2.91 mill/uL (4.70-6.10); White Blood Cell (WBC) Count 48.4 thou/uL (4.8-10.8)
[2022-05-25 06:42] LABS: Band 3 % (5-11); Lymphocytes 1 % (21-51); Monocytes 1 % (0-10); Neutrophil 95 % (42-75)
[2022-05-25] MEDS: Midodrine HCl 5 MG TAB PO SCH ×3 (09:35→20:12)
[2022-05-25] MEDS: Aspirin 81 mg Enteric Coated Tablet PO SCH (09:35)
[2022-05-25] MEDS: Famotidine 20 MG TAB PO SCH ×2 (09:36→20:13)
[2022-05-25] MEDS: Senokot S 8.6-50 MG TAB PO SCH (09:36)
[2022-05-25] MEDS: Folic Acid 1 MG TAB PO SCH (09:36)
[2022-05-25] MEDS: Escitalopram Oxalate 10 mg Tablet PO SCH (09:36)
[2022-05-25] MEDS: Dronabinol 2.5 MG CAP PO SCH ×2 (09:36→18:01)
[2022-05-25] MEDS: Enoxaparin Sodium 60 MG/0.6 ML SYRINGE SC SCH ×2 (09:37→20:12)
[2022-05-25] MEDS: Polyethylene Glycol 3350 17 GM Packet PO SCH (09:37)
[2022-05-25] MEDS: Atorvastatin Calcium 40 MG TAB PO SCH (20:13)
[2022-05-25] MEDS: Mirtazapine 15 MG TAB PO SCH (20:13)
[2022-05-25] MEDS: Nicotine 14 MG PATCH TD SCH (20:21)
[2022-05-26] MEDS: Meropenem 1 GM in Sodium Chloride 0.9% 100 ML IVPB SCH ×3 (02:06→17:36)
[2022-05-26] MEDS: Vancomycin 1 GM in Premix Bag 1 BAG IVPB SCH (02:07)
[2022-05-26] MEDS: HYDROcodone/Acetaminophen 5/325 mg Tablet PO SCH ×8 (02:17→20:10)
[2022-05-26] MEDS: Aluminum & Magnesium Hydroxide 60 ML, diphenhydrAMINE 150 MG, Lidocaine 2% Viscous Solu... SSW SCH ×3 (05:54→23:18)
[2022-05-26 07:40] LABS: Hemoglobin 10.5 g/dL (14.0-18.0); Mean Corpuscular HGB CONC 30.8 g/dL (32.0-36.0); Mean Corpuscular Hemoglobin 31.3 pg (27.0-31.0); Mean Platelet Volume 8.3 fL (7.4-10.4); Platelet Count 223 thou/uL (130-400); RBC Distribution Width 15.9 % (11.5-14.5); Red Blood Cell (RBC) Count 3.35 mill/uL (4.70-6.10); White Blood Cell (WBC) Count 59.9 thou/uL (4.8-10.8)
[2022-05-26 07:54] LABS: Anion Gap 11 mmol/L (10-20); BUN (Urea Nitrogen) 21 mg/dL (8.4-25.7); Calc. Creatinine Clearance 85 mL/min (70-130); Calcium 8.1 mg/dL (7.8-10.44); Carbon Dioxide 25 mmol/L (23-31); Chloride 111 mmol/L (98-107); Estimated GFR 99; Glucose 107 mg/dL (83-110); Potassium 3.4 mmol/L (3.5-5.1); Sodium 144 mmol/L (136-145)
[2022-05-26] MEDS: Dronabinol 2.5 MG CAP PO SCH ×2 (09:02→17:36)
[2022-05-26] MEDS: Enoxaparin Sodium 60 MG/0.6 ML SYRINGE SC SCH ×2 (09:06→23:18)
[2022-05-26] MEDS: Midodrine HCl 5 MG TAB PO SCH ×3 (09:06→23:18)
[2022-05-26] MEDS: Aspirin 81 mg Enteric Coated Tablet PO SCH (09:07)
[2022-05-26] MEDS: Folic Acid 1 MG TAB PO SCH (09:07)
[2022-05-26] MEDS: Escitalopram Oxalate 10 mg Tablet PO SCH (09:07)
[2022-05-26] MEDS: Famotidine 20 MG TAB PO SCH ×2 (09:07→23:18)
[2022-05-26] MEDS: Polyethylene Glycol 3350 17 GM Packet PO SCH (09:08)
[2022-05-26] MEDS ORDERED: Potassium Bicarbonate/Cit Ac 20 MEQ TAB PO SCH (15:15)
[2022-05-26] MEDS: Mirtazapine 15 MG TAB PO SCH (23:18)
[2022-05-26] MEDS: Atorvastatin Calcium 40 MG TAB PO SCH (23:18)
[2022-05-26] MEDS: Nicotine 14 MG PATCH TD SCH (23:18)
[2022-05-27] MEDS: HYDROcodone/Acetaminophen 5/325 mg Tablet PO SCH ×6 (00:17→21:01)
[2022-05-27] MEDS: Vancomycin 1 GM in Premix Bag 1 BAG IVPB SCH (01:45)
[2022-05-27] MEDS: Meropenem 1 GM in Sodium Chloride 0.9% 100 ML IVPB SCH ×3 (01:54→18:25)
[2022-05-27] MEDS: Aluminum & Magnesium Hydroxide 60 ML, diphenhydrAMINE 150 MG, Lidocaine 2% Viscous Solu... SSW SCH ×2 (06:23→15:01)
[2022-05-27] MEDS: Dronabinol 2.5 MG CAP PO SCH ×2 (09:38→16:47)
[2022-05-27] MEDS: Folic Acid 1 MG TAB PO SCH (09:39)
[2022-05-27] MEDS: Midodrine HCl 5 MG TAB PO SCH ×3 (09:39→21:02)
[2022-05-27] MEDS: Escitalopram Oxalate 10 mg Tablet PO SCH (09:39)
[2022-05-27] MEDS: Aspirin 81 mg Enteric Coated Tablet PO SCH (09:40)
[2022-05-27] MEDS: Famotidine 20 MG TAB PO SCH ×2 (09:40→21:02)
[2022-05-27] MEDS: Enoxaparin Sodium 60 MG/0.6 ML SYRINGE SC SCH ×2 (09:40→21:01)
[2022-05-27] MEDS: Polyethylene Glycol 3350 17 GM Packet PO SCH (09:40)
[2022-05-27] MEDS: Atorvastatin Calcium 40 MG TAB PO SCH (21:01)
[2022-05-27] MEDS: Mirtazapine 15 MG TAB PO SCH (21:02)
[2022-05-27] MEDS: Cyclobenzaprine 10 MG TAB PO PRN (21:02)
[2022-05-27] MEDS: Benzonatate 100 MG CAP PO PRN (21:02)
[2022-05-27] MEDS: Nicotine 14 MG PATCH TD SCH (21:03)
[2022-05-28] MEDS: Aluminum & Magnesium Hydroxide 60 ML, diphenhydrAMINE 150 MG, Lidocaine 2% Viscous Solu... SSW SCH ×4 (00:54→22:16)
[2022-05-28] MEDS: HYDROcodone/Acetaminophen 5/325 mg Tablet PO SCH ×7 (00:55→23:30)
[2022-05-28] MEDS: Vancomycin 1 GM in Premix Bag 1 BAG IVPB SCH (01:01)
[2022-05-28] MEDS: Meropenem 1 GM in Sodium Chloride 0.9% 100 ML IVPB SCH ×3 (01:02→17:54)
[2022-05-28 01:53] LABS: Vancomycin, Trough 34.7 ug/mL
[2022-05-28] MEDS: Polyethylene Glycol 3350 17 GM Packet PO SCH (08:06)
[2022-05-28 08:59] LABS: Mean Corpuscular HGB CONC 30.7 g/dL (32.0-36.0); Mean Platelet Volume 8.3 fL (7.4-10.4); Platelet Count 189 thou/uL (130-400); RBC Distribution Width 16.2 % (11.5-14.5); Red Blood Cell (RBC) Count 2.57 mill/uL (4.70-6.10); White Blood Cell (WBC) Count 49.2 thou/uL (4.8-10.8)
[2022-05-28 09:08] LABS: Anion Gap 10 mmol/L (10-20); BUN (Urea Nitrogen) 23 mg/dL (8.4-25.7); Calc. Creatinine Clearance 89 mL/min (70-130); Calcium 8.1 mg/dL (7.8-10.44); Carbon Dioxide 28 mmol/L (23-31); Chloride 112 mmol/L (98-107); Estimated GFR 100; Glucose 113 mg/dL (83-110); Potassium 3.5 mmol/L (3.5-5.1); Sodium 146 mmol/L (136-145)
[2022-05-28] MEDS ORDERED: Potassium Chloride 20 MEQ TAB PO SCH (09:15)
[2022-05-28] MEDS: Dronabinol 2.5 MG CAP PO SCH ×2 (09:57→17:40)
[2022-05-28] MEDS: Enoxaparin Sodium 60 MG/0.6 ML SYRINGE SC SCH ×2 (10:00→20:57)
[2022-05-28] MEDS: Aspirin 81 mg Enteric Coated Tablet PO SCH (10:01)
[2022-05-28] MEDS: Midodrine HCl 5 MG TAB PO SCH ×3 (10:01→20:58)
[2022-05-28] MEDS: Famotidine 20 MG TAB PO SCH ×2 (10:03→20:58)
[2022-05-28] MEDS: Escitalopram Oxalate 10 mg Tablet PO SCH (10:03)
[2022-05-28] MEDS: Folic Acid 1 MG TAB PO SCH (10:03)
[2022-05-28] MEDS: Mirtazapine 15 MG TAB PO SCH (20:58)
[2022-05-28] MEDS: Atorvastatin Calcium 40 MG TAB PO SCH (20:59)
[2022-05-28] MEDS: HYDROcodone/Acetaminophen 5/325 mg Tablet PO PRN (21:02)
[2022-05-28] MEDS: Nicotine 14 MG PATCH TD SCH (21:03)
[2022-05-29] MEDS: Meropenem 1 GM in Sodium Chloride 0.9% 100 ML IVPB SCH ×3 (01:27→17:43)
[2022-05-29 02:06] LABS: Vancomycin, Trough 17.2 ug/mL
[2022-05-29] MEDS: Vancomycin 1 GM in Premix Bag 1 BAG IVPB SCH (02:34)
[2022-05-29] MEDS: Aluminum & Magnesium Hydroxide 60 ML, diphenhydrAMINE 150 MG, Lidocaine 2% Viscous Solu... SSW SCH ×3 (05:05→21:17)
[2022-05-29] MEDS: HYDROcodone/Acetaminophen 5/325 mg Tablet PO PRN (05:10)
[2022-05-29 06:28] LABS: Hemoglobin 7.7 g/dL (14.0-18.0)
[2022-05-29] MEDS ORDERED: Midazolam HCl 2 mg/2 ml Vial ONE (07:38)
[2022-05-29] MEDS ORDERED: Lidocaine 2% PF 5 ML VIAL ONE (07:38)
[2022-05-29] MEDS ORDERED: Sodium Bicarbonate 2.5 MEQ/5 ML VIAL ONE (07:38)
[2022-05-29] MEDS ORDERED: FENTANYL 50 MCG/ML 1 ML VIAL ONE (07:38)
[2022-05-29] MEDS: Dronabinol 2.5 MG CAP PO SCH ×2 (10:11→15:36)
[2022-05-29] MEDS: Aspirin 81 mg Enteric Coated Tablet PO SCH (10:17)
[2022-05-29] MEDS: Midodrine HCl 5 MG TAB PO SCH ×3 (10:17→21:16)
[2022-05-29] MEDS: Folic Acid 1 MG TAB PO SCH (10:17)
[2022-05-29] MEDS: Famotidine 20 MG TAB PO SCH ×2 (10:17→21:16)
[2022-05-29] MEDS: Escitalopram Oxalate 10 mg Tablet PO SCH (10:17)
[2022-05-29] MEDS: Enoxaparin Sodium 60 MG/0.6 ML SYRINGE SC SCH (10:17)
[2022-05-29] MEDS: Polyethylene Glycol 3350 17 GM Packet PO SCH (10:18)
[2022-05-29] MEDS: Dextrose 5% in Water 1,000 ML IV SCH (15:36)
[2022-05-29 15:46] LABS: Hemoglobin 7.8 g/dL (14.0-18.0)
[2022-05-29] MEDS: Atorvastatin Calcium 40 MG TAB PO SCH (21:16)
[2022-05-29] MEDS: Nicotine 14 MG PATCH TD SCH (21:16)
[2022-05-29] MEDS: Mirtazapine 15 MG TAB PO SCH (21:16)
[2022-05-30] MEDS: Meropenem 1 GM in Sodium Chloride 0.9% 100 ML IVPB SCH ×3 (01:00→17:37)
[2022-05-30] MEDS: Vancomycin 1 GM in Premix Bag 1 BAG IVPB SCH (03:00)
[2022-05-30] MEDS: Aluminum & Magnesium Hydroxide 60 ML, diphenhydrAMINE 150 MG, Lidocaine 2% Viscous Solu... SSW SCH ×3 (06:20→22:09)
[2022-05-30] MEDS: Dextrose 5% in Water 1,000 ML IV SCH ×2 (06:29→14:42)
[2022-05-30 07:13] LABS: Hemoglobin 7.6 g/dL (14.0-18.0); Mean Corpuscular HGB CONC 31.2 g/dL (32.0-36.0); Mean Corpuscular Hemoglobin 31.5 pg (27.0-31.0); Mean Platelet Volume 9.1 fL (7.4-10.4); Platelet Count 184 10x3/uL (130-400)
[2022-05-30 07:14] LABS: Anion Gap 11 mmol/L (10-20); BUN (Urea Nitrogen) 18 mg/dL (8.4-25.7); Calc. Creatinine Clearance 97 mL/min (70-130); Calcium 8.3 mg/dL (7.8-10.44); Carbon Dioxide 28 mmol/L (23-31); Chloride 107 mmol/L (98-107); Estimated GFR 103; Glucose 108 mg/dL (83-110); Potassium 3.3 mmol/L (3.5-5.1); Sodium 143 mmol/L (136-145)
[2022-05-30] MEDS: Famotidine 20 MG TAB PO SCH ×2 (10:49→21:56)
[2022-05-30] MEDS: HYDROcodone/Acetaminophen 5/325 mg Tablet PO PRN ×2 (10:49→22:03)
[2022-05-30] MEDS: Escitalopram Oxalate 10 mg Tablet PO SCH (10:49)
[2022-05-30] MEDS: Dronabinol 2.5 MG CAP PO SCH ×2 (10:50→17:36)
[2022-05-30] MEDS: Folic Acid 1 MG TAB PO SCH (10:50)
[2022-05-30] MEDS: Midodrine HCl 5 MG TAB PO SCH ×3 (10:50→21:56)
[2022-05-30] MEDS: Aspirin 81 mg Enteric Coated Tablet PO SCH (10:50)
[2022-05-30] MEDS: Polyethylene Glycol 3350 17 GM Packet PO SCH (11:10)
[2022-05-30 21:13] VITALS: TEMP 97.4
[2022-05-30] MEDS: Atorvastatin Calcium 40 MG TAB PO SCH (21:56)
[2022-05-30] MEDS: Mirtazapine 15 MG TAB PO SCH (21:56)
[2022-05-30] MEDS: Nicotine 14 MG PATCH TD SCH (21:56)
[2022-05-30] MEDS: Enoxaparin Sodium 60 MG/0.6 ML SYRINGE SC SCH (22:08)
[2022-05-31 01:31] LABS: Vancomycin, Trough 18.4 ug/mL
[2022-05-31] MEDS: Meropenem 1 GM in Sodium Chloride 0.9% 100 ML IVPB SCH ×2 (02:40→09:21)
[2022-05-31] MEDS: Aluminum & Magnesium Hydroxide 60 ML, diphenhydrAMINE 150 MG, Lidocaine 2% Viscous Solu... SSW SCH (05:57)
[2022-05-31] MEDS: Dextrose 5% in Water 1,000 ML IV SCH ×2 (06:29→09:23)
[2022-05-31 09:02] VITALS: BP 116/81
[2022-05-31] MEDS: HYDROcodone/Acetaminophen 5/325 mg Tablet PO PRN (09:20)
[2022-05-31] MEDS: Aspirin 81 mg Enteric Coated Tablet PO SCH (09:20)
[2022-05-31] MEDS: Midodrine HCl 5 MG TAB PO SCH ×2 (09:21→15:55)
[2022-05-31] MEDS: Dronabinol 2.5 MG CAP PO SCH (09:21)
[2022-05-31] MEDS: Folic Acid 1 MG TAB PO SCH (09:21)
[2022-05-31] MEDS: Escitalopram Oxalate 10 mg Tablet PO SCH (09:21)
[2022-05-31] MEDS: Polyethylene Glycol 3350 17 GM Packet PO SCH (09:22)
[2022-05-31] MEDS: Enoxaparin Sodium 60 MG/0.6 ML SYRINGE SC SCH (09:22)
[2022-05-31] MEDS: Famotidine 20 MG TAB PO SCH (09:22)
[2022-05-31] MEDS ORDERED: Amoxicillin/Potassium Clav 875 MG TAB PO SCH (21:00)
[2022-06-18 15:37] LABS: Reference Lab Name NEOGENOMICS
[2022-06-18 15:38] LABS: Ref Lab Test Ordered COMPASS BM EVALUATIO
== END 2022-05-31 16:21 | disposition swing bed (61) | DRG 856 ==
LOC: ERS 16:51 → 2NO 18:38 → CCU 04-25 12:01 → T4-B 04-28 12:31
PROVIDERS: ADMIT Internal Medicine; ATTEND Internal Medicine
PROC: 3E03329 Introduction of Other Anti-infective into Peripheral Vein, Percutaneous Approach (ICD-10-PCS; 2022-04-24)
PROC: 3E04329 Introduction of Other Anti-infective into Central Vein, Percutaneous Approach (ICD-10-PCS; 2022-04-24)
PROC: 3E033XZ Introduction of Vasopressor into Peripheral Vein, Percutaneous Approach (ICD-10-PCS; 2022-04-25)
PROC: 0W9J30Z Drainage of Pelvic Cavity with Drainage Device, Percutaneous Approach (ICD-10-PCS; 2022-04-27)
PROC: 0W9J30Z Drainage of Pelvic Cavity with Drainage Device, Percutaneous Approach (ICD-10-PCS; 2022-05-07)
PROC: 0W9J0ZZ Drainage of Pelvic Cavity, Open Approach (ICD-10-PCS; principal; 2022-05-16)
PROC: 07DR3ZX Extraction of Iliac Bone Marrow, Percutaneous Approach, Diagnostic (ICD-10-PCS; 2022-05-29)
PROC: 079T3ZX Drainage of Bone Marrow, Percutaneous Approach, Diagnostic (ICD-10-PCS; 2022-05-29)
DX: T81.43XA Infection following a procedure, organ and space surgical site, initial encounter (principal); A41.9 Sepsis, unspecified organism; T81.44XA Sepsis following a procedure, initial encounter; Z20.822 Contact with and (suspected) exposure to COVID-19; E43 Unspecified severe protein-calorie malnutrition; K65.1 Peritoneal abscess; R65.21 Severe sepsis with septic shock; N13.6 Pyonephrosis; B37.49 Other urogenital candidiasis; Z68.1 Body mass index [BMI] 19.9 or less, adult; I82.413 Acute embolism and thrombosis of femoral vein, bilateral; R04.2 Hemoptysis; I82.432 Acute embolism and thrombosis of left popliteal vein; E87.0 Hyperosmolality and hypernatremia; R64 Cachexia; R18.8 Other ascites; I89.8 Other specified noninfective disorders of lymphatic vessels and lymph nodes; F17.210 Nicotine dependence, cigarettes, uncomplicated; D63.8 Anemia in other chronic diseases classified elsewhere; J43.2 Centrilobular emphysema; F32.A Depression, unspecified; Z60.2 Problems related to living alone; J84.89 Other specified interstitial pulmonary diseases; K56.41 Fecal impaction; I25.10 Atherosclerotic heart disease of native coronary artery without angina pectoris; Z88.1 Allergy status to other antibiotic agents; Z88.2 Allergy status to sulfonamides; Z85.46 Personal history of malignant neoplasm of prostate; Z85.51 Personal history of malignant neoplasm of bladder; Z92.21 Personal history of antineoplastic chemotherapy; Z90.79 Acquired absence of other genital organ(s); Z90.6 Acquired absence of other parts of urinary tract; Z79.899 Other long term (current) drug therapy; Z85.810 Personal history of malignant neoplasm of tongue; Z98.890 Other specified postprocedural states; Z82.49 Family history of ischemic heart disease and other diseases of the circulatory system
CPT/HCPCS: 36415; 38222; 49020; 49423; 71045; 71260; 72192; 74018; 74176; 74177; 76857; 77002; 80048; 80053; 80202; 80400; 81001; 81003; 81015; 82533; 83010; 83605; 83615; 83690; 83735; 83880; 84100; 84145; 84443; 84484; 84550; 85014; 85018; 85025; 85027; 85046; 85049; 85060; 85097; 85300; 85362; 85379; 85384; 85610; 85652; 85730; 86140; 87040; 87070; 87077; 87086; 87186; 87205; 87811; 88184; 88185; 88237; 88264; 88280; 88305; 88311; 88313; 88341; 88342; 88365; 89051; 93005; 93010; 93970; 96361; 96365; 96367; 97139; C1729; C1776; C1889; J0692; J0834; J1100; J1450; J1580; J1650; J2001; J2185; J2250; J2270; J2405; J2543; J3010; J3370; J3475; J3490; J7050; J7070; J7620; Q0163; Q0167; Q9967